=== PATIENT | male | born 1985 | race Caucasian/White ===

== ENCOUNTER 2020-01-08 22:00 | Emergency (ER) | payer SELFPAY ==
[2020-01-08] MEDS ORDERED: ALBUTEROL 2.5 MG/3 ML NEB SOL ONE (22:55)
[2020-01-08] MEDS ORDERED: IPRATROPIUM BROM 0.5MG/2.5ML ONE (22:55)
[2020-01-08] MEDS ORDERED: HYDROCODONE/CHLORPHEN 5 ML/OSYR ONE (23:14)
[2020-01-08] MEDS ORDERED: METHYLPREDNISOLONE 125 MG INJ ONE (23:14)
[2020-01-08 23:28] LABS: Absolute Lymphocytes (CBC) 2.2 K/uL (0.7-4.9); Basophils % 0.9 % (0-1.3); Hematocrit 45.2 % (39.6-49.0); Lymphocytes % 17.8 % (15.3-44.8); MPV 8.7 fL (7.6-11.3); RBC Red Blood Cell Count 5.08 M/uL (4.33-5.43)
[2020-01-08 23:30] LABS: Protime INR 1.04
[2020-01-08 23:40] LABS: ALT/SGPT 37 U/L (12-78); AST/SGOT 12 U/L (15-37); Albumin 3.2 g/dL (3.4-5.0); Alkaline Phosphatase 110 U/L (45-117); BUN Blood Urea Nitrogen 13 mg/dL (7-18); Bicarbonate 26 mmol/L (21-32); Bilirubin Direct < 0.1 mg/dL (0-0.2); Bilirubin Total 0.1 mg/dL (0.2-1.0); Glucose Level 106 mg/dL (74-106); Magnesium 2.2 mg/dL (1.8-2.4); NT PRO-BNP 15 pg/mL (<125); Potassium 3.7 mmol/L (3.5-5.1); Protein, Total 7.7 g/dL (6.4-8.2); Sodium Level 142 mmol/L (136-145); Troponin (Emerg Dept Use Only) < 0.02 ng/mL (0.0-0.045)
[2020-01-09] MEDS ORDERED: NA CHLORIDE 0.9% 1,000 ML ONE (00:24)
[2020-01-09] MEDS ORDERED: BENZONATATE 100 MG CAP PO ONE (02:51)
[2020-01-09] MEDS ORDERED: LEVALBUTEROL 1.25 MG/3 ML NEB ONE (02:59)
--- NOTE | 2020-01-09 03:00 | EDPHYS ---
Physician Documentation [facility] Name: Kendall Kapoor Age: 34 yrs Sex: Male : 1985 Arrival Date: 01/08/2020 Time: 22:03 Bed 7 Private MD: ED Physician Johan Hernandez HPI: 01/07 22:50 This 34 yrs old Male presents to ER via Ambulatory with complaints of cp Shortness Of Breath, Cough, Fever. 22:50 The patient has shortness of breath at rest. Onset: The symptoms/episode began/occurred cp 1.5 week(s) ago. 22:50 Duration: The symptoms are continuous, and are steadily getting worse. cp 22:50 The patient's shortness of breath is aggravated by light activity. Associated signs and cp symptoms: Pertinent positives: chest pain, productive cough, fever, Pertinent negatives: hemoptysis, vomiting. Severity of symptoms: in the emergency department the symptoms are unchanged despite home interventions. Patient reports he does travel for work throughout the country but has not traveled outside of the country. Recently saw a physician via telemedicine who prescribed Tamiflu but symptoms have continued. 22:53 The patient has been recently seen by a physician: in [place] ED, yesterday, with cp similar presenting complaints, left due to difficulty drawing blood. Historical: - Allergies: 22:24 Bees; bb - Home Meds: 22:24 Unable to obtain [Active]; bb - PMHx: 22:24 TIA; enlarged heart; CAD; bb - PSHx: 22:24 rotator cuff; Appendectomy; hemmorrhoidectomy; heart cath; Heart stents; bb - Immunization history:: Adult Immunizations up to date, Flu vaccine is not up to date. - Social history:: Smoking status: Patient reports the use of cigarette tobacco products, denies chronic smoking, but will smoke occasionally. ROS: 22:55 Constitutional: Positive for chills, Negative for fever, poor PO intake. cp 22:55 Eyes: Negative for injury, pain, redness, and discharge. cp 22:55 Neck: Negative for pain with movement, pain at rest, stiffness. cp 22:55 Cardiovascular: Positive for chest pain, with cough, Negative for edema, palpitations. 22:55 Respiratory: Positive for cough, "sounds productive", shortness of breath, Negative for hemoptysis. 22:55 Abdomen/GI: Negative for abdominal pain, nausea, vomiting, and diarrhea, constipation. 22:55 Skin: Negative for erythema, rash. Exam: 23:00 Constitutional: The patient appears in no acute distress, alert, awake, cp non-diaphoretic, non-toxic, well developed, well nourished, obese. 23:00 Head/Face: Normocephalic, atraumatic. Eyes: Pupils equal round and reactive to light, cp extra-ocular motions intact. Lids and lashes normal. Conjunctiva and sclera are non-icteric and not injected. Cornea within normal limits. Periorbital areas with no swelling, redness, or edema. ENT: Nares patent. No nasal discharge, no septal abnormalities noted. Tympanic membranes are normal and external auditory canals are clear. Oropharynx with no redness, swelling, or masses, exudates, or evidence of obstruction, uvula midline. Mucous membranes moist. Neck: Trachea midline, no thyromegaly or masses palpated, and no cervical lymphadenopathy. Supple, full range of motion without nuchal rigidity, or vertebral point tenderness. No Meningismus. Chest/axilla: Normal chest wall appearance and motion. Nontender with no deformity. No lesions are appreciated. 23:00 Cardiovascular: Rate: tachycardic, Rhythm: regular, Heart sounds: murmur, not appreciated, Edema: is not appreciated, JVD: is not appreciated. 23:00 Respiratory: the patient does not display signs of respiratory distress, Respirations: labored breathing, is not present, intercostal retractions, are absent, shallow respirations, are not present, Breath sounds: bronchial sounds, that are moderate, are heard diffusely, decreased breath sounds, are not appreciated, stridor, is not appreciated, + upper airway congestion. wheezing: is not appreciated. 23:00 Abdomen/GI: Inspection: abdomen appears normal, Palpation: abdomen is soft and non-tender, in all quadrants, voluntary guarding, is not appreciated, involuntary guarding, is not appreciated. 23:00 Back: pain, is absent, ROM is normal. 23:00 Skin: no rash present. 23:00 Neuro: Orientation: to person, place \\T\\ time. Mentation: is normal, Cerebellar function: is grossly normal, Motor: moves all fours, strength is normal, Sensation: is normal. 23:20 ECG was reviewed by the Attending Physician. Vital Signs: 22:15 BP 131 / 81; Pulse 112; Resp 20 S; Temp 98.7(O); Pulse Ox 95% on R/A; Weight 127.01 kg bb (R); Height 5 ft. 7 in. (170.18 cm) (R); Pain 4/10; 23:19 BP 130 / 75; Pulse 103; Resp 26; Pulse Ox 90% ; ah 01/08 00:15 BP 125 / 70; Pulse 102; Resp 22; Pulse Ox 92% ; ah 01/07 22:15 Body Mass Index 43.86 (127.01 kg, 170.18 cm) bb MDM: 01/07 22:24 Patient medically screened. [facility] 23:00 Differential diagnosis: asthma, Bronchitis CHF exacerbation, Chronic Obstructive cp Pulmonary Disease pneumonia, Pneumothorax pulmonary edema, Pulmonary Embolism reactive airway disease, Unstable Angina. 01/08 02:52 Data reviewed: vital signs, nurses notes, lab test result(s), EKG, radiologic studies, cp CT scan. Test interpretation: by ED physician or midlevel provider: ECG. 02:52 Antibiotic administration: The patient is discharged and will get outpatient antibiotics, Zithromax. 02:52 Counseling: I had a detailed discussion with the patient and/or guardian regarding: the cp historical points, exam findings, and any diagnostic results supporting the discharge/admit diagnosis, lab results, radiology results, the need for outpatient follow up, a pipe testing technician, to return to the emergency department if symptoms worsen or persist or if there are any questions or concerns that arise at home. Response to treatment: the patient's symptoms have mildly improved after treatment, and as a result, I will discharge patient. 01/07 22:41 Order name: Basic Metabolic Panel; Complete Time: 00:01 cp 01/07 22:41 Order name: CBC with Diff; Complete Time: 00:01 cp 01/07 22:41 Order name: LFT's; Complete Time: 00:01 cp 01/07 22:41 Order name: Magnesium; Complete Time: 00:01 cp 01/07 22:41 Order name: NT PRO-BNP; Complete Time: 00:01 cp 01/07 22:41 Order name: PT-INR; Complete Time: 00:01 cp 01/07 22:41 Order name: Troponin (emerg Dept Use Only); Complete Time: 00:01 cp 01/07 22:41 Order name: Influenza Screen (a \\T\\ B); Complete Time: 00:01 cp 01/07 22:41 Order name: Strep; Complete Time: 00:01 cp 01/07 22:41 Order name: D-Dimer; Complete Time: 00:01 cp 01/08 00:01 Order name: CT Chest For PE Angio cp 01/07 22:41 Order name: EKG; Complete Time: 22:43 cp 01/07 22:41 Order name: Cardiac monitoring; Complete Time: 23:26 cp 01/07 22:41 Order name: EKG - Nurse/Tech; Complete Time: 23:26 cp 01/07 22:41 Order name: IV Saline Lock; Complete Time: 23: cp 01/07 22:41 Order name: Labs collected and sent; Complete Time: 23: cp 01/07 22:41 Order name: O2 Per Protocol; Complete Time: 23: cp 01/07 22:41 Order name: O2 Sat Monitoring; Complete Time: 23:26 cp EC/11 23:20 Rate is 99 beats/min. Rhythm is regular. UT interval is normal. QRS interval is normal cp at 100 msec. QT interval is normal. Interpreted by me. Reviewed by me. Administered Medications: 23:03 Drug: Albuterol 2.5 mg Route: Inhalation; 01/08 01:03 Follow up: Response: No adverse reaction 01/07 23:03 Drug: AtroVENT Aerosol 0.5 mg Route: Inhalation; 01/08 01:03 Follow up: Response: No adverse reaction 01/07 23:13 Drug: Tussionex Pennkinetic ER 5 ml Route: PO; 01/08 01:03 Follow up: Response: No adverse reaction 01/07 23:20 Drug: SOLU-Medrol 125 mg Route: IVP; Site: left antecubital; 01/08 01:03 Follow up: Response: No adverse reaction 00:22 Drug: NS 0.9% 1000 ml Route: IV; Rate: 1000 ml/hr; Site: left antecubital; 01:30 Follow up: Response: No adverse reaction; IV Status: Completed infusion; IV Intake: ah 1000ml 02:49 Drug: Tessalon Perle 200 mg Route: PO; ah 03:37 Follow up: Response: No adverse reaction 02:59 Not Given (Patient Refused): Xopenex (3) 1.25 mg Inhalation once ah Disposition: 07:28 Co-signature as Attending Physician, Johan Hernandez MD I agree with the assessment and [facility] plan of care. Disposition: 01/09/20 02:59 Discharged to Home. Impression: Cough, Shortness of breath. - Condition is Stable. - Discharge Instructions: Shortness of Breath, Aspirin and Your Heart, Cough, Adult. - Prescriptions for Prednisone 20 mg Oral Tablet - take 3 tablet by ORAL route once daily for 5 days; 15 tablet. Albuterol Sulfate 2.5 mg /3 mL (0.083 %) Inhalation Solution for Nebulization - inhale 1 unit by NEBULIZATION route every 8 hours As needed; 1 box. Zithromax Z- Parth 250 mg Oral Tablet - take 1 tablet by ORAL route as directed for 5 days Day 1 - take two (2) tablets one time. Day 2, 3, 4 , 5 take one (1) tablet once daily.; 6 tablet. Albuterol Sulfate 90 mcg/actuation - inhale 1-2 puff by INHALATION route every 4-6 hours; 1 Inhaler. Guaifenesin AC 10- 100 mg/5 mL Oral Liquid - take 10 milliliters by ORAL route every 4 hours As needed no driving while taking medication; 200 milliliter. - Medication Reconciliation Form, Thank You Letter, Antibiotic Education, Prescription Opioid Use form. - Follow up: Jayro Cornelius MD; When: 2 - 3 days; Reason: Recheck today's complaints. - Problem is new. - Symptoms have improved. Signatures: Dispatcher [employer] [facility] Johan Hernandez MD MD cha Ballard, Brenda RN RN bb Tamara Rendon RN RN lp1 Johan Saravia PA PA cp Bryson, James, RN RN jb4 Francine Baird RN RN Corrections: (The following items were deleted from the chart) 03:46 02:59 01/09/2020 02:59 Discharged to Home. Impression: Cough; Shortness of breath. jb4 Condition is Stable. Forms are Medication Reconciliation Form, Thank You Letter, Antibiotic Education, Prescription Opioid Use. Follow up: Jayro Cornelius; When: 2 - 3 days; Reason: Recheck today's complaints. Problem is new. Symptoms have improved. cp
--- NOTE | 2020-01-09 03:00 | ER ---
Nurse's Notes [facility] Name: Kendall Kapoor Age: 34 yrs Sex: Male : 1985 Arrival Date: 01/08/2020 Time: 22:03 Bed 7 Private MD: Diagnosis: Cough;Shortness of breath Presentation: 01/07 22:15 Chief complaint: Patient states: he has been sick x 1 week with cough, fever, SOB saw bb PCP in [place] who told him he had the flu and put him on Tamiflu which didn't help he still has the same symptoms he was seen in [place] yesterday and told him he had "fluid overload" but he was also told he was dehydrated so he is not sure why he is still sick, ROMAN informed employees that people with flu-like symptoms or who had travelled needed physicians clearance to return to work. Coronavirus screen: The patient has NOT traveled to a country currently being monitored by the [facility] within the last 14 days. Ebola Screen: No symptoms or risks identified at this time. Initial Sepsis Screen: Does the patient meet any 2 criteria?. Initial Sepsis Screen: Does the patient meet any 2 criteria? No. Patient's initial sepsis screen is negative. Does the patient have a suspected source of infection? No. Patient's initial sepsis screen is negative. Risk Assessment: Do you want to hurt yourself or someone else? Patient reports no desire to harm self or others. Onset of symptoms was January 03, 2020. 22:15 Method Of Arrival: Ambulatory 22:15 Acuity: JELLY 3 bb Triage Assessment: 01/08 00:24 General: Appears uncomfortable. Respiratory: Reports cough that is productive, Onset: ah The symptoms/episode began/occurred one in a half weeks ago, the patient has moderate shortness of breath. Historical: - Allergies: 01/07 22:24 Bees; bb - Home Meds: 22:24 Unable to obtain [Active]; bb - PMHx: 22:24 TIA; enlarged heart; CAD; bb - PSHx: 22:24 rotator cuff; Appendectomy; hemmorrhoidectomy; heart cath; Heart stents; bb - Immunization history:: Adult Immunizations up to date, Flu vaccine is not up to date. - Social history:: Smoking status: Patient reports the use of cigarette tobacco products, denies chronic smoking, but will smoke occasionally. Screenin/12 00:24 Abuse screen: Denies threats or abuse. Nutritional screening: No deficits noted. Tuberculosis screening: No symptoms or risk factors identified. Fall Risk None identified. Assessment: 01/07 23:16 General: Appears uncomfortable, Behavior is calm, cooperative. Pain: Denies pain. Neuro: Level of Consciousness is awake, alert, obeys commands, Oriented to person, place, time, Segmental Paver Installer are equal bilaterally. Cardiovascular: Heart tones S1 S2 present Capillary refill < 3 seconds Pulses are palpable in right radial artery, right dorsalis pedis artery, left radial artery and left dorsalis pedis artery Rhythm is sinus tachycardia. Respiratory: Airway is patent Respiratory effort is even, unlabored, Respiratory pattern is regular, symmetrical. Respiratory: Breath sounds are coarse bilaterally. GI: Bowel sounds present X 4 quads. : No signs and/or symptoms were reported regarding the genitourinary system. EENT: No signs and/or symptoms were reported regarding the EENT system. Derm: Skin is intact, is healthy with good turgor, Skin is pink, warm \\T\\ dry. 23:32 Reassessment: Received critical lab value from lab, D-dimer 644. Reported to johan CARREON. 01/08 00:23 Reassessment: Patient appears in no apparent distress at this time. Patient and/or family updated on plan of care and expected duration. Pain level reassessed. Patient is alert, oriented x 3, equal unlabored respirations, skin warm/dry/pink. Fluids started at this time. Pt awaiting CT scan, No needs voiced at this time. Patient states symptoms have improved. 02:29 Reassessment: Patient states complaint of cough, verbal order from Provider for lp1 Tessalon Perles 200mg PO now. 02:50 Reassessment: Checked Pts O2 sat on room air, 93%. Instructed him to walk to the end of the [place] and back and O2 sat was 96%. 02:58 Reassessment: Pt refused xopenox nebulizer treatment at this time. FIELD HAULER notified. Vital Signs: 01/07 22:15 BP 131 / 81; Pulse 112; Resp 20 S; Temp 98.7(O); Pulse Ox 95% on R/A; Weight 127.01 kg bb (R); Height 5 ft. 7 in. (170.18 cm) (R); Pain 4/10; 23:19 BP 130 / 75; Pulse 103; Resp 26; Pulse Ox 90% ; 01/08 00:15 BP 125 / 70; Pulse 102; Resp 22; Pulse Ox 92% ; 01/07 22:15 Body Mass Index 43.86 (127.01 kg, 170.18 cm) ED Course: 01/07 22:03 Patient arrived in ED. [id number] 22:21 Triage completed. 22:24 Arm band placed on Patient placed in an exam room, on a stretcher, on pulse oximetry. bb 22:25 Johan Saravia PA is PHCP. cp 22:25 Johan Hernandez MD is Attending Physician. cp 22:37 Francine aBird, LIANE is Primary Nurse. 23:00 Initial lab(s) drawn, by nv, sent to lab. Inserted saline lock: 20 gauge in left bb antecubital area, using aseptic technique. Blood collected. 01/08 00:24 Patient has correct armband on for positive identification. Bed in low position. Call light in reach. 00:[address] via stretcher. 02:59 Jayro Cornelius MD is Referral Physician. cp 03:00 No provider procedures requiring assistance completed. IV discontinued, intact, bleeding controlled, No redness/swelling at site. Pressure dressing applied. 05:32 CT Chest For PE Angio In Process Unspecified. EDMS Administered Medications: 01/07 23:03 Drug: Albuterol 2.5 mg Route: Inhalation; 01/08 01:03 Follow up: Response: No adverse reaction 01/07 23:03 Drug: AtroVENT Aerosol 0.5 mg Route: Inhalation; 01/08 01:03 Follow up: Response: No adverse reaction 01/07 23:13 Drug: Tussionex Pennkinetic ER 5 ml Route: PO; 01/08 01:03 Follow up: Response: No adverse reaction 01/07 23:20 Drug: SOLU-Medrol 125 mg Route: IVP; Site: left antecubital; 01/08 01:03 Follow up: Response: No adverse reaction 00:22 Drug: NS 0.9% 1000 ml Route: IV; Rate: 1000 ml/hr; Site: left antecubital; 01:30 Follow up: Response: No adverse reaction; IV Status: Completed infusion; IV Intake: ah 1000ml 02:49 Drug: Tessalon Perle 200 mg Route: PO; 03:37 Follow up: Response: No adverse reaction ah 02:59 Not Given (Patient Refused): Xopenex (3) 1.25 mg Inhalation once ah Intake: 01:30 IV: 1000ml; Total: 1000ml. Outcome: 02:59 Discharge ordered by MD. cp 03:06 Discharged to home ambulatory. 03:06 Condition: stable 03:06 Discharge instructions given to patient, Instructed on discharge instructions, follow up and referral plans. medication usage, Demonstrated understanding of instructions, follow-up care, medications, Prescriptions given X 5 03:46 Patient left the ED. jb4 Signatures: Dispatcher [employer] EDMS Ashley Marie RN RN bb Tamara Rendon RN RN lp1 Johan Saravia PA PA cp Bryson, James RN RN jb4 Vesna [id number] Francine Baird RN RN Corrections: (The following items were deleted from the chart) 03:33 03:32 Discharged to home ambulatory, [facility] 03:33 03:32 Condition: stable [facility] 03:33 03:32 Discharge instructions given to patient, Instructed on discharge instructions, follow up and referral plans. medication usage, Demonstrated understanding of instructions, follow-up care, medications, Prescriptions given X 5 ah
[2020-01-09 03:54] VITALS: TEMP 98.7
[2020-01-09 03:57] VITALS: BP 125/70; O2SAT 92
--- NOTE | 2020-01-09 08:51 | EKG ---
Test Date: 2020-01-08 Test Time: 23:12:35 Blueprint Blocker: YAZAN MEASUREMENT RESULTS: Intervals: Rate: 99 DC: 112 QRSD: 100 QT: 338 QTc: 433 [place]: P: -5 DC: 112 QRS: 57 T: 47 INTERPRETIVE STATEMENTS: Normal sinus rhythm Normal ECG Compared to ECG 10/08/2013 02:37:14 Sinus tachycardia no longer present Electronically Signed On 01-09-20 08:50:20 CDT by Danis Uriarte
--- NOTE | 2020-01-09 10:49 | RAD REPORT ---
EXAM DESCRIPTION: CT - Chest For Pe Angio - 01/09/2020 6:30 am CLINICAL HISTORY: Cough;SOB;Chest pain COMPARISON: CT chest October 08, 2013 TECHNIQUE: Multiple helical axial tomographic images were obtained of the chest following administra tion of intravenous contrast per angiographic protocol. MIP reformatted images were obtained. This exam was performed according to our departmental dose-optimization program, which includes autom ated exposure control, adjustment of the mA and/or kV according to patient size and/or use of iterati ve reconstruction technique. FINDINGS: Thyroid gland: unremarkable. Axilla: unremarkable. Pulmonary arteries: Pulmonary arteries appear patent. No evidence of pulmonary embolism. Aorta: No evidence of aortic dissection or aneurysm. Mediastinum: Unremarkable. No adenopathy. Heart: Heart is normal in size. Lungs/airways: No consolidation. Airways are patent. Mild dependent atelectasis is present. Pleural spaces: No significant pleural effusion. No pneumothorax. Osseous: Unremarkable. Soft tissues: Unremarkable. Visualized abdomen: Low-attenuation in the liver is present which may be related to fatty changes. IMPRESSION: No acute intrathoracic abnormality. Electronically signed by: Tung Odonnell MD 01/09/2020 2:30 AM CDT Due to temporary technical issues with the PACS/Fluency reporting system, reports are being signed by the in house radiologist as a courtesy to ensure prompt reporting. The interpreting radiologist is f ully responsible for the content of the report.
== END 2020-01-09 03:46 | disposition home or self-care (01) ==
LOC: ER 22:00
DX: R05 Cough (principal); Z72.0 Tobacco use; Z95.818 Presence of other cardiac implants and grafts; Z91.030 Bee allergy status
CPT/HCPCS: 36415; 71275; 80048; 80076; 83735; 83880; 84484; 85025; 85379; 85610; 87070; 87081; 87804; 93005; 96361; 96374; 99285; J2930; J7030; Q9967

== ENCOUNTER 2020-01-17 23:01 | Emergency (ER) | payer SELFPAY ==
[2020-01-18 00:30] LABS: Absolute Lymphocytes (CBC) 2.7 K/uL (0.7-4.9); Hematocrit 43.9 % (39.6-49.0); Lymphocytes % 16.4 % (15.3-44.8); MPV 8.8 fL (7.6-11.3)
[2020-01-18 00:33] LABS: Protime INR 0.9
[2020-01-18 00:50] LABS: ALT/SGPT 27 U/L (12-78); AST/SGOT 12 U/L (15-37); Albumin 3.1 g/dL (3.4-5.0); Alkaline Phosphatase 102 U/L (45-117); BUN Blood Urea Nitrogen 17 mg/dL (7-18); Bicarbonate 25 mmol/L (21-32); Bilirubin Direct < 0.1 mg/dL (0-0.2); Glucose Level 107 mg/dL (74-106); Magnesium 2.3 mg/dL (1.8-2.4); NT PRO-BNP 35 pg/mL (<125); Potassium 3.6 mmol/L (3.5-5.1); Protein, Total 7.3 g/dL (6.4-8.2); Sodium Level 143 mmol/L (136-145); Troponin (Emerg Dept Use Only) < 0.02 ng/mL (0.0-0.045)
[2020-01-18 00:53] LABS: Bilirubin Total < 0.1 mg/dL (0.2-1.0)
[2020-01-18] MEDS ORDERED: NA CHLORIDE 0.9% 1,000 ML ONE (00:58)
[2020-01-18] MEDS ORDERED: NA CHLORIDE 0.9% 500 ML ONE (00:58)
--- NOTE | 2020-01-18 02:18 | ER ---
Nurse's Notes [facility] Name: Kendall Kapoor Age: 34 yrs Sex: Male : 1985 Arrival Date: 01/17/2020 Time: 23:05 Bed 16 Private MD: Diagnosis: Dyspnea;Elevated white blood cell count;Obesity, unspecified;Tobacco abuse counseling;Tobacco use;Chronic obstructive pulmonary disease with (acute) exacerbation;Pneumonia due to other specified bacteria Presentation: 01/16 23:22 Chief complaint: Patient states: Reports he has been having cough for the past three ea weeks, reports he was seen here a few weeks ago and was told he had fluid in his lungs, reports being seen at [place] on Monday and was told that he had pneumonia, reports he was prescribed antibiotics but has not had any relief. Coronavirus screen: The patient has NOT traveled to a country currently being monitored by the CDC within the last 14 days. Ebola Screen: No symptoms or risks identified at this time. Risk Assessment: Do you want to hurt yourself or someone else? Patient reports no desire to harm self or others. 23:22 Method Of Arrival: Ambulatory ea 23:22 Acuity: JELLY 3 ea 01/17 01:26 Initial Sepsis Screen: Does the patient meet any 2 criteria? No. Patient's initial ls4 sepsis screen is negative. Does the patient have a suspected source of infection? Yes: Productive cough/pneumonia. 02:20 Onset of symptoms was December 2019. rr5 Triage Assessment: 01/16 23:27 General: Appears uncomfortable, Behavior is appropriate for age. Neuro: Level of ea Consciousness is awake, alert, obeys commands, Oriented to person, place, time, situation. Respiratory: Parent/caregiver reports the patient having cough that is. Historical: - Allergies: 23:27 Bees; ea - PMHx: 23:27 TIA; Enlarged Heart; CAD; ea - PSHx: 23:27 Heart stents; hemmorrhoidectomy; heart cath; Appendectomy; rotator cuff; ea - Immunization history:: Adult Immunizations up to date. - Social history:: Smoking status: Patient reports the use of cigarette tobacco products, smokes one pack cigarettes per day. - Family history:: not pertinent. Screenin:23 Abuse screen: Denies threats or abuse. Denies injuries from another. Nutritional ls4 screening: No deficits noted. Tuberculosis screening: No symptoms or risk factors identified. Fall Risk None identified. Assessment: 23:15 General: Appears in no apparent distress. uncomfortable. ls4 23:15 Pain: Denies pain. Pain currently is 3 out of 10 on a pain scale. Neuro: No deficits ls4 noted. Cardiovascular: Denies chest pain, diaphoresis, fatigue, lightheadedness, nausea, palpitations, syncope, vomiting, Capillary refill < 3 seconds Clubbing of nail beds is absent JVD is absent Patient's skin is warm and dry. Respiratory: Reports cough that is non-productive, dry, since 3 weeks Airway is patent Respiratory effort is even, shallow, Respiratory pattern is regular, Breath sounds are diminished bilaterally. Breath sounds with rhonchi bilaterally. the patient has moderate shortness of breath. GI: No deficits noted. No signs and/or symptoms were reported involving the gastrointestinal system. : No deficits noted. No signs and/or symptoms were reported regarding the genitourinary system. Derm: Skin is pink, warm \T\ dry. Musculoskeletal: No deficits noted. No signs and/or symptoms reported regarding the musculoskeletal system. 01/17 01:27 Reassessment: Patient appears in no apparent distress at this time. Patient and/or ls4 family updated on plan of care and expected duration. Pain level reassessed. Patient is alert, oriented x 3, equal unlabored respirations, skin warm/dry/pink. 02:30 Reassessment: Patient appears in no apparent distress at this time. Patient is alert, rr5 oriented x 3, equal unlabored respirations, skin warm/dry/pink. hospitalist came and assess the patient. 02:55 Reassessment: Patient appears in no apparent distress at this time. Patient is alert, rr5 oriented x 3, equal unlabored respirations, skin warm/dry/pink. patient does not want to stay for admission, refused for CT scan and wants to removed his contraptions. ED provider informed. 03:15 Reassessment: Patient appears in no apparent distress at this time. Patient is alert, rr5 oriented x 3, equal unlabored respirations, skin warm/dry/pink. Patient denies pain at this time. ED provider spoke to patient and ordered for discharge.. 03:30 Reassessment: Patient appears in no apparent distress at this time. No changes from rr5 previously documented assessment. discharge instruction given and explained without complaints made. Vital Signs: 01/16 23:22 BP 145 / 77; Pulse 103; Resp 20; Temp 97.6; Pulse Ox 95% on R/A; Weight 122.47 kg; ea Height 5 ft. 7 in. (170.18 cm); 01/17 02:30 BP 131 / 80; Pulse 90; Resp 19; Pulse Ox 97% on R/A; rr5 03:10 BP 133 / 78; Pulse 99; Resp 21; Temp 97.9; Pulse Ox 99% on 15% Nebulizer Mask; rr5 01/16 23:22 Body Mass Index 42.29 (122.47 kg, 170.18 cm) ea ED Course: 01/16 23:05 Patient arrived in ED. es 23:15 Johan Hernandez MD is Attending Physician. ankit 23:22 Meghan Cao, LIANE is Primary Nurse. ls4 23:23 Patient has correct armband on for positive identification. Bed in low position. Call ls4 light in reach. Side rails up X 1. potline monitor on. Pulse ox on. NIBP on. 23:23 No provider procedures requiring assistance completed. ls4 23:26 Triage completed. ea 23:26 Arm band placed on right wrist. Patient placed in an exam room, on a stretcher, on ea pulse oximetry. 01/17 00:12 Initial lab(s) drawn, by me, sent to lab. First set of blood cultures drawn by me, EKG lt1 done, by ED staff, Flu and/or RSV swab sent to lab. 00:19 Inserted saline lock: 22 gauge in left forearm, using aseptic technique. lt1 00:20 Influenza Screen (a \T\ B) Sent. lt1 02:05 Chest Pa And Lat (2 Views) XRAY In Process Unspecified. EDMS 02:16 Amee Alonzo MD is Hospitalizing Provider. ankit 03:10 IV discontinued, intact, bleeding controlled, No redness/swelling at site. Pressure rr5 dressing applied, as per patient request. 03:14 Jayro Cornelius MD is Referral Physician. ankit Administered Medications: Discontinued: levofloxacin 750 mg 150 ml IVPB once over 90 mins 01:00 Drug: NS 0.9% 500 ml Route: IV; Rate: bolus; Site: left antecubital; ls4 01:00 Drug: NS 0.9% 1000 ml Route: IV; Rate: 125 ml/hr; Site: left antecubital; ls4 03:29 Follow up: Response: No adverse reaction; IV Status: Order to discontinue infusion; IV rr5 Intake: 125ml 02:00 Drug: levofloxacin 750 mg Volume: 150 ml; Route: IVPB; Infused Over: 90 mins; Site: rr5 left antecubital; 03:29 Follow up: Response: No adverse reaction; IV Status: Order to discontinue infusion; IV rr5 Intake: 100ml 02:45 Drug: SOLU-Medrol 125 mg Route: IVP; Site: left forearm; rr5 03:30 Follow up: Response: No adverse reaction rr5 02:48 Drug: Xopenex 1.25 mg Route: Inhalation; rr5 03:29 Follow up: Response: No adverse reaction rr5 02:48 Drug: AtroVENT Aerosol 0.5 mg Route: Inhalation; rr5 03:29 Follow up: Response: No adverse reaction rr5 Intake: 03:29 IV: 100ml; Total: 100ml. rr5 03:29 IV: 125ml; Total: 225ml. rr5 Outcome: 02:17 Decision to Hospitalize by Provider. ankit 03:16 Discharge ordered by . ankit 03:28 Discharged to home ambulatory. rr5 03:28 Condition: stable 03:28 Discharge instructions given to patient, Instructed on discharge instructions, follow up and referral plans. medication usage, Demonstrated understanding of instructions, follow-up care, medications, Prescriptions given X 3. 03:29 Patient left the ED. rr5 Signatures: Dispatcher [employer] Johan Becerra MD MD cha Salyer, Edna es Antunez, Elena RN Meghan Moralez ea, RN RN ls4 Stas Varner RN RN rr5 Tammy Martell 1
--- NOTE | 2020-01-18 02:18 | EDPHYS ---
Physician Documentation [facility] Name: Kendall Kapoor Age: 34 yrs Sex: Male : 1985 Arrival Date: 01/17/2020 Time: 23:05 Bed 16 Private MD: ARNOLDO Physician Johan Hernandez HPI: 01/16 23:46 This 34 yrs old Male presents to ER via Ambulatory with complaints of Cough, ankit fluid on lungs. 23:46 The patient or guardian reports cough, difficulty breathing, flu symptoms. Onset: The ankit symptoms/episode began/occurred 7 day(s) ago. Severity of symptoms: At their worst the symptoms were moderate. Modifying factors: The symptoms are alleviated by nothing. The patient has experienced similar episodes in the past, a few times. Historical: - Allergies: 23: Bees; ea - PMHx: : TIA; Enlarged Heart; CAD; ea - PSHx: 23:27 Heart stents; hemmorrhoidectomy; heart cath; Appendectomy; rotator cuff; ea - Immunization history:: Adult Immunizations up to date. - Social history:: Smoking status: Patient reports the use of cigarette tobacco products, smokes one pack cigarettes per day. - Family history:: not pertinent. ROS: 23:46 Constitutional: Negative for fever, chills, and weight loss, Eyes: Negative for injury, ankit pain, redness, and discharge, ENT: Negative for injury, pain, and discharge, Neck: Negative for injury, pain, and swelling, Cardiovascular: Negative for chest pain, palpitations, and edema, Abdomen/GI: Negative for abdominal pain, nausea, vomiting, diarrhea, and constipation, Back: Negative for injury and pain, : Negative for injury, bleeding, discharge, and swelling, MS/Extremity: Negative for injury and deformity, Skin: Negative for injury, rash, and discoloration, Neuro: Negative for headache, weakness, numbness, tingling, and seizure, Psych: Negative for depression, anxiety, suicide ideation, homicidal ideation, and hallucinations, Allergy/Immunology: Negative for hives, rash, and allergies, Endocrine: Negative for neck swelling, polydipsia, polyuria, polyphagia, and marked weight changes, Hematologic/Lymphatic: Negative for swollen nodes, abnormal bleeding, and unusual bruising. 23:46 Respiratory: Positive for cough, shortness of breath, on exertion. Exam: 23:46 Constitutional: This is a well developed, well nourished patient who is awake, alert, ankit and in no acute distress. Head/Face: Normocephalic, atraumatic. Eyes: Pupils equal round and reactive to light, extra-ocular motions intact. Lids and lashes normal. Conjunctiva and sclera are non-icteric and not injected. Cornea within normal limits. Periorbital areas with no swelling, redness, or edema. ENT: Nares patent. No nasal discharge, no septal abnormalities noted. Tympanic membranes are normal and external auditory canals are clear. Oropharynx with no redness, swelling, or masses, exudates, or evidence of obstruction, uvula midline. Mucous membranes moist. Neck: Trachea midline, no thyromegaly or masses palpated, and no cervical lymphadenopathy. Supple, full range of motion without nuchal rigidity, or vertebral point tenderness. No Meningismus. Chest/axilla: Normal chest wall appearance and motion. Nontender with no deformity. No lesions are appreciated. Cardiovascular: Regular rate and rhythm with a normal S1 and S2. No gallops, murmurs, or rubs. Normal PMI, no JVD. No pulse deficits. Abdomen/GI: Soft, non-tender, with normal bowel sounds. No distension or tympany. No guarding or rebound. No evidence of tenderness throughout. Back: No spinal tenderness. No costovertebral tenderness. Full range of motion. Male : Normal genitalia with no discharge or lesions. Skin: Warm, dry with normal turgor. Normal color with no rashes, no lesions, and no evidence of cellulitis. MS/ Extremity: Pulses equal, no cyanosis. Neurovascular intact. Full, normal range of motion. Neuro: Awake and alert, GCS 15, oriented to person, place, time, and situation. Cranial nerves II-XII grossly intact. Motor strength 5/5 in all extremities. Sensory grossly intact. Cerebellar exam normal. Normal gait. Psych: Awake, alert, with orientation to person, place and time. Behavior, mood, and affect are within normal limits. 23:46 Respiratory: the patient does not display signs of respiratory distress, Respirations: labored breathing, that is mild, Breath sounds: decreased breath sounds, rhonchi, that are mild. Vital Signs: 23:22 BP 145 / 77; Pulse 103; Resp 20; Temp 97.6; Pulse Ox 95% on R/A; Weight 122.47 kg; ea Height 5 ft. 7 in. (170.18 cm); 01/17 02:30 BP 131 / 80; Pulse 90; Resp 19; Pulse Ox 97% on R/A; rr5 03:10 BP 133 / 78; Pulse 99; Resp 21; Temp 97.9; Pulse Ox 99% on 15% Nebulizer Mask; rr5 01/16 23:22 Body Mass Index 42.29 (122.47 kg, 170.18 cm) ea MDM: 01/16 23:15 Patient medically screened. [facility] 23:50 Data reviewed: vital signs, nurses notes, lab test result(s), EKG, radiologic studies, [facility] CT scan, plain films. 01/16 23:45 Order name: Basic Metabolic Panel; Complete Time: 00:56 [facility] 01/16 23:45 Order name: CBC with Diff; Complete Time: 00:56 [facility] 01/16 23:45 Order name: LFT's; Complete Time: 00:56 [facility] 01/16 23:45 Order name: Magnesium; Complete Time: 00:56 [facility] 01/16 23:45 Order name: NT PRO-BNP; Complete Time: 00:56 [facility] 01/16 23:45 Order name: PT-INR; Complete Time: 00:56 [facility] 01/16 23:45 Order name: Troponin (emerg Dept Use Only); Complete Time: 00:56 [facility] 01/16 23:45 Order name: Blood Culture Adult (2) [facility] 01/16 23:45 Order name: Lactate; Complete Time: 00:56 [facility] 01/16 23:45 Order name: Procalcitonin; Complete Time: 02:22 [facility] 01/16 23:45 Order name: Influenza Screen (a \T\ B); Complete Time: 00:56 [facility] 01/17 00:56 Order name: Chest Pa And Lat (2 Views) XRAY 01/16 23:45 Order name: EKG; Complete Time: 23:46 [facility] 01/16 23:45 Order name: Cardiac monitoring; Complete Time: 02:49 [facility] 01/16 23:45 Order name: EKG - Nurse/Tech; Complete Time: 00:20 [facility] 01/16 23:45 Order name: IV Saline Lock; Complete Time: 00:20 [facility] 01/16 23:45 Order name: Labs collected and sent; Complete Time: 00:20 [facility] 01/16 23:45 Order name: O2 Per Protocol; Complete Time: 02:49 [facility] 01/16 23:45 Order name: O2 Sat Monitoring; Complete Time: 02:49 [facility] Administered Medications: Discontinued: levofloxacin 750 mg 150 ml IVPB once over 90 mins 01/17 01:00 Drug: NS 0.9% 500 ml Route: IV; Rate: bolus; Site: left antecubital; ls4 01:00 Drug: NS 0.9% 1000 ml Route: IV; Rate: 125 ml/hr; Site: left antecubital; ls4 03:29 Follow up: Response: No adverse reaction; IV Status: Order to discontinue infusion; IV rr5 Intake: 125ml 02:00 Drug: levofloxacin 750 mg Volume: 150 ml; Route: IVPB; Infused Over: 90 mins; Site: rr5 left antecubital; 03:29 Follow up: Response: No adverse reaction; IV Status: Order to discontinue infusion; IV rr5 Intake: 100ml 02:45 Drug: SOLU-Medrol 125 mg Route: IVP; Site: left forearm; rr5 03:30 Follow up: Response: No adverse reaction rr5 02:48 Drug: Xopenex 1.25 mg Route: Inhalation; rr5 03:29 Follow up: Response: No adverse reaction rr5 02:48 Drug: AtroVENT Aerosol 0.5 mg Route: Inhalation; rr5 03:29 Follow up: Response: No adverse reaction rr5 Disposition: 01/18/20 03:16 Discharged to Home. Impression: Dyspnea, Elevated white blood cell count, Obesity, unspecified, Tobacco abuse counseling, Tobacco use, Chronic obstructive pulmonary disease with (acute) exacerbation, Pneumonia due to other specified bacteria. - Condition is Stable. - Discharge Instructions: Chronic Bronchitis, Chronic Obstructive Pulmonary Disease, How to Use an Inhaler, Obesity, Adult, Community-Acquired Pneumonia, Adult, Shortness of Breath, Steps to Quit Smoking, Smoking Hazards, Shortness of Breath, [id number], Chronic Obstructive Pulmonary Disease, [id number], Aspirin and Your Heart. - Prescriptions for Levaquin 750 mg Oral Tablet - take 1 tablet by ORAL route once daily for 7 days; 7 tablet. Medrol (Parth) 4 mg Oral Tablets, Dose Pack - take 1 tablet by ORAL route as directed - follow package instructions; 1 packet. Albuterol Sulfate 90 mcg/actuation - inhale 1-2 puff by INHALATION route every 4-6 hours; 1 Inhaler. - Medication Reconciliation Form, Thank You Letter, Antibiotic Education, Prescription Opioid Use form. - Follow up: Private Physician; When: 2 - 3 days; Reason: Recheck today's complaints, Continuance of care, Re-evaluation by your physician. Follow up: Jayro Cornelius MD; When: 2 - 3 days; Reason: Recheck today's complaints, Continuance of care, Re-evaluation by your physician. - Problem is new. - Symptoms have improved. Signatures: Dispatcher [employer] [facility] Johan Hernandez MD MD cha Antunez, Elena, RN RN Meghan Angelo RN RN ls4 Stas Varner RN RN rr5 Corrections: (The following items were deleted from the chart) 00:11 01/16 23:47 Chest For PE Angio+CT.RAD.BRZ ordered. [facility] 01/17 03:14 02:17 Hospitalization Ordered by Amee Alonzo MD for Inpatient Admission. Preliminary [facility] diagnosis is Dyspnea; Pneumonia due to other specified bacteria; Obesity, unspecified; Elevated white blood cell count. Bed requested for Telemetry/MedSurg (Inpatient). Status is Inpatient Admission. Condition is Stable. Problem is new. Symptoms have improved. [facility] 03:29 03:16 01/18/2020 03:16 Discharged to Home. Impression: Dyspnea; Elevated white blood rr5 cell count; Obesity, unspecified; Tobacco abuse counseling; Tobacco use; Chronic obstructive pulmonary disease with (acute) exacerbation; Pneumonia due to other specified bacteria. Condition is Stable. Forms are Medication Reconciliation Form, Thank You Letter, Antibiotic Education, Prescription Opioid Use. Follow up: Private Physician; When: 2 - 3 days; Reason: Recheck today's complaints, Continuance of care, Re-evaluation by your physician. Follow up: Jayro Cornelius; When: 2 - 3 days; Reason: Recheck today's complaints, Continuance of care, Re-evaluation by your physician. Problem is new. Symptoms have improved. ankit
[2020-01-18] MEDS ORDERED: Levofloxacin 750mg IV 750 MG/150 ML BAG IV ONE (02:31)
[2020-01-18] MEDS ORDERED: METHYLPREDNISOLONE 125 MG INJ ONE (02:45)
[2020-01-18] MEDS ORDERED: IPRATROPIUM BROM 0.5MG/2.5ML ONE (02:45)
[2020-01-18] MEDS ORDERED: LEVALBUTEROL 1.25 MG/3 ML NEB ONE (02:46)
--- NOTE | 2020-01-18 03:09 | P.HP ---
Certification for Inpatient Patient admitted to: Observation With expected LOS: <2 Midnights Patient will require the following post-hospital care: None Practitioner: I am a practitioner with admitting privileges, knowledge of patient current condition, hospital course, and medical plan of care. Services: Services provided to patient in accordance with Admission requirements found in Title 42 Section 412.3 of the Code of Federal Regulations Patient History Date of Service: 01/18/20 Reason for admission: Cough and shortness of breath History of Present Illness: 34-year-old male with past medical history of obesity, hypertension, coronary artery disease presented because of persistent cough since the last 3 weeks. cough is typically non -productive . History of multiple emergency room visits including a CTA done 6 days ago with no evidence of pulmonary emboli seen. Patient states cough continued to persist associated with pleuritic chest pain. He denies any body swelling. He admits persistent worsening shortness of breath. He was evaluated [address] [facility]. He states he has always been told in the this previous ER visit that he has fluid in his lungs. He has received Tamiflu for 5 days from his primary care physician 2 weeks ago. He has also received steroids course 1 week ago for presumed COPD but no chnage in his symptoms . His BNP today is 35. Allergies No Known Allergies Allergy (Unverified 10/08/13 07:22) Home medications list reviewed: No Home Medications: Cyclobenzaprine HCl [Flexeril] 5 mg PO Q8H 10/08/13 Enalapril [Vasotec*] 10 mg PO DAILY 10/08/13 Cefdinir [Omnicef] 300 mg PO BID #14 capsule 10/09/13 Hydrocodone 10/APAP 325 [[place] 10/325*] 1 tab PO Q6H PRN #30 tab 10/09/13 - Past Medical/Surgical History Diabetic: No -: HTN -: Obesity -: CAD -: Appendectomy -: Hemorrhodectomy -: PCI - Family History Family History: Reviewed- Non-Contributory - Family History Father -: Cancer (Prostate cancer) - Social History Smoking Status: Current every day smoker Smoking therapy provided: No Alcohol use: No CD- Drugs: No Caffeine use: Yes Review of Systems 10-point ROS is otherwise unremarkable General: Weakness Respiratory: Cough, Shortness of Breath, SOB with Excertion, Pleuritic Pain Cardiovascular: Edema Gastrointestinal: Unremarkable Genitourinary: Unremarkable Musculoskeletal: Back Pain, Pedal edema, Unremarkable Integumentary: Unremarkable Physical Examination - Physical Exam General: Alert, Oriented x3, Cooperative HEENT: Atraumatic, Normocephalic, PERRLA Neck: Supple, 2+ carotid pulse no bruit, JVD not distended Respiratory: Crackles/rales, Expiratory wheezes Cardiovascular: Regular rate/rhythm, Normal S1 S2, Edema Capillary refill: <2 Seconds Gastrointestinal: Normal bowel sounds, Soft and benign, Non-distended, No tenderness Musculoskeletal: No clubbing, Swelling Integumentary: Tenderness/swelling (right LE) Neurological: Normal speech, Normal strength at 5/5 x4 extr - Studies Laboratory Data (last 24 hrs) 01/18/20 00:12: PT 10.6, INR 0.90 01/18/20 00:12: WBC 16.2 H D, Hgb 14.4, Hct 43.9, Plt Count 387 01/18/20 00:12: Sodium 143, Potassium 3.6, BUN 17, Creatinine 0.72, Glucose 107 H, Magnesium 2.3, Total Bilirubin < 0.1 L, AST 12 L, ALT 27, Alkaline Phosphatase 102 Microbiology Data (last 24 hrs): 01/18/20 00:12 Nasopharnyx Influenza Type A Antigen Screen - Final 01/18/20 00:12 Nasopharnyx Influenza Type B Antigen Screen - Final Assessment and Plan - Problems (Diagnosis) (1) Wheezing Current Visit: Yes Status: Acute (2) Obesity Current Visit: Yes Status: Acute (3) HTN (hypertension) Current Visit: Yes Status: Acute - Advance Directives Does patient have a Living Will: No Does patient have a Durable POA for Healthcare: No - Code Status/Comfort Care Code Status Assessed: Yes Physician Review: Patient Assessed, Agree with Above Assessment and Plan Physician Review Additional Text: # PERSISTENT COUGH-of clear etiology, may be due to CHF given chest x-ray findings as well as history of coronary artery disease -chest x-ray did not show any acute pneumonia but appears consistent with pulmonary edema -mild leukocytosis may be due to recent steroid use -normal procalcitonin also consistent with less likelihood of pneumonia -possibility of obesity related syndrome also considered -we do empirical trial of diuresis for now despite low pro BNP -for repeat CTA of the chest although previous CT PE protocol did not show any pulmonary emboli seen -may need Pulmonary input if no improvement in a.m. # Hypertension-obtain home medication list -will deal IV hydralazine p.r.n. -hold off SHELTON because/enalapril for now given possibility of SHELTON induced cough # chronic tobacco use-with the nicotine patch # DVT prophylaxis-subcutaneous Lovenox # Advanced directive-full code Critical Care: Yes Time Spent Managing Pts Care (In Minutes): 65
[2020-01-18] MEDS ORDERED: ONDANSETRON 4 MG/2 ML VIAL IV PRN (03:22)
[2020-01-18] MEDS ORDERED: MORPHINE 2 MG/ML SYR IV PRN (03:22)
[2020-01-18] MEDS ORDERED: POTASSIUM 25 MEQ EFFERV TAB PO ONE (03:25)
[2020-01-18] MEDS ORDERED: HYDRALAZINE HCL 20 MG/ML VIAL IV PRN (03:25)
[2020-01-18] MEDS ORDERED: FUROSEMIDE 40 MG/4 ML VIAL IV SCH (03:25)
[2020-01-18] MEDS ORDERED: GUAIFENESIN/DM 5 ML UCUP PO PRN (03:25)
[2020-01-18] MEDS ORDERED: ALBUTEROL 2.5 MG/3 ML NEB SOL NEB PRN (03:25)
[2020-01-18 03:46] VITALS: BP 145/77; TEMP 97.6; O2SAT 95
[2020-01-18] MEDS ORDERED: ALBUTEROL 2.5 MG/3 ML NEB SOL NEB SCH (04:00)
[2020-01-18] MEDS ORDERED: IPRATROPIUM BROM 0.5MG/2.5ML NEB SCH (04:00)
[2020-01-18] MEDS ORDERED: METHYLPREDNISOLONE 125 MG INJ IV SCH (06:00)
[2020-01-18] MEDS ORDERED: GUAIFENESIN 600 MG SA TAB PO SCH (09:00)
[2020-01-18] MEDS ORDERED: ENOXAPARIN 40 MG/0.4 ML SQ SCH (09:00)
[2020-01-18] MEDS ORDERED: NICOTINE 21 MG/PAT TD SCH (09:00)
[2020-01-18] MEDS ORDERED: CEFTRIAXONE 1 GM/NS 50 ML 1 GM/50 ML BAG IV SCH (09:00)
--- NOTE | 2020-01-18 10:17 | RAD REPORT ---
EXAM DESCRIPTION: Garrison Payne And Chaitanya (2 Views)01/18/2020 2:03 am CLINICAL HISTORY: Cough COMPARISON: 2012 FINDINGS: The upper lobe vessels are prominent indicative of pulmonary venous hypertension The lungs appear clear of acute infiltrate. The heart is mildly enlarged
--- NOTE | 2020-01-19 09:00 | EKG ---
Test Date: 2020-01-18 Test Time: 00:16:33 Back End Developer: KEYLA MEASUREMENT RESULTS: Intervals: Rate: 100 UT: 110 QRSD: 100 QT: 340 QTc: 438 [place]: P: -2 UT: 110 QRS: 57 T: 34 INTERPRETIVE STATEMENTS: Sinus rhythm with short UT Otherwise normal ECG Compared to ECG 01/08/2020 23:12:35 Short UT interval now present Electronically Signed On 01-19-20 08:58:01 CDT by Danis Uriarte
== END 2020-01-18 03:29 | disposition home or self-care (01) ==
LOC: ER 23:01
DX: J44.1 Chronic obstructive pulmonary disease with (acute) exacerbation (principal); J18.9 Pneumonia, unspecified organism; D72.829 Elevated white blood cell count, unspecified; Z72.0 Tobacco use; Z71.6 Tobacco abuse counseling; Z91.030 Bee allergy status; Z95.5 Presence of coronary angioplasty implant and graft; F17.210 Nicotine dependence, cigarettes, uncomplicated
CPT/HCPCS: 36415; 71046; 80048; 80076; 83605; 83735; 83880; 84145; 84484; 85025; 85610; 87040; 87804; 93005; 96361; 96365; 96375; 99285; J2930; J7030; J7040

== ENCOUNTER 2020-05-25 13:06 | Observation (INO) | payer BC, SELFPAY ==
[2020-05-25] MEDS ORDERED: MORPHINE 4 MG/ML SYR ONE ×2 (13:45→16:20)
[2020-05-25] MEDS ORDERED: ONDANSETRON 4 MG/2 ML VIAL ONE (13:45)
[2020-05-25 14:35] LABS: Absolute Lymphocytes (CBC) 2.2 K/uL (0.7-4.9); Basophils % 0.9 % (0-1.3); Hematocrit 45.2 % (39.6-49.0); Lymphocytes % 18.6 % (15.3-44.8); MPV 9.4 fL (7.6-11.3); RBC Red Blood Cell Count 5.08 M/uL (4.33-5.43)
[2020-05-25 14:49] LABS: BUN Blood Urea Nitrogen 12 mg/dL (7-18); Bicarbonate 29 mmol/L (21-32); Glucose Level 102 mg/dL (74-106); Sodium Level 144 mmol/L (136-145)
[2020-05-25 18:08] VITALS: TEMP 98.1
[2020-05-25 18:11] VITALS: BP 126/92; O2SAT 92
--- NOTE | 2020-05-25 21:35 | ER ---
Nurse's Notes [facility] Name: Kendall Kapoor Age: 34 yrs Sex: Male : 1985 Arrival Date: 05/25/2020 Time: 13:07 Bed 25 Private MD: Diagnosis: Bilateral inguinal hernia, without obstruction or gangrene Presentation: 05/25 13:24 Chief complaint: Patient states: States the hernia in his left groin has been giving ll1 him severe pain since last night. Sent by PCP for eval. Coronavirus screen: Patient reports a cough. Patient denies shortness of breath or difficulty breathing. Patient denies measured and/or subjective temperature greater than 100.4F prior to today's visit. Patient denies travel on a cruise ship or to a country the [facility] currently lists as an affected area. Patient denies contact with known and/or suspected case of COVID-19. Patient instructed to continue to wear a mask when interacting with others. Patient moved to private room, placed in contact and droplet isolation with eye protection until further assessment. "Smokers cough". Ebola Screen: Patient denies travel to an Ebola-affected area in the 21 days before illness onset. Initial Sepsis Screen: Does the patient meet any 2 criteria? HR > 90 bpm. Risk Assessment: Do you want to hurt yourself or someone else? Patient reports no desire to harm self or others. Onset of symptoms was May 24, 2020. 13:24 Method Of Arrival: Ambulatory ll1 13:24 Acuity: JELLY 3 ll1 14:00 Initial Sepsis Screen: Does the patient have a suspected source of infection? No. vc Patient's initial sepsis screen is negative. Triage Assessment: 14:20 General: Appears in no apparent distress. Behavior is calm, cooperative, appropriate vc for age. Historical: - Allergies: 13:26 No Known Allergies; ll1 - PMHx: 13:26 CAD; Enlarged Heart; TIA; ll1 - PSHx: 13:26 Heart stents; heart cath; Appendectomy; rotator cuff; hemmorrhoidectomy; ll1 - Immunization history:: Flu vaccine is not up to date. - Social history:: Smoking status: Patient reports the use of cigarette tobacco products, smokes one pack cigarettes per day. Patient/guardian denies using alcohol, street drugs. - Family history:: not pertinent. - Hospitalizations: : No recent hospitalization is reported. Screenin:00 Abuse screen: Denies threats or abuse. Nutritional screening: No deficits noted. vc Tuberculosis screening: No symptoms or risk factors identified. Fall Risk None identified. Assessment: 14:26 General: Appears in no apparent distress. Behavior is calm, cooperative, appropriate ah for age. Pain: Complains of pain in groin and left femoral area Pain currently is 10 out of 10 on a pain scale. Quality of pain is described as piercing, stinging, Pain began 1 day ago. Neuro: Level of Consciousness is awake, alert, obeys commands, Oriented to person, place, time, situation. Cardiovascular: Capillary refill < 3 seconds Patient's skin is warm and dry. Respiratory: Airway is patent Respiratory effort is even, unlabored, Respiratory pattern is regular, symmetrical. Derm: Skin is intact, is healthy with good turgor, Skin is dry. 14:31 Reassessment: Pt to CT scan via . 14:56 Reassessment: Patient and/or family updated on plan of care and expected duration. Pain ah level reassessed. Patient is alert, oriented x 3, equal unlabored respirations, skin warm/dry/pink. awaiting on CT and lab results. 15:46 Reassessment: Patient and/or family updated on plan of care and expected duration. Pain ah level reassessed. Patient is alert, oriented x 3, equal unlabored respirations, skin warm/dry/pink. Awaiting results. Pt slightly restless. Denies any needs at this time. 16:34 Reassessment: Pt awaiting to see the surgeon. 17:27 Reassessment: Surgeon in to see MD at this time. 17:57 Reassessment: Pt given discharge instructions and told to follow up with surgeon on Monday. Pt voiced understanding. Vital Signs: 13:24 BP 138 / 92; Pulse 105; Resp 20; Temp 98.1; Pulse Ox 92% on R/A; Pain 8/10; ll1 14:00 BP 120 / 87; Pulse 92; Resp 20; Pulse Ox 97% on R/A; vc 15:00 BP 124 / 72; Pulse 82; Resp 17; Pulse Ox 95% ; ah 17:00 BP 126 / 92; Pulse 85; Resp 17; Pulse Ox 92% ; ED Course: 13:07 Patient arrived in ED. fj1 13:23 Jason Canseco MD is Attending Physician. rn 13:25 Triage completed. ll1 13:26 Arm band placed on Patient placed in an exam room, on a stretcher. ll1 13:34 Francine Baird, RN is Primary Nurse. 13:50 Inserted saline lock: 22 gauge in right antecubital area, using aseptic technique. vc Blood collected. 14:00 Patient has correct armband on for positive identification. Pulse ox on. NIBP on. vc 14:43 CT Abd/Pelvis - IV Contrast Only In Process Unspecified. EDWA 16:51 Yogi Hughes MD is Hospitalizing Provider. rn 17:38 Yogi Hughes MD is Referral Physician. rn 17:58 No provider procedures requiring assistance completed. IV discontinued, intact, bleeding controlled, No redness/swelling at site. Pressure dressing applied. Administered Medications: 13:55 Drug: morphine 4 mg Route: IVP; Site: right antecubital; 15:50 Follow up: Response: No adverse reaction 13:55 Drug: Zofran (Ondansetron) 4 mg Route: IVP; Site: right antecubital; 15:50 Follow up: Response: No adverse reaction Outcome: 16:51 Decision to Hospitalize by Provider. rn 17:38 Discharge ordered by . rn 17:58 Discharged to home ambulatory. 17:58 Condition: good 17:58 Discharge instructions given to patient, Instructed on discharge instructions, follow up and referral plans. medication usage, Demonstrated understanding of Prescriptions given X 1. 18:00 Patient left the ED. Signatures: Dispatcher [employer] EDWA Jason Canseco MD MD rn Calcote, Vanessa, RN RN vc James, Frank [facility] Francine Baird RN RN ah Lewis, Lynsay, RN RN 1
--- NOTE | 2020-05-25 21:35 | EDPHYS ---
Physician Documentation [facility] Name: Kendall Kapoor Age: 34 yrs Sex: Male : 1985 Arrival Date: 05/25/2020 Time: 13:07 Bed 25 Private MD: ED Physician Jason Canseco HPI: 05/25 15:11 This 34 yrs old Male presents to ER via Ambulatory with complaints of rn POSSIBLE HERNIA. 15:11 The patient presents with abdominal pain left groin. Onset: The symptoms/episode rn began/occurred last night. The symptoms do not radiate. Associated signs and symptoms: Pertinent positives: constipation, nausea, Pertinent negatives: blood in stools, fever. Modifying factors: The symptoms are alleviated by nothing, the symptoms are aggravated by touching the area. Severity of pain: At its worst the pain was moderate in the emergency department the pain is unchanged. The patient has not experienced similar symptoms in the past. Reports has had a left groin hernia since 17 years old, last night, left groin pain, worse than before, not letting up, contacted his doctor who told him sounds like hernia is stuck and to go to ER immediately. No vomiting, + nausea, + constipation. Reports "lightning pain to area". . Historical: - Allergies: 13:26 No Known Allergies; ll1 - PMHx: 13:26 CAD; Enlarged Heart; TIA; ll1 - PSHx: 13:26 Heart stents; heart cath; Appendectomy; rotator cuff; hemmorrhoidectomy; ll1 - Immunization history:: Flu vaccine is not up to date. - Social history:: Smoking status: Patient reports the use of cigarette tobacco products, smokes one pack cigarettes per day. Patient/guardian denies using alcohol, street drugs. - Family history:: not pertinent. - Hospitalizations: : No recent hospitalization is reported. ROS: 15:11 Constitutional: Negative for fever, chills, and weight loss, Eyes: Negative for injury, rn pain, redness, and discharge, Cardiovascular: Negative for chest pain, palpitations, and edema, Respiratory: Negative for shortness of breath, cough, wheezing, and pleuritic chest pain, Abdomen/GI: Negative for vomiting, diarrhea, and constipation, MS/Extremity: Negative for injury and deformity, Skin: Negative for injury, rash, and discoloration, Neuro: Negative for headache, weakness, numbness, tingling, and seizure. Exam: 15:11 Constitutional: This is a well developed, well nourished patient who is awake, alert, rn and in no acute distress. Ambulatory to room without difficulty or assistance. Head/Face: Normocephalic, atraumatic. Cardiovascular: Regular rate and rhythm. No pulse deficits. Respiratory: No increased work of breathing, no retractions or nasal flaring. Abdomen/GI: soft, + mild tenderness left inguinal region without palpable mass Male : Normal genitalia with no discharge or lesions. No scrotal tenderness or swelling. MS/ Extremity: Pulses equal, no cyanosis. Neurovascular intact. Full, normal range of motion. Equal circumference. Neuro: Awake and alert, GCS 15 Vital Signs: 13:24 BP 138 / 92; Pulse 105; Resp 20; Temp 98.1; Pulse Ox 92% on R/A; Pain 8/10; ll1 14:00 BP 120 / 87; Pulse 92; Resp 20; Pulse Ox 97% on R/A; vc 15:00 BP 124 / 72; Pulse 82; Resp 17; Pulse Ox 95% ; ah 17:00 BP 126 / 92; Pulse 85; Resp 17; Pulse Ox 92% ; ah MDM: 13:23 Patient medically screened. rn 16:11 Differential diagnosis: incarcerated inguinal hernia. rn 16:23 Data reviewed: vital signs, nurses notes, lab test result(s), radiologic studies, CT rn scan. Counseling: I had a detailed discussion with the patient and/or guardian regarding: the historical points, exam findings, and any diagnostic results supporting the discharge/admit diagnosis, lab results, radiology results. Response to treatment: There is no appreciated change of the patient's symptoms at this time. 16:25 Admission orders: after a detailed discussion of the patient's condition and case, the lucerne farmer orders are written by me. 17:39 ED course: Pt evaluated by Dr. Hughes, does not think patient needs to be admitted, he rn also cannot feel inguinal hernias, thinks more of groin strain, told him to f/u as outpt and given return precautions. . 05/25 13:31 Order name: Basic Metabolic Panel; Complete Time: 14:54 rn 05/25 13:31 Order name: CBC with Diff; Complete Time: 14:54 rn 05/25 13:31 Order name: CT Abd/Pelvis - IV Contrast Only rn 05/25 14:50 Order name: CREATININE WHOLE BLOOD; Complete Time: 14:54 EDMS 05/25 13:31 Order name: IV Saline Lock; Complete Time: 14:02 rn 05/25 13:31 Order name: Labs collected and sent; Complete Time: 14:02 rn Administered Medications: 13:55 Drug: morphine 4 mg Route: IVP; Site: right antecubital; 15:50 Follow up: Response: No adverse reaction 13:55 Drug: Zofran (Ondansetron) 4 mg Route: IVP; Site: right antecubital; 15:50 Follow up: Response: No adverse reaction Disposition: 05/25/20 17:38 Discharged to Home. Impression: Bilateral inguinal hernia, without obstruction or gangrene. - Condition is Stable. - Discharge Instructions: Hernia, Adult, Inguinal Hernia, Adult. - Prescriptions for Ultram 50 mg Oral Tablet - take 1 tablet by ORAL route every 6 hours As needed; 15 tablet. - Medication Reconciliation Form, Thank You Letter, Antibiotic Education, Prescription Opioid Use form. - Follow up: Yogi Hughes MD; When: As needed; Reason: Recheck today's complaints, Re-evaluation by your physician. - Problem is new. - Symptoms have improved. Signatures: Dispatcher [employer] EDMS Jason Canseco MD MD rn Harris, Amy RN Jarvis Hamlin RN RN ll1 Corrections: (The following items were deleted from the chart) 17:38 16:51 Hospitalization Ordered by Yogi Hughes MD for Observation. Preliminary rn diagnosis is Bilateral inguinal hernia, without obstruction or gangrene - Incarcerated. Bed requested for Telemetry/MedSurg (observation). Status is Observation. Condition is Stable. Problem is new. Symptoms are unchanged. rn 17:40 16:23 ED course: Consulted Dr Hughes for bilateral inguinal hernias, only containing rn fat, but pain not controlled, given morphine, still pacing and uncomfortable, likely incarcerated. No evidence of strangulation per Dr. Newton, Dr. Hughes coming to eval patient. Pt NPO since last night. . rn 18:00 17:38 05/25/2020 17:38 Discharged to Home. Impression: Bilateral inguinal hernia, ah without obstruction or gangrene. Condition is Stable. Forms are Medication Reconciliation Form, Thank You Letter, Antibiotic Education, Prescription Opioid Use. Follow up: Yogi Hughes; When: As needed; Reason: Recheck today's complaints, Re-evaluation by your physician. Problem is new. Symptoms have improved. rn
== END 2020-05-25 18:00 | disposition home or self-care (01) ==
LOC: ER 13:06 → ERHOLD 17:05
PROVIDERS: ADMIT Surgery; ATTEND Surgery
DX: K40.20 Bilateral inguinal hernia, without obstruction or gangrene, not specified as recurrent (principal); I25.10 Atherosclerotic heart disease of native coronary artery without angina pectoris; F17.210 Nicotine dependence, cigarettes, uncomplicated; Z95.5 Presence of coronary angioplasty implant and graft; Z86.73 Personal history of transient ischemic attack (TIA), and cerebral infarction without residual deficits
CPT/HCPCS: 85025; 80048; 36415; 82565; 74177; 96375; 96374; 99284; Q9967; J2405; G0378

== ENCOUNTER 2020-06-02 06:02 | Observation (INO) | payer BC ==
--- NOTE | 2020-06-02 07:47 | ER ---
Nurse's Notes [facility] Name: Kendall Kapoor Age: 34 yrs Sex: Male : 1985 Arrival Date: 06/02/2020 Time: 06:05 Bed 19 Private MD: Diagnosis: Inguinal hernia-large left indirect, moderate right hernia, left clinically incarcerated;Abdominal tenderness;Obesity, unspecified Presentation: 06/02 06:30 Chief complaint: Patient states: Groin pain that began yesterday, worsening today, sg denies urinary symptoms at this time. Coronavirus screen: Client denies travel out of the [place] in the last 14 days. At this time, the client does not indicate any symptoms associated with coronavirus-19. Ebola Screen: Patient negative for fever greater than or equal to 101.5 degrees Fahrenheit, and additional compatible Ebola Virus Disease symptoms Patient denies exposure to infectious person. Patient denies travel to an Ebola-affected area in the 21 days before illness onset. No symptoms or risks identified at this time. Initial Sepsis Screen: Does the patient meet any 2 criteria? No. Patient's initial sepsis screen is negative. Does the patient have a suspected source of infection? No. Patient's initial sepsis screen is negative. Onset of symptoms was June 02, 2020. 06:30 Method Of Arrival: Ambulatory 06:30 Acuity: JELLY 3 sg 08:00 Risk Assessment: Do you want to hurt yourself or someone else? Patient reports no tw2 desire to harm self or others. Triage Assessment: 09:03 General: Appears in no apparent distress. Behavior is calm, cooperative. iw 09:20 Pain: Complains of pain in left femoral area and left lower quadrant. iw Historical: - Allergies: 06:31 No Known Allergies; sg - PMHx: 06:31 CAD; Enlarged Heart; TIA; sg - PSHx: 06:31 Heart stents; heart cath; Appendectomy; rotator cuff; hemmorrhoidectomy; sg - Immunization history:: Adult Immunizations up to date. - Social history:: Smoking status: Patient denies any tobacco usage or history of. - Family history:: not pertinent. Screenin:00 Abuse screen: Denies threats or abuse. Nutritional screening: No deficits noted. tw2 Tuberculosis screening: No symptoms or risk factors identified. Fall Risk None identified. Assessment: 07:23 Reassessment: pt states "im supposed to have surgery Monday but Dr. Hughes said if I tw2 started hurting to come in and see if he is bone char puller to get me sooner", provider notified.. 08:00 Reassessment: No changes from previously documented assessment. Patient and/or family tw2 updated on plan of care and expected duration. Pain level reassessed. Patient is alert, oriented x 3, equal unlabored respirations, skin warm/dry/pink. 08:49 Reassessment: No changes from previously documented assessment. Patient and/or family tw2 updated on plan of care and expected duration. Pain level reassessed. Patient is alert, oriented x 3, equal unlabored respirations, skin warm/dry/pink. Vital Signs: 06:57 BP 127 / 81; Pulse 109; Resp 18; Temp 98.7; Pulse Ox 97% on R/A; Weight 131.54 kg; ar5 Height 5 ft. 8 in. (172.72 cm); Pain 8/10; 07:59 BP 126 / 94; Pulse 105; Resp 18; Pulse Ox 96% on R/A; tw2 08:49 BP 112 / 82; Pulse 89; Resp 20; Pulse Ox 95% on R/A; tw2 06:57 Body Mass Index 44.09 (131.54 kg, 172.72 cm) ar5 ED Course: 06:05 Patient arrived in ED. ag3 06:30 Arm band placed on. sg 06:43 Triage completed. sg 07:00 Bed in low position. Call light in reach. Pulse ox on. NIBP on. tw2 07:01 Jamila Georges, LIANE is Primary Nurse. tw2 07:08 Johan Hernandez MD is Attending Physician. ankit 07:45 Yogi Hughes MD is Hospitalizing Provider. ankit 08:20 Inserted saline lock: 22 gauge in right antecubital area, using aseptic technique. tw2 ,using aseptic technique. per [employer] Blood collected. 09:05 No provider procedures requiring assistance completed. Patient admitted, IV remains in iw place. Administered Medications: 08:22 Drug: Zofran (Ondansetron) 4 mg Route: IVP; Site: right antecubital; tw2 09:20 Follow up: Response: No adverse reaction iw 08:22 Drug: NS 0.9% 1000 ml Route: IV; Rate: 1 bolus; Site: right antecubital; tw2 09:06 Follow up: IV Status: Completed infusion iw 08:22 Drug: NS 0.9% 1000 ml Route: IV; Rate: 125 ml/hr; Site: right antecubital; tw2 09:06 Follow up: IV Status: Infusion continued; Infusion continued upon admission iw 08:24 Drug: morphine 4 mg Route: IVP; Site: right antecubital; tw2 09:20 Follow up: Response: No adverse reaction; Pain is decreased iw 08:25 Drug: Flagyl 500 mg Volume: 100 ml; Route: IVPB; Rate: 200 ml/hr; Infused Over: 30 tw2 mins; Site: right femoral; 08:55 Follow up: Response: No adverse reaction; IV Status: Completed infusion tw2 08:55 Drug: Cipro 400 mg Volume: 200 ml; Route: IVPB; Infused Over: 60 mins; Site: right tw2 antecubital; 09:06 Follow up: IV Status: Infusion continued upon admission Outcome: 07:46 Decision to Hospitalize by Provider. ankit 09:05 Admitted to Med/surg accompanied by tech, via wheelchair, room 229, Report called to morales Barrett RN 09:05 Condition: good 09:05 Discharge instructions given to patient, Instructed on the need for admit, Demonstrated understanding of instructions. 09:21 Patient left the ED. Signatures: Jarad Ventura RN RN sg Anderson, Corey, MD MD cha Williams, Irene, RN RN iw Wise, Tara, RN RN [facility] Carolin Rosas 3 Mariya Carlos pa5
--- NOTE | 2020-06-02 07:48 | EDPHYS ---
Physician Documentation [facility] Name: Kendall Kapoor Age: 34 yrs Sex: Male : 1985 Arrival Date: 06/02/2020 Time: 06:05 Bed 19 Private MD: ARNOLDO Physician Johan Hernandez HPI: 06/02 07:39 This 34 yrs old Male presents to ER via Ambulatory with complaints of Groin ankit Pain. 07:39 The patient presents with abdominal pain in the lower abdomen, in the left lower ankit quadrant, abdominal distention in the upper abdomen, in the lower abdomen. Onset: The symptoms/episode began/occurred 5 day(s) ago. The symptoms do not radiate. Associated signs and symptoms: none. The symptoms are described as sharp, steady. Modifying factors: The symptoms are alleviated by remaining still, the symptoms are aggravated by movement, pressure. Severity of pain: At its worst the pain was moderate in the emergency department the pain is actually worse. The patient has experienced similar episodes in the past, several times. Historical: - Allergies: 06:31 No Known Allergies; sg - PMHx: 06:31 CAD; Enlarged Heart; TIA; sg - PSHx: 06:31 Heart stents; heart cath; Appendectomy; rotator cuff; hemmorrhoidectomy; sg - Immunization history:: Adult Immunizations up to date. - Social history:: Smoking status: Patient denies any tobacco usage or history of. - Family history:: not pertinent. ROS: 07:39 Constitutional: Negative for fever, chills, and weight loss, Eyes: Negative for injury, ankit pain, redness, and discharge, ENT: Negative for injury, pain, and discharge, Neck: Negative for injury, pain, and swelling, Cardiovascular: Negative for chest pain, palpitations, and edema, Respiratory: Negative for shortness of breath, cough, wheezing, and pleuritic chest pain, Back: Negative for injury and pain, : Negative for injury, bleeding, discharge, and swelling, MS/Extremity: Negative for injury and deformity, Skin: Negative for injury, rash, and discoloration, Neuro: Negative for headache, weakness, numbness, tingling, and seizure, Psych: Negative for depression, anxiety, suicide ideation, homicidal ideation, and hallucinations, Allergy/Immunology: Negative for hives, rash, and allergies, Endocrine: Negative for neck swelling, polydipsia, polyuria, polyphagia, and marked weight changes, Hematologic/Lymphatic: Negative for swollen nodes, abnormal bleeding, and unusual bruising. 07:39 Abdomen/GI: Positive for abdominal pain, of the left lower quadrant. Exam: 07:39 Constitutional: This is a well developed, well nourished patient who is awake, alert, ankit and in no acute distress. Head/Face: Normocephalic, atraumatic. Eyes: Pupils equal round and reactive to light, extra-ocular motions intact. Lids and lashes normal. Conjunctiva and sclera are non-icteric and not injected. Cornea within normal limits. Periorbital areas with no swelling, redness, or edema. ENT: Nares patent. No nasal discharge, no septal abnormalities noted. Tympanic membranes are normal and external auditory canals are clear. Oropharynx with no redness, swelling, or masses, exudates, or evidence of obstruction, uvula midline. Mucous membranes moist. Neck: Trachea midline, no thyromegaly or masses palpated, and no cervical lymphadenopathy. Supple, full range of motion without nuchal rigidity, or vertebral point tenderness. No Meningismus. Chest/axilla: Normal chest wall appearance and motion. Nontender with no deformity. No lesions are appreciated. Cardiovascular: Regular rate and rhythm with a normal S1 and S2. No gallops, murmurs, or rubs. Normal PMI, no JVD. No pulse deficits. Respiratory: Lungs have equal breath sounds bilaterally, clear to auscultation and percussion. No rales, rhonchi or wheezes noted. No increased work of breathing, no retractions or nasal flaring. Back: No spinal tenderness. No costovertebral tenderness. Full range of motion. Male : Normal genitalia with no discharge or lesions. Skin: Warm, dry with normal turgor. Normal color with no rashes, no lesions, and no evidence of cellulitis. MS/ Extremity: Pulses equal, no cyanosis. Neurovascular intact. Full, normal range of motion. Neuro: Awake and alert, GCS 15, oriented to person, place, time, and situation. Cranial nerves II-XII grossly intact. Motor strength 5/5 in all extremities. Sensory grossly intact. Cerebellar exam normal. Normal gait. Psych: Awake, alert, with orientation to person, place and time. Behavior, mood, and affect are within normal limits. 07:39 Abdomen/GI: Inspection: distension, Bowel sounds: normal, Palpation: mild abdominal tenderness, moderate abdominal tenderness, in the left lower quadrant, Liver: no appreciated palpable abnormalities, Hernia: noted in the right femoral area and left femoral area. 08:23 ECG was reviewed by the Attending Physician. ankit Vital Signs: 06:57 BP 127 / 81; Pulse 109; Resp 18; Temp 98.7; Pulse Ox 97% on R/A; Weight 131.54 kg; ar5 Height 5 ft. 8 in. (172.72 cm); Pain 8/10; 07:59 BP 126 / 94; Pulse 105; Resp 18; Pulse Ox 96% on R/A; tw2 08:49 BP 112 / 82; Pulse 89; Resp 20; Pulse Ox 95% on R/A; tw2 06:57 Body Mass Index 44.09 (131.54 kg, 172.72 cm) ar5 MDM: 07:08 Patient medically screened. ankit 07:43 Differential diagnosis: diverticulitis, Irritable bowel syndrome, Mesenteric ischemia ankit or infarction, non-specific abd pain, pancreatitis, Pyelonephritis, Testicular Torsion. Data reviewed: vital signs, nurses notes, lab test result(s), EKG, radiologic studies, CT scan, plain films. Data interpreted: data deliverables manager: rate is 109 beats/min, rhythm is regular, Pulse oximetry: on room air is 97 %. Test interpretation: by ED physician or midlevel provider: ECG, plain radiologic studies. Counseling: I had a detailed discussion with the patient and/or guardian regarding: the historical points, exam findings, and any diagnostic results supporting the discharge/admit diagnosis, lab results, radiology results, the need for further work-up and treatment in the hospital. 07:47 Physician consultation: Yogi Santana MD wants patiet admitted to him self for ankit abdominal pain, familiar with the patient, wants admitted to hospital for left indirect hernia, incarcerated. ED course: plan explained to the patient, dr santana agrees. 06/02 07:37 Order name: Basic Metabolic Panel; Complete Time: 09:45 ankit 06/02 07:37 Order name: CBC with Diff; Complete Time: 09:45 ankit 06/02 07:37 Order name: LFT's; Complete Time: 09:45 ankit 06/02 07:37 Order name: Magnesium; Complete Time: 09:45 ankit 06/02 07:37 Order name: NT PRO-BNP; Complete Time: 09:45 ankit 06/02 07:37 Order name: Troponin (emerg Dept Use Only); Complete Time: 09:45 ankit 06/02 07:37 Order name: XRAY Chest (1 view) ankit 06/02 07:45 Order name: Lipase; Complete Time: 09:45 ankit 06/02 08:36 Order name: RAD; Complete Time: 09:45 EDMS 06/02 07:37 Order name: EKG; Complete Time: 07:38 ankit 06/02 07:37 Order name: Cardiac monitoring; Complete Time: 08:26 ankit 06/02 07:37 Order name: EKG - Nurse/Tech; Complete Time: 08:26 ankit 06/02 07:37 Order name: IV Saline Lock; Complete Time: 08:26 ankit 06/02 07:37 Order name: Labs collected and sent; Complete Time: 08:26 ankit 06/02 07:37 Order name: O2 Per Protocol; Complete Time: 07:54 ankit 06/02 07:37 Order name: O2 Sat Monitoring; Complete Time: 07:54 ankit 06/02 07:37 Order name: NPO; Complete Time: 08:48 ankit EC:23 Rate is 94 beats/min. Rhythm is regular. QRS [place] is Normal. IN interval is shortened ankit at 108 msec. QRS interval is normal. QT interval is normal. No Q waves. T waves are Normal. No ST changes noted. Clinical impression: NSR w/ Non-specific ST/T Changes and No evidence of ischemia. Interpreted by me. Reviewed by me. Administered Medications: 08:22 Drug: Zofran (Ondansetron) 4 mg Route: IVP; Site: right antecubital; tw2 09:20 Follow up: Response: No adverse reaction iw 08:22 Drug: NS 0.9% 1000 ml Route: IV; Rate: 1 bolus; Site: right antecubital; tw2 09:06 Follow up: IV Status: Completed infusion iw 08:22 Drug: NS 0.9% 1000 ml Route: IV; Rate: 125 ml/hr; Site: right antecubital; tw2 09:06 Follow up: IV Status: Infusion continued; Infusion continued upon admission iw 08:24 Drug: morphine 4 mg Route: IVP; Site: right antecubital; tw2 09:20 Follow up: Response: No adverse reaction; Pain is decreased iw 08:25 Drug: Flagyl 500 mg Volume: 100 ml; Route: IVPB; Rate: 200 ml/hr; Infused Over: 30 tw2 mins; Site: right femoral; 08:55 Follow up: Response: No adverse reaction; IV Status: Completed infusion tw2 08:55 Drug: Cipro 400 mg Volume: 200 ml; Route: IVPB; Infused Over: 60 mins; Site: right tw2 antecubital; 09:06 Follow up: IV Status: Infusion continued upon admission iw Disposition: 06/02/20 07:46 Hospitalization ordered by Yogi Santana for Inpatient Admission. Preliminary diagnosis are Inguinal hernia - large left indirect, moderate right hernia, left clinically incarcerated, Abdominal tenderness, Obesity, unspecified. - Bed requested for Telemetry/MedSurg (Inpatient). - Status is Inpatient Admission. iw - Condition is Fair. - Problem is new. - Symptoms have improved. Signatures: Dispatcher [employer] EDLauren Carney RN RN Jarad Ventura RN RN oJhan Hernandez MD MD cha Williams, Irene, RN RN Jamila Georges RN RN tw2 Corrections: (The following items were deleted from the chart) 07:47 07:46 Hospitalization Ordered by Yogi Santana MD for Inpatient Admission. Preliminary [facility] diagnosis is Inguinal hernia - large left indirect, moderate right hernia, left clinically incarcerated. Bed requested for Telemetry/MedSurg (Inpatient). Status is Inpatient Admission. Condition is Fair. Problem is new. Symptoms have improved. [facility] 08:44 07:47 06/02/2020 07:46 Hospitalization Ordered by Yogi Santana MD for Inpatient dw Admission. Preliminary diagnosis is Inguinal hernia - large left indirect, moderate right hernia, left clinically incarcerated; Abdominal tenderness; Obesity, unspecified. Bed requested for Telemetry/MedSurg (Inpatient). Status is Inpatient Admission. Condition is Fair. Problem is new. Symptoms have improved. ankit 09:21 08:44 06/02/2020 07:46 Hospitalization Ordered by Yogi Santana MD for Inpatient iw Admission. Preliminary diagnosis is Inguinal hernia - large left indirect, moderate right hernia, left clinically incarcerated; Abdominal tenderness; Obesity, unspecified. Bed requested for Telemetry/MedSurg (Inpatient). Status is Inpatient Admission. Condition is Fair. Problem is new. Symptoms have improved. dw
[2020-06-02] MEDS ORDERED: MORPHINE 4 MG/ML SYR ONE (08:22)
[2020-06-02] MEDS ORDERED: ONDANSETRON 4 MG/2 ML VIAL ONE (08:23)
[2020-06-02] MEDS ORDERED: CIPROFLOXACIN 400mg IV 400 MG/200 ML BAG IV ONE (08:23)
[2020-06-02] MEDS ORDERED: METRONIDAZOLE 500mg IVPB 500 MG/100 ML BAG IV ONE (08:23)
[2020-06-02] MEDS ORDERED: NA CHLORIDE 0.9% 2,000 ML ONE (08:23)
[2020-06-02 08:33] LABS: Absolute Lymphocytes (CBC) 2.2 K/uL (0.7-4.9); Basophils % 0.9 % (0-1.3); Hematocrit 46.4 % (39.6-49.0); Lymphocytes % 16.4 % (15.3-44.8); MPV 8.6 fL (7.6-11.3)
--- NOTE | 2020-06-02 08:35 | RAD REPORT ---
EXAM DESCRIPTION: RAD - Chest Single View - 06/02/2020 8:10 am CLINICAL HISTORY: ABDOMINAL DISTENTION Chest pain. COMPARISON: Chest Pa And Lat (2 Views) dated 01/18/2020; CHEST SINGLE VIEW dated 10/08/2013 FINDINGS: Portable technique limits examination quality. The lungs are grossly clear. The heart is normal in size. No displaced fractures. IMPRESSION: No acute intrathoracic process suspected.
[2020-06-02 08:53] LABS: ALT/SGPT 36 U/L (12-78); AST/SGOT 23 U/L (15-37); Albumin 3.4 g/dL (3.4-5.0); Alkaline Phosphatase 108 U/L (45-117); BUN Blood Urea Nitrogen 15 mg/dL (7-18); Bicarbonate 27 mmol/L (21-32); Bilirubin Direct < 0.1 mg/dL (0-0.2); Bilirubin Total 0.1 mg/dL (0.2-1.0); Glucose Level 111 mg/dL (74-106); Magnesium 2.5 mg/dL (1.8-2.4); Potassium 4.4 mmol/L (3.5-5.1); Protein, Total 7.7 g/dL (6.4-8.2); Sodium Level 143 mmol/L (136-145); Troponin (Emerg Dept Use Only) < 0.02 ng/mL (0.0-0.045)
[2020-06-02 09:39] LABS: NT PRO-BNP < 5 pg/mL (<125)
[2020-06-02] MEDS ORDERED: ACETAMINOPHEN 325 MG TABLET PO PRN (09:48)
[2020-06-02] MEDS: NA CHLORIDE 0.9% 1,000 ML IV SCH ×2 (09:48→17:48)
[2020-06-02] MEDS ORDERED: MORPHINE 4 MG/ML SYR IV PRN (09:48)
[2020-06-02] MEDS ORDERED: ONDANSETRON 4 MG/2 ML VIAL IV PRN (09:48)
[2020-06-02] MEDS: FAMOTIDINE 20 MG/2 ML VIAL IV SCH ×2 (10:07→20:58)
[2020-06-02 11:30] VITALS: BMI 44.1
[2020-06-02] MEDS ORDERED: Ringers Lactate 1,000 ML IV ONE ×2 (12:58→14:46)
[2020-06-02] MEDS ORDERED: METRONIDAZOLE 500mg IVPB 500 MG/100 ML BAG IV SCH (13:00)
--- NOTE | 2020-06-02 13:21 | P.HP ---
Date of Service: 06/02/20 PC: This 34-year-old male presented to the emergency room with severe left lower quadrant abdominal pain for evaluation treatment. HPC: This patient was seen here recently with a similar complaint. CT scan in showed bilateral inguinal hernias. He had seen me in my office and we were trying to schedule him to have the surgery done in the upcoming weeks. The pain however last night intensified and he could no longer [place]. Has instructed the came back to the emergency room for re-evaluation. We will take him to the operating room as the patient is NPO and do bilateral inguinal hernias repairs. PMH: Sleep apnea, asthma, COPD PSHx: Negative SOC: No known allergies SYS REVIEW: No cough, wheeze, shortness of breath at the current time. He does have sleep apnea, and is scheduled for a sleep study. No GI complaints. States his is pain hurt some especially when he tries to walk, cough, or sneeze. Unable to perform his job at work. O/E awake alert vital signs are stable HEENT: Within normal limits Chest: Chest movement equal bilaterally ABD: Soft, does have some left groin tenderness, but no guarding or rebound no peritoneal signs LOCO: Intact DATA: CT scan shows bilateral inguinal hernias, left being larger than the right IMPRESSION: Bilateral inguinal hernias PLAN: I will take him to the operating room for a laparoscopic possible open inguinal hernia repair with mesh. The risks of this procedure have been discussed. The possibility of bleeding, infection, injury to bowel and blood vessels has been described. The possibility of nerve injury, chronic pain and numbness were outlined. Mesh infection and the need to remove it were explained. An open incentive a laparoscopic were procedure was also described. He understands and wants us to proceed.
[2020-06-02] MEDS ORDERED: MIDAZOLAM HCL 2 MG/2 ML INJ ONE (13:27)
[2020-06-02] MEDS ORDERED: propofoL 200 MG/20 ML VIAL IV ONE (13:27)
[2020-06-02] MEDS ORDERED: FENTANYL CITR 100 MCG/2 ML ONE ×2 (13:27→15:04)
[2020-06-02] MEDS ORDERED: dexAMETHasone 10 MG/ML VIAL ONE (13:27)
[2020-06-02] MEDS ORDERED: ROCURONIUM 50 MG/5 ML VIAL IV ONE ×2 (13:28→14:51)
[2020-06-02] MEDS ORDERED: LIDOCAINE 1% MPF 5 ML VIAL ONE (13:30)
[2020-06-02] MEDS ORDERED: SUCCINYLCHOLINE 20 MG/ML (10 ML) IV ONE (14:02)
[2020-06-02] MEDS ORDERED: EPHEDRINE SULF 50 MG/ML VIAL ONE (14:42)
[2020-06-02] MEDS ORDERED: NS 0.9% VIAL 10 ML ONE (14:43)
[2020-06-02] MEDS ORDERED: NEOSTIGMINE 1 MG/ML -5 ML ONE ×2 (15:48→16:20)
[2020-06-02] MEDS ORDERED: GLYCOPYRROLATE 0.2 MG/ML SYR ONE (15:48)
--- NOTE | 2020-06-02 16:16 | P.OP ---
Preoperative diagnosis: Bilateral inguinal hernias Postoperative diagnosis: Large left indirect inguinal hernia, small right indirect inguinal hernia Primary procedure: Laparoscopic assisted repair of left indirect inguinal hernia with mesh Secondary procedure: Laparoscopy Anesthesia: Genera Estimated blood loss: Less than 20 cc Specimen: None site Operative Technique: The patient brought the operating room and placed supine on the table. After the induction of adequate general endotracheal anesthesia, that required the use of a glide scope because of his difficult airway, the area of the abdomen was prepped with a Betadine solution, he was draped in usual aseptic manner. A Cornelius catheter had been inserted. A subumbilical incision was made. This was brought down through the skin and subcutaneous tissue. The Visiport was now used to enter the peritoneal cavity and created pneumoperitoneum to approximately 12 mm of mercury. We really fixed inspect the anterior abdominal wall in both the groin areas. We could see on the right there was a small communicating defect from the peritoneal cavity consistent with the indirect hernia seen on CT. There was however no evidence of any bowel in the area or any issues with chronic pain on that side. On the left inguinal area we could see that there were adhesions from the sigmoid up to the reflected as were the peritoneal cavity was. In the area of the inguinal ligament there was a large defect without marked laxity of the abdominal wall in that area. There was redness and erythema of surrounding preperitoneal fat that we could see through the peritoneum. After the insertion of a 5 mm trocar, we were able to easily take down these adhesions from the sigmoid to mobilize it in that area. The spermatic cord was grasped we are able in dissected from the surrounding area. There was minimal true hernia sac seen. Because of the size of the defect, I decided to tried to be repaired from the outside. At this point the scope was turned off, and the pneumoperitoneum collapse. A left inguinal skin incision was made. This brought down through the skin and subcutaneous tissue. The external oblique was opened in direction of its fibers. We were able identify the spermatic cord. It was mobilized up placing a finger and a dissecting up towards the pubic tubercle. A Griffin drain was now passed around through this. The spermatic cord had a lot of pseudo lipoma so the cord around it. There is also marked amount of fat in this patient's suprapubic area. The spermatic cord was dissected back up to the ring. There was a marked amount of laxity with tissue in this area. A large piece of plug and patch material was placed through this defect. It was then sutured in place. The mesh was now fixed the pubic tubercle and anchored coronary inferiorly using the Pro Tacker. The tails were split so we could around the spermatic cord. These were ventilated out and the mesh was anchored in place using the Pro Tacker. The external leaf facile defect was now closed using a running suture of Prolene. The subcutaneous tissue was approximated with chromic. Attention was then turned back towards the peritoneal cavity. Once again we really recreated our pneumoperitoneum. On looking in the left lower quadrant we could see the area that had the hernial defect. I still not content with the repair. We could see that there was some laxity to the muscles in that area. Hence a piece of Ventralex mesh was cut. The in semi [place] was now placed down into the peritoneal cavity. Retracting the colon wall away from this area. We were able to lay this piece of mesh up as an onlay repair in this area. It was fixed in place using the Pro Tacker. The bowel was now released in the patient taken down out of Trendelenburg. We could see the fat on the anterior mesenteric border returning back down over the mesh. There was no contacted the true bowel with the repair site. At this point the pneumoperitoneum was collapsed, the trocars removed, and jorje applied to the skin. At the end of procedure he was in a stable condition when sent to the recovery room. Needle sponge and count were correct. No drains were placed. Complications: None Transferred to: Recovery Room Condition: Good
[2020-06-02] MEDS ORDERED: NALOXONE 0.4 MG/ML VIAL ONE (16:31)
[2020-06-02] MEDS ORDERED: KETOROLAC 30 MG/ML INJ ONE (16:42)
[2020-06-02] MEDS ORDERED: ALBUTEROL 2.5 MG/3 ML NEB SOL ONE (16:43)
[2020-06-02 18:16] VITALS: O2SAT 92
[2020-06-02] MEDS: MORPHINE 4 MG/ML SYR IV PRN (20:57)
[2020-06-02] MEDS ORDERED: CIPROFLOXACIN 400mg IV 400 MG/200 ML BAG IV SCH (21:00)
[2020-06-02] MEDS: HYDROCODONE/APAP 7.5/325 MG TAB PO PRN (22:10)
[2020-06-03] MEDS: NA CHLORIDE 0.9% 1,000 ML IV SCH ×2 (00:47→09:48)
[2020-06-03] MEDS: MORPHINE 4 MG/ML SYR IV PRN ×2 (00:48→08:44)
[2020-06-03] MEDS: HYDROCODONE/APAP 7.5/325 MG TAB PO PRN ×2 (04:03→11:59)
--- NOTE | 2020-06-03 07:17 | EKG ---
Test Date: 2020-06-02 Test Time: 08:14:35 Location Man: RAMIREZ MEASUREMENT RESULTS: Intervals: Rate: 94 GA: 108 QRSD: 100 QT: 340 QTc: 425 [place]: P: -2 GA: 108 QRS: 58 T: 20 INTERPRETIVE STATEMENTS: Sinus rhythm with short GA Otherwise normal ECG Compared to ECG 01/18/2020 00:16:33 No significant changes Electronically Signed On 06-03-20 07:15:57 CDT by Danis Uriarte
[2020-06-03] MEDS: FAMOTIDINE 20 MG/2 ML VIAL IV SCH (08:44)
--- NOTE | 2020-06-03 14:46 | P.DS ---
Admission Date: 06/02/20 Discharge Date: 06/03/20 Disposition: ROUTINE DISCHARGE Discharge Condition: GOOD Reason for Admission: Acute postoperative abdominal pain Procedures: Laparoscopy, laparoscopic/open repair of left inguinal hernia Brief History of Present Illness: This patient, who was had a chronic left lower quadrant abdominal pain, tenderness in the left groin, and possible bilateral inguinal hernias presented to the hospital with severe abdominal pain and for diagnosis and treatment. Hospital Course: The patient evaluated emergency room. He was brought to the operating room for a laparoscopy to visualize is left lower quadrant abdominal pain. It was noted he had a left inguinal hernia. There was a large defect of the muscles of the abdominal wall in addition to the left inguinal hernia. In addition the omentum was adherent and mildly inflamed to the peritoneum in this area. It should be noted that the patient is morbidly obese. The adhesions were taken down, the hernia was repaired by doing an open repair, ran the muscle were reinforced internally with a onlay repair as well. He tolerated the procedure well. He was not admitted postoperatively for pain control. This morning he is up ambulating, tolerating a diet, voiding on his own. He is deemed fit for discharge. Vital Signs/Physical Exam: Temp Pulse Resp BP Pulse Ox 97.7 F 99 H 20 116/58 L 94 06/03/20 12:00 06/03/20 12:00 06/03/20 12:00 06/03/20 12:00 06/03/20 12:00 Laboratory Data at Discharge: WBC 13.5 K/uL (4.3-10.9) H 06/02/20 08:20 Hgb 15.5 g/dL (13.6-17.9) 06/02/20 08:20 Hct 46.4 % (39.6-49.0) 06/02/20 08:20 Plt Count 349 K/uL (152-406) 06/02/20 08:20 Sodium 143 mmol/L (136-145) 06/02/20 08:20 Potassium 4.4 mmol/L (3.5-5.1) 06/02/20 08:20 BUN 15 mg/dL (7-18) 06/02/20 08:20 Creatinine 0.85 mg/dL (0.55-1.3) 06/02/20 08:20 Glucose 111 mg/dL (74-106) H 06/02/20 08:20 Magnesium 2.5 mg/dL (1.8-2.4) H 06/02/20 08:20 Total Bilirubin 0.1 mg/dL (0.2-1.0) L 06/02/20 08:20 AST 23 U/L (15-37) 06/02/20 08:20 ALT 36 U/L (12-78) 06/02/20 08:20 Alkaline Phosphatase 108 U/L (45-117) 06/02/20 08:20 Lipase 113 U/L (73-393) 06/02/20 08:20 Home Medications: NK [No Home Meds] 06/02/20 Patient Discharge Instructions: Ambulated home, continue incentive spirometry. You may shower on . Change dressing as needed. Diet as tolerated, pain medicine as required, milk of magnesium p.r.n.. Any questions or problems, go to the emergency room or contact me. Diet: Regular Activity: Ad jeanette
[2020-06-03] MEDS ORDERED: HYDROCODONE/APAP 7.5/325 MG TAB PO PRN (14:56)
[2020-06-03 17:44] VITALS: BP 107/63; TEMP 97.6
== END 2020-06-03 17:35 | disposition home or self-care (01) ==
LOC: ER 06:02 → INTOOBSV 07:51 → ERHOLD 07:51 → 2ND 09:06
PROVIDERS: ADMIT Surgery; ATTEND Surgery
PROC: 0WQF4ZZ Repair Abdominal Wall, Percutaneous Endoscopic Approach (ICD-10-PCS; 2020-06-02)
PROC: 0YU60JZ Supplement Left Inguinal Region with Synthetic Substitute, Open Approach (ICD-10-PCS; principal; 2020-06-02 13:30)
DX: K40.20 Bilateral inguinal hernia, without obstruction or gangrene, not specified as recurrent (principal); K66.0 Peritoneal adhesions (postprocedural) (postinfection); D17.6 Benign lipomatous neoplasm of spermatic cord; M62.89 Other specified disorders of muscle; G47.30 Sleep apnea, unspecified; J44.9 Chronic obstructive pulmonary disease, unspecified; I25.10 Atherosclerotic heart disease of native coronary artery without angina pectoris; I51.7 Cardiomegaly; E66.01 Morbid (severe) obesity due to excess calories; Z68.41 Body mass index [BMI] 40.0-44.9, adult; Z86.73 Personal history of transient ischemic attack (TIA), and cerebral infarction without residual deficits; Z95.5 Presence of coronary angioplasty implant and graft
CPT/HCPCS: 96365; 93005; 85025; 80048; 36415; 83735; 80076; 84484; 83690; 83880; 71045; 96375; 99285; 49505; 22999; J2704; J2310; J0330; J2250; J3010 ×2; J1100; J2710 ×2; J7120 ×2; J7030 ×3; J2405; J0744; G0378

== ENCOUNTER 2020-07-20 20:53 | Inpatient (IN) | payer BC ==
[2020-07-20] MEDS ORDERED: NA CHLORIDE 0.9% 3,000 ML ONE (22:31)
[2020-07-20 22:32] LABS: Basophils % 0.3 % (0-1.3); Hematocrit 37.5 % (39.6-49.0); Lymphocytes % 7.9 % (15.3-44.8); MPV 7.8 fL (7.6-11.3); RBC Red Blood Cell Count 4.32 M/uL (4.33-5.43)
[2020-07-20 22:43] LABS: ALT/SGPT 43 U/L (12-78); AST/SGOT 21 U/L (15-37); Albumin 2.3 g/dL (3.4-5.0); Alkaline Phosphatase 97 U/L (45-117); BUN Blood Urea Nitrogen 9 mg/dL (7-18); Bicarbonate 31 mmol/L (21-32); Bilirubin Direct < 0.1 mg/dL (0-0.2); Bilirubin Total 0.2 mg/dL (0.2-1.0); Glucose Level 146 mg/dL (74-106); Lipase 40 U/L (73-393); Potassium 3.4 mmol/L (3.5-5.1); Protein, Total 8.1 g/dL (6.4-8.2); Sodium Level 138 mmol/L (136-145)
[2020-07-20] MEDS ORDERED: MORPHINE 4 MG/ML SYR ONE (22:48)
[2020-07-20] MEDS ORDERED: ONDANSETRON 4 MG/2 ML VIAL ONE (22:48)
[2020-07-20] MEDS ORDERED: PIPER/TAZO/NS 3.375gm 3.375 GM/100 ML BAG ONE (22:48)
[2020-07-20 23:11] LABS: Blood Morphology Comment NOT SEEN (NOT SEEN); Platelet Estimate INCR
[2020-07-20] MEDS ORDERED: NA CHLORIDE 0.9% 250 ML ONE (23:42)
[2020-07-20] MEDS ORDERED: VANCOMYCIN 1 GM/VIAL ONE (23:42)
--- NOTE | 2020-07-21 00:10 | EDPHYS ---
Physician Documentation [facility] Name: Kendall Kapoor Age: 34 yrs Sex: Male : 1985 Arrival Date: 07/20/2020 Time: 20:55 Bed 5 Private MD: ED Physician Mono Ness HPI: 07/21 05:41 This 34 yrs old Male presents to ER via Ambulatory with complaints of Post tw4 Surgical Pain. 05:41 The patient presents with abdominal pain. The patient presents with abdominal pain in tw4 the left lower quadrant, inguinal area. Onset: The symptoms/episode began/occurred 4 week(s) ago, and became persistent 2 days ago. The symptoms do not radiate. Associated signs and symptoms: none. The symptoms are described as dull. Modifying factors: The symptoms are alleviated by nothing, the symptoms are aggravated by nothing. The patient has not experienced similar symptoms in the past. Historical: - Allergies: 07/20 21:16 No Known Allergies; ll1 - PMHx: 21:16 CAD; Enlarged Heart; TIA; ll1 - PSHx: 21:16 Heart stents; heart cath; Appendectomy; rotator cuff; hemmorrhoidectomy; Hernia repair; ll1 - Immunization history:: Flu vaccine is not up to date. - Social history:: Smoking status: Patient reports the use of cigarette tobacco products, smokes one-half pack cigarettes per day. ROS: 07/21 05:41 Constitutional: Negative for fever, chills, and weight loss, Eyes: Negative for injury, tw4 pain, redness, and discharge, Cardiovascular: Negative for chest pain, palpitations, and edema, Respiratory: Negative for shortness of breath, cough, wheezing, and pleuritic chest pain, Back: Negative for injury and pain, MS/Extremity: Negative for injury and deformity, Skin: Negative for injury, rash, and discoloration, Neuro: Negative for headache, weakness, numbness, tingling, and seizure. Abdomen/GI: Positive for abdominal pain, Negative for nausea and vomiting, nausea, vomiting, and diarrhea, vomiting, constipation. Exam: 05:41 Constitutional: This is a well developed, well nourished patient who is awake, alert, tw4 and in no acute distress. Head/Face: Normocephalic, atraumatic. Chest/axilla: Normal chest wall appearance and motion. Nontender with no deformity. No lesions are appreciated. Cardiovascular: Regular rate and rhythm with a normal S1 and S2. No gallops, murmurs, or rubs. Normal PMI, no JVD. No pulse deficits. Respiratory: Lungs have equal breath sounds bilaterally, clear to auscultation and percussion. No rales, rhonchi or wheezes noted. No increased work of breathing, no retractions or nasal flaring. Back: No spinal tenderness. No costovertebral tenderness. Full range of motion. MS/ Extremity: Pulses equal, no cyanosis. Neurovascular intact. Full, normal range of motion. Neuro: Awake and alert, GCS 15, oriented to person, place, time, and situation. Cranial nerves II-XII grossly intact. Motor strength 5/5 in all extremities. Sensory grossly intact. Cerebellar exam normal. Normal gait. 05:41 Abdomen/GI: Inspection: distension, that is mild, Bowel sounds: diminished, Palpation: severe abdominal tenderness, in the left lower quadrant, involuntary guarding, is elicited in the left lower quadrant. Vital Signs: 07/20 21:16 BP 122 / 88; Pulse 122; Resp 19; Temp 99.3; Pulse Ox 95% ; Pain 8/10; ll1 22:22 Weight 136.08 kg; rv 23:30 BP 97 / 67; Pulse 96; Resp 19; Pulse Ox 94% on R/A; rv 07/21 00:00 BP 105 / 54; Pulse 94; Resp 18; Pulse Ox 94% on R/A; rv 00:36 BP 106 / 47; Pulse 95; Resp 18; Pulse Ox 90% on R/A; mg2 00:49 Pulse Ox 97% on R/A; rv 01:30 BP 112 / 71; Pulse 98; Resp 17; Pulse Ox 99% on 2 lpm NC; rv 02:28 BP 109 / 71; Pulse 91; Resp 18; Temp 98.7; Pulse Ox 96% on 2 lpm NC; rv MDM: 07/20 22:01 Patient medically screened. tw4 07/21 05:44 Differential diagnosis: diverticulitis, gastritis, pancreatitis, Peptic Ulcer Disease, tw4 Perf. Duodenal Ulcer, Perf. Gastric Ulcer. Data reviewed: vital signs, nurses notes. Data reviewed: lab test result(s), CBC, electrolytes, hepatic panel, radiologic studies, CT scan. Data interpreted: Pulse oximetry: Interpretation: normal. Counseling: I had a detailed discussion with the patient and/or guardian regarding: the historical points, exam findings, and any diagnostic results supporting the discharge/admit diagnosis, lab results, radiology results. Medication response: fentanyl. Response to treatment: the patient's symptoms have markedly improved after treatment, and as a result, I will admit patient. Physician consultation: Yogi Hughes MD regarding admission, to the medical/surgical unit. patient's condition, need to evaluate the patient as soon as possible, and will see patient in inpatient room. Admission orders: after a detailed discussion of the patient's condition and case, the admit orders are written by me. 07/20 22:03 Order name: Basic Metabolic Panel; Complete Time: 23:34 [facility] 07/20 23:34 Interpretation: Normal except: K 3.4; GLUC 146. 07/20 22:03 Order name: CBC with Diff; Complete Time: 23:34 [facility] 07/20 23:34 Interpretation: Normal except: WBC 25.5; RBC 4.32; HGB 12.5; HCT 37.5. 07/20 22:03 Order name: Hepatic Function; Complete Time: 23:34 [facility] 07/20 23:36 Interpretation: Normal except: ALB 2.3; GLOB 5.8; A/G 0.4. tw07/20 22:03 Order name: Lipase; Complete Time: 23:34 [facility] 07/20 23:37 Interpretation: Normal except: LIP 40. 07/20 22:20 Order name: Lactate; Complete Time: 23:34 07/20 23:37 Interpretation: Within normal limits: LAC 1.4. 07/20 22:24 Order name: Blood Culture Adult (2) 07/20 22:03 Order name: CT Abd/Pelvis - IV Contrast Only 07/20 22:24 Order name: Ptt, Activated; Complete Time: 23:34 07/20 22:24 Order name: Procalcitonin; Complete Time: 23:34 07/20 22:35 Order name: Manual Differential; Complete Time: 23:34 EDMS 07/20 23:37 Interpretation: Normal except: SEGS 82; BANDS [F] 5; LYM 4. tw07/20 22:03 Order name: IV Saline Lock; Complete Time: : tw4 07/20 22:03 Order name: Labs collected and sent; Complete Time: : tw4 07/21 01:39 Order name: CONS Pharmacy Consult EDWI 07/21 01:39 Order name: NPO EDMS Administered Medications: 07/20 22:23 CANCELLED (Duplicate Order): NS 0.9% 1000 ml IV at 1 bolus Per protocol; 1000 mL bolus rv :23 Drug: NS 0.9% (30 ml/kg) 30 ml/kg Route: IV; Rate: bolus; Site: right antecubital; rv 07/21 02:30 Follow up: IV Status: Completed infusion; IV Intake: 3000ml rv 07/20 22:45 Drug: morphine 4 mg Route: IVP; Site: right antecubital; rv 07/21 00:33 Follow up: Response: No adverse reaction; RASS: Alert and Calm (0) mg2 07/20 22:45 Drug: Zofran (Ondansetron) 4 mg Route: IVP; Site: right antecubital; rv 07/21 00:33 Follow up: Response: No adverse reaction mg2 07/20 22:45 Drug: Zosyn 3.375 grams Route: IVPB; Infused Over: 60 mins; Site: right antecubital; rv 23:54 Follow up: IV Status: Completed infusion; IV Intake: 100ml rv 23:54 Drug: vancoMYCIN 1 grams Route: IVPB; Infused Over: 2 hrs; Site: right antecubital; rv 07/21 02:29 Follow up: IV Status: Completed infusion; IV Intake: 250ml rv 00:18 Drug: fentaNYL (PF) 50 mcg Route: IVP; Site: right antecubital; mg2 02:29 Follow up: Response: No adverse reaction; Marked relief of symptoms; RASS: Light rv sedation (-2) Disposition: 07/21/20 00:09 Hospitalization ordered by Yogi Hughes for Inpatient Admission. Preliminary diagnosis are Intra-abdominal and pelvic swelling, mass and lump, Peritoneal abscess. - Bed requested for Telemetry/MedSurg (Inpatient). - Status is Inpatient Admission. rv - Condition is Stable. - Problem is new. - Symptoms are unchanged. Signatures: Dispatcher [employer] EDWI Melba Griffin, RN RN cg Mono Ness MD MD tw4 Franky Estrada, RN RN [facility] [place] Lloyd Gottlieb, LIANE RN Jarvis Gee RN RN ll1 Corrections: (The following items were deleted from the chart) 07/20 22:23 22:03 NS 0.9% 1000 ml IV at 1 bolus Per protocol; 1000 mL bolus ordered. [facility] 07/21 02:10 00:09 Hospitalization Ordered by Yogi Hughes MD for Inpatient Admission. Preliminary cg diagnosis is Intra-abdominal and pelvic swelling, mass and lump; Peritoneal abscess. Bed requested for Telemetry/MedSurg (Inpatient). Status is Inpatient Admission. Condition is Stable. Problem is new. Symptoms are unchanged. tw 02:30 02:10 07/21/2020 00:09 Hospitalization Ordered by Yogi Hughes MD for Inpatient rv Admission. Preliminary diagnosis is Intra-abdominal and pelvic swelling, mass and lump; Peritoneal abscess. Bed requested for Telemetry/MedSurg (Inpatient). Status is Inpatient Admission. Condition is Stable. Problem is new. Symptoms are unchanged. cg
--- NOTE | 2020-07-21 00:10 | ER ---
Nurse's Notes [facility] Name: Kendall Kapoor Age: 34 yrs Sex: Male : 1985 Arrival Date: 07/20/2020 Time: 20:55 Bed 5 Private MD: Diagnosis: Intra-abdominal and pelvic swelling, mass and lump;Peritoneal abscess Presentation: 07/20 21:16 Chief complaint: Patient states: Had hernia repair here. States he has been dealing ll1 with severe pain and fever for past 10 days. [facility] wanted to admit him last week, but he declined. No N/V/D. + fever 104 at home, + dizziness. Coronavirus screen: Client denies travel out of the [place] in the last 14 days. At this time, the client does not indicate any symptoms associated with coronavirus-19. Ebola Screen: Patient denies travel to an Ebola-affected area in the 21 days before illness onset. Initial Sepsis Screen: Does the patient meet any 2 criteria? HR > 90 bpm. Risk Assessment: Do you want to hurt yourself or someone else? Patient reports no desire to harm self or others. Onset of symptoms was July 10, 2020. 21:16 Method Of Arrival: Ambulatory ll1 21:16 Acuity: JELLY 2 bb 22:33 Initial Sepsis Screen: Does the patient have a suspected source of infection? Yes: Skin rv breakdown/wound. Historical: - Allergies: 21:16 No Known Allergies; ll1 - PMHx: 21:16 CAD; Enlarged Heart; TIA; ll1 - PSHx: 21:16 Heart stents; heart cath; Appendectomy; rotator cuff; hemmorrhoidectomy; Hernia repair; ll1 - Immunization history:: Flu vaccine is not up to date. - Social history:: Smoking status: Patient reports the use of cigarette tobacco products, smokes one-half pack cigarettes per day. Screenin:33 Abuse screen: Denies threats or abuse. Denies injuries from another. Nutritional rv screening: No deficits noted. Tuberculosis screening: No symptoms or risk factors identified. Fall Risk None identified. Assessment: 22:32 General: Appears uncomfortable, Behavior is calm, cooperative. Pain: Complains of pain rv in pelvis. Neuro: Level of Consciousness is awake, alert, obeys commands, Oriented to person, place, time, situation. Cardiovascular: Patient's skin is warm and dry. Rhythm is sinus tachycardia. Respiratory: Airway is patent. GI: No signs and/or symptoms were reported involving the gastrointestinal system. : No signs and/or symptoms were reported regarding the genitourinary system. Derm: Skin is intact. 07/21 00:48 Reassessment: patient is updated on the test results and plan of care. patient rv verbalized understanding. awaiting admission orders. Neuro: Level of Consciousness is awake, alert, obeys commands, Oriented to person, place, time, situation. 01:09 Reassessment: patient refused covid test. mg2 Vital Signs: 07/20 21:16 BP 122 / 88; Pulse 122; Resp 19; Temp 99.3; Pulse Ox 95% ; Pain 8/10; ll1 22:22 Weight 136.08 kg; rv 23:30 BP 97 / 67; Pulse 96; Resp 19; Pulse Ox 94% on R/A; rv 07/21 00:00 BP 105 / 54; Pulse 94; Resp 18; Pulse Ox 94% on R/A; rv 00:36 BP 106 / 47; Pulse 95; Resp 18; Pulse Ox 90% on R/A; mg2 00:49 Pulse Ox 97% on R/A; rv 01:30 BP 112 / 71; Pulse 98; Resp 17; Pulse Ox 99% on 2 lpm NC; rv 02:28 BP 109 / 71; Pulse 91; Resp 18; Temp 98.7; Pulse Ox 96% on 2 lpm NC; rv ED Course: 07/20 20:55 Patient arrived in ED. cl3 21:18 Triage completed. ll1 21:18 Arm band placed on. ll1 21:44 Lloyd Gottlieb, LIANE is Primary Nurse. rv 22:01 Mono Ness MD is Attending Physician. tw4 22:15 Inserted saline lock: 20 gauge in right antecubital area, using aseptic technique. rv Blood collected. 22:15 Initial lab(s) drawn, by wi, sent to lab. First set of blood cultures drawn by wi. rv 22:30 Second set of blood cultures drawn by me. rv 22:33 Patient has correct armband on for positive identification. kitchen designer on. Pulse rv ox on. NIBP on. 23:39 CT Abd/Pelvis - IV Contrast Only In Process Unspecified. EDMS 07/21 00:08 Yogi Hughes MD is Hospitalizing Provider. tw4 02:26 No provider procedures requiring assistance completed. IV is patent, with fluids rv infusing freely, Patient admitted, IV remains in place. Administered Medications: 07/20 22:23 CANCELLED (Duplicate Order): NS 0.9% 1000 ml IV at 1 bolus Per protocol; 1000 mL bolus rv :23 Drug: NS 0.9% (30 ml/kg) 30 ml/kg Route: IV; Rate: bolus; Site: right antecubital; rv 07/21 02:30 Follow up: IV Status: Completed infusion; IV Intake: 3000ml rv 07/20 22:45 Drug: morphine 4 mg Route: IVP; Site: right antecubital; rv 07/21 00:33 Follow up: Response: No adverse reaction; RASS: Alert and Calm (0) mg2 07/20 22:45 Drug: Zofran (Ondansetron) 4 mg Route: IVP; Site: right antecubital; rv 07/21 00:33 Follow up: Response: No adverse reaction mg2 07/20 22:45 Drug: Zosyn 3.375 grams Route: IVPB; Infused Over: 60 mins; Site: right antecubital; rv 23:54 Follow up: IV Status: Completed infusion; IV Intake: 100ml rv 23:54 Drug: vancoMYCIN 1 grams Route: IVPB; Infused Over: 2 hrs; Site: right antecubital; rv 07/21 02:29 Follow up: IV Status: Completed infusion; IV Intake: 250ml rv 00:18 Drug: fentaNYL (PF) 50 mcg Route: IVP; Site: right antecubital; mg2 02:29 Follow up: Response: No adverse reaction; Marked relief of symptoms; RASS: Light rv sedation (-2) Intake: 07/20 23:54 IV: 100ml; Total: 100ml. rv 07/21 02:29 IV: 250ml; Total: 350ml. rv 02:30 IV: 3000ml; Total: 3350ml. rv Outcome: 00:09 Decision to Hospitalize by Provider. tw4 02:27 Admitted to Med/surg accompanied by tech, via wheelchair, room 222, Report called to OPAL ROB 02:27 Condition: good 02:27 Instructed on the need for admit. 02:30 Patient left the ED. rv Signatures: Dispatcher [employer] Ashley Grier RN RN bb Mono Ness MD MD tw4 Franky Estrada RN RN mg2 Lloyd Gottlieb RN RN rv Martine Gee cl3 aJrvis Gee RN RN ll1 Corrections: (The following items were deleted from the chart) 07/20 21:30 21:16 Acuity: JELLY 3 ll1 22:33 22:32 Derm: Wound noted pelvis Wound is post surgical rv rv
[2020-07-21] MEDS ORDERED: FENTANYL CITR 100 MCG/2 ML ONE ×2 (00:31→13:47)
[2020-07-21] MEDS ORDERED: ONDANSETRON 4 MG/2 ML VIAL IV PRN (01:37)
[2020-07-21] MEDS: NA CHLORIDE 0.9% 1,000 ML IV SCH ×2 (02:58→13:06)
[2020-07-21] MEDS: MORPHINE 4 MG/ML SYR IV PRN ×3 (02:59→11:15)
[2020-07-21 03:21] VITALS: BMI 47.0
[2020-07-21] MEDS ORDERED: PIPER/TAZO/NS 3.375gm 3.375 GM/100 ML BAG ONE (06:10)
[2020-07-21] MEDS: PIPER/TAZO/NS 3.375gm 3.375 GM/100 ML BAG IVPB SCH ×2 (06:19→13:00)
--- NOTE | 2020-07-21 11:16 | RAD REPORT ---
EXAM DESCRIPTION: CT - Abdomen Pelvis W Contrast - 07/21/2020 5:51 am CLINICAL HISTORY: 34-year-old male with abdominal pain. COMPARISON: No prior imaging is available for comparison. TECHNIQUE: CT of the abdomen and pelvis was performed following intravenous administration of contra st. Oral contrast was not administered. Multiplanar reformatted images were provided. This exam was p erformed according to our departmental dose optimization program which includes use of automated expo sure control, adjustment of the mA and/or kV according to patient size and/or use of iterative recons truction technique. FINDINGS: Chest: Evaluation through the lung bases reveals no focal opacity, pleural effusion or pne umothorax. Heart size is within normal limits. No pericardial effusion. Abdomen and pelvis: The liver, gallbladder, pancreas, spleen, bilateral kidneys and bilateral adrenal glands are within normal limits. The vessels are patent and normal in caliber. No abdominopelvic lymph nodes are noted to be pathologically enlarged by CT measurement criteria. The bowel is within normal limits without abnormal bowel wall thickness or bowel dilation. No free air. The appendix is not identified. The osseous structures are within normal limits. Small fat-containing umbilical hernia. Bilateral hydrocele. Postoperative changes are identified at the level of the LEFT lower quadrant. A complex fluid collection is identified within the ventral pelvis resulting in mass effect on the LEFT side bladder. The fluid collection reveals areas of diffuse stranding, fluid and areas of more conta ined appearing fluid, for which the possibility of organizing fluid collection hematoma/seroma or inf ectious process including abscess is considered in the differential. Overall fluid collection within the LEFT hemipelvis measures 8.4 x 10.7 cm. The more contained appearing of fluid collection surrounds multiple surgical clips and extends into t he subcutaneous tissues medially and anteriorly to the inguinal canal. In craniocaudal dimension the fluid collection extending from the ventral pelvis suspected through the inguinal canal measures appr oximately 6.4 cm, (series 703, image 94). The largest fluid collection within the subcutaneous tissues measures approximately 7.9 x 5.8, and ap pears to be distributed medially to the inguinal canal. IMPRESSION: 1. Appearance of postoperative repair of the LEFT side ventral pelvic wall or LEFT side inguinal canal with multiple surgical clips and multifocal, transspatial fluid collection extending f rom the ventral anterior pelvis with mass effect on the LEFT side bladder extending suspected through the medial aspect of the LEFT inguinal canal into the subcutaneous tissues. The fluid collection treva ears to be diffuse with a more focal contained component which appears to course medially to the ingu inal canal. Differential considerations may include postoperative hematoma/trauma versus phlegmon and developing abscess. 2. Bilateral hydrocele. Electronically signed by: Caitlyn Crow MD 07/20/2020 11:56 PM CDT Due to temporary technical issues with the PACS/Fluency reporting system, reports are being signed by the in house radiologist without review as a courtesy to ensure prompt reporting. The interpreting r adiologist is fully responsible for the content of the report.
--- NOTE | 2020-07-21 13:41 | P.HP ---
Date of Service: 07/21/20 PC: This patient, presents emergency room with severe left groin pain for diagnosis and treatment. HPC: This patient is well-known to me. He had a laparoscopic and open left inguinal hernia repair done a few weeks ago. Postoperatively he did well. However about 2-3 weeks coming in experienced some left-sided abdominal pain He is morbidly obese. He had a lot of fat in that area, but now appears to have a hematoma. He had been seen previously in and it does show some postoperative changes. No discrete abscess was noted, and is felt this may be a hematoma. 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 Shortly thereafter he began to complain of left groin pain. In the interim time. He has been working, running an excavator, but states that over the last few days he has been at home but resting. He had been prescribed antibiotics, which she says he has been taking. He was scheduled to see me last in my office, but on unfortunately missed the appointment. PMH: Morbid obesity PSHx: Hernia surgery as described SOC: No known allergy SYS REVIEW: No cough, wheeze, shortness of breath. She states he is in relatively good shape apart from his left inguinal hernia pain O/E awake alert comfortable HEENT: Within normal limits Chest: Chest movement equal bilaterally ABD: Soft nontender LOCO: In the left groin has a area of tenderness DATA: Elevated white cell count, CT scan shows possible fluid collection IMPRESSION: Fluid collection in left groin PLAN: I will take him the operating room for exploration of this wound. The risks of this procedure have been discussed. The possibility of bleeding, infection, need for further surgeries and procedures was outlined. Affection of the mesh necessitating its removal was explained. He understands and wants us to proceed. Once again I emphasized postoperative compliance with orders. He assures me that he will.
[2020-07-21] MEDS ORDERED: dexAMETHasone 10 MG/ML VIAL ONE (13:47)
[2020-07-21] MEDS ORDERED: MIDAZOLAM HCL 2 MG/2 ML INJ ONE (13:47)
[2020-07-21] MEDS ORDERED: KETOROLAC 30 MG/ML INJ ONE (13:47)
[2020-07-21] MEDS ORDERED: LIDOCAINE 2% MPF 5 ML VIAL ONE (13:47)
[2020-07-21] MEDS ORDERED: propofoL 200 MG/20 ML VIAL IV ONE (13:47)
[2020-07-21] MEDS ORDERED: ONDANSETRON 4 MG/2 ML VIAL ONE (13:48)
--- NOTE | 2020-07-21 14:42 | P.OP ---
Preoperative diagnosis: Painful fluid collection left groin Postoperative diagnosis: The same Primary procedure: Exploration of left groin Anesthesia: General Estimated blood loss: Less than 10 cc Specimen: Cultures aerobic and anaerobic sent Operative Technique: The patient brought the operating room placed supine on the table. After the induction of adequate general anesthesia, the area of the left groin was prepped with a DuraPrep solution, he was draped in usual aseptic manner. After palpating the left groin. Will we could feel a large mass in the subcutaneous tissues area. A skin incision was made through his old incision. He tells was used to spread this area. We were able to enter into this space a contained some old blood and some whitish fluid consistent with almost a 5 fat. This was aspirated from the wound. The mass appeared to have resolved in that area. A Poncho-Gross drain was now placed into the base and brought up to the its this skin incision. A stitch was used anchored in place. Cultures both a aerobic and anaerobic were taken from the incision. At this point, a sterile dressing was applied. He was stable when sent to the recovery room. Complications: None Drain(s): SEAN drain Transferred to: Recovery Room Condition: Good
[2020-07-21] MEDS ORDERED: MORPHINE 4 MG/ML SYR IV PRN (14:52)
[2020-07-21] MEDS ORDERED: HYDROCODONE/APAP 7.5/325 MG TAB PO PRN (14:52)
[2020-07-21 15:10] VITALS: O2SAT 93
[2020-07-21 16:39] VITALS: BP 124/65; TEMP 97.9
== END 2020-07-21 19:15 | disposition left against medical advice (07) | DRG 988 ==
LOC: ER 20:53 → ERHOLD 07-21 01:39 → 2ND 07-21 02:28
PROVIDERS: ADMIT Surgery; ATTEND Surgery
PROC: 0J9C0ZZ Drainage of Pelvic Region Subcutaneous Tissue and Fascia, Open Approach (ICD-10-PCS; principal; 2020-07-21 14:00)
DX: N50.1 Vascular disorders of male genital organs (principal); Z68.42 Body mass index [BMI] 45.0-49.9, adult; E66.01 Morbid (severe) obesity due to excess calories; I25.10 Atherosclerotic heart disease of native coronary artery without angina pectoris; Z86.73 Personal history of transient ischemic attack (TIA), and cerebral infarction without residual deficits; Z95.5 Presence of coronary angioplasty implant and graft; Z90.49 Acquired absence of other specified parts of digestive tract
CPT/HCPCS: 36415; 74177; 80048; 80076; 83605; 83690; 84145; 85025; 85730; 87040; 87070; 87075; 87205; 94010; 96365; 96366; 96367; 96375; 99285; J1100; J2250; J2405; J2543; J2704; J3010; J3370; J7030; J7050; Q9967

== ENCOUNTER 2021-01-22 22:58 | Emergency (ER) | payer BC ==
--- OUTSIDE RECORDS SUMMARY | 2021-01-22 23:01 | XMS REPORT | Continuity of Care Document ---
:1985 Author Organization [facility] t Address [address] [place] [address] Care Team Providers Name Role Phone Doctor Unassigned, Name Attending Clinician Unavailable Jacques SIGALA Attending Clinician Problems This patient has no known problems. Allergies, Adverse Reactions, Alerts This patient has no known allergies or adverse reactions. Medications This patient has no known medications. Procedures This patient has no known procedures. Encounters Start End Encounter Admission Attending Care Care Encounter Source Date/Time Date/Time Type Type Clinicians Facility Department ID 2020-10-08 2020-10-08 Orders Doctor CARL [id number] 00:00:00 00:00:00 Only Unassigned, LACIE [id number] [facility] [id number] 2020-09-17 2020-09-17 Office CASI Hanna [id number] 15:20:49 16:01:46 Visit Osiris Lopez [id number] [place] [id number] [id number] [address] Results This patient has no known results.
--- NOTE | 2021-01-23 00:20 | EDPHYS ---
Physician Documentation [facility] Name: Kendall Kapoor Age: 35 yrs Sex: Male : 1985 Arrival Date: 01/22/2021 Time: 23:03 Bed 20 Private MD: ED Physician Annie Grady HPI: 01/23 00:12 This 35 yrs old Male presents to ER via Ambulatory with complaints of Abscess.ma2 00:12 The patient presents with an abscess of the abdomen. Onset: The symptoms/episode ma2 began/occurred gradually, 1 year(s) ago. Associated signs and symptoms: Pertinent negatives: erythema, fever, headache, nausea. Severity of symptoms: At their worst the symptoms were very mild, in the emergency department the symptoms are unchanged. The patient has experienced similar episodes in the past. 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 this started after he had intrapelvic abscess s/p multiple surgeries. he has no acute symptoms such as fever or abd pain. there is no change in the pus draining amount. he is here because he has no pcp and got tired of this problem.. Historical: - Allergies: 01/22 23:13 No Known Allergies; sg - PMHx: 23:13 CAD; Enlarged Heart; TIA; sg - PSHx: 23:13 Heart stents; heart cath; Appendectomy; hemmorrhoidectomy; rotator cuff; Hernia repair; sg - Immunization history:: Adult Immunizations up to date. - Social history:: Smoking status: Patient denies any tobacco usage or history of. Patient/guardian denies using alcohol, street drugs, The patient lives with family. - Family history:: not pertinent. ROS: 01/23 00:12 Constitutional: Negative for fever, chills, and weight loss. ma2 All other systems are negative. Exam: 00:12 Constitutional: This is a well developed, well nourished patient who is awake, alert, ma2 and in no acute distress. Head/Face: Normocephalic, atraumatic. Eyes: Pupils equal round and reactive to light, extra-ocular motions intact. Lids and lashes normal. Conjunctiva and sclera are non-icteric and not injected. Cornea within normal limits. Periorbital areas with no swelling, redness, or edema. ENT: Nares patent. No nasal discharge, no septal abnormalities noted. Tympanic membranes are normal and external auditory canals are clear. Oropharynx with no redness, swelling, or masses, exudates, or evidence of obstruction, uvula midline. Mucous membranes moist. Neck: Trachea midline, no thyromegaly or masses palpated, and no cervical lymphadenopathy. Supple, full range of motion without nuchal rigidity, or vertebral point tenderness. No Meningismus. Chest/axilla: Normal chest wall appearance and motion. Nontender with no deformity. No lesions are appreciated. Cardiovascular: Regular rate and rhythm with a normal S1 and S2. No gallops, murmurs, or rubs. Normal PMI, no JVD. No pulse deficits. Respiratory: Lungs have equal breath sounds bilaterally, clear to auscultation and percussion. No rales, rhonchi or wheezes noted. No increased work of breathing, no retractions or nasal flaring. Abdomen/GI: multiple ac fistula. no cellulitis or any abscess on exam. Soft, non-tender, with normal bowel sounds. No distension or tympany. No guarding or rebound. No evidence of tenderness throughout. Back: No spinal tenderness. No costovertebral tenderness. Full range of motion. Skin: Warm, dry with normal turgor. Normal color with no rashes, no lesions, and no evidence of cellulitis. MS/ Extremity: Pulses equal, no cyanosis. Neurovascular intact. Full, normal range of motion. Neuro: Awake and alert, GCS 15, oriented to person, place, time, and situation. Cranial nerves II-XII grossly intact. Motor strength 5/5 in all extremities. Sensory grossly intact. Cerebellar exam normal. Normal gait. Vital Signs: 01/22 23:28 BP 132 / 80; Pulse 90 MON; Resp 20; Pulse Ox 94% on R/A; Weight 136.08 kg (R); Height 5 sg ft. 9 in. (175.26 cm) (R); Pain 6/10; 01/23 00:00 BP 128 / 86; Pulse 86; Resp 16; Pulse Ox 95% ; sf 01/22 23:28 Body Mass Index 44.30 (136.08 kg, 175.26 cm) sg MDM: 01/22 23:37 Patient medically screened. ma2 01/23 00:12 Differential diagnosis: likely enterocutaneous fistula no abscess or cellulitis or skin ma2 rash no emergency condition exist . Data reviewed: vital signs, nurses notes. Counseling: I had a detailed discussion with the patient and/or guardian regarding: the historical points, exam findings, and any diagnostic results supporting the discharge/admit diagnosis, the presence of at least one elevated blood pressure reading (>120/80) during this emergency department visit, the need for outpatient follow up. Response to treatment: There is no appreciated change of the patient's symptoms at this time. Administered Medications: No medications were administered Disposition: 01/23/21 00:19 Discharged to Home. Impression: Fistula, other specified site - enterocutaneous . - Condition is Stable. - Discharge Instructions: Fistulogram. - Medication Reconciliation Form, Thank You Letter, Antibiotic Education, Prescription Opioid Use form. - Follow up: Private Physician; When: Tomorrow; Reason: Continuance of care. Follow up: Gene Tilley MD; When: Tomorrow; Reason: Continuance of care. Signatures: Jarad Ventura RN RN Annie Grady MD MD co2 Jarad Horvath RN RN sf Corrections: (The following items were deleted from the chart) 00:20 00:19 01/23/2021 00:19 Discharged to Home. Impression: Fistula, other specified site - ma2 enterocutaneous . Condition is Stable. Forms are Medication Reconciliation Form, Thank You Letter, Antibiotic Education, Prescription Opioid Use. Follow up: Private Physician; When: Tomorrow; Reason: Continuance of care. ma2 00:30 00:20 01/23/2021 00:19 Discharged to Home. Impression: Fistula, other specified site - sf enterocutaneous . Condition is Stable. Discharge Instructions: Fistulogram. Forms are Medication Reconciliation Form, Thank You Letter, Antibiotic Education, Prescription Opioid Use. Follow up: Private Physician; When: Tomorrow; Reason: Continuance of care. Follow up: Dr. Gene Tilley; When: Tomorrow; Reason: Continuance of care. ma2
--- NOTE | 2021-01-23 00:20 | ER ---
Nurse's Notes [facility] Name: Kendall [facility]oor Age: 35 yrs Sex: Male : 1985 Arrival Date: 01/22/2021 Time: 23:03 Bed 20 Private MD: Diagnosis: Fistula, other specified site-enterocutaneous Presentation: 01/22 23:12 Care prior to arrival: None. sg 23:12 Acuity: JELLY 3 sg 23:12 Chief complaint: Patient states: Since my original sx with Dr.Maguire fischer in 06/2020, I sg have had these abscesses that pop up along my pelvis that will drain. It is painful and I just havent been feeling right for several days as well. Coronavirus screen: Client denies travel out of the [place] in the last 14 days. At this time, the client does not indicate any symptoms associated with coronavirus-19. Ebola Screen: Patient negative for fever greater than or equal to 101.5 degrees Fahrenheit, and additional compatible Ebola Virus Disease symptoms Patient denies exposure to infectious person. Patient denies travel to an Ebola-affected area in the 21 days before illness onset. No symptoms or risks identified at this time. Initial Sepsis Screen: Does the patient meet any 2 criteria? No. Patient's initial sepsis screen is negative. Does the patient have a suspected source of infection? Yes: Skin breakdown/wound. Risk Assessment: Do you want to hurt yourself or someone else? Patient reports no desire to harm self or others. Onset of symptoms was January 22, 2021. Transition of care: patient was not received from another setting of care. 23:12 Method Of Arrival: Ambulatory sg Historical: - Allergies: 23:13 No Known Allergies; sg - PMHx: 23:13 CAD; Enlarged Heart; TIA; sg - PSHx: 23:13 Heart stents; heart cath; Appendectomy; hemmorrhoidectomy; rotator cuff; Hernia repair; sg - Immunization history:: Adult Immunizations up to date. - Social history:: Smoking status: Patient denies any tobacco usage or history of. Patient/guardian denies using alcohol, street drugs, The patient lives with family. - Family history:: not pertinent. Screenin/27 00:29 Abuse screen: Denies threats or abuse. Denies injuries from another. Nutritional sf screening: No deficits noted. Tuberculosis screening: No symptoms or risk factors identified. Never had TB. Possible symptoms: None Risk factors: None. Fall Risk None identified. No fall in past 12 months (0 pts). No secondary diagnosis (0 pts). No IV (0 pts). Ambulatory Aid- None/Bed Rest/Nurse Assist (0 pts). Gait- Normal/Bed Rest/Wheelchair (0 pts) Mental Status- Oriented to own ability (0 pts). Total Muir Fall Scale indicates No Risk (0-24 pts). Assessment: 00:28 General: Appears in no apparent distress. Behavior is calm, cooperative. Pain: Denies sf pain. Neuro: No deficits noted. Cardiovascular: No deficits noted. Respiratory: No deficits noted. GI: No deficits noted. : No deficits noted. Vital Signs: 01/22 23:28 BP 132 / 80; Pulse 90 MON; Resp 20; Pulse Ox 94% on R/A; Weight 136.08 kg (R); Height 5 sg ft. 9 in. (175.26 cm) (R); Pain 6/10; 01/23 00:00 BP 128 / 86; Pulse 86; Resp 16; Pulse Ox 95% ; sf 01/22 23:28 Body Mass Index 44.30 (136.08 kg, 175.26 cm) sg ED Course: 01/22 23:03 Patient arrived in ED. cf2 23:12 Triage completed. sg 23:13 Arm band placed on. sg 23:30 Jarad Horvath RN is Primary Nurse. sf 23:37 Annie Grady MD is Attending Physician. il2 01/23 00:20 Gene Tilley MD is Referral Physician. ma2 00:29 Patient has correct armband on for positive identification. Bed in low position. Call sf light in reach. 00:29 No provider procedures requiring assistance completed. Patient did not have IV access sf during this emergency room visit. Administered Medications: No medications were administered Outcome: 00:19 Discharge ordered by . ma2 00:29 Discharged to home ambulatory. sf 00:29 Condition: stable 00:29 Discharge instructions given to patient, Instructed on discharge instructions, follow up and referral plans. Demonstrated understanding of instructions, follow-up care. 00:30 Patient left the ED. sf Signatures: Jarad Ventura RN RN Annie Grady MD MD ma2 Carlene Bañuelos 2 Jarad Horvath RN RN sf Corrections: (The following items were deleted from the chart) 01/22 23:29 23:28 Pulse 90bpm; MonitorResp 20bpm; Pulse Ox 94% RA; 136.08 kg Reported; Height 5 ft. sg 9 in. Reported; BMI: 44.3; Pain 6/10; sg 01/23 00:26 01/22 23:12 Chief complaint: Patient states: Since my original sx with back in 07/19, I have had these abscesses that pop up along my pelvis that will drain. It is painful and I just havent been feeling right for several days as well 01/23 00: 00:29 Patient has correct armband on for positive identification. sf sf
[2021-01-23 16:56] VITALS: BP 128/86; O2SAT 95
== END 2021-01-23 00:30 | disposition home or self-care (01) ==
LOC: ER 22:58
DX: K63.2 Fistula of intestine (principal); I25.10 Atherosclerotic heart disease of native coronary artery without angina pectoris; Z86.73 Personal history of transient ischemic attack (TIA), and cerebral infarction without residual deficits; Z95.818 Presence of other cardiac implants and grafts
CPT/HCPCS: 99281

== ENCOUNTER 2021-05-04 03:41 | Emergency (ER) | payer BC ==
--- OUTSIDE RECORDS SUMMARY | 2021-05-04 03:48 | XMS REPORT | Continuity of Care Document ---
:1985 Author Organization [facility] t Address [address] [place] [address] Care Team Providers Name Role Phone Asked, Pcp Primary Care Physician Unavailable Ej Peterson MD Attending Clinician Mariana SIGALA Attending Clinician Joy SIGALA Attending Clinician Joana SIGALA, R. Attending Clinician Doctor Unassigned, Name Attending Clinician Unavailable Jacques SIGALA Attending Clinician MARIANA Admitting Clinician Unavailable Payers Payer Name Policy Type Policy Effective Date Expiration Date [facility] Number [id number] [facility] [id number] 2021 [place] PPO/FEDERAL 00:00:00 [employer] EMPL [id number] 2021-Presen tPPO Problems Condition Condition Condition Status Onset Resolution Last Treating Co mments Source Name Details Category Date Date Treatment Clinician Date Acute Acute Disease Active [facility] respirator respirator 6-15 Me thodi y distress y distress 00:00: st 00 COPD COPD Disease Active [facility] (chronic (chronic 5-18 Method i obstructiv obstructiv 00:00: st e e 00 pulmonary pulmonary disease) disease) Shortness Shortness Disease Active Ammon ston of breath of breath 5-17 Meth vangie 00:00: st 00 Allergies, Adverse Reactions, Alerts This patient has no known allergies or adverse reactions. Social History Social Habit Start Date Stop Date Quantity Comments Source Exposure to Not sure [facility] Metho dist SARS-CoV-2 (event) Tobacco use and 2021-03-16 2021-03-16 Never used Jevon Schumacher ethodist exposure 00:00:00 00:00:00 Alcohol intake 2021-03-16 2021-03-16 Ex-drinker Jevon Wy thodist 00:00:00 00:00:00 (finding) Sex [birth year] Jevon Schumacher ethodist 00:00:00 00:00:00 Smoking Status Start Date Stop Date Source Current every day smoker 2021-03-16 00:00:00 Ammon Urban Medications This patient has no known medications. Vital Signs Vital Name Observation Time Observation Value Comments Source Systolic blood 2021-04-13 04:03:00 143 mm[Hg] Alexto n [facility] pressure Diastolic blood 2021-04-13 04:03:00 89 mm[Hg] Saritha on [employer] pressure Heart rate 2021-04-13 04:03:00 89 /min Jevon Urban Body temperature 2021-04-13 04:03:00 36.61 Brittanie Alex Urban Respiratory rate 2021-04-13 04:03:00 16 /min Alex Urban Oxygen saturation in 2021-04-13 04:03:00 96 /min Jevon Urban Arterial blood by Pulse oximetry Body height 2021-04-13 00:34:00 175.3 cm Jevon Urban Body weight 2021-03-15 19:49:00 136.079 kg Jevon Urban BMI 2021-03-15 19:49:00 44.30 kg/m2 Jevon Urban Procedures Procedure Date / Time Performing Clinician Source Performed ECG 12-LEAD 2021-04-13 10:05:12 Cody Rojas Met jasmin RESPIRATORY PATHOGEN PANEL 2021-04-13 01:58:00 Jonathan Peterson WITH COVID-19 RT-PCR HC COMPLETE BLD COUNT 2021-04-13 01:58:00 Jonathan Peterson W/AUTO DIFF COMPREHENSIVE METABOLIC 2021-04-13 01:58:00 Jonathan Peterson [place] [facility] PANEL TROPONIN 2021-04-13 01:58:00 Jean Carlossung Jonathan Escoto Me thodist B NATRIURETIC PEPTIDE 2021-04-13 01:58:00 Omidixiesung Jonathan adair [facility] ESTIMATED GFR 2021-04-13 01:58:00 Kristen Jonathan Escoto Me thodist XR CHEST 1 VW PORTABLE 2021-04-13 01:41:00 Kristen Idrisarmando Ej Urban ECG ED PRELIMINARY 2021-04-13 01:09:31 Jean Carlossung Jonathan Urban INTERPRETATION ECG 12-LEAD 2021-04-13 00:44:50 Kristen Jonathan Escoto Me thodist BLOOD CULTURE, AEROBIC & 2021-03-15 23:52:00 Tung Altamirano ANAEROBIC Omead LACTIC ACID LEVEL, SEPSIS 2021-03-15 23:52:00 Tung Altamirano - NOW AND REPEAT 2X EVERY Omead 3 HOURS TROPONIN 2021-03-15 23:52:00 Tung Altamirano Me thodist [place] PROCALCITONIN 2021-03-15 23:52:00 Jevon Bernard Meth odist Bruno Mahajan CT ANGIOGRAM PE CHEST 2021-03-15 23:17:43 Tung Altamirano Omead XR CHEST 1 VW PORTABLE 2021-03-15 21:29:00 Tung Altamirano Ome[place] TROPONIN 2021-03-15 21:07:00 Tung Altamirano Me thodist Omead B NATRIURETIC PEPTIDE 2021-03-15 21:07:00 Tung Altamirano Omead ECG ED PRELIMINARY 2021-03-15 20:57:30 Jevon Bernard ethodist INTERPRETATION Bruno Mahajan RESPIRATORY PATHOGEN PANEL 2021-03-15 20:23:00 Tung Altamirano WITH COVID-19 RT-PCR O[place] HC COMPLETE BLD COUNT 2021-03-15 20:22:00 Tung Altamirano W/AUTO DIFF O[place] COMPREHENSIVE METABOLIC 2021-03-15 20:22:00 Adarsh Tung Urban PANEL Omead LACTIC ACID LEVEL, SEPSIS 2021-03-15 20:22:00 Tung Altamirano - NOW AND REPEAT 2X EVERY Omead 3 HOURS D-DIMER 2021-03-15 20:22:00 AdarshnAivalfaustino Escoto Me thodist Omead ESTIMATED GFR 2021-03-15 20:22:00 Jevon Bernard Meth odist Bruno R. ECG 12-LEAD 2021-03-15 19:47:41 Tung Altamirano Me thodist Omead Plan of Care Planned Activity Planned Date Details Comments Source Future Scheduled 2021-05-30 INFLUENZA VACCINE Alexto n [facility] Test 00:00:00 [code = INFLUENZA VACCINE] Future Scheduled 2002 Hepatitis C [facility] Met hodist Test 00:00:00 screening (procedure) [code = 567432361] Future Scheduled 1996 COVID-19 VACCINE (1) Ammon michaelmatthew [facility] Test 00:00:00 [code = COVID-19 VACCINE (1)] Encounters Start End Encounter Admission Attending Care Care Encounter Source Date/Time Date/Time Type Type Clinicians Facility Department ID 2021-04-13 2021-04-13 Outpatient [facility] [address] 896 [id number] [place] 00:00:00 00:00:00 YAHYA [address] 2021-03-15 2021-03-16 Inpatient [facility] [address] 064 [id number] [place] 00:00:00 00:00:00 YAHYA [address] 2020-10-08 2020-10-08 Orders Doctor CARL [id number] 00:00:00 00:00:00 Only Unassigned, LACIE [id number] [place] [facility] [id number] 2020-09-17 2020-09-17 Office CASI Hanna [id number] 15:20:49 16:01:46 Visit Osiris Lopez [id number] Nathanael [id number] Winifred [id number] [place] [address] Building Results Test Description Test Time Test Comments Results Result Comments Source ECG 12 lead 2021-04-14 06:42:56 Test Item Value Reference Range Interpretation Comme nts Ventricular rate (test code = 253) 90 Atrial rate (test code = 255) 90 NH interval (test code = 266) 128 QRSD interval (test code = 260) 106 QT interval (test code = 264) 362 QTC interval (test code = 265) 442 P axis 1 (test code = 267) 16 QRS axis 1 (test code = 268) 53 T wave axis (test code = 270) 36 EKG impression (test code = 273) Normal sinus rhythm- [facility] Chest 1 Vw [id number] 02:34:22Hm Interface, Radiology Results Incoming - 04/13/2021 2:37 AM CDT EXAMINATION: XR CHEST 1 VW PORTABLECLINICAL HISTORY: sobCOMPARISON: 03/15/2021.IMPRESSION:Low lung volumes with vascular crowding and/or congestion.No pleural effusion or pneumothorax. Cardiac silhouette appears prominent due in part to technique.No acute osseous abnormalities.[facility]-[id number] [facility] Preliminary Interpretation - Not an [id number] 01:09:31 Test Item Value Reference Range Interpretation Comments CHAI (test code = CHAI) Jonathan Peterson MD 04/14/2021 4:33 PME ED Preliminary Interpretation - Not an OrderPerformed by: Jonathan Peterson [facility]PITALuthorized by: Jonathan Peterson MD ECG reviewed by ED Physician in the absence of a funeral arranger: yes Interpretation: Interpretation: abnormal Rate: ECG rate: 102 ECG rate assessment: tachycardic Rhythm: Rhythm: sinus tachycardia Ectopy: Ectopy: none QRS: QRS axis: NormalConduction: Conduction: normal ST segments: ST segments: NormalComments: rSr' Lab Interpretation Abnormal (test code = 39992-0) Jevon FernandezistCT Angiogram Pe [id number] 23:21:46Hm Interface, Radiology Results Incoming - 03/15/2021 11:24 PM CDTFormatting of this note might be di fferent from the original.CT ANGIOGRAM PE CHESTINDICATION: PE suspected low intermediate prob positive D-dimerTECHNIQUE: Multidetector CT of the chest with attention to the pulmonary arteries was performed following the intravenous administration of iodinated contrast with automated exposure control and/or iterative reconstruction techniques to radiation dose. Post-processed 3D MIP imageswere also performed for CT angiography. COMPARISON: NoneFINDINGS:PULMONARY ARTERIES: The pulmonary arteries are diagnostically opacified without findings for acute pulmonary embolus. Pulmonary arteries are normal in caliber.HEART AND GREAT ARTERIES: The heart is normal in size without pericardial effusion. The aorta and arch vessels are normal in caliber and enhancement for phase.MEDIASTINUM AND ARNALDO: No mass or infiltration is identified. No enlarged lymph nodes are present. Trachea and central airways are patent.LUNGS: Clear.PLEURA: No pneumothorax or effusion.CHEST WALL: Unremarkable.VISUALIZED ABDOMEN: No acute findings. IMPRESSION:1.Negative CT for PE*RONNI-[id number] [facility]ism
[2021-05-04] MEDS ORDERED: KETOROLAC 30 MG/ML INJ ONE (05:21)
[2021-05-04] MEDS ORDERED: FUROSEMIDE 40 MG/4 ML VIAL ONE (05:21)
[2021-05-04 05:36] LABS: Protime INR 0.97
[2021-05-04 05:38] LABS: Basophils % 0.7 % (0-1.3); Hematocrit 44.3 % (39.6-49.0); Lymphocytes % 16.9 % (15.3-44.8); MPV 8.8 fL (7.6-11.3); RBC Red Blood Cell Count 5.03 M/uL (4.33-5.43)
[2021-05-04 05:49] LABS: ALT/SGPT 31 U/L (12-78); AST/SGOT 15 U/L (15-37); Albumin 3.2 g/dL (3.4-5.0); Alkaline Phosphatase 112 U/L (45-117); BUN Blood Urea Nitrogen 10 mg/dL (7-18); Bicarbonate 27 mmol/L (21-32); Bilirubin Direct < 0.1 mg/dL (0-0.2); Bilirubin Total 0.1 mg/dL (0.2-1.0); Glucose Level 106 mg/dL (74-106); Magnesium 2.5 mg/dL (1.8-2.4); NT PRO-BNP 22 pg/mL (<125); Potassium 3.7 mmol/L (3.5-5.1); Protein, Total 7.7 g/dL (6.4-8.2); Sodium Level 142 mmol/L (136-145); Troponin (Emerg Dept Use Only) < 0.02 ng/mL (0.0-0.045)
--- NOTE | 2021-05-04 06:00 | EDPHYS ---
Physician Documentation [facility] Name: Kendall Kapoor Age: 35 yrs Sex: Male : 1985 Arrival Date: 05/04/2021 Time: 03:44 Bed 8 Private MD: ED Physician Annie Grady HPI: 05/04 04:52 This 35 yrs old Male presents to ER via Ambulatory with complaints of Leg ma2 Swelling. 04:52 Onset: The symptoms/episode began/occurred gradually, 3 month(s) ago. Associated signs ma2 and symptoms: Pertinent negatives nausea, swelling, tingling, vomiting. Severity of symptoms: At their worst the symptoms were moderate, in the emergency department the symptoms are unchanged. The patient has experienced similar episodes in the past. stopped taking his lasix because he does not hae pcp . Historical: - Allergies: 04:29 No Known Allergies; ea - PMHx: 04:29 TIA; Enlarged Heart; CAD; ea - Immunization history:: Adult Immunizations up to date. - Social history:: Smoking status: Patient reports the use of cigarette tobacco products, denies chronic smoking, but will smoke occasionally, Smoking status: unknown. - Family history:: not pertinent. ROS: 04:52 Constitutional: Negative for fever, chills, and weight loss. ma2 04:52 All other systems are negative. Exam: 04:52 Constitutional: This is a well developed, well nourished patient who is awake, alert, ma2 and in no acute distress. Chest/axilla: Normal chest wall appearance and motion. Nontender with no deformity. No lesions are appreciated. Cardiovascular: Regular rate and rhythm with a normal S1 and S2. No gallops, murmurs, or rubs. Normal PMI, no JVD. No pulse deficits. Respiratory: Lungs have equal breath sounds bilaterally, clear to auscultation and percussion. No rales, rhonchi or wheezes noted. No increased work of breathing, no retractions or nasal flaring. Abdomen/GI: Soft, non-tender, with normal bowel sounds. No distension or tympany. No guarding or rebound. No evidence of tenderness throughout. Skin: Warm, dry with normal turgor. Normal color with no rashes, no lesions, and no evidence of cellulitis. MS/ Extremity: LE pitting 2+ equal bilat up to the knee, otherwise Pulses equal, no cyanosis. Neurovascular intact. Full, normal range of motion. Neuro: Awake and alert, GCS 15, oriented to person, place, time, and situation. Cranial nerves II-XII grossly intact. Motor strength 5/5 in all extremities. Sensory grossly intact. Cerebellar exam normal. Normal gait. Vital Signs: 04:29 BP 134 / 73; Pulse 95; Resp 18; Pulse Ox 99% ; ea 06:08 BP 120 / 64; Pulse 81; Resp 17; Pulse Ox 99% ; ea MDM: 04:12 Patient medically screened. id2 04:52 Differential diagnosis: contusion, abrasion, tendonitis, LE edema, peripheral edema. id2 05:59 Data reviewed: vital signs, nurses notes. Counseling: I had a detailed discussion with ma2 the patient and/or guardian regarding: the historical points, exam findings, and any diagnostic results supporting the discharge/admit diagnosis, the presence of at least one elevated blood pressure reading (>120/80) during this emergency department visit, the need for outpatient follow up. Response to treatment: the patient's symptoms have markedly improved after treatment. 05/04 04:50 Order name: Basic Metabolic Panel [facility] 05/04 04:50 Order name: CBC with Diff; Complete Time: 05:47 id05/04 04:50 Order name: LFT's; Complete Time: 05:59 id05/04 04:50 Order name: Magnesium; Complete Time: 05:59 id05/04 04:50 Order name: NT PRO-BNP; Complete Time: 05:59 id05/04 04:50 Order name: PT-INR; Complete Time: 05:47 05/04 04:50 Order name: Troponin (emerg Dept Use Only); Complete Time: 05:59 id05/04 04:50 Order name: EKG; Complete Time: 04:51 id05/04 04:50 Order name: Cardiac monitoring; Complete Time: 05:18 id05/04 04:50 Order name: EKG - Nurse/Tech; Complete Time: 05:18 id05/04 04:50 Order name: IV Saline Lock; Complete Time: 05:18 id05/04 04:51 Order name: Basic Metabolic Panel; Complete Time: 05:59 EDMS 05/04 04:50 Order name: Labs collected and sent; Complete Time: 05:18 ma2 05/04 04:50 Order name: O2 Per Protocol; Complete Time: 05:18 ma2 05/04 04:50 Order name: O2 Sat Monitoring; Complete Time: 05:18 ma2 Administered Medications: 05:18 Drug: Lasix (furosemide) 40 mg Route: IVP; Site: left antecubital; ea 06:09 Follow up: Response: No adverse reaction ea 05:18 Drug: Ketorolac 30 mg Route: IVP; Site: left antecubital; ea 06:09 Follow up: Response: No adverse reaction ea Disposition Summary: 05/04/21 06:00 Discharge Ordered Location: Home ma2 Condition: Stable ma2 Diagnosis - Edema, unspecified ma2 Followup: ma2 - With: Private Physician - When: Tomorrow - Reason: If symptoms return Discharge Instructions: - Discharge Summary Sheet ma2 - Edema, [id number] ma2 Forms: - Medication Reconciliation Form ma2 - Thank You Letter ma2 - Antibiotic Education ma2 - Prescription Opioid Use ma2 Prescriptions: - Lasix 20 mg Oral Tablet - take 1 tablet by ORAL route once daily; 20 tablet; Refills: 0, Product ma2 Selection Permitted - Diclofenac Sodium 75 mg Oral Tablet Sustained Release - take 1 tablet by ORAL route 2 times per day; 30 tablet; Refills: 0, Product ma2 Selection Permitted Signatures: Dispatcher [employer] Mami Brewer RN RN ea Alzahri, Mohammad, MD MD ma2 Elvia Alamo 2
--- NOTE | 2021-05-04 06:00 | ER ---
Nurse's Notes [facility] Name: Kendall Kapoor Age: 35 yrs Sex: Male : 1985 Arrival Date: 05/04/2021 Time: 03:44 Bed 8 Private MD: Diagnosis: Edema, unspecified Presentation: 05/04 04:26 Ebola Screen: No symptoms or risks identified at this time. ea 04:26 Risk Assessment: Do you want to hurt yourself or someone else? Patient reports no ea desire to harm self or others. 04:30 Coronavirus screen: At this time, the client does not indicate any symptoms associated ea with coronavirus-19. Initial Sepsis Screen: Does the patient meet any 2 criteria? No. Patient's initial sepsis screen is negative. Does the patient have a suspected source of infection? No. Patient's initial sepsis screen is negative. 04:30 Method Of Arrival: Ambulatory ea 04:32 Chief complaint: Patient states: bi-lateral leg swelling, for last few weeks, seen bs2 cosmetic consultant 2 weeks ago ruled out CHF. Onset of symptoms is unknown. 04:32 Acuity: JELLY 3 bs2 Triage Assessment: 04:32 General: Appears in no apparent distress. uncomfortable, obese, well groomed, well bs2 developed, well nourished, Behavior is calm, cooperative, appropriate for age. Pain: Complains of pain in right leg and left leg Pain currently is 9 out of 10 on a pain scale. EENT: No deficits noted. No signs and/or symptoms were reported regarding the EENT system. Neuro: No deficits noted. Cardiovascular: No deficits noted. Respiratory: No deficits noted. GI: No deficits noted. No signs and/or symptoms were reported involving the gastrointestinal system. : No deficits noted. No signs and/or symptoms were reported regarding the genitourinary system. Derm: pt has small pustular sores on bi-lateral lower legs, Reports increased pain tingling. Historical: - Allergies: 04:29 No Known Allergies; ea - PMHx: 04:29 TIA; Enlarged Heart; CAD; ea - Immunization history:: Adult Immunizations up to date. - Social history:: Smoking status: Patient reports the use of cigarette tobacco products, denies chronic smoking, but will smoke occasionally, Smoking status: unknown. - Family history:: not pertinent. Screenin:25 Abuse screen: Denies threats or abuse. Nutritional screening: No deficits noted. ea Tuberculosis screening: No symptoms or risk factors identified. Fall Risk None identified. Assessment: 04:35 General: Appears in no apparent distress. uncomfortable, obese, well groomed, well bs2 developed, well nourished, Behavior is calm, cooperative, appropriate for age. Pain: Complains of pain in right leg and left leg Pain currently is 9 out of 10 on a pain scale. Also complains of b-lateral leg swelling. Neuro: No deficits noted. Cardiovascular: No deficits noted. Respiratory: No deficits noted. GI: No deficits noted. No signs and/or symptoms were reported involving the gastrointestinal system. : No deficits noted. No signs and/or symptoms were reported regarding the genitourinary system. EENT: No deficits noted. No signs and/or symptoms were reported regarding the EENT system. Derm:. 04:37 General: pt states bi-lateral leg swelling for last few weeks, states he was seen in ER bs2 and refereed to cosmetic consultant who he seen 2 weeks ago, cosmetic consultant told pt he does not have CHF, pt also complains of pain and tingling in both lower legs and feet, and has small pustular sores all around both lower legs, . Vital Signs: 04:29 BP 134 / 73; Pulse 95; Resp 18; Pulse Ox 99% ; ea 06:08 BP 120 / 64; Pulse 81; Resp 17; Pulse Ox 99% ; ea ED Course: 03:44 Patient arrived in ED. bp1 04:12 Annie Grady MD is Attending Physician. ma2 04:25 Patient has correct armband on for positive identification. Bed in low position. Call ea light in reach. Side rails up X2. 04:26 Arm band placed on right wrist. Patient placed in an exam room, on a stretcher, on ea pulse oximetry. 04:33 Triage completed. bs2 04:35 Pulse ox on. NIBP on. Door closed. Lights dimmed. Warm blanket given. bs2 06:08 No provider procedures requiring assistance completed. IV discontinued, intact, ea bleeding controlled, No redness/swelling at site. Pressure dressing applied. Administered Medications: 05:18 Drug: Lasix (furosemide) 40 mg Route: IVP; Site: left antecubital; ea 06: Follow up: Response: No adverse reaction ea 05:18 Drug: Ketorolac 30 mg Route: IVP; Site: left antecubital; ea 06: Follow up: Response: No adverse reaction ea Outcome: 06:00 Discharge ordered by . tavon 06:08 Discharged to home ambulatory, with family. ea 06:08 Condition: stable 06:08 Discharge instructions given to patient, Instructed on discharge instructions, follow up and referral plans. medication usage, Demonstrated understanding of instructions, follow-up care, medications, Prescriptions given X 2. 06:09 Patient left the ED. ea Signatures: Mami Goff RN RN Annie Mishra MD MD ma2 Meghann Patterson Bridget bs2
[2021-05-04 06:17] VITALS: O2SAT 99
[2021-05-04 06:18] VITALS: BP 120/64
--- NOTE | 2021-05-04 16:09 | EKG ---
Test Date: 2021-05-04 Test Time: 05:27:16 Bicycle Repair Technician: KEYLA MEASUREMENT RESULTS: Intervals: Rate: 83 MS: 128 QRSD: 110 QT: 364 QTc: 427 [place]: P: 20 MS: 128 QRS: 61 T: 34 INTERPRETIVE STATEMENTS: Normal sinus rhythm Normal ECG Compared to ECG 06/02/2020 08:14:35 Short MS interval no longer present Electronically Signed On 05-04-21 16:08:21 CDT by Danis Uriarte
== END 2021-05-04 06:09 | disposition home or self-care (01) ==
LOC: ER 03:41
DX: R60.9 Edema, unspecified (principal); F17.210 Nicotine dependence, cigarettes, uncomplicated
CPT/HCPCS: 93005; 85025; 80048; 36415; 83735; 85610; 80076; 84484; 83880; 96375; 96374; 99283; J1940

== ENCOUNTER 2021-05-27 05:18 | Emergency (ER) | payer BC ==
--- OUTSIDE RECORDS SUMMARY | 2021-05-27 05:21 | XMS REPORT | Continuity of Care Document ---
:1985 Author Organization [facility] t Address [address] [place] [address] Care Team Providers Name Role Phone Asked, Pcp Primary Care Physician Unavailable Ej Peterson MD Attending Clinician Mariana SIGALA Attending Clinician Joy SIGALA Attending Clinician Joana SIGALA, R. Attending Clinician Doctor Unassigned, Name Attending Clinician Unavailable Jacques SIGALA Attending Clinician MARIANA Admitting Clinician Unavailable Payers Payer Name Policy Type Policy Effective Date Expiration Date [facility] Number [id number] CHOICE [id number] 2021 [place] PPO/FEDERAL 00:00:00 [employer] EMPL [id number] 2021-Presen tPPO Problems Condition Condition Condition Status Onset Resolution Last Treating Co mments Source Name Details Category Date Date Treatment Clinician Date Acute Acute Disease Active [place] respirator respirator 6-15 Me thodi y distress y distress 00:00: st 00 COPD COPD Disease Active [place] (chronic (chronic 5-18 Method i obstructiv obstructiv 00:00: st e e 00 pulmonary pulmonary disease) disease) Shortness Shortness Disease Active Ammon ston of breath of breath 5-17 Meth vangie 00:00: st 00 Allergies, Adverse Reactions, Alerts This patient has no known allergies or adverse reactions. Social History Social Habit Start Date Stop Date Quantity Comments Source Tobacco use and 2021-03-16 2021-03-16 Never used Jevon Schumacher ethodist exposure 00:00:00 00:00:00 Alcohol intake 2021-03-16 2021-03-16 Ex-drinker Jevon Ortez thodist 00:00:00 00:00:00 (finding) Sex [birth year] Jevon hadleyodist 00:00:00 00:00:00 Smoking Status Start Date Stop Date Source Current every day smoker 2021-03-16 00:00:00 Ammon Urban Medications This patient has no known medications. Vital Signs Vital Name Observation Time Observation Value Comments Source Systolic blood 2021-04-13 04:03:00 143 mm[Hg] [place] [facility] pressure Diastolic blood 2021-04-13 04:03:00 89 mm[Hg] Alext on [facility] pressure Heart rate 2021-04-13 04:03:00 89 /min Jevon Urban Body temperature 2021-04-13 04:03:00 36.61 Brittanie Alex ton [facility] Respiratory rate 2021-04-13 04:03:00 16 /min Alex Urban Oxygen saturation in 2021-04-13 04:03:00 96 /min Jevon Urban Arterial blood by Pulse oximetry Body height 2021-04-13 00:34:00 175.3 cm Jevon Urban Body weight 2021-03-15 19:49:00 136.079 kg Jevon Urban BMI 2021-03-15 19:49:00 44.30 kg/m2 Jevon Urban Procedures Procedure Date / Time Performing Clinician Source Performed ECG 12-LEAD 2021-04-13 10:05:12 Cody Rojas RESPIRATORY PATHOGEN PANEL 2021-04-13 01:58:00 Jonathan Peterson WITH COVID-19 RT-PCR HC COMPLETE BLD COUNT 2021-04-13 01:58:00 Jonathan Peterson W/AUTO DIFF COMPREHENSIVE METABOLIC 2021-04-13 01:58:00 [facility] PAN[facility] TROPONIN 2021-04-13 01:58:00 Jonathan Peterson Me thodist B NATRIURETIC PEPTIDE 2021-04-13 01:58:00 Jonathan Peterson Ej Fernandezist ESTIMATED GFR 2021-04-13 01:58:00 Jonathan Peterson Me thodist XR CHEST 1 VW PORTABLE 2021-04-13 01:41:00 Jonathan Peterson Ammon Urban ECG ED PRELIMINARY 2021-04-13 01:09:31 OmidixieJonathan almaraz Ej Urban INTERPRETATION ECG 12-LEAD 2021-04-13 00:44:50 Jonathan Peterson Jevon Me thodist BLOOD CULTURE, AEROBIC & 2021-03-15 [...] ECG ED PRELIMINARY 2021-03-15 20:57:30 Jevon Bernard M ethodist INTERPRETATION Bruno RSharita RESPIRATORY PATHOGEN PANEL 2021-03-15 20:23:00 Tung Altamirano WITH COVID-19 RT-PCR Omead HC COMPLETE BLD COUNT 2021-03-15 20:22:00 Tung Altamirano W/AUTO DIFF [place] COMPREHENSIVE METABOLIC 2021-03-15 20:22:00 Aflatooni, Tung Ho uston [facility] PANEL [place] LACTIC ACID LEVEL, SEPSIS 2021-03-15 20:22:00 FeTung lin Jevon Urban - NOW AND REPEAT 2X EVERY Omead 3 HOURS D-DIMER 2021-03-15 20:22:00 Tung Altamirano Me thodist O[place] ESTIMATED GFR 2021-03-15 20:22:00 Jevon Bernard Meth belen DeviSharita ECG 12-LEAD 2021-03-15 19:47:41 Tung Altamirano Me thodist Omead Plan of Care Planned Activity Planned Date Details Comments Source Future Scheduled 2021-06-30 INFLUENZA VACCINE Zora n [facility] Test 00:00:00 [code = INFLUENZA VACCINE] Future Scheduled 2002 Hepatitis C [place] Met hodist Test 00:00:00 screening (procedure) [code = 794097699] Future Scheduled 1996 COVID-19 VACCINE (1) Ammon mann [facility] Test 00:00:00 [code = COVID-19 VACCINE (1)] Encounters Start End Encounter Admission Attending Care Care Encounter Source Date/Time Date/Time Type Type Clinicians Facility Department ID 2021-04-13 2021-04-13 Outpatient [facility] [id number] [place] 00:00:00 00:00:00 YAHYA [address] 2021-03-15 2021-03-16 Inpatient [facility] [id number] [place] 00:00:00 00:00:00 YAHYA [address] 2020-10-08 2020-10-08 Orders Doctor CARL [id number] 00:00:00 00:00:00 Only Unassigned, LACIE [id number] Breese [facility] [id number] 2020-09-17 2020-09-17 Office CASI Hanna [id number] 15:20:49 16:01:46 Visit Osiris Lopez [id number] Nathanael [id number] Proftyler [id number] [facility] [address] Results Test Description Test Time Test Comments Results Result Comments Source ECG 12 lead 2021-04-14 06:42:56 Test Item Value Reference Range Interpretation Comme nts Ventricular rate (test code = 253) 90 Atrial rate (test code = 255) 90 MA interval (test code = 266) 128 QRSD [...] sinus rhythm- Esc[facility]XR Chest 1 Vw [id number] 02:34:22Hm Interface, Radiology Results Incoming - 04/13/2021 2:37 AM CDT EXAMINATION: XR CHEST 1 VW PORTABLECLINICAL HISTORY: sobCOMPARISON: 03/15/2021.IMPRESSION:Low lung volumes with vascular crowding and/or congestion.No pleural effusion or pneumothorax. Cardiac silhouette appears prominent due in part to technique.No acute osseous abnormalities.[id number] [facility] [place] Preliminary Interpretation - Not an [id number] 01:09:31 Test Item Value Reference Range Interpretation Comments CHAI (test code = CHAI) Jonathan Peterson MD 04/14/2021 4:33 [facility] ED Preliminary Interpretation - Not an OrderPerformed by: Jonathan Peterson [facility] MEDICAL CENTERuthorized by: Jonathan Peterson MD ECG reviewed by ED Physician in the absence of a parking meter servicer: yes Interpretation: Interpretation: abnormal Rate: ECG rate: 102 ECG rate assessment: tachycardic Rhythm: Rhythm: sinus tachycardia Ectopy: Ectopy: none QRS: QRS axis: NormalConduction: Conduction: normal ST segments: ST segments: NormalComments: rSr' Lab Interpretation Abnormal (test code = 56763-2) Jevon MethodistCT Angiogram Pe [id number] 23:21:46Hm Interface, Radiology Results Incoming - 03/15/2021 [...] No acute findings. IMPRESSION:1.Negative CT for PE*[id number] Congregational
--- NOTE | 2021-05-27 08:01 | RAD REPORT ---
EXAM DESCRIPTION: USExtrem Venous W Compress Bil05/27/2021 7:52 am CLINICAL HISTORY: Leg swelling COMPARISON: none FINDINGS: The common femoral, superficial femoral, popliteal and posterior tibial veins bilaterally are compressible and demonstrate augmentation. Doppler demonstrates good flow. IMPRESSION: No evidence of deep venous thrombosis involving either lower extremity.
--- NOTE | 2021-05-27 08:16 | RAD REPORT ---
EXAM DESCRIPTION: [place]05/27/2021 8:06 am CLINICAL HISTORY: Shortness of breath COMPARISON: 2019 FINDINGS: The lungs appear clear of acute infiltrate. The heart is normal size IMPRESSION: No acute abnormalities displayed
[2021-05-27 08:51] LABS: Absolute Lymphocytes (CBC) 1.8 K/uL (0.7-4.9); Basophils % 0.5 % (0-1.3); Hematocrit 44.5 % (39.6-49.0); Lymphocytes % 15.8 % (15.3-44.8); MPV 7.9 fL (7.6-11.3); RBC Red Blood Cell Count 5.06 M/uL (4.33-5.43)
[2021-05-27] MEDS ORDERED: SMZ./TMP. 800/160 MG TABLET ONE (08:52)
[2021-05-27] MEDS ORDERED: DOXYCYCLINE 100 MG CAP PO ONE (08:52)
[2021-05-27] MEDS ORDERED: MORPHINE 4 MG/ML SYR ONE (08:52)
[2021-05-27] MEDS ORDERED: MUPIROCIN 2% OINT 22GM TUBE TOP ONE (08:52)
[2021-05-27 08:56] LABS: Protime INR 1.02
[2021-05-27 09:10] LABS: ALT/SGPT 28 U/L (12-78); AST/SGOT 10 U/L (15-37); Albumin 3.4 g/dL (3.4-5.0); Alkaline Phosphatase 110 U/L (45-117); BUN Blood Urea Nitrogen 10 mg/dL (7-18); Bicarbonate 29 mmol/L (21-32); Bilirubin Direct < 0.1 mg/dL (0-0.2); Bilirubin Total 0.2 mg/dL (0.2-1.0); Glucose Level 92 mg/dL (74-106); Magnesium 2.4 mg/dL (1.8-2.4); NT PRO-BNP 6 pg/mL (<125); Potassium 3.9 mmol/L (3.5-5.1); Protein, Total 7.9 g/dL (6.4-8.2); Sodium Level 142 mmol/L (136-145); Troponin (Emerg Dept Use Only) < 0.02 ng/mL (0.0-0.045)
--- NOTE | 2021-05-27 09:56 | EDPHYS ---
Physician Documentation [facility] Name: Kendall Kapoor Age: 35 yrs Sex: Male : 1985 Arrival Date: 05/27/2021 Time: 05:26 Bed 23 Private MD: Tello Morris B ED Physician Johan Hernandez HPI: 05/27 07:30 This 35 yrs old Male presents to ER via Ambulatory with complaints of Legs cp numb leaking fluid. Historical: - Allergies: 05:39 No Known Allergies; em - Home Meds: 05:39 Lasix Oral [Active]; Adderall XR Oral [Active]; Albuterol Inhl [Active]; em - PMHx: 05:39 CAD; Enlarged Heart; TIA; Asthma; em - Immunization history:: Adult Immunizations up to date. - Social history:: Smoking status: Patient reports the use of cigarette tobacco products, smokes one pack cigarettes per day. Patient/guardian denies using alcohol, street drugs. ROS: 08:13 Constitutional: Negative for fever, chills, and weight loss, Eyes: Negative for injury, ankit pain, redness, and discharge, ENT: Negative for injury, pain, and discharge, Neck: Negative for injury, pain, and swelling, Cardiovascular: Negative for chest pain, palpitations, and edema, Abdomen/GI: Negative for abdominal pain, nausea, vomiting, diarrhea, and constipation, Back: Negative for injury and pain, : Negative for injury, bleeding, discharge, and swelling, Skin: Negative for injury, rash, and discoloration, Neuro: Negative for headache, weakness, numbness, tingling, and seizure, Psych: Negative for depression, anxiety, suicide ideation, homicidal ideation, and hallucinations, Allergy/Immunology: Negative for hives, rash, and allergies, Endocrine: Negative for neck swelling, polydipsia, polyuria, polyphagia, and marked weight changes, Hematologic/Lymphatic: Negative for swollen nodes, abnormal bleeding, and unusual bruising. 08:13 Respiratory: Positive for cough, with no reported sputum. 08:13 MS/extremity: Positive for decreased range of motion, pain, swelling, tenderness, of the right leg and left leg. Exam: 08:13 Constitutional: This is a well developed, well nourished patient who is awake, alert, ankit and in no acute distress. Head/Face: Normocephalic, atraumatic. Eyes: Pupils equal round and reactive to light, extra-ocular motions intact. Lids and lashes normal. Conjunctiva and sclera are non-icteric and not injected. Cornea within normal limits. Periorbital areas with no swelling, redness, or edema. ENT: Nares patent. No nasal discharge, no septal abnormalities noted. Tympanic membranes are normal and external auditory canals are clear. Oropharynx with no redness, swelling, or masses, exudates, or evidence of obstruction, uvula midline. Mucous membranes moist. Neck: Trachea midline, no thyromegaly or masses palpated, and no cervical lymphadenopathy. Supple, full range of motion without nuchal rigidity, or vertebral point tenderness. No Meningismus. Chest/axilla: Normal chest wall appearance and motion. Nontender with no deformity. No lesions are appreciated. Cardiovascular: Regular rate and rhythm with a normal S1 and S2. No gallops, murmurs, or rubs. Normal PMI, no JVD. No pulse deficits. Abdomen/GI: Soft, non-tender, with normal bowel sounds. No distension or tympany. No guarding or rebound. No evidence of tenderness throughout. Back: No spinal tenderness. No costovertebral tenderness. Full range of motion. Male : Normal genitalia with no discharge or lesions. Neuro: Awake and alert, GCS 15, oriented to person, place, time, and situation. Cranial nerves II-XII grossly intact. Motor strength 5/5 in all extremities. Sensory grossly intact. Cerebellar exam normal. Normal gait. Psych: Awake, alert, with orientation to person, place and time. Behavior, mood, and affect are within normal limits. 08:13 Respiratory: the patient does not display signs of respiratory distress, Respirations: normal, Breath sounds: rhonchi, that are mild, Respiratory rate: 20 09:59 ECG was reviewed by the Attending Physician. [facility] Vital Signs: 05:36 BP 131 / 81; Pulse 94; Resp 20; Temp 97.6; Pulse Ox 95% ; Weight 122.47 kg; Height 5 em ft. 8 in. (172.72 cm); Pain 9/10; 05:36 Body Mass Index 41.05 (122.47 kg, 172.72 cm) em MDM: 07:42 Patient medically screened. cp 07:52 Patient medically screened. ankit 07:52 Patient medically screened. ankit 08:16 Differential diagnosis: contusion. Differential Diagnosis sepsis. Data reviewed: vital ankit signs, nurses notes, lab test result(s), EKG, radiologic studies, plain films. Data interpreted: ekg monitor tech: rate is 94 beats/min, rhythm is regular, Pulse oximetry: on room air is 95 %. Test interpretation: by ED physician or midlevel provider: ECG, plain radiologic studies. Counseling: I had a detailed discussion with the patient and/or guardian regarding: the historical points, exam findings, and any diagnostic results supporting the discharge/admit diagnosis, lab results, radiology results, the need for outpatient follow up, for definitive care, a food safety auditor, a family practitioner, a general surgeon. 05/27 07:34 Order name: Basic Metabolic Panel cp 05/27 07:34 Order name: CBC with Diff cp 05/27 07:34 Order name: LFT's; Complete Time: 09:55 cp 05/27 07:34 Order name: Magnesium; Complete Time: 09:55 cp 05/27 07:34 Order name: NT PRO-BNP; Complete Time: 09:55 cp 05/27 07:34 Order name: PT-INR; Complete Time: 09:55 cp 05/27 07:32 Order name: US Extremity Venous W Compression Mitchell; Complete Time: 09:55 cp 05/27 07:34 Order name: Troponin (emerg Dept Use Only); Complete Time: 09:55 cp 05/27 07:34 Order name: XRAY Chest (1 view); Complete Time: 09:55 cp 05/27 07:34 Order name: Blood Culture Adult (2) cp 05/27 07:34 Order name: Procalcitonin; Complete Time: 09:55 cp 05/27 07:34 Order name: Basic Metabolic Panel; Complete Time: 09:55 EDMS 05/27 07:34 Order name: CBC with Automated Diff; Complete Time: 09:55 EDMS 05/27 07:34 Order name: EKG; Complete Time: 07:34 cp 05/27 07:34 Order name: Cardiac monitoring; Complete Time: 08:48 cp 05/27 07:34 Order name: EKG - Nurse/Tech; Complete Time: 08:48 cp 05/27 07:34 Order name: Labs collected and sent; Complete Time: 08:33 cp 05/27 07:34 Order name: O2 Per Protocol; Complete Time: 08:33 cp 05/27 07:34 Order name: O2 Sat Monitoring; Complete Time: 08:33 cp EC:59 Rate is 82 beats/min. Rhythm is regular. QRS [place] is Normal. [place] interval is normal. QRS ankit interval is normal. QT interval is normal. No Q waves. T waves are Normal. No ST changes noted. Clinical impression: Normal ECG and No evidence of ischemia. Interpreted by me. Reviewed by me. Administered Medications: 08:47 Drug: Bactroban (mupirocin) Ointment 2 % 1 application Route: Topical; Site: affected tr6 area; 08:47 Drug: morphine 4 mg {Note: given IM in right deltoid.} Route: IVP; Site: Other; tr6 08:48 Drug: Bactrim (trimethoprim-sulfamethoxazole) (160 mg-800 mg (DS) 1 tablet Route: PO; tr6 08:48 Drug: Doxycycline 200 mg Route: PO; tr6 08:49 Not Given (Other Intervention Used): Zofran (Ondansetron) 4 mg IVP once; over 2 minutes tr6 Disposition Summary: 05/27/21 09:55 Discharge Ordered Location: Home ankit Problem: new ankit Symptoms: have improved ankit Condition: Stable ankit Diagnosis - Cellulitis and acute lymphangitis of other parts of limb ankit - Generalized edema ankit - Methicillin resistant Staphylococcus aureus infection as the cause of diseases ankit classified elsewhere Followup: ankit - With: - When: 2 - 3 days - Reason: Recheck today's complaints, Continuance of care, Re-evaluation by your physician Followup: ankit - With: - When: 2 - 3 days - Reason: Recheck today's complaints, Re-evaluation by your physician Followup: ankit - With: - When: 2 - 3 days - Reason: Recheck today's complaints, Re-evaluation by your physician Discharge Instructions: - Discharge Summary Sheet ankit - Edema ankit - MRSA Infection, Diagnosis, Adult ankit - MRSA Infection, Self-Care, Adult ankit - Edema, [id number] ankit - Peripheral Edema ankit Forms: - Medication Reconciliation Form ankit - Thank You Letter ankit - Antibiotic Education ankit - Prescription Opioid Use ankit Prescriptions: - mupirocin 2 % Topical ointment - apply 1 application by TOPICAL route 3 times per day for 10 days to each ankit nostril bid x 10 days; 22 gram; Refills: 0, Product Selection Permitted - Doxycycline Hyclate 100 mg Oral Tablet - take 1 tablet by ORAL route every 12 hours; 20 tablet; Refills: 0, Product ankit Selection Permitted - Bactrim DS 800-160 mg Oral Tablet - take 1 tablet by ORAL route every 12 hours for 10 days; 20 tablet; Refills: 0, [facility] Product Selection Permitted - albuterol sulfate 90 mcg/actuation Inhalation HFA aerosol inhaler - inhale 2 puff by INHALATION route every 6 hours; 1 puff; Refills: 0, Product ankit Selection Permitted Signatures: Dispatcher [employer] Johan Becerra MD MD cha Munoz, Edgar RN RN Johan Kern PA PA cp Ramnanan, Tiffany, RN RN tr6 Corrections: (The following items were deleted from the chart) 08:33 07:34 IV Saline Lock ordered. suleman tr6
--- NOTE | 2021-05-27 09:56 | ER ---
Nurse's Notes [facility] Name: Kendall Kapoor Age: 35 yrs Sex: Male : 1985 Arrival Date: 05/27/2021 Time: 05:26 Bed 23 Private MD: Tello Morris B Diagnosis: Cellulitis and acute lymphangitis of other parts of limb;Generalized edema;Methicillin resistant Staphylococcus aureus infection as the cause of diseases classified elsewhere Presentation: 05/27 05:36 Chief complaint: Patient states: I have sores on my legs since December and have been em taking antibiotics and nothing is clearing them up. Coronavirus screen: Client denies travel out of the [place] in the last 14 days. Ebola Screen: Patient negative for fever greater than or equal to 101.5 degrees Fahrenheit, and additional compatible Ebola Virus Disease symptoms Patient denies exposure to infectious person. Patient denies travel to an Ebola-affected area in the 21 days before illness onset. Initial Sepsis Screen: Does the patient meet any 2 criteria? No. Patient's initial sepsis screen is negative. Does the patient have a suspected source of infection? Yes: Skin breakdown/wound. Risk Assessment: Do you want to hurt yourself or someone else? Patient reports no desire to harm self or others. Onset of symptoms is unknown. 05:36 Acuity: JELLY 3 em 05:36 Method Of Arrival: Ambulatory em Historical: - Allergies: 05:39 No Known Allergies; em - Home Meds: 05:39 Lasix Oral [Active]; Adderall XR Oral [Active]; Albuterol Inhl [Active]; em - PMHx: 05:39 CAD; Enlarged Heart; TIA; Asthma; em - Immunization history:: Adult Immunizations up to date. - Social history:: Smoking status: Patient reports the use of cigarette tobacco products, smokes one pack cigarettes per day. Patient/guardian denies using alcohol, street drugs. Screenin:02 Abuse screen: Denies threats or abuse. Denies injuries from another. Nutritional tr6 screening: No deficits noted. Tuberculosis screening: No symptoms or risk factors identified. Fall Risk None identified. Assessment: 10:00 General: Appears in no apparent distress. Behavior is calm, cooperative, appropriate tr6 for age. Pain: Complains of pain in left leg and right leg. Neuro: No deficits noted. Cardiovascular: No deficits noted. Respiratory: No deficits noted. Respiratory: Airway is patent. GI: Abdomen is round obese. : No deficits noted. EENT: No deficits noted. Derm: b/l leg swelling and redness. Musculoskeletal: No deficits noted. Vital Signs: 05:36 BP 131 / 81; Pulse 94; Resp 20; Temp 97.6; Pulse Ox 95% ; Weight 122.47 kg; Height 5 em ft. 8 in. (172.72 cm); Pain 9/10; 05:36 Body Mass Index 41.05 (122.47 kg, 172.72 cm) em ED Course: 05:26 Patient arrived in ED. es 05:27 Tello Morris MD is Private Physician. es 05:39 Triage completed. em 05:40 Arm band placed on right wrist. em 07:38 Johan Saravia PA is PHCP. cp 07:41 Zahra Murray RN is Primary Nurse. tr6 07:41 Johan Hernandez MD is Attending Physician. cp 07:48 US Extremity Venous W Compression Mitchell In Process Unspecified. EDMS 08:06 XRAY Chest (1 view) In Process Unspecified. EDMS 09:55 Tello Morris MD is Referral Physician. ankit 09:55 Danis Uriarte MD is Referral Physician. ankit 09:55 Gene Tilley MD is Referral Physician. ankit 10:02 Patient has correct armband on for positive identification. tr6 10:19 No provider procedures requiring assistance completed. Patient did not have IV access tr6 during this emergency room visit. Administered Medications: 08:47 Drug: Bactroban (mupirocin) Ointment 2 % 1 application Route: Topical; Site: affected tr6 area; 08:47 Drug: morphine 4 mg {Note: given IM in right deltoid.} Route: IVP; Site: Other; tr6 08:48 Drug: Bactrim (trimethoprim-sulfamethoxazole) (160 mg-800 mg (DS) 1 tablet Route: PO; tr6 08:48 Drug: Doxycycline 200 mg Route: PO; tr6 08:49 Not Given (Other Intervention Used): Zofran (Ondansetron) 4 mg IVP once; over 2 minutes tr6 Outcome: 09:55 Discharge ordered by . ankit 10:19 Discharged to home ambulatory. tr6 10:19 Condition: good 10:19 Discharge instructions given to patient, Instructed on discharge instructions, follow up and referral plans. medication usage, Demonstrated understanding of instructions, follow-up care, medications, Prescriptions given X 4. 10:19 Patient left the ED. tr6 Signatures: Dispatcher [employer] Johan Becerra MD MD cha Salyer, Edna es Munoz, Edgar, RN RN Johan Kern PA PA cp Ramnanan, Tiffany, LIANE RN tr6
[2021-05-27 20:54] VITALS: BP 131/81; TEMP 97.6; O2SAT 95
== END 2021-05-27 10:19 | disposition home or self-care (01) ==
LOC: ER 05:18
DX: L03.116 Cellulitis of left lower limb (principal); L03.115 Cellulitis of right lower limb; L03.126 Acute lymphangitis of left lower limb; L03.125 Acute lymphangitis of right lower limb; B95.62 Methicillin resistant Staphylococcus aureus infection as the cause of diseases classified elsewhere; I25.10 Atherosclerotic heart disease of native coronary artery without angina pectoris; F17.210 Nicotine dependence, cigarettes, uncomplicated
CPT/HCPCS: 36415; 71045; 80048; 80076; 83735; 83880; 84145; 84484; 85025; 85610; 87040; 93005; 93970; 96374; 99283

== ENCOUNTER 2022-03-30 16:02 | Inpatient (IN) | payer OTHER ==
--- OUTSIDE RECORDS SUMMARY | 2022-03-30 16:05 | XMS REPORT | Continuity of Care Document ---
:1985 Author Organization [facility] t Address [address] [place] [address] Care Team Providers Name Role Phone Kajal Morris Primary Care Physician CANDELARIO Attending Clinician Unavailable Candelario SIGALA Attending Clinician GY Attending Clinician Unavailable Yg SIGALA Attending Clinician TARYN DHALIWAL Attending Clinician Unavailable Taryn Cuello Attending Clinician AAYUSH SOTO Attending Clinician Unavailable Aayush Soto MD Attending Clinician LEIGHA POSEY Attending Clinician Unavailable SHAYLEE Attending Clinician Unavailable KENYATTA Attending Clinician Unavailable Doctor Unassigned, Name Attending Clinician Unavailable Jacques SIGALA Attending Clinician YG Admitting Clinician Unavailable TARYN DHALIWAL Admitting Clinician Unavailable AAYUSH SOTO Admitting Clinician Unavailable LEIGHA POSEY Admitting Clinician Unavailable SHAYLEE Admitting Clinician Unavailable MARIANA Admitting Clinician Unavailable Payers Payer Name Policy Type Policy Number Effective Date Expiration Date S bjorn [facility] [id number] 2020 00:00:00 Problems Condition Condition Condition Status Onset Resolution Last Treating Co mments Source Name Details Category Date Date Treatment Clinician Date Inguinal Inguinal Disease Active 2020-10 Unive rs hernia of hernia of 1-22 [place] of [place] Medical obstructio obstructio Br anch n or n or gangrene gangrene 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 U nivers is is 1-08 [place]y of suppurativ [place] Postoperat Postoperat Disease Active 2020-10 U nivers sherrie sherrie 1-02 [place] of infection[place] un[place] unspecifie 00 Me dical d type, d type, Branch sequela sequela Postoperat Postoperat Disease Active 2019-10 U nivers sherrie wound sherrie wound 0-07 [place] infection [place] Post-opera Post-opera Disease Active 2019-10 U nivers tive wound tive wound 0-04 it y of abscess abscess 00:00: [place] [address] Medical Branch Allergies, Adverse Reactions, Alerts Allergy Allergy Status Severity Reaction(s) Onset Inactive Treating Comm ents Source Name Type Date Date Clinician Venom-Ho Propensi Active Anaphylaxis 2017-10 U nivers estela Bee ty to 2-29 ity of adverse 00:00: [place] reaction 00 Medical s Branch VENOM-HO DRUG Active High Anaphylaxis 2017-10 Uni vers ESTELA BEE INGREDI 2-29 ity of 00:00: [place] [address] Medical Branch Social History Social Habit Start Date Stop Date Quantity Comments Source History of tobacco Cigarette Smoker [facility] History [facility] o f Alcohol Std Drinks [place] [facility] History [facility] o f Alcohol Binge [place] [facility] History [facility] University o f Alcohol Comment [place] [facility] ical [facility] Exposure to Not sure University of SARS-CoV-2 (event) [facility] Alcohol intake 2021-09-29 2021-09-29 Ex-drinker [facility] 00:00:00 00:00:00 (finding) [facility] Education 2021-08-31 2021-08-31 15 [place] of 00:00:00 00:00:00 [place] [facility] [place] History SDOH 2020-08-03 2020-08-03 1 University o f Alcohol Frequency 00:00:00 00:00:00 [facility] [place] [facility] edical Branch Cigarettes smoked 2020-08-02 2020-08-02 Univers ity of current ([facility] Cigarette 2020-08-02 2020-08-02 University of pack-years 00:00:00 00:00:00 [facility] Tobacco use and 2020-08-02 2020-08-02 Never used Universit y of exposure 00:00:00 00:00:00 [facility] Tobacco Comment 2020-08-02 2020-08-02 Down from 2 [facility] Univ ersity of 00:00:00 00:00:00 [facility] Sex Ass[birth year] At [birth year] Universit y of 00:00:00 00:00:00 [facility] Smoking Status Start Date Stop Date Source Current every day smoker 2020-08-02 00:00:00 Uni versity of [facility] Medications Ordered Filled Start Stop Current Ordering Indication Dosage Frequency Signature Comments Components Source Medication Medication Date Date Medication? Clinician (SIG) Name Name ketorolac 30mg 30 mg, Unive rs (TORADOL) 02-08 04-12 Slow IV ity of injection 10:15: 09:06 Push, [place] 30 mg 00 :00 ONCE, 1 Medical dose, On Branch Mon02/08/22 at 0515, MICHELLE
Fa culty member approving Restricted medication : JENIFFER HOLT albuterol Yes ALBUTEROL Uni vers 2.5 mg /3 4-12 SULFATE ity of mL (0.083 02:30: (2.5 [place] %) 15 MG/3ML) Medical nebulizer 0.083% Branch solution NEBU albuterol Yes PROAIR HFA Un briana (PROAIR 4-12 108 (90 ity of HFA) 90 02:30: Base) [place] mcg/actuati 15 MCG/ACT Medic al on inhaler AERS Branch albuterol Yes ALBUTEROL Uni vers 2.5 mg /3 4-12 SULFATE ity of mL (0.083 02:30: (2.5 [place] %) 15 MG/3ML) Medical nebulizer 0.083% Branch solution NEBU albuterol Yes PROAIR HFA Un briana (PROAIR 4-12 108 (90 ity of HFA) 90 02:30: Base) [place] mcg/actuati 15 MCG/ACT Medic al on inhaler AERS Branch ibuprofen Yes [id number] 600mg Take 1 U nivers 600 mg 4-12 tablet by ity of tablet 00:00: mouth [place] 00 every 6 Medical (six) Branch hours as needed for Pain (scale 4-6). traMADoL 50 Yes [id number] 50mg Take 1 Univ ers mg tablet 4-12 tablet by ity o f 00:00: mouth [place] 00 every 6 Medical (six) Branch hours as needed for Pain (scale 4-6). Indication s: acute pain ibuprofen Yes [id number] 600mg Take 1 U nivers 600 mg 4-12 tablet by ity of tablet 00:00: mouth [place] 00 every 6 Medical (six) Branch hours as needed for Pain (scale 4-6). traMADoL 50 Yes [id number] 50mg Take 1 Univ ers mg tablet 4-12 tablet by ity o f 00:00: mouth [place] 00 every 6 Medical (six) Branch hours as needed for Pain (scale 4-6). Indication s: acute pain cefTRIAXone 2021- No 1000mg 1,000 mg, Univers (ROCEPHIN) 11-28 IV ity of 1,000 mg in 07:00: 06:36 Piggyback, [place] NaCl 0.9% 00 :00 ONCE, 1 Medical (NS) 50 mL dose, On [facility] h MINI-BAG 11/28/21 at 0100, Administer over 30 Minutes, 50 mL
Reas on for Anti-Infec tive: Documented Infection< br>Documen rosalia Infection Site: Skin / Soft Tissue
Duration of Therapy: Other (see Comments) iohexol 2021- No [id number] 120mL 120 mL, U nivers (OMNIPAQUE 11-2830 Intravenou it y of 350 05:15: 05:04 s, ONCE, 1 [place] BULK-100 00 :00 dose, On Medical mL) Sat Branch injection 11/27/21 at 120 mL 2315, Routine cephALEXin 2021- No [id number] 500mg Take 1 Univers (KEFLEX) 11-28 02-10 capsule by ity of 500 mg 00:00: 05:59 mouth 3 [place] capsule 00 :00 (three) Medical times Branch daily for 10 days. acetaminoph 2020-10 No [id number] 1{tbl} Take 1 U nivers en-codeine 11-3009 tablet by ity of 300-30 mg 00:00: 05:59 mouth [place] tablet 00 :00 every 4 Medical (four) Branch hours as needed for Pain (scale 4-6) for up to 7 days. Indication s: acute pain albuterol 2020-10 Yes ALBUTEROL Uni vers 2.5 mg /3 1-23 SULFATE ity of mL (0.083 12:37: (2.5 [place] %) 25 MG/3ML) Medical nebulizer 0.083% Branch solution NEBU albuterol 2020-10 Yes PROAIR HFA Un briana (PROAIR 11-21 108 (90 ity of HFA) 90 12:37: Base) [place] mcg/actuati 25 MCG/ACT Medic al on inhaler AERS Branch albuterol 2020-10 Yes ALBUTEROL Uni vers 2.5 mg /3 -23 SULFATE ity of mL (0.083 12:37: (2.5 [place] %) 25 MG/3ML) Medical nebulizer 0.083% Branch solution NEBU albuterol 2020-10 Yes PROAIR HFA Un briana (PROAIR 11-21 108 (90 ity of HFA) 90 12:37: Base) [place] mcg/actuati 25 MCG/ACT Medic al on inhaler AERS [place] alum-mag 2020-10 Yes [id number] 30mL Take 30 mL Univers hydroxide-s 1-23 by mouth 3 it y of imeth 00:00: (three) [place] times Medical mg/5 mL daily. Branch suspension alum-mag 2020-10 Yes [id number] 30mL Take 30 mL Univers hydroxide-s 1-23 by mouth 3 it y of imeth 00:00: (three) [place] times Medical mg/5 mL daily. Branch suspension alum-mag 2020-10 Yes [id number] 30mL Take 30 mL Univers hydroxide-s 1-23 by mouth 3 it y of imeth 00:00: (three) [place] times Medical mg/5 mL daily. Branch suspension alum-mag 2020-10 Yes [id number] 30mL Take 30 mL Univers hydroxide-s 23 by mouth 3 it y of imeth 00:00: (three) [place] times Medical mg/5 mL daily. Branch suspension acetaminoph 2020-10- No [id number] 650mg Take 2 Univers en 325 mg 11-21 11-24 tablets by ity of tablet 00:00: 05:59 mouth [place] 00 :00 every 6 Medical (six) Branch hours. acetaminoph 2020-10- No [id number] 650mg Take 2 Univers en 325 mg 11-21 11-24 tablets by ity of tablet 00:00: 05:59 mouth [place] 00 :00 every 6 Medical (six) Branch hours. acetaminoph 2020-10- No [id number] 650mg Take 2 Univers en 325 mg -21 09-24 tablets by ity of tablet 00:00: 05:59 mouth [place] 00 :00 every 6 Medical (six) Branch hours. acetaminoph 2020-10- No [id number] 650mg Take 2 Univers en 325 mg 11-21-24 tablets by ity of tablet 00:00: 05:59 mouth [place] 00 :00 every 6 Medical (six) Branch hours. ciprofloxac 2020-10- No [id number] 500mg Take 1 Univers in HCl 500 11-2104 tablet by ity of mg tablet 00:00: 05:59 mouth [place] 00 :00 every 12 Medical (twelve) Branch hours for 10 days. amphetamine 2020-10 Yes Univer s -dextroamph 0-21 ity of etamine 20 00:00: [place] mg 24 hr 00 Medical capsule Branch dextroamphe 2020-10 Yes Univer s tamine-amph 0-21 ity of etamine 10 00:00: [place] mg tablet 00 Medical Branch amphetamine 2020-10 Yes Univer s -dextroamph 0-21 ity of etamine 20 00:00: [place] mg 24 hr 00 Medical capsule Branch dextroamphe 2020-10 Yes Univer s tamine-amph 0-21 ity of etamine 10 00:00: [place] mg tablet 00 Medical Branch amphetamine 2020-10 Yes Univer s -dextroamph 0-21 ity of etamine 20 00:00: [place] mg 24 hr 00 Medical capsule Branch dextroamphe 2020-10 Yes Univer s tamine-amph 0-21 ity of etamine 10 00:00: [place] mg tablet 00 Medical [place] amphetamine 2020-10 Yes Univer s -dextroamph 0-21 ity of etamine 20 00:00: [place] mg 24 hr 00 Medical capsule Branch dextroamphe 2020-10 Yes Univer s tamine-amph 0-21 ity of etamine 10 00:00: [place] mg tablet 00 Medical Branch furosemide Yes as needed. U nivers 40 mg 9-15 ity of tablet 00:00: [facility] furosemide Yes as needed. U nivers 40 mg 9-15 ity of tablet 00:00: [facility] furosemide Yes as needed. U nivers 40 mg 9-15 ity of tablet 00:00: 00 [facility] furosemide Yes as needed. U nivers 40 mg 9-15 ity of tablet 00:00: [place] 00 [facility] Immunizations Ordered Filled Immunization Date Status Comments [facility] Immunization Name Name Influenza Virus 2014-07-09 Completed Universit y of Vaccine Quad IM 3+ 00:00:00 [facility] Influenza Virus 2014-07-09 Completed Universit y of Vaccine Quad IM 3+ 00:00:00 [facility] Influenza Virus 2014-07-09 Completed Universit y of Vaccine Quad IM 3+ 00:00:00 [facility] Influenza Virus 2014-07-09 Completed Universit y of Vaccine Quad IM 3+ 00:00:00 [facility] Influenza Virus 2014-01-06 Completed Universit y of Vaccine (3+ yrs) 00:00:00 [facility] Influenza Virus 2014-01-06 Completed Universit y of Vaccine (3+ yrs) 00:00:00 [facility] Influenza Virus 2014-01-06 Completed Universit y of Vaccine (3+ yrs) 00:00:00 [facility] Influenza Virus 2014-01-06 Completed Universit y of Vaccine (3+ yrs) 00:00:00 [facility] TDAP 2009-03-10 Completed University of 00:00:00 [facility] TDAP 2009-03-10 Completed University of 00:00:00 [facility] TDAP 2009-03-10 Completed University of 00:00:00 [facility] TDAP 2009-03-10 Completed University of 00:00:00 [facility] Vital Signs Vital Name Observation Time Observation Value Comments Source Systolic blood 2022-02-08 09:42:00 170 mm[Hg] Univer sity of pressure [place] [facility] Diastolic blood 2022-02-08 09:42:00 54 mm[Hg] Unive rsity of pressure [place] [facility] Heart rate 2022-02-08 09:42:00 90 /min Universi ty of [place] [facility] Respiratory rate 2022-02-08 09:42:00 23 /min Univ ersity of [place] [facility] Oxygen saturation in 2022-02-08 09:42:00 96 /min University of Arterial blood by [employer] Pulse oximetry Branch Body temperature 2022-02-08 07:18:00 37 Brittanie Univ ersity of [place] [facility] Body height 2022-02-08 07:18:00 172.7 cm Universi ty of [place] [facility] Body weight 2022-02-08 07:18:00 140.615 kg Universi ty of [place] [facility] BMI 2022-02-08 07:18:00 47.14 kg/m2 Universi ty of [place] [facility] Systolic blood 2021-11-28 06:30:00 114 mm[Hg] Univer sity of pressure [place] [facility] Diastolic blood 2021-11-28 06:30:00 60 mm[Hg] Unive rsity of pressure [place] [facility] Heart rate 2021-11-28 06:30:00 101 /min Universi ty of [place] [facility] Oxygen saturation in 2021-11-28 06:30:00 95 /min University of Arterial blood by [employer] Pulse oximetry Branch Respiratory rate 2021-11-28 04:20:00 20 /min Univ ersity of [place] [facility] Body temperature 2021-11-28 04:12:00 37.11 Brittanie Univ ersity of [place] [facility] Body height 2021-11-28 04:12:00 172.7 cm Universi ty [facility] [place] [facility] Body weight 2021-11-28 04:12:00 148.8 kg Universi ty [facility] [place] [facility] BMI 2021-11-28 04:12:00 49.88 kg/m2 [facility]i ty [facility] [place] [facility] Systolic blood 2021-09-29 20:18:00 145 mm[Hg] Univer [facility] Diastolic blood 2021-09-29 20:18:00 84 mm[Hg] [facility] Heart rate 2021-09-29 20:18:00 117 /min [facility] Body temperature 2021-09-29 20:18:00 36.5 Brittanie [facility] Respiratory rate 2021-09-29 20:18:00 18 /min [facility] Body height 2021-09-29 20:18:00 170.2 cm [facility] Body weight 2021-09-29 20:18:00 145.287 kg [facility] BMI 2021-09-29 20:18:00 50.17 kg/m2 [facility] Procedures Procedure Date / Time Performing Clinician Source Performed URINALYSIS 2022-02-08 08:48:00 Jeniffer Holt [facility] US SCROTUM AND CONTENTS 2022-02-08 08:16:13 Jeniffer Holt [facility] COMP. METABOLIC PANEL 2022-02-08 07:46:00 Jeniffer Holt [facility] ([id number]) [facility] CBC WITH DIFF 2022-02-08 07:46:00 Yg [facility] PROTHROMBIN TIME / INR 2022-02-08 07:46:00 Jeniffer Holt [facility] ACTIVATED PARTIAL 2022-02-08 07:46:00 Yg [facility] THRMPLAS [facility] CONSENT/REFUSAL FOR 2022-02-08 07:04:00 Doctor Unassigned, No Un [facility] DIAGNOSIS AND TREATMENT Name Medical Branch URINALYSIS 2021-11-28 06:09:00 Annette Dhaliwal [facility] CT ABDOMEN PELVIS W 2021-11-28 05:10:12 Annette Dhaliwal [facility] COMP. METABOLIC PANEL 2021-11-28 04:52:00 Annette Dhaliwal [facility] ([id number]) [facility] CBC WITH DIFF 2021-11-28 04:52:00 Annette Dhaliwal [facility] Encounters Start End Encounter Admission Attending Care Care Encounter Source Date/Time Date/Time Type Type Clinicians Facility Department ID 2022-06-09 2022-06-09 Outpatient R CANDELARIO [facility] [id number] Univers 14:30:00 14:30:00 MICHAEL [id number] [facility] 2022-04-04 2022-04-04 Outpatient R COURTTIA [facility] [id number] Univers 14:30:00 14:30:00 MICHAEL [id number] [facility] 2022-03-24 2022-03-24 Outpatient R COURTTIA [facility] [id number] Univers 09:00:00 09:00:00 MICHAEL [id number] [facility] 2022-03-24 2022-03-24 [facility] [id number] Univers 09:00:00 09:00:00 [facility]24 [facility]22[facility]03-[facility] [id number] Univers 00:00:00 00:00:00 Michael LOPEZ [id number] i ty of [place] 4.2.7.2.686 [facility] [id number] Nv dical [facility] 204 [employer] 2022-02-08 2022-02-08 Emergency [facility] [id number] Univers 02:16:00 04:47:00 [facility] 2022-02-08 2022-02-08 [facility] [id number] Univers 02:16:00 04:47:00 Jeniffer LOPEZ [id number] i ty of [place] 4.2.7.2.686 [facility] [id number] [facility] 084 [place] 2021-11-27 2021-11-28 Emergency X Annette DHALIWAL [facility] ERT [id number] Univers 22:17:00 00:52:00 ity [facility] 2021-11-27 2021-11-28 Emergency Annette Dhaliwal [facility] [id number] Univers 22:17:00 00:52:00 Taryn LOPEZ [id number] i ty of [place] 4.2.7.2.686 [facility] [id number] [facility] 084 [place] 2021-10-08 2021-10-08 Outpatient [facility] [id number] Univers 10:45:00 10:45:00 CARL estee [facility] 2021-09-29 2021-09-29 Office STEPHANIE Soto [id number] [facility] 14:12:15 14:37:52 Visit [facility] [id number] i ty of [facility] 4.2.7.2.686 [facility] [id number] [facility] 188 [place] 2021-09-20 2021-09-21 Outpatient [facility] [id number] Univers 06:38:00 12:20:00 CARL [facility] 2021-09-06 2021-09-08 Inpatient [facility] JAKE [id number] Univers 16:50:00 15:15:00 JAYV [facility] 2021-08-31 2021-09-01 Outpatient [facility] JAKE [id number] Univers 08:47:00 16:33:00 PAU [facility] 2021-04-13 2021-04-13 [facility] [id number] [place] 00:00:00 00:00:00 YAHYA 607 Method i 2021-03-15 2021-03-16 Inpatient [facility] [id number] 87 [place] 00:00:00 00:00:00 YAHYA 997 Method i 2020-10-08 2020-10-08 Orders Doctor CARL [id number] 00:00:00 00:00:00 Only Unassigned, LACIE [id number] [place] [facility] 4.2.7.2.686 [id number] 2020-09-17 2020-09-17 Office [facility] [id number] 15:20:49 16:01:46 Visit Osiris Lopez [id number] [place] 4.2.7.2.686 [facility] [id number] [facility] 188 Building Results Test Description Test Time Test Comments Results Result Comments Source COMP. METABOLIC PANEL (11586) 2022-02-08 08:21:42 Test Item Value Reference Range Interpretation Comme nts NA (test code = 4232777992) 141 mmol/L 135-145 K (test code = 3245950548) 4.6 mmol/L 3.5-5.0 CL (test code = 7486222577) 105 mmol/L 98-108 CO2 TOTAL (test code = 1462126574) 26 mmol/L 23-31 AGAP (test code = 7311780103) 2-16 BUN (test code = 9957396475) 20 mg/dL 7-23 GLUCOSE (test code = 8359623459) 152 mg/dL 70-110 H CREATININE (test code = 0.97 mg/dL 0.60-1.25 3723499945) TOTAL BILI (test code = 0.3 mg/dL 0.1-1.6 5592349520) CALCIUM (test code = 4431638321) 9.4 mg/dL 8.6-10.6 T PROTEIN (test code = 0118075965) 7.3 g/dL 6.3-8.2 ALBUMIN (test code = 7889489601) 4.3 g/dL 3.5-5.0 ALK PHOS (test code = 9161319257) 107 U/L 34-122 ALTv (test code = 1742-6) 24 U/L 5-50 AST(SGOT) (test code = 6117870313) 22 U/L 13-40 eGFR (test code = 6152140503) mL/min/1.73m2 CHAI (test code = CHAI) Association of Glomerular Filtration Rate (GFR) and Staging of Kidney Disease* + +-------- + ------+| GFR (mL/min/1.73 m2) ?| With Kidney Damage ?| ?Without Kidney Damage+ +-- + +| ?>90 ?| ?Stage one ?| ? Normal ?+ +------- + -------+| ?60-89 ?| ?Stage two ?| ? Decreased GFR ? + +-------- + ------+| ?30-59 ?| ?Stage three ?| ? Stage three ? + +-------- + ------+| ?15-29 ?| ?Stage four ? | ? Stage four ?+ +------- + -------+| ?<15 (or dialysis) ? ?| ?Stage five ? | ? Stage five ?+ +------- + -------+ *Each stage assumes the associated GFR level has been in effect for at least three months. ?Stages 1 to 5, with or without kidney disease, indicate chronic kidney disease. Notes: Determination of stages one and two (with eGFR >59mL/min/1.73 m2) requires estimation of kidney damage for at least three months as defined by structural or functional abnormalities of the kidney, manifested by either:Pathological abnormalities or Markers of kidney damage (including abnormalities in the composition of the blood or urine or abnormalities in imaging tests). Lab Interpretation (test code = Abnormal 31854-0) [facility] THRM[facility] [id number] 08:10:38 Test Item Value Reference Range Interpretation Comments APTT Patient (test See_Comment [Automat ed code = 3173-2) message] The system which generated this result transmitted reference range : 23 - 38 Seconds . The reference range was not used to interpr et this result as normal/abnormal . CHAI (test code = CHAI) The [facility] patient population mean normal value for aPTT is 30 seconds. Lab Interpretation Normal (test code = 94769-9) [facility] / [id number] 08:08:22 Test Item Value Reference Range Interpretation Comments PROTIME PATIENT (test See_Comment [Auto mated message] code = 5964-2) The system wh ich generated this result transmitted ref erence range: 12.0 - 1 4.7 Seconds. The re ference range was not u sed to interpret this result as normal/abnor mal. INR (test code = 6301-6) Nor mal INR <1.1; Warfarin Therap eutic range 2.0 to 3. 0 or 2.5 to 3.5, dep ending upon the indica tions. Lab Interpretation (test Normal code = 15814-3) [facility] WITH [id number] 08:00:41 Test Item Value Reference Range Interpretation Comments WBC (test code = See_Comment H [Automated 6690-2) message] The sy stem which generated this result transmitted reference range : 4.20 - 10.70 10*3/?L. The reference range was not used to interpret this result as normal/abnormal . RBC (test code = See_Comment H [Automated 789-8) message] The sy stem which generated this result transmitted reference range : 4.26 - 5.52 10*6/?L. The reference range was not used to interpret this result as normal/abnormal . HGB (test code = 16.1 g/dL 12.2-16.4 718-7) HCT (test code = 48.4 % 38.4-49.3 4544-3) MCV (test code = 87.5 fL 81.7-95.6 787-2) MCH (test code = 29.1 pg 26.1-32.7 785-6) MCHC (test code = 33.3 g/dL 31.2-35.0 786-4) RDW-SD (test code = 49.0 fL 38.5-51.6 76691-0) RDW-CV (test code = 15.3 % 12.1-15.4 788-0) PLT (test code = See_Comment H [Automated 777-3) message] The sy stem which generated this result transmitted reference range : 150 - 328 10*3/ ?L. The reference r khris was not used to interpret this result as normal/abnormal . MPV (test code = 9.8 fL 9.8-13.0 43835-1) NRBC/100 WBC (test See_Comment [Automat ed code = 5421042716) message] The system which generated this result transmitted reference range : 0.0 - 10.0 /100 WBCs. The refer ence range was not u sed to interpret th is result as normal/abnormal . NRBC x10^3 (test code <0.01 See_Comment [Auto mated = 4875419023) message] The s ystem which generated this result transmitted reference range : 10*3/?L. The reference range was not used to interpret this result as normal/abnormal . GRAN MAT (NEUT) % 69.6 % (test code = 770-8) IMM GRAN % (test code 0.70 % = 7972460617) LYMPH % (test code = 20.1 % 736-9) MONO % (test code = 7.3 % 5905-5) EOS % (test code = 1.9 % 713-8) BASO % (test code = 0.4 % 706-2) GRAN MAT x10^3(ANC) 9.81 10*3/uL 1.99-6.95 H (test code = 4278467576) IMM GRAN x10^3 (test 0.10 10*3/uL 0.00-0.06 H code = [id number]) LYMPH x10^3 (test code 2.84 10*3/uL 1.09-3.23 = 731-0) MONO x10^3 (test code 1.03 10*3/uL 0.36-1.02 H = 742-7) EOS x10^3 (test code = 0.27 10*3/uL 0.06-0.53 711-2) BASO x10^3 (test code 0.06 10*3/uL 0.01-0.09 = 704-7) Lab Interpretation Abnormal (test code = 91017-4) [facility] ([id number])2021-11-28 05:15:02 Test Item Value Reference Range Interpretation Comments NA (test code = 135 mmol/L 135-145 9746975187) K (test code = 4.2 mmol/L 3.5-5.0 7234445913) CL (test code = 103 mmol/L 98-108 0310077789) CO2 TOTAL (test code = 25 mmol/L 23-31 4345619263) AGAP (test code = 2-16 4820508417) BUN (test code = 17 mg/dL 7-23 4897523862) GLUCOSE (test code = 139 mg/dL 70-110 H 1043920372) CREATININE (test code = 0.82 mg/dL 0.60-1.25 8063222190) TOTAL BILI (test code = 0.4 mg/dL 0.1-1.4 3372469263) CALCIUM (test code = 9.1 mg/dL 8.6-10.6 2700408276) T PROTEIN (test code = 7.2 g/dL 6.3-8.2 6517734869) ALBUMIN (test code = 4.1 g/dL 3.5-5.0 5674806903) ALK PHOS (test code = 105 U/L 34-122 5077428950) ALTv (test code = 28 U/L 5-50 1742-6) AST(SGOT) (test code = 28 U/L 13-40 7701887790) eGFR (test code = mL/min/1.73m2 1586846203) CHAI (test code = CHAI) Association of Glomerular Filtration Rate (GFR) and Staging of Kidney Disease* + --+ --+ ------+| GFR (mL/min/1.73 m2) ?| With Kidney Damage ?| ?Without Kidney Damage+ --------+ --------+ +| ?>90 ?| ?Stage one ?| ? Normal ?+ ---+ ---+ -------+| ?60-89 ?| ?Stage two ?| ? Decreased GFR ? + --+ --+ ------+| ?30-59 ?| ?Stage three ?| ? Stage three ? + --+ --+ ------+| ?15-29 ?| ?Stage four ? | ? Stage four ?+ ---+ ---+ -------+| ?<15 (or dialysis) ? ?| ?Stage five ? | ? Stage five ?+ ---+ ---+ -------+ *Each stage assumes the associated GFR level has been in effect for at least three months. ?Stages 1 to 5, with or without kidney disease, indicate chronic kidney disease. Notes: Determination of stages one and two (with eGFR >59mL/min/1.73 m2) requires estimation of kidney damage for at least three months as defined by structural or functional abnormalities of the kidney, manifested by either:Pathological abnormalities or Markers of kidney damage (including abnormalities in the composition of the blood or urine or abnormalities in imaging tests). Lab Interpretation Abnormal (test code = 45990-9) [facility] WITH [id number] 05:06:19 Test Item Value Reference Range Interpretation Comments WBC (test code = See_Comment H [Automated 6690-2) message] The system which generated this result transmit rosalia reference range : 4.20 - 10.70 10*3/?L. The reference range was not used to interpret this result as normal/abnormal . RBC (test code = See_Comment [Automated 789-8) message] The system which generated this result transmit rosalia reference range : 4.26 - 5.52 10*6/?L. The reference range was not used to interpret this result as normal/abnormal . HGB (test code = 15.4 g/dL 12.2-16.4 718-7) HCT (test code = 47.1 % 38.4-49.3 4544-3) MCV (test code = 88.2 fL 81.7-95.6 787-2) MCH (test code = 28.8 pg 26.1-32.7 785-6) MCHC (test code = 32.7 g/dL 31.2-35.0 786-4) RDW-SD (test code = 46.7 fL 38.5-51.6 18946-6) RDW-CV (test code = 14.6 % 12.1-15.4 788-0) PLT (test code = See_Comment H [Automated 777-3) message] The system which generated this result transmit rosalia reference range : 150 - 328 10*3/ ?L. The reference range was not u sed to interpret th is result as normal/abnormal . MPV (test code = 10.0 fL 9.8-13.0 87266-0) NRBC/100 WBC (test See_Comment [Automat ed code = 1653196296) message] The system which generated this result transmit rosalia reference range : 0.0 - 10.0 /100 WBCs. The reference range was not used to interpret this result as normal/abnormal . NRBC x10^3 (test code <0.01 See_Comment [Auto mated = 1535745378) message] The system which generated this result transmit rosalia reference range : 10*3/?L. The reference range was not used to interpret this result as normal/abnormal . GRAN MAT (NEUT) % 73.8 % (test code = 770-8) IMM GRAN % (test code 0.50 % = 6100254187) LYMPH % (test code = 17.2 % 736-9) MONO % (test code = 6.2 % 5905-5) EOS % (test code = 1.8 % 713-8) BASO % (test code = 0.5 % 706-2) GRAN MAT x10^3(ANC) 11.39 10*3/uL 1.99-6.95 H (test code = 0971449339) IMM GRAN x10^3 (test 0.08 10*3/uL 0.00-0.06 H code = 0254987837) LYMPH x10^3 (test code 2.66 10*3/uL 1.09-3.23 = 731-0) MONO x10^3 (test code 0.95 10*3/uL 0.36-1.02 = 742-7) EOS x10^3 (test code = 0.28 10*3/uL 0.06-0.53 711-2) BASO x10^3 (test code 0.08 10*3/uL 0.01-0.09 = 704-7) Lab Interpretation Abnormal (test code = 56966-4) [facility]"
[2022-03-30] MEDS ORDERED: NA CHLORIDE 0.9% 1,000 ML ONE ×2 (18:44→21:23)
[2022-03-30] MEDS ORDERED: VANCOMYCIN 1.5 GM in NA CHLORIDE 0.9% 500 ML IVPB SCH (19:00)
[2022-03-30 20:23] LABS: Absolute Lymphocytes (CBC) 2.6 K/uL (0.7-4.9); Hematocrit 48.3 % (39.6-49.0); Lymphocytes % 17.1 % (15.3-44.8); MPV 8.5 fL (7.6-11.3); RBC Red Blood Cell Count 5.43 M/uL (4.33-5.43)
--- NOTE | 2022-03-30 20:30 | EDPHYS ---
Physician Documentation [facility] Name: Kendall Kapoor Age: 36 yrs Sex: Male : 1985 Arrival Date: 03/30/2022 Time: 16:05 Bed 7 Private MD: ED Physician Kendall Oswald HPI: 03/30 18:05 This 36 yrs old Male presents to ER via Ambulatory with complaints of infection sent by suleman Anne. 18:05 Associated signs and symptoms: Pertinent positives: pain to left arm axilla and right cp arm axilla and left groin and pannis, Pertinent negatives: chest pain, fever, vomiting. 18:05 Patient referred to ED for admission to services of hospitalist for surgical cp consultation with DR Anne for hydronatis. Historical: - Allergies: 16:23 No Known Allergies; ld1 - PMHx: 16:23 Asthma; CAD; Enlarged Heart; TIA; ld1 - PSHx: 16:23 Appendectomy; Hernia repair; ld1 - Immunization history:: Adult Immunizations up to date, Client reports having NOT received the Covid vaccine. - Social history:: Smoking status: Patient reports the use of cigarette tobacco products, smokes one-half pack cigarettes per day, Patient/guardian denies using alcohol. ROS: 18:10 Constitutional: Negative for fever, poor PO intake. cp 18:10 Cardiovascular: Negative for chest pain, palpitations. cp 18:10 Respiratory: Negative for cough, shortness of breath, wheezing. cp 18:10 Eyes: Negative for injury, pain, redness, and discharge. cp 18:10 ENT: Negative for drainage from ear(s), ear pain, sore throat, difficulty swallowing, difficulty handling secretions. 18:10 Abdomen/GI: Negative for vomiting, diarrhea, constipation. 18:10 Skin: Positive for cellulitis, of the left arm axilla and right arm axilla and pannis. 18:10 Neuro: Negative for altered mental status, headache, weakness. 18:10 All other systems are negative. Exam: 18:15 Constitutional: The patient appears in no acute distress, alert, awake, cp non-diaphoretic, non-toxic, well developed, well nourished, obese. 18:15 Head/Face: Normocephalic, atraumatic. cp 18:15 Eyes: Periorbital structures: appear normal, Conjunctiva: normal, no exudate, no injection, Sclera: no appreciated abnormality, Lids and lashes: appear normal, bilaterally. 18:15 ENT: External ear(s): are unremarkable, Nose: is normal, Mouth: Lips: moist, Oral mucosa: moist, Posterior pharynx: Airway: no evidence of obstruction, patent. 18:15 Chest/axilla: Inspection: normal, Palpation: is normal, no crepitus, no tenderness. 18:15 Cardiovascular: Rate: tachycardic, Rhythm: regular. 18:15 Respiratory: the patient does not display signs of respiratory distress, Respirations: normal, no use of accessory muscles, no retractions, labored breathing, is not present, Breath sounds: are clear throughout, no decreased breath sounds, no stridor, no wheezing. 18:15 Abdomen/GI: Inspection: obese 18:15 Skin: multiple open wounds noted to left arm axilla and right arm axilla and pannis and left groin. 18:15 Neuro: Orientation: to person, place \\T\\ time. Mentation: is normal. 18:40 ECG was reviewed by the Attending Physician. Vital Signs: 16:23 BP 147 / 104; Pulse 101; Resp 20; Temp 98.9(O); Pulse Ox 95% on R/A; Weight 145.15 kg; ld1 Height 5 ft. 9 in. (175.26 cm); Pain 7/10; 22:51 BP 127 / 83; Pulse 98; Resp 18; Pulse Ox 99% on R/A; kd3 16:23 Body Mass Index 47.26 (145.15 kg, 175.26 cm) ld1 MDM: 17:48 Patient medically screened. 20:30 Data reviewed: vital signs, nurses notes, EKG. 20:30 Test interpretation: by ED physician or midlevel provider: ECG. Physician consultation: suleman CARREON was contacted at 19:00, regarding admission, to the medical/surgical unit. patient's condition. 03/30 18:05 Order name: Blood Culture Adult (2) cp 03/30 18:05 Order name: CBC with Diff; Complete Time: 20:29 cp 03/30 18:05 Order name: CMP; Complete Time: 20:54 cp 03/30 18:05 Order name: Lactate; Complete Time: 20:54 cp 03/30 18:05 Order name: Protime (+inr); Complete Time: 20:54 cp 03/30 18:05 Order name: Ptt, Activated; Complete Time: 20:54 cp 03/30 18:05 Order name: Procalcitonin; Complete Time: 20:54 cp 03/30 18:06 Order name: COVID-19 SARS RT PCR (Document "Date of Onset" if Symptomatic) cp 03/30 20:16 Order name: Glucose, Ancillary Testing; Complete Time: 20:29 EDMS 03/30 18:05 Order name: Accucheck; Complete Time: 20:32 cp 03/30 18:05 Order name: Cardiac monitoring; Complete Time: 18:42 cp 03/30 18:05 Order name: EKG - Nurse/Tech; Complete Time: 18:42 cp 03/30 18:05 Order name: IV Saline Lock - Large Bore; Complete Time: 20:32 cp 03/30 18:05 Order name: Labs collected and sent; Complete Time: 20:32 cp 03/30 18:05 Order name: O2 Per Protocol; Complete Time: 18:42 cp 03/30 18:05 Order name: O2 Sat Monitoring; Complete Time: 18:42 cp EC:40 Rate is 92 beats/min. Rhythm is regular. MI interval is normal. QRS interval is normal. cp QT interval is normal. T waves are Inverted in lead aVR. Interpreted by me. Reviewed by me. Administered Medications: 21:28 Drug: morphine 4 mg Route: IVP; Infused Over: 4 mins; Site: right forearm; kd3 22:52 Follow up: Response: No adverse reaction; Pain is decreased kd3 21:28 Drug: Zofran (Ondansetron) 4 mg Route: IVP; Site: right forearm; kd3 22:52 Follow up: Response: No adverse reaction kd3 21:29 Drug: Cefepime 2 grams Route: IVPB; Rate: 200 ml/hr; Infused Over: 30 mins; Site: right kd3 forearm; 22:52 Follow up: Response: No adverse reaction; IV Status: Completed infusion kd3 21:30 Drug: NS 0.9% 1000 ml Route: IV; Rate: 1 bolus; Site: left antecubital; as6 22:52 Follow up: Response: No adverse reaction; IV Status: Completed infusion kd3 22:00 Drug: vancoMYCIN 1.5 grams Route: IVPB; Rate: calculated rate; Site: left antecubital; as6 22:52 Follow up: IV Status: Infusion continued kd3 Disposition Summary: 03/30/22 20:29 Hospitalization Ordered Hospitalization Status: Inpatient Admission cp Provider: Annie Pruitt cp Location: Telemetry/MedSurg (Inpatient) cp Condition: Stable cp Problem: an ongoing problem cp Symptoms: have improved cp Bed/Room Type: Standard cp Room Assignment: 201(03/30/22 22:33) cg Diagnosis - Hydronatis Suppurativa cp Forms: - Medication Reconciliation Form cp - SBAR form cp Signatures: Dispatcher [employer] EDMS Johan Saravia PA PA cp Melba Griffin RN RN cg Sonam Martin RN RN ld1 Jerome Hendrix RN RN as6 Taylor Mcclendon RN RN kd3 Naomie Figueroa PA PA sb3 Corrections: (The following items were deleted from the chart) 22:33 20:29 cp cg 03/31 17:08 06 18:05 Patient referred to ED for admission to services of hospitalist for cp surgical consultation with DR Anne for hydranatis . cp
--- NOTE | 2022-03-30 20:30 | ER ---
Nurse's Notes [facility] Name: Kendall Kapoor Age: 36 yrs Sex: Male : 1985 Arrival Date: 03/30/2022 Time: 16:05 Bed 7 Private MD: Diagnosis: Hydronatis Suppurativa Presentation: 03/30 16:23 Chief complaint: Patient states: [facility] Anne [facility] ld1 Coronavirus screen: At this time, the client does not indicate any symptoms associated with coronavirus-19. Ebola Screen: No symptoms or risks identified at this time. Initial Sepsis Screen: Does the patient meet any 2 criteria? No. Patient's initial sepsis screen is negative. Does the patient have a suspected source of infection? No. Patient's initial sepsis screen is negative. Risk Assessment: Do you want to hurt yourself or someone else? Patient reports no desire to harm self or others. Onset of symptoms was March 30, 2022. 16:23 Method Of Arrival: Ambulatory ld1 16:23 Acuity: JELLY 3 ld1 Triage Assessment: 16:25 General: Appears in no apparent distress. comfortable, Behavior is calm, cooperative, ld1 appropriate for age. Pain: Complains of pain in pelvis Pain does not radiate. Pain currently is 7 out of 10 on a pain scale. EENT: No signs and/or symptoms were reported regarding the EENT system. Neuro: Level of Consciousness is awake, alert, obeys commands, Oriented to person, place, time, situation. Cardiovascular: Capillary refill < 3 seconds Patient's skin is warm and dry. Respiratory: Airway is patent Respiratory effort is even, unlabored. GI: Abdomen is round non-distended. Historical: - Allergies: 16:23 No Known Allergies; ld1 - PMHx: 16:23 Asthma; CAD; Enlarged Heart; TIA; ld1 - PSHx: 16:23 Appendectomy; Hernia repair; ld1 - Immunization history:: Adult Immunizations up to date, Client reports having NOT received the Covid vaccine. - Social history:: Smoking status: Patient reports the use of cigarette tobacco products, smokes one-half pack cigarettes per day, Patient/guardian denies using alcohol. Screenin:39 Abuse screen: Denies threats or abuse. Denies injuries from another. Nutritional kd3 screening: No deficits noted. Tuberculosis screening: No symptoms or risk factors identified. Fall Risk IV access (20 points). Assessment: 18:20 General: Appears comfortable, Behavior is pt semi-cooperative with assessment, pt aa5 refusing to be placed in gown. Pt appears upset, pt states "I was told I was admitted and I am not putting a gown on until I go upstairs", explained to patient the process of being evaluated in the ER prior to admission even though his doctor already called the ER and spoke to the ER doctor, pt's surgeon, Dr. Anne did not send direct admission orders and wanted pt to be evaluated in ER, pt verbalizes understanding but continues to be upset. . Pain: Complains of pain in groin. Neuro: Level of Consciousness is awake, alert, obeys commands, Oriented to person, place, time, situation. Cardiovascular: Patient's skin is warm and dry. Respiratory: Airway is patent Respiratory effort is even, unlabored, Respiratory pattern is regular, symmetrical. GI: Abdomen is obese. : No signs and/or symptoms were reported regarding the genitourinary system. EENT: No signs and/or symptoms were reported regarding the EENT system. Derm: Skin is pink, warm \\T\\ dry. Unable to assess groin at this time. Musculoskeletal: Range of motion: intact in all extremities. 18:40 Reassessment: Unable to obtain IV access at this time, pt states "they always have to aa5 use the ultrasound machine". Pt is a hard stick. Charge Nurse Marie Veliz RN notified. . Vital Signs: 16:23 BP 147 / 104; Pulse 101; Resp 20; Temp 98.9(O); Pulse Ox 95% on R/A; Weight 145.15 kg; ld1 Height 5 ft. 9 in. (175.26 cm); Pain 7/10; 22:51 BP 127 / 83; Pulse 98; Resp 18; Pulse Ox 99% on R/A; kd3 16:23 Body Mass Index 47.26 (145.15 kg, 175.26 cm) ld1 ED Course: 16:05 Patient arrived in ED. as 16:19 Johan Saravia PA is PHCP. cp 16:19 Kendall Oswald MD is Attending Physician. cp 16:25 Triage completed. ld1 16:25 Arm band placed on left wrist. ld1 17:59 Jennie Gonzalez, LIANE is Primary Nurse. aa5 18:42 Bed in low position. Call light in reach. Side rails up X 1. Door closed. Noise mb7 minimized. Warm blanket given. 18:42 EKG done, by ED staff, reviewed by Johan CARREON. mb7 19:00 Report given to LIANE Cano and LIANE Vazquez. aa5 19:45 Inserted saline lock: 22 gauge in right forearm, using aseptic technique. Blood vc1 collected. 20:27 Annie Pruitt MD is Hospitalizing Provider. cp 20:41 Jerome Hendrix, LIANE is Primary Nurse. as6 22:40 No provider procedures requiring assistance completed. Patient admitted, IV remains in kd3 place. Administered Medications: 21:28 Drug: morphine 4 mg Route: IVP; Infused Over: 4 mins; Site: right forearm; kd3 22:52 Follow up: Response: No adverse reaction; Pain is decreased kd3 21:28 Drug: Zofran (Ondansetron) 4 mg Route: IVP; Site: right forearm; kd3 22:52 Follow up: Response: No adverse reaction kd3 21:29 Drug: Cefepime 2 grams Route: IVPB; Rate: 200 ml/hr; Infused Over: 30 mins; Site: right kd3 forearm; 22:52 Follow up: Response: No adverse reaction; IV Status: Completed infusion kd3 21:30 Drug: NS 0.9% 1000 ml Route: IV; Rate: 1 bolus; Site: left antecubital; as6 22:52 Follow up: Response: No adverse reaction; IV Status: Completed infusion kd3 22:00 Drug: vancoMYCIN 1.5 grams Route: IVPB; Rate: calculated rate; Site: left antecubital; as6 22:52 Follow up: IV Status: Infusion continued kd3 Medication: 22:40 VIS not applicable for this client. kd3 Outcome: 20:29 Decision to Hospitalize by Provider. cp 22:40 Condition: stable kd3 22:59 Admitted to Med/surg accompanied by tech, room 201, Report called to ivodette kd3 22:59 Discharge instructions given to patient, Instructed on the need for admit. 23:02 Patient left the ED. kd3 Signatures: Sierra Dawkins Audri, RN RN aa5 Johan Saravia PA PA cp Dibbern, Lauren, RN RN ld1 Jerome Hendrix, RN RN as6 Taylor Mcclendon, RN RN kd3 AlexTish 7 Brenda Kumar, RN RN vc1
[2022-03-30 20:38] LABS: Protime INR 1.01
[2022-03-30 20:48] LABS: Albumin 3.4 g/dL (3.4-5.0); Bilirubin Total 0.2 mg/dL (0.2-1.0); Potassium 3.8 mmol/L (3.5-5.1); Protein, Total 7.7 g/dL (6.4-8.2)
--- NOTE | 2022-03-30 21:05 | P.HP ---
Certification for Inpatient Patient admitted to: Inpatient With expected LOS: <2 Midnights Patient will require the following post-hospital care: None Practitioner: I am a practitioner with admitting privileges, knowledge of patient current condition, hospital course, and medical plan of care. Services: Services provided to patient in accordance with Admission requirements found in Title 42 Section 412.3 of the Code of Federal Regulations Patient History Date of Service: 03/30/22 Reason for admission: Hidrandenitis Supprativa History of Present Illness: Patient is a 36-year-old male with past medical history of CAD, TIA, COPD, and HS who presented to the ED after being sent over from Dr. Anne's office with infection in L groin. Patient was not being very cooperative with the ER staff as he thought he was going to be admitted directly. He barely responded to questions and would not show the site of infection. Work-up revealed WBC 15 and Pro-Axel 22. Patient has been tachycardic and hypertensive. He was started on Vanco and cefepime. Dr. Anne wishes for him to be admitted to hospitalist and he will operate tomorrow. Allergies No Known Allergies Allergy (Unverified 10/08/13 07:22) Home medications list reviewed: Yes Home Medications: NK [No Home Meds] 06/02/20 - Past Medical/Surgical History Diabetic: No -: HTN -: Obesity -: CAD -: Appendectomy -: Hemorrhoidectomy -: PCI -: Hernia Repair Psychosocial/ Personal History: Patient lives at home. - Family History Father -: Cancer - Social History Smoking Status: Current every day smoker Alcohol use: No CD- Drugs: No Caffeine use: No Place of Residence: Home Review of Systems Integumentary: Other (cellulitus L and R axilla, L groin ) Physical Examination - Physical Exam General: Alert, In no apparent distress, Obese HEENT: Atraumatic, PERRLA, EOMI, Sclerae nonicteric Neck: Supple, 2+ carotid pulse no bruit, No LAD, Without JVD or thyroid abnormality Respiratory: Clear to auscultation bilaterally, Normal air movement Cardiovascular: Regular rate/rhythm, Normal S1 S2 Gastrointestinal: Normal bowel sounds, No tenderness Musculoskeletal: No tenderness Integumentary: Skin breakdown, Skin lesion, Erythema, Other (cellulitus L and R axilla, L groin ) Neurological: Normal speech, Normal strength at 5/5 x4 extr, Normal affect - Studies Laboratory Data (last 24 hrs) 03/30/22 19:45: PT 11.1, INR 1.01, APTT 38.7 H 03/30/22 19:45: Sodium 141, Potassium 3.8, BUN 10, Creatinine 0.82, Glucose 87, Total Bilirubin 0.2, AST 15, ALT 38, Alkaline Phosphatase 106 03/30/22 19:45: WBC 15.2 H, Hgb 15.8, Hct 48.3, Plt Count 376 Assessment and Plan - Problems (Diagnosis) (1) Sepsis Current Visit: Yes Status: Acute Qualifiers: Sepsis type: sepsis due to unspecified organism Sepsis acute organ dysfunction status: without acute organ dysfunction Qualified Code(s): A41.9 - Sepsis, unspecified organism (2) Abscess or cellulitis of groin Current Visit: Yes Status: Acute (3) Hidradenitis suppurativa Current Visit: Yes Status: Acute (4) HTN (hypertension) Current Visit: Yes Status: Chronic Qualifiers: Hypertension type: primary hypertension Qualified Code(s): I10 - Essential (primary) hypertension (5) Obesity Current Visit: Yes Status: Chronic Qualifiers: Obesity type: due to excess calories Obesity classification: adult class 3 (BMI >= 40) Serious obesity comorbidity presence: without serious comorbidity Body mass index: BMI 45.0-49.9 Qualified Code(s): E66.01 - Morbid (severe) obesity due to excess calories; Z68.42 - Body mass index [BMI] 45.0-49.9, adult (6) CAD (coronary artery disease) Current Visit: No Status: Chronic Qualifiers: Coronary Disease-Associated Artery/Lesion type: unspecified vessel or lesion type [place] vs. transplanted heart: [place] heart Associated angina: without angina Qualified Code(s): I25.10 - Atherosclerotic heart disease of [place] coronary artery without angina pectoris (7) COPD (chronic obstructive pulmonary disease) Current Visit: Yes Status: Chronic Qualifiers: COPD type: unspecified COPD Qualified Code(s): J44.9 - Chronic obstructive pulmonary disease, unspecified - Plan -Cont Vanc and Cefepime for cellulitus/abscess -Septic with elevated procal, leukocytosis, and tachycardia. Blood cultures sent. Antibiotics and IVF. -NPO at midnight. Omid operating tomorrow -Patient states he is supposed to wear oxygen or CPAP at night. Ordered -Reconcile and cont home medications -Lovenox for VTE ppx -Full code Discharge Plan: Home Plan to discharge in: 48 Hours - Advance Directives Does patient have a Living Will: No Does patient have a Durable POA for Healthcare: No - Code Status/Comfort Care Code Status Assessed: Yes (Full) Critical Care: No Time Spent Managing Pts Care (In Minutes): 50
[2022-03-30] MEDS ORDERED: CEFEPIME 2 GM VIAL ONE (21:22)
[2022-03-30] MEDS ORDERED: NA CHLORIDE 0.9% 100 ML ONE (21:23)
[2022-03-30] MEDS ORDERED: ONDANSETRON 4 MG/2 ML VIAL ONE (21:23)
[2022-03-30] MEDS ORDERED: MORPHINE 4 MG/ML SYR ONE (21:23)
[2022-03-30] MEDS ORDERED: ONDANSETRON 4 MG/2 ML VIAL IV PRN (22:56)
[2022-03-30] MEDS ORDERED: VANCOMYCIN 1 GM in NA CHLORIDE 0.9% 250 ML IVPB SCH (22:56)
[2022-03-30] MEDS ORDERED: ACETAMINOPHEN 500 MG TAB PO PRN (22:56)
[2022-03-30] MEDS ORDERED: VANCOMYCIN 500 MG in NA CHLORIDE 0.9% 100 ML IVPB ONE (23:30)
[2022-03-30] MEDS: NA CHLORIDE 0.9% 1,000 ML IV SCH (23:37)
[2022-03-31] MEDS: MORPHINE 4 MG/ML SYR IV PRN ×2 (03:42→23:59)
[2022-03-31 06:50] LABS: Urine Appearance Clear (Clear); Urine Bilirubin Negative (Negative); Urine Blood Trace-intact (Negative); Urine Color Yellow (Yellow); Urine Glucose Negative (Negative); Urine Protein Negative (Negative); Urine Specific Gravity >=1.030 (1.005-1.030); Urine Urobilinogen 0.2 mg/dL (0.2-1.0); Urine pH 5.5 (5.0-7.0)
[2022-03-31 07:04] LABS: Urine Bacteria <20 /HPF (NONE SEEN); Urine Microscopic Reflex ORDER UMIC; Urine RBC <5 /HPF (NONE SEEN)
[2022-03-31 07:05] LABS: Urine Mucus 1+ /HPF (NONE SEEN)
[2022-03-31] MEDS: CEFEPIME 2 GM in NA CHLORIDE 0.9% 100 ML IV SCH (08:38)
[2022-03-31] MEDS: NA CHLORIDE 0.9% 1,000 ML IV SCH ×2 (08:39→18:56)
[2022-03-31] MEDS: ENOXAPARIN 40 MG/0.4 ML SQ SCH (08:39)
[2022-03-31] MEDS: VANCOMYCIN 2 GM in NA CHLORIDE 0.9% 500 ML IVPB SCH (09:00)
[2022-03-31] MEDS ORDERED: BUPIVACAINE 0.25% PF 10 ML VIAL ONE (10:56)
[2022-03-31] MEDS ORDERED: SODIUM HYPOCHLORITE 0.25% 473 ML ONE (10:57)
[2022-03-31] MEDS: BUPIVACA 0.5%/EPI 0.0005%/PF 30 ML VIAL ONE ×2 (11:01→11:45)
[2022-03-31] MEDS ORDERED: MIDAZOLAM HCL 2 MG/2 ML INJ ONE (11:19)
[2022-03-31] MEDS ORDERED: propofoL 200 MG/20 ML VIAL IV ONE (11:28)
[2022-03-31] MEDS ORDERED: LIDOCAINE 1% MPF 2 ML AMPULE ONE (11:34)
[2022-03-31] MEDS ORDERED: FENTANYL CITR 100 MCG/2 ML ONE (11:36)
[2022-03-31] MEDS ORDERED: VANCOMYCIN 2 GM in NA CHLORIDE 0.9% 500 ML IVPB SCH (12:00)
--- NOTE | 2022-03-31 12:15 | P.OP ---
Preoperative diagnosis: Hidradenitis suppuritiva of LEFT axilla, LEFT Groin, Suprapubic wound Postoperative diagnosis: Hidradenitis suppuritiva of LEFT axilla, LEFT Groin, Suprapubic wound Primary procedure: Excisional Debridement of Hidradenitis suppuritiva of LEFT axilla, Secondary procedure: Excisional Debridement of LEFT Groin, Suprapubic wound Anesthesia: GETA + Local Estimated blood loss: <5cc Specimen: debridement tissue x 3 Findings: hidradenitis of LEFT axilla & groin, Suprapubic cyst / wound Complications: None Transferred to: Recovery Room Condition: Good
[2022-03-31] MEDS ORDERED: HYDROCODONE/APAP 5/325 MG TAB PO PRN (12:19)
--- NOTE | 2022-03-31 13:46 | EKG ---
Test Date: 2022-03-30 Test Time: 18:34:35 Fruit Culler: MB MEASUREMENT RESULTS: Intervals: Rate: 92 PA: 128 QRSD: 98 QT: 352 QTc: 435 [place]: P: 28 PA: 128 QRS: 70 T: 57 INTERPRETIVE STATEMENTS: Normal sinus rhythm Normal ECG Compared to ECG 05/27/2021 08:39:53 No significant changes Electronically Signed On 03-31-22 13:45:06 CDT by Efe Hall
[2022-03-31] MEDS: HYDROCODONE/APAP 10/325 TAB PO PRN (21:02)
[2022-03-31] MEDS ORDERED: HYDROCODONE/APAP 10/325 TAB ONE (21:07)
--- NOTE | 2022-03-31 23:00 | OP ---
Date of Procedure: 03/31/2022 Surgeon: Mario Anne MD, Preoperative Diagnoses: 1.Hidradenitis suppurativa of the left axilla and left groin. 2.Suprapubic wound. Postoperative Diagnoses: 1.Hidradenitis suppurativa of the left axilla and left groin. 2.Suprapubic wound. Procedure Performed: 1.Excisional debridement of hidradenitis suppurativa of left axilla. 2.Excisional debridement of hidradenitis suppurativa of left groin/inguinal region. 3.Excisional debridement of suprapubic cystic chronic wound. Anesthesia: General endotracheal plus local with 0.5% Marcaine with epinephrine. Estimated Blood Loss: 5 mL. Specimen: Debridement tissue x3. Findings: Hidradenitis of the left axilla and groin, suprapubic chronic wound with cyst consistent w ith epidermal inclusion cyst deep. Complications: None. Disposition: The patient was transferred to recovery room in good condition. Procedure In Detail: After informed consent was obtained, the patient was brought to the operating r oom, prepped and draped in the usual sterile fashion. After adequate anesthesia, an elliptical incis ion was made in the left axillary region around the area of hidradenitis with obvious infection down to subcutaneous tissues. A 15 blade electrocautery was used to dissect down to subcutaneous fat ulti mately into the fat plane and removing this ellipse of skin, which was approximately 6.5 cm x 3.5 cm down to subcutaneous fat. This was sent off for pathologic examination. Hemostasis achieved with el ectrocautery. The wound was then copiously irrigated with sterile saline and closed with interrupted 2-0 nylon suture and a sterile dressing was placed over top. Attention was then turned to the left groin area. There was a chronic draining wound at this area where previous surgery had been evident from an inguinal hernia repair and infected mesh with removal by report. Made elliptical incision ar ound a chronic draining wound at this area, approximately 4 cm x 2 cm down to the subcutaneous fat in a similar fashion. This was circumferentially taken down using a 15 blade down to subcutaneous tiss ues. Electrocautery was used to make the remainder of the dissection down to the subcutaneous fat. All tissue was then removed including all necrotic and/or affected and infected tissue sent off for p athologic examination. The area was copiously irrigated. Hemostasis was once again achieved with el ectrocautery. The wound was then closed with interrupted 2-0 nylon suture and sterile dressing place d over the top. I then turned my attention to the suprapubic wound. This looked to have a possible abscess/draining wound from this suprapubic mons pubis area. An elliptical incision was made for treva roximately 2 cm x 1 cm down to the subcutaneous fat. This was circumferentially removed. There was evidence of a sebaceous type material deep in the cavity. This was removed and sent off for patholog ic examination as well. The area was copiously irrigated and left open and packed with Dakin-soaked Kerlix and sterile dressing placed over top. The patient tolerated the procedure without any evidenc e of complication and transferred to PACU in good condition. All counts were correct at the end of t he case. MYRNA/KRISTI Voice ID: [id number] Report ID: [id number]
[2022-03-31] MEDS ORDERED: NA CHLORIDE 0.9% 500 ML ONE (23:59)
[2022-03-31] MEDS ORDERED: VANCOMYCIN 1 GM/VIAL ONE (23:59)
[2022-04-01] MEDS: VANCOMYCIN 2 GM in NA CHLORIDE 0.9% 500 ML IVPB SCH ×2
[2022-04-01 00:17] LABS: Absolute Lymphocytes (CBC) 2.1 K/uL (0.7-4.9); Hematocrit 41.6 % (39.6-49.0); Lymphocytes % 14.6 % (15.3-44.8); MPV 8.6 fL (7.6-11.3); RBC Red Blood Cell Count 4.66 M/uL (4.33-5.43)
[2022-04-01] MEDS: NA CHLORIDE 0.9% 1,000 ML IV SCH (05:21)
[2022-04-01] MEDS: MORPHINE 4 MG/ML SYR IV PRN ×2 (05:22→11:24)
[2022-04-01 05:57] LABS: Absolute Lymphocytes (CBC) 2.3 K/uL (0.7-4.9); Hematocrit 39.5 % (39.6-49.0); Lymphocytes % 17.3 % (15.3-44.8); MPV 8.4 fL (7.6-11.3); RBC Red Blood Cell Count 4.46 M/uL (4.33-5.43)
[2022-04-01 06:20] LABS: Albumin 2.6 g/dL (3.4-5.0); Bilirubin Total 0.3 mg/dL (0.2-1.0); Phosphorus 3.7 mg/dL (2.5-4.9); Protein, Total 6.2 g/dL (6.4-8.2); Thyroid Stimulating Hormone 1.08 uIU/mL (0.360-3.740)
[2022-04-01 06:22] LABS: Magnesium 2.1 mg/dL (1.8-2.4); Potassium 4.3 mmol/L (3.5-5.1)
[2022-04-01 06:35] VITALS: BMI 52.4
[2022-04-01] MEDS: HYDROCODONE/APAP 10/325 TAB PO PRN ×2 (08:48→15:46)
[2022-04-01] MEDS: CEFEPIME 2 GM in NA CHLORIDE 0.9% 100 ML IV SCH ×3 (08:49)
[2022-04-01] MEDS: ENOXAPARIN 40 MG/0.4 ML SQ SCH (08:49)
[2022-04-01 09:53] VITALS: O2SAT 88
--- NOTE | 2022-04-01 10:47 | P.CNS ---
Chief Complaint: Hidrandenitis Supprativa History of Present Illness: The patient is a 36-year-old male with past medical history of morbid obesity, CAD, TIA, COPD, and hydro noticed a Prevea who presented to the emergency department after being sent over from Dr. Meier's office due to infection of the left groin, left axilla, and suprapubic wound. In ED labs are significant of leukocytosis with a WBC of 15.27, Pro-Axel 22.76. Patient was also tachycardic and heart hypertensive. He was empirically started on vancomycin and cefepime. He underwent surgical debridement of all wounds on 03/31. Blood culture showed no growth. He currently denies nausea/vomiting/shortness of breath/chest pain. Allergies No Known Allergies Allergy (Unverified 10/08/13 07:22) Home Medications: NK [No Home Meds] 06/02/20 - Past Medical/Surgical History Diabetic: No -: HTN -: Obesity -: CAD -: DM -: Appendectomy -: Hemorrhoidectomy -: PCI -: Hernia Repair Psychosocial/ Personal History: Patient lives at home. - Family History Father Medical History: Cancer - Social History Smoking Status: Current every day smoker Alcohol use: No CD- Drugs: No Caffeine use: No Place of Residence: Home Review of Systems 10-point ROS is otherwise unremarkable Physical Examination Temp Pulse Resp BP Pulse Ox 97.1 F 86 20 108/64 90 L 04/01/22 08:00 04/01/22 08:00 04/01/22 08:00 04/01/22 08:00 04/01/22 08:00 General: Obese HEENT: Atraumatic Neck: Supple Respiratory: Clear to auscultation bilaterally Cardiovascular: Regular rate/rhythm Gastrointestinal: Normal bowel sounds Musculoskeletal: No clubbing Integumentary: Other (Wounds to left axilla, left groin, and suprapubic area all with surgical dressing in place.) Conclusions/Impression: Antibiotics: Vancomycin: urrent Cefepime: 1current Assessment/plan Hidradenitis suppurativa wounds to left axilla, left groin, and suprapubic area -Patient underwent surgical debridement on 03/31. Surgical dressing in place. Continue wound care per surgical team Recommend sending patient home on oral augmentin for 14 to 21 days. Patient is active smoker, states he has been smoking since age of 14 and smokes 1 pack a day. Patient would greatly benefit from smoking cessation counseling -While wounds heal recommend loosefitting clothing Leukocytosis Downtrending, continue to monitor CAD, TIA, COPD, morbid obesity Medical management per primary team Plan of care discussed Dr. Ball Thank you for consultation
[2022-04-01] MEDS ORDERED: VANCOMYCIN 2 GM in NA CHLORIDE 0.9% 500 ML IVPB SCH (15:00)
[2022-04-01 16:35] VITALS: BP 117/93; TEMP 97.1
[2022-04-01] MEDS ORDERED: CEFEPIME 2 GM in NA CHLORIDE 0.9% 100 ML IV SCH (22:00)
== END 2022-04-01 18:10 | disposition home or self-care (01) | DRG 854 ==
LOC: ER 16:02 → ERHOLD 21:11 → 2ND 22:45
PROVIDERS: ADMIT Hospitalist; ATTEND Hospitalist
PROC: 0JBC0ZZ Excision of Pelvic Region Subcutaneous Tissue and Fascia, Open Approach (ICD-10-PCS; 2022-03-31)
PROC: 0JBC0ZZ Excision of Pelvic Region Subcutaneous Tissue and Fascia, Open Approach (ICD-10-PCS; 2022-03-31)
PROC: 0JBF0ZZ Excision of Left Upper Arm Subcutaneous Tissue and Fascia, Open Approach (ICD-10-PCS; principal; 2022-03-31 11:00)
DX: A41.9 Sepsis, unspecified organism (principal); Z68.43 Body mass index [BMI] 50.0-59.9, adult; L03.314 Cellulitis of groin; L03.112 Cellulitis of left axilla; L73.2 Hidradenitis suppurativa; L72.0 Epidermal cyst; I25.10 Atherosclerotic heart disease of native coronary artery without angina pectoris; J44.9 Chronic obstructive pulmonary disease, unspecified; I10 Essential (primary) hypertension; F17.210 Nicotine dependence, cigarettes, uncomplicated; E66.01 Morbid (severe) obesity due to excess calories; E11.9 Type 2 diabetes mellitus without complications; Z86.73 Personal history of transient ischemic attack (TIA), and cerebral infarction without residual deficits; Z20.822 Contact with and (suspected) exposure to COVID-19
CPT/HCPCS: 36415; 80053; 80061; 80202; 81003; 81015; 82947; 83605; 83735; 84100; 84145; 84443; 85025; 85610; 85730; 87040; 88304; 93005; 94660; 99285; J0692; J1650; J2250; J2405; J2704; J3010; J3370; J7030; J7040; U0003

== ENCOUNTER 2022-04-23 23:04 | Emergency (ER) | payer OTHER ==
--- OUTSIDE RECORDS SUMMARY | 2022-04-23 23:08 | XMS REPORT | Continuity of Care Document ---
:1985 Author Organization [facility] t Address [address] [place] [address] Care Team Providers Name Role Phone Kajal REYNOLDS Primary Care Physician Unavailable CANDELARIO Attending Clinician Unavailable Candelario SIGALA Attending Clinician YG Attending Clinician Unavailable Yg SIGALA Attending Clinician TARYN DHALIWAL Attending Clinician Unavailable Taryn Cuello Attending Clinician AAYUSH SOTO Attending Clinician Unavailable Aayush Soto MD Attending Clinician LEIGHA POSEY Attending Clinician Unavailable SHAYLEE Attending Clinician Unavailable CARLITAMED Attending Clinician Unavailable Doctor Unassigned, Name Attending Clinician Unavailable Jacques SIGALA Attending Clinician YG Admitting Clinician Unavailable TARYN DHALIWAL Admitting Clinician Unavailable AAYUSH SOTO Admitting Clinician Unavailable LEIGHA POSEY Admitting Clinician Unavailable SHAYLEE Admitting Clinician Unavailable MARIANA Admitting Clinician Unavailable Payers Payer Name Policy Type Policy Number Effective Date Expiration Date S bjorn [facility] [id number] 2020 00:00:00 Problems Condition Condition Condition Status [...] 0-04 it y of abscess abscess 00:00: [place] 00 Medical Branch Allergies, Adverse Reactions, Alerts Allergy Allergy Status Severity Reaction(s) Onset Inactive Treating Comm ents Source Name Type Date Date Clinician [place]-Ho Propensi Active Anaphylaxis 2017-10 U nivers estela Bee ty to 2-29 ity of adverse 00:00: [place] reaction 00 Medical s Branch VENOM-HO DRUG Active High Anaphylaxis 2017-10 Uni vers ESTELA BEE INGREDI 2-29 ity of 00:00: [place] 00 Medical Branch Social History Social Habit Start Date Stop Date Quantity Comments Source History of tobacco Cigarette Smoker University of use [facility] History [facility] o f Alcohol Std Drinks [place] [facility] History [facility] o f Alcohol Binge [place] [facility] History [facility] o f Alcohol Comment [place] Med ical Branch Exposure to Not sure [place] of SARS-CoV-2 (event) [facility] Alcohol intake 2021-09-29 2021-09-29 Ex-drinker [place] of 00:00:00 00:00:00 (finding) [facility] Education 2021-08-31 2021-08-31 15 [place] of 00:00:00 00:00:00 [facility] History SDOH 2020-08-03 2020-08-03 1 University o f Alcohol Frequency 00:00:00 00:00:00 [facility] Branch Cigarettes smoked 2020-08-02 2020-08-02 Univers ity of current (pack per 00:00:00 00:00:00 [facility] - Reported Branch Cigarette 2020-08-02 2020-08-02 University of pack-years 00:00:00 00:00:00 [facility] Tobacco use and 2020-08-02 2020-08-02 Never used Universit y of exposure 00:00:00 00:00:00 [facility] Tobacco Comment 2020-08-02 2020-08-02 Down from 2 [facility] Univ ersity of 00:00:00 00:00:00 [facility] Sex [birth year] Universit y of 00:00:00 00:00:00 [facility] Smoking Status Start Date Stop Date Source Current every day smoker 2020-08-02 00:00:00 Uni versity of [facility] Medications Ordered Filled Start Stop Current Ordering Indication Dosage Frequency Signature Comments Components Source Medication Medication Date Date Medication? Clinician (SIG) Name Name ketorolac 30mg 30 mg, Unive rs (TORADOL) 02-08 0412 Slow IV ity of injection 10:15: 09:06 [...] al on inhaler [facility] Branch ibuprofen Yes [id number] 600mg Take 1 U nivers 600 mg 4-12 tablet by ity of tablet 00:00: mouth [place] 00 every 6 Medical (six) Branch hours as needed for Pain (scale 4-6). traMADoL 50 0 Yes [id number] 50mg Take 1 Univ ers mg tablet 4-12 tablet by ity o f 00:00: mouth [place] 00 every 6 Medical (six) Branch hours as needed for Pain (scale 4-6). Indication s: acute pain ibuprofen Yes [id number] 600mg Take 1 U nivers 600 mg [...] of 1,000 mg in 07:00: 06:36 [place]gy[place], [place] NaCl 0.9% 00 :00 ONCE, 1 Medical (NS) 50 mL dose, On [facility] h MINI-BAG 11/28/21 at 0100, Administer over 30 Minutes, 50 mL
Reas on for Anti-Infec tive: Documented Infection< br>Documen rosalia Infection Site: Skin / Soft Tissue
Duration of Therapy: Other (see Comments) iohexol 2021- No [id number] 120mL 120 mL, U nivers (OMNIPAQUE 11-28 Intravenou it y of 350 05:15: 05:04 s, ONCE, 1 [place] BULK-100 00 :00 dose, On Medical mL) Sat Branch injection 11/27/21 at 120 mL 2315, Routine cephALEXin 2021- No [id number] 500mg Take 1 Univers (KEFLEX) 11-28 02-10 capsule by ity of 500 mg 00:00: 05:59 mouth 3 [place] capsule 00 :00 (three) Medical times Branch daily for 10 days. acetaminoph 2020-10- No [id number] 1{tbl} Take 1 U nivers en-codeine 11-30 tablet by ity of 300-30 mg 00:00: [...] MCG/ACT Medic al on inhaler [facility] Branch alum-mag 2020-10 Yes [id number] 30mL Take 30 mL Univers hydroxide-s 1-23 by mouth 3 it y of imeth 00:00: (three) [place] times Medical mg/5 mL daily. Branch suspension alum-mag 2020-10 Yes [id number] 30mL Take 30 mL Univers hydroxide-s 1-23 by mouth 3 it y of imeth 00:00: (three) [place] times Medical mg/5 mL daily. Branch suspension alum-mag 2020-10 Yes [id number] 30mL Take 30 mL Univers hydroxide-s 1-23 by mouth 3 it y of imeth 00:00: (three) [place] times Medical mg/5 mL daily. Branch suspension alum-mag 2020-10 Yes [id number] 30mL Take 30 mL Univers hydroxide-s 1-23 by mouth 3 it y of imeth 00:00: (three) [place] times Medical mg/5 mL daily. Branch suspension acetaminoph 2020-10- No [id number] 650mg Take 2 Univers en 325 mg 1-23 11-24 tablets by ity of tablet 00:00: 05:59 mouth [place] 00 :00 every 6 Medical (six) Branch hours. acetaminoph 2020-10- No [id number] 650mg Take 2 Univers en 325 mg 1-23 11-24 tablets by ity of tablet 00:00: 05:59 mouth [place] 00 :00 every 6 Medical (six) Branch hours. acetaminoph 2020-10- No [id number] 650mg Take 2 Univers en 325 mg 1-23 11-24 tablets by ity of tablet 00:00: 05:59 mouth [place] 00 :00 every 6 Medical (six) Branch hours. acetaminoph 2020-10- No [id number] 650mg Take 2 Univers en 325 mg 11-21 11-24 tablets by ity of tablet 00:00: 05:59 mouth [place] 00 :00 every 6 Medical (six) Branch hours. ciprofloxac 2020-10- No [id number] 500mg Take 1 Univers in HCl 500 11-21 12-04 tablet by ity of mg tablet 00:00: [...] 10 00:00: [place] mg tablet 00 Medical [place] amphetamine 2020-10 Yes Univ s -dextroamph 0-21 ity of etamine 20 00:00: [place] mg 24 hr 00 Medical [facility] Branch dextroamphe 2020-10 Yes Univer s tamine-amph 0-21 ity of etamine 10 00:00: [place] mg tablet 00 Medical [place] furosemide Yes as needed. U nivers 40 mg 9-15 ity of tablet 00:00: [place] [facility] furosemide Yes as needed. U nivers 40 mg 9-15 ity of tablet 00:00: Medical [place] furosemide Yes as needed. U nivers 40 mg 9-15 ity of tablet 00:00: [facility] furosemide Yes as needed. U nivers 40 mg 9-15 ity of tablet 00:00: [place] 00 [facility] Immunizations Ordered Filled Immunization Date Status Comments [facility] e Immunization Name Name Influenza Virus 2014-07-09 Completed Universit y of Vaccine Quad IM 3+ 00:00:00 [facility] Influenza Virus 2014-07-09 Completed Universit y of Vaccine Quad IM 3+ 00:00:00 [facility] Influenza Virus 2014-07-09 Completed Universit y of Vaccine Quad IM 3+ 00:00:00 [facility] Influenza Virus 2014-07-09 Completed Universit y of Vaccine Quad IM 3+ 00:00:00 [facility] Influenza Virus 2014-01-06 Completed Universit y of Vaccine (3+ yrs) 00:00:00 [facility] Influenza Virus 2014-01-06 Completed Universit y of Vaccine (3+ yrs) 00:00:00 [facility] Influenza Virus 2014-01-06 Completed Universit y of Vaccine (3+ yrs) 00:00:00 [facility] Influenza Virus 2014-01-06 Completed Universit y of Vaccine (3+ yrs) 00:00:00 [facility] TDAP 2009-03-10 Completed University 00:00:00 [facility] TDAP 2009-03-10 Completed [facility] 00:00:00 [facility] TDAP 2009-03-10 Completed [facility] 00:00:00 [facility] TDAP 2009-03-10 Completed University 00:00:00 [facility] Vital Signs Vital Name Observation Time Observation Value Comments Source Systolic blood 2022-02-08 09:42:00 170 mm[Hg] Univer sity of pressure [place] [facility] Diastolic blood 2022-02-08 09:42:00 54 mm[Hg] Unive rsity of pressure [place] [facility] Heart rate 2022-02-08 09:42:00 90 /min Universi ty of [place] [facility] Respiratory rate 2022-02-08 09:42:00 23 /min Univ ersity of [place] [facility] Oxygen saturation in 2022-02-08 09:42:00 96 /min University of Arterial blood by [place] YuanV Pulse oximetry Branch Body temperature 2022-02-08 07:18:00 37 Brittanie Univ ersity of [place] [facility] Body height 2022-02-08 07:18:00 172.7 cm Universi ty of [place] [facility] Body weight 2022-02-08 07:18:00 140.615 kg Universi ty of [place] [facility] BMI 2022-02-08 07:18:00 47.14 kg/m2 Universi ty of [place] [facility] Systolic blood 2021-11-28 06:30:00 114 mm[Hg] Univer sity of pressure [place] [facility] Diastolic blood 2021-11-28 06:30:00 60 mm[Hg] Unive rsity of pressure [place] [facility] Heart rate 2021-11-28 06:30:00 101 /min Universi ty of [place] [facility] Oxygen saturation in 2021-11-28 06:30:00 95 /min University of Arterial blood by [place] YuanV Pulse oximetry Branch Respiratory rate 2021-11-28 04:20:00 20 /min Univ ersity of [place] [facility] Body temperature 2021-11-28 04:12:00 37.11 Brittanie Univ ersity of [place] [facility] Body height 2021-11-28 04:12:00 172.7 cm Universi ty of [place] [facility] Body weight 2021-11-28 04:12:00 148.8 kg Universi ty of [place] [facility] BMI 2021-11-28 04:12:00 49.88 kg/m2 Universi ty of [place] [facility] Systolic blood 2021-09-29 20:18:00 145 mm[Hg] Univer sity of pressure [place] [facility] Diastolic blood 2021-09-29 20:18:00 84 mm[Hg] [facility] Heart rate 2021-09-29 20:18:00 117 /min [facility] Body temperature 2021-09-29 20:18:00 36.5 Brittanie [facility] Respiratory rate 2021-09-29 20:18:00 18 /min [facility] Body height 2021-09-29 20:18:[address] [facility] Body weight 2021-09-29 20:18:[address] [facility] BMI 2021-09-29 20:18:00 50.17 kg/m2 [facility] Procedures Procedure Date / Time Performing Clinician Source Performed URINALYSIS 2022-02-08 08:48:00 Jeniffer Holt [facility] US SCROTUM AND CONTENTS 2022-02-08 08:16:13 Jeniffer Holt [facility] COMP. METABOLIC PANEL 2022-02-08 07:46:00 Jeniffer Holt [facility] ([id number]) [facility] CBC WITH DIFF 2022-02-08 07:46:00 Yg Jeniffer [facility] PROTHROMBIN TIME / INR 2022-02-08 07:46:00 Jeniffer Holt [facility] ACTIVATED PARTIAL 2022-02-08 07:46:00 [facility] CONSENT/REFUSAL FOR 2022-02-08 07:04:00 Doctor Unassigned, No Un [facility] DIAGNOSIS AND TREATMENT Name Medical Branch URINALYSIS 2021-11-28 06:09:00 Annette Dhaliwal [facility] CT ABDOMEN PELVIS W 2021-11-28 05:10:12 Annette Dhaliwal [facility] COMP. METABOLIC PANEL 2021-11-28 04:52:00 Annette Dhaliwal [facility] ([id number]) [facility] CBC WITH DIFF 2021-11-28 04:52:00 Annette Dhaliwal [facility] Encounters Start End Encounter Admission Attending Care Care Encounter Source Date/Time Date/Time Type Type Clinicians Facility Department ID 2022-06-09 2022-06-09 Outpatient R CANDELARIO [facility] [id number] Univers 14:30:00 14:30:00 MICAHEL [id number] [facility] 2022-04-18 2022-04-18 Outpatient R CANDELARIO [facility] [id number] Univers 13:30:00 13:30:00 MICHAEL [id number] [facility] 2022-04-18 2022-04-18 [facility] [id number] Univers 13:30:00 13:30:00 MICHAEL [facility] 2022-04-04 2022-04-04 [facility] [id number] Univers 14:30:00 14:30:00 MICHAEL [id number] [facility] 2022-03-24 2022-03-24 [facility] [id number] Univers 09:00:00 09:00:00 MICHAEL [id number] [facility] 2022-03-24 2022-03-24 [facility] [id number] Univers 09:00:00 09:00:00 MICHAEL [facility] 2022-03-24 2022-03-24 Telephone [facility] [id number] Univers 00:00:00 00:00:00 Michael LOPEZ 350.1.13.10 i ty [place] [id number] Sc dical [address] 2022-02-08 2022-02-08 Emergency [facility] [id number] Univers 02:16:00 04:47:00 JENIFFER [facility] 2022-02-08 2022-02-08 [facility] [id number] Univers 02:16:00 04:47:00 Jeniffer LOPEZ 350.1.13.10 i ty of [place] 4.2.7.2.686 [facility] [id number] [facility] 084 Branch 2021-11-27 2021-11-28 Emergency X Annette DHALIWAL [facility] ERT [id number] Univers 22:17:00 [facility] 2021-11-27 2021-11-28 Emergency Annette Dhaliwal [facility] [id number] Univers 22:17:00 00:52:00 Taryn [place] 350.1.13.10 i ty of [place] 4.2.7.2.686 [facility] [id number] [facility] [address] [place] 2021-10-08 2021-10-08 Outpatient Shandra SOTO [facility] [id number] Univers 10:45:00 10:45:00 CARL [facility] 2021-09-29 2021-09-29 Office STEPHANIE Soto [id number] Univers 14:12:15 14:37:52 Visit [facility] 350.1.13.10 i ty of [facility] 4.2.7.2.686 [facility] [id number] [facility] [address] [place] 2021-09-20 2021-09-21 Outpatient Shandra SOTO [facility] PAVEL [id number] Univers 06:38:00 12:20:00 CARL [facility] 2021-09-06 2021-09-08 [facility] [id number] Univers 16:50:00 15:15:00 JAVY [facility] 2021-08-31 2021-09-01 Outpatient X SHAYLEE [facility] JAKE [id number] Univers 08:47:00 16:33:00 PAU [facility] 2021-04-13 2021-04-13 Outpatient KENYATTA [facility] [id number] [place] 00:00:00 00:00:00 YAHYA 607 Method i 2021-03-15 2021-03-16 [id number] [place] 00:00:00 00:00:00 YAHYA [address] 2020-10-08 2020-10-08 Orders Doctor CARL [id number] 00:00:00 00:00:00 Only Unassigned, LACIE 350.1.13.10 [facility] 4.2.7.2.686 [id number] 2020-09-17 2020-09-17 Office Jacques [facility] [id number] 15:20:49 16:01:46 Visit Osiris Lopez 350.1.13.10 [place] 4.2.7.2.686 [facility] [id number] [facility] 188 Building Results Test Description Test Time Test Comments Results Result Comments Source COMP. METABOLIC PANEL (00606) 2022-02-08 08:21:42 Test Item Value Reference Range Interpretation Comme nts NA (test code = 9078493053) 141 mmol/L 135-145 K (test code = 1759473448) 4.6 mmol/L 3.5-5.0 CL (test code = 5176993768) 105 mmol/L 98-108 CO2 TOTAL (test code = 2236950762) 26 mmol/L 23-31 AGAP (test code = 9295896404) 2-16 BUN (test code = 4844873009) 20 mg/dL 7-23 GLUCOSE (test code = 2481002423) 152 mg/dL 70-110 H CREATININE (test code = 0.97 mg/dL 0.60-1.25 8816449254) TOTAL BILI (test code = 0.3 mg/dL 0.1-1.1 7090143383) CALCIUM (test code = 2908288567) 9.4 mg/dL 8.6-10.6 T PROTEIN (test code = 5903763862) 7.3 g/dL 6.3-8.2 ALBUMIN (test code = 0061479221) 4.3 g/dL 3.5-5.0 ALK PHOS (test code = 8050985961) 107 U/L 34-122 ALTv (test code = 1742-6) 24 U/L 5-50 AST(SGOT) (test code = 7155123761) 22 U/L 13-40 eGFR (test code = 9101509669) mL/min/1.73m2 CHAI (test code = CHAI) Association [...] tests). Lab Interpretation (test code = Abnormal 23128-7) [facility] [id number] 08:10:38 Test Item Value Reference Range Interpretation Comments APTT Patient (test See_Comment [Automat ed code = 3173-2) message] The system which generated this result transmitted reference range : 23 - 38 Seconds . The reference range was not used to interpr et this result as normal/abnormal . CHAI (test code = CHAI) The [facility] patient population mean normal value for aPTT is 30 seconds. Lab Interpretation Normal (test code = 62968-8) [facility] / [id number] 08:08:22 Test Item Value Reference Range Interpretation [...] tions. Lab Interpretation (test Normal code = 53021-9) [facility] WITH [id number] 08:00:41 Test Item Value Reference Range Interpretation Comments WBC (test code = See_Comment H [Automated 9690-2) message] The sy stem which generated this [...] RDW-SD (test code = 49.0 fL 38.5-51.6 93966-5) RDW-CV (test code = 15.3 % 12.1-15.4 788-0) PLT (test code = See_Comment H [Automated 777-3) message] The sy stem which generated this result transmitted reference range : 150 - 328 10*3/ ?L. The reference r khris was not used to interpret this result as normal/abnormal . MPV (test code = 9.8 fL 9.8-13.0 58567-9) NRBC/100 WBC (test See_Comment [Automat ed code = 5458680039) message] The system which generated this result transmitted reference range : 0.0 - 10.0 /100 WBCs. The refer ence range was not u sed to interpret th is result as normal/abnormal . NRBC x10^3 (test code <0.01 See_Comment [Auto mated = 9430716680) message] The s ystem which generated this result transmitted reference range : 10*3/?L. The reference range was not used to interpret this result as normal/abnormal . GRAN MAT (NEUT) % 69.6 % (test code = 770-8) IMM GRAN % (test code 0.70 % = 4912643767) LYMPH % (test code = 20.1 % 736-9) MONO % (test code = 7.3 % 5905-5) EOS % (test code = 1.9 % 713-8) BASO % (test code = 0.4 % 706-2) GRAN MAT x10^3(ANC) 9.81 10*3/uL 1.99-6.95 H (test code = 9876560626) IMM GRAN x10^3 (test 0.10 10*3/uL 0.00-0.06 H code = 9521230702) LYMPH x10^3 (test code 2.84 10*3/uL 1.09-3.23 = 731-0) MONO x10^3 (test code 1.03 10*3/uL 0.36-1.02 H = 742-7) EOS x10^3 (test code = 0.27 10*3/uL 0.06-0.53 711-2) BASO x10^3 (test code 0.06 10*3/uL 0.01-0.09 = 704-7) Lab Interpretation Abnormal (test code = 34856-9) [facility] (63641)2021-11-28 05:15:02 Test Item Value Reference Range Interpretation Comments NA (test code = 135 mmol/L 135-145 5540354500) K (test code = 4.2 mmol/L 3.5-5.0 4581970761) CL (test code = 103 mmol/L 98-108 2588136114) CO2 TOTAL (test code = 25 mmol/L 23-31 7750125299) AGAP (test code = 2-16 3702743940) BUN (test code = 17 mg/dL 7-23 5826482753) GLUCOSE (test code = 139 mg/dL 70-110 H 0827703773) CREATININE (test code = 0.82 mg/dL 0.60-1.25 7477551359) TOTAL BILI (test code = 0.4 mg/dL 0.1-1.8 2053250018) CALCIUM (test code = 9.1 mg/dL 8.6-10.6 5247876862) T PROTEIN (test code = 7.2 g/dL 6.3-8.2 8980460338) ALBUMIN (test code = 4.1 g/dL 3.5-5.0 3849242898) ALK PHOS (test code = 105 U/L 34-122 8729091989) ALTv (test code = 28 U/L 5-50 2-6) AST(SGOT) (test code = 28 U/L 13-40 9260101912) eGFR (test code = mL/min/1.73m2 4531543906) CHAI (test code = CHAI) Association of [...] tests). Lab Interpretation Abnormal (test code = 93301-7) [facility] WITH [id number] 05:06:19 Test Item Value Reference Range Interpretation [...] RDW-SD (test code = 46.7 fL 38.5-51.6 79503-2) RDW-CV (test code = 14.6 % 12.1-15.4 788-0) PLT (test code = See_Comment H [Automated 777-3) message] The system which generated this result transmit rosalia reference range : 150 - 328 10*3/ ?L. The reference range was not u sed to interpret th is result as normal/abnormal . MPV (test code = 10.0 fL 9.8-13.0 20871-6) NRBC/100 WBC (test See_Comment [Automat ed code = 1511856028) message] The system which generated this result transmit rosalia reference range : 0.0 - 10.0 /100 WBCs. The reference range was not used to interpret this result as normal/abnormal . NRBC x10^3 (test code <0.01 See_Comment [Auto mated = 3386304737) message] The system which generated this result transmit rosalia reference range : 10*3/?L. The reference range was not used to interpret this result as normal/abnormal . GRAN MAT (NEUT) % 73.8 % (test code = 770-8) IMM GRAN % (test code 0.50 % = 4550232512) LYMPH % (test code = 17.2 % 736-9) MONO % (test code = 6.2 % 5905-5) EOS % (test code = 1.8 % 713-8) BASO % (test code = 0.5 % 706-2) GRAN MAT x10^3(ANC) 11.39 10*3/uL 1.99-6.95 H (test code = 4526340365) IMM GRAN x10^3 (test 0.08 10*3/uL 0.00-0.06 H code = 9189681474) LYMPH x10^3 (test code 2.66 10*3/uL 1.09-3.23 = 731-0) MONO x10^3 (test code 0.95 10*3/uL 0.36-1.02 = 742-7) EOS x10^3 (test code = 0.28 10*3/uL 0.06-0.53 711-2) BASO x10^3 (test code 0.08 10*3/uL 0.01-0.09 = 704-7) Lab Interpretation Abnormal (test code = 62568-5) [facility]"
[2022-04-23] MEDS ORDERED: NA CHLORIDE 0.9% 1,000 ML ONE (23:58)
[2022-04-23] MEDS ORDERED: MORPHINE 4 MG/ML SYR ONE (23:58)
[2022-04-23] MEDS ORDERED: ONDANSETRON 4 MG/2 ML VIAL ONE (23:58)
[2022-04-24 00:21] LABS: Absolute Lymphocytes (CBC) 2.2 K/uL (0.7-4.9); Hematocrit 44.2 % (39.6-49.0); Lymphocytes % 16.8 % (15.3-44.8); MPV 8.5 fL (7.6-11.3); RBC Red Blood Cell Count 4.98 M/uL (4.33-5.43)
[2022-04-24 00:34] LABS: Protime INR 1.03
[2022-04-24 00:38] LABS: ALT/SGPT 40 U/L (12-78); AST/SGOT 15 U/L (15-37); Albumin 3.3 g/dL (3.4-5.0); Alkaline Phosphatase 114 U/L (45-117); BUN Blood Urea Nitrogen 15 mg/dL (7-18); Bicarbonate 28 mmol/L (21-32); Bilirubin Total 0.2 mg/dL (0.2-1.0); Glomerular Filtration Rate 97 ml/min (=/>90); Glucose Level 132 mg/dL (74-106); Potassium 3.5 mmol/L (3.5-5.1); Protein, Total 7.4 g/dL (6.4-8.2); Sodium Level 141 mmol/L (136-145)
[2022-04-24 00:48] LABS: Bilirubin Direct < 0.1 mg/dL (0-0.2)
[2022-04-24] MEDS ORDERED: KETOROLAC 30 MG/ML INJ ONE (02:56)
--- NOTE | 2022-04-24 03:09 | ER ---
Nurse's Notes [facility] Name: Kendall Kapoor Age: 36 yrs Sex: Male : 1985 Arrival Date: 04/23/2022 Time: 23:08 Bed 20 Private MD: Diagnosis: Post Surgical Pain, Left Groin Presentation: 04/23 23:12 Chief complaint: Patient states: "I had groin surgery about 3 weeks ago and now I think as6 its infected, it's painful and the left side is numb". Coronavirus screen: At this time, the client does not indicate any symptoms associated with coronavirus-19. Ebola Screen: No symptoms or risks identified at this time. Initial Sepsis Screen: Does the patient meet any 2 criteria? HR > 90 bpm. Does the patient have a suspected source of infection? No. Patient's initial sepsis screen is negative. Risk Assessment: Do you want to hurt yourself or someone else? Patient reports no desire to harm self or others. Onset of symptoms is unknown. 23:12 Method Of Arrival: Ambulatory as6 23:12 Acuity: JELLY 3 as6 Historical: - Allergies: 23:14 No Known Allergies; as6 - Home Meds: 23:14 None [Active]; as6 - PMHx: 23:14 Asthma; CAD; Enlarged Heart; TIA; as6 - PSHx: 23:14 Appendectomy; hernia repair; as6 - Immunization history:: Client reports having NOT received the Covid vaccine. - Social history:: Smoking status: Patient reports the use of cigarette tobacco products, smokes one-half pack cigarettes per day. Screenin/26 00:26 Abuse screen: Denies threats or abuse. Nutritional screening: No deficits noted. ll3 Tuberculosis screening: No symptoms or risk factors identified. Fall Risk No fall in past 12 months (0 pts). No secondary diagnosis (0 pts). IV access (20 points). Ambulatory Aid- None/Bed Rest/Nurse Assist (0 pts). Gait- Normal/Bed Rest/Wheelchair (0 pts) Mental Status- Oriented to own ability (0 pts). Total Muir Fall Scale indicates No Risk (0-24 pts). Assessment: 04/23 23:20 General: Appears uncomfortable, Behavior is calm, cooperative. General: Smells of. ll3 Pain: Complains of pain in groin Pain currently is 10 out of 10 on a pain scale. Pain began 1 week ago Is continuous. Neuro: Level of Consciousness is awake, alert, obeys commands, Oriented to person, place, time, situation. Respiratory: Respiratory effort is even, unlabored, Respiratory pattern is regular, symmetrical. Derm: Reports Post-op wound, c/o pain 10/10 to groin area. Musculoskeletal: Circulation, motion, and sensation intact. 04/24 00:26 Reassessment: No changes from previously documented assessment. Patient and/or family ll3 updated on plan of care and expected duration. Pain level reassessed. Patient is alert, oriented x 3, equal unlabored respirations, skin warm/dry/pink. 01:40 Reassessment: No changes from previously documented assessment. Patient and/or family ll3 updated on plan of care and expected duration. Pain level reassessed. Patient is alert, oriented x 3, equal unlabored respirations, skin warm/dry/pink. 02:36 Reassessment: No changes from previously documented assessment. Patient and/or family ll3 updated on plan of care and expected duration. Pain level reassessed. Patient is alert, oriented x 3, equal unlabored respirations, skin warm/dry/pink. 03:56 Reassessment: No changes from previously documented assessment. Patient and/or family ll3 updated on plan of care and expected duration. Pain level reassessed. Patient is alert, oriented x 3, equal unlabored respirations, skin warm/dry/pink. Vital Signs: 04/23 23:12 BP 134 / 81; Pulse 116; Resp 20 S; Temp 98.8(O); Pulse Ox 94% on R/A; Weight 145.15 kg as6 (R); Height 5 ft. 8 in. (172.72 cm) (R); Pain 8/10; 04/24 00:26 BP 112 / 63; Pulse 92; Resp 18; Pulse Ox 94% on R/A; ll3 02:35 BP 105 / 71; Pulse 81; Resp 17; Pulse Ox 96% on R/A; ll3 03:56 BP 107 / 72; Pulse 85; Resp 18; Pulse Ox 97% on R/A; ll3 04/23 23:12 Body Mass Index 48.66 (145.15 kg, 172.72 cm) as6 ED Course: 04/23 23:08 Patient arrived in ED. bp1 23:14 Triage completed. as6 23:15 Arm band placed on. as6 23:18 Fabian Samaniego MD is Attending Physician. [facility] 04/24 00:00 Inserted saline lock: 22 gauge in right antecubital area, using aseptic technique. vc1 Blood collected. 00:22 Hellen Reyes, LIANE is Primary Nurse. ll3 00:22 Patient has correct armband on for positive identification. Bed in low position. Call 5 light in reach. Side rails up X 1. Pulse ox on. NIBP on. 01:16 US Extremity Venous Unilateral Ltd In Process Unspecified. EDMS 01:37 CT Abd/Pelvis - IV Contrast Only In Process Unspecified. EDMS 03:57 No provider procedures requiring assistance completed. IV discontinued, intact, ll3 bleeding controlled, No redness/swelling at site. Pressure dressing applied. Administered Medications: 00:10 Drug: NS 0.9% 1000 ml Route: IV; Rate: 1000 ml; Site: right antecubital; ll3 01:40 Follow up: Response: No adverse reaction; IV Status: Completed infusion; IV Intake: ll3 1000ml 00:10 Drug: Zofran (Ondansetron) 4 mg Route: IVP; Site: right antecubital; ll3 02:54 Follow up: Response: No adverse reaction ll3 00:13 Drug: morphine 4 mg Route: IVP; Infused Over: 4 mins; Site: right antecubital; ll3 02:53 Follow up: Response: No adverse reaction; No change in condition ll3 02:53 Drug: Ketorolac 30 mg Route: IVP; Site: right wrist; ll3 03:57 Follow up: Response: No adverse reaction ll3 Medication: 03:57 VIS not applicable for this client. ll3 Intake: 01:40 IV: 1000ml; Total: 1000ml. ll3 Outcome: 03:09 Discharge ordered by . [facility] 03:57 Discharged to home ambulatory. ll3 03:57 Condition: stable 03:57 Discharge instructions given to patient, Instructed on discharge instructions, follow up and referral plans. Demonstrated understanding of instructions, follow-up care. 03:58 Patient left the ED. ll3 Signatures: Dispatcher [employer] Adriane Yu 5 Meghann Patterson Maurice, MD MD mh7 Jerome Hendrix RN RN as6 Hellen Reyes RN RN ll3 Brenda Kumar RN RN vc1
--- NOTE | 2022-04-24 03:10 | EDPHYS ---
Physician Documentation [facility] Name: Kendall Kapoor Age: 36 yrs Sex: Male : 1985 Arrival Date: 04/23/2022 Time: 23:08 Bed 20 Private MD: ED Physician Fabian Samaniego HPI: 04/23 23:42 This 36 yrs old Male presents to ER via Ambulatory with complaints of Post Surgical mh7 Pain. 23:42 The patient presents to the emergency department with nausea, that is moderate, mh7 vomiting, that is intermittent, described as clear fluid, post surgical pain. 23:42 Onset: The symptoms/episode began/occurred 2 day(s) ago. Possible causes: unknown. The mh7 symptoms are aggravated by nothing. The symptoms are alleviated by nothing. Associated signs and symptoms: Pertinent positives: nausea, vomiting, left groin pain, intermittent numbness/tingling left leg, Pertinent negatives: anorexia, constipation, diarrhea, dysuria, fever, flatulence, GI bleeding. Severity of symptoms: At their worst the symptoms were moderate 2 day(s) ago, in the emergency department the symptoms are unchanged. Had groin surgery 3 weeks ago. Historical: - Allergies: 23:14 No Known Allergies; as6 - Home Meds: 23:14 None [Active]; as6 - PMHx: 23:14 Asthma; CAD; Enlarged Heart; TIA; as6 - PSHx: 23:14 Appendectomy; hernia repair; as6 - Immunization history:: Client reports having NOT received the Covid vaccine. - Social history:: Smoking status: Patient reports the use of cigarette tobacco products, smokes one-half pack cigarettes per day. ROS: 23:42 Constitutional: Negative for fever, chills, and weight loss, Eyes: Negative for injury, mh7 pain, redness, and discharge, ENT: Negative for injury, pain, and discharge, Neck: Negative for injury, pain, and swelling, Cardiovascular: Negative for chest pain, palpitations, and edema, Respiratory: Negative for shortness of breath, cough, wheezing, and pleuritic chest pain, Back: Negative for injury and pain, : Negative for injury, bleeding, discharge, and swelling, Psych: Negative for depression, anxiety, suicide ideation, homicidal ideation, and hallucinations. 23:42 Allergy/Immunology: Negative for hives, rash, and allergies, Endocrine: Negative for neck swelling, polydipsia, polyuria, polyphagia, and marked weight changes, Hematologic/Lymphatic: Negative for swollen nodes, abnormal bleeding, and unusual bruising. 23:42 Neuro: Negative for altered mental status, dizziness, gait disturbance, headache, seizure activity, speech changes, syncope, near syncope, weakness. Exam: 23:42 Head/Face: Normocephalic, atraumatic. Eyes: Pupils equal round and reactive to light, mh7 extra-ocular motions intact. Lids and lashes normal. Conjunctiva and sclera are non-icteric and not injected. Cornea within normal limits. Periorbital areas with no swelling, redness, or edema. Neck: Trachea midline, no thyromegaly or masses palpated, and no cervical lymphadenopathy. Supple, full range of motion without nuchal rigidity, or vertebral point tenderness. No Meningismus. Chest/axilla: Normal chest wall appearance and motion. Nontender with no deformity. No lesions are appreciated. 23:42 Respiratory: Lungs have equal breath sounds bilaterally, clear to auscultation and percussion. No rales, rhonchi or wheezes noted. No increased work of breathing, no retractions or nasal flaring. Back: No spinal tenderness. No costovertebral tenderness. Full range of motion. Neuro: Awake and alert, GCS 15, oriented to person, place, time, and situation. Cranial nerves II-XII grossly intact. Motor strength 5/5 in all extremities. Sensory grossly intact. Cerebellar exam normal. Normal gait. Psych: Awake, alert, with orientation to person, place and time. Behavior, mood, and affect are within normal limits. 23:42 Constitutional: The patient appears in no acute distress, alert, awake, uncomfortable. 23:42 Cardiovascular: Rate: tachycardic, Rhythm: regular, Pulses: no pulse deficits are appreciated, Heart sounds: normal, normal S1and S2, Edema: is not appreciated, JVD: is not appreciated. Vital Signs: 23:12 BP 134 / 81; Pulse 116; Resp 20 S; Temp 98.8(O); Pulse Ox 94% on R/A; Weight 145.15 kg as6 (R); Height 5 ft. 8 in. (172.72 cm) (R); Pain 8/10; 04/24 00:26 BP 112 / 63; Pulse 92; Resp 18; Pulse Ox 94% on R/A; ll3 02:35 BP 105 / 71; Pulse 81; Resp 17; Pulse Ox 96% on R/A; ll3 03:56 BP 107 / 72; Pulse 85; Resp 18; Pulse Ox 97% on R/A; ll3 04/23 23:12 Body Mass Index 48.66 (145.15 kg, 172.72 cm) as6 MDM: 03:06 Differential diagnosis: Nonspecific abd pain, viral gastroenteritis, gastroenteritis, mh7 Wound infection. Data reviewed: vital signs, nurses notes, old medical records, lab test result(s), CBC, electrolytes, radiologic studies, CT scan. Data interpreted: Pulse oximetry: on room air is 97 %. Interpretation: normal. Counseling: I had a detailed discussion with the patient and/or guardian regarding: the historical points, exam findings, and any diagnostic results supporting the discharge/admit diagnosis, lab results, radiology results, the need for outpatient follow up, to return to the emergency department if symptoms worsen or persist or if there are any questions or concerns that arise at home. Response to treatment: the patient's symptoms have resolved after treatment, the patient's blood pressure is in an acceptable range, mental status has returned to baseline, the patient no longer shows bradycardia, the patient is not short of breath, the patient is not tachycardic, the patient's pain is gone, the patient's temperature has normalized. 03:09 Patient medically screened. [facility] 04/23 23:35 Order name: CBC with Diff; Complete Time: 00:46 [facility] 04/23 23:35 Order name: Basic Metabolic Panel; Complete Time: 01: [facility] 04/23 23:35 Order name: LFT's; Complete Time: 01: [facility] 04/23 23:35 Order name: Lactate; Complete Time: 01: [facility] 04/23 23:35 Order name: Blood Culture Adult (2) [facility] 04/23 23:35 Order name: Protime (+inr); Complete Time: 00:46 [facility] 04/23 23:35 Order name: Ptt, Activated; Complete Time: 00:46 [facility] 04/23 23:40 Order name: Procalcitonin; Complete Time: 01: [facility] 04/23 23:48 Order name: US Extremity Venous Unilateral Ltd [facility] 04/24 00:46 Order name: CT Abd/Pelvis - IV Contrast Only [facility] 04/23 23:35 Order name: EKG; Complete Time: 23:36 [facility] 04/23 23:35 Order name: EKG - Nurse/Tech; Complete Time: 00:07 [facility] 04/23 23:35 Order name: Saline Lock; Complete Time: 00:15 [facility] Administered Medications: 00:10 Drug: NS 0.9% 1000 ml Route: IV; Rate: 1000 ml; Site: right antecubital; ll3 01:40 Follow up: Response: No adverse reaction; IV Status: Completed infusion; IV Intake: ll3 1000ml 00:10 Drug: Zofran (Ondansetron) 4 mg Route: IVP; Site: right antecubital; ll3 02:54 Follow up: Response: No adverse reaction ll3 00:13 Drug: morphine 4 mg Route: IVP; Infused Over: 4 mins; Site: right antecubital; ll3 02:53 Follow up: Response: No adverse reaction; No change in condition ll3 02:53 Drug: Ketorolac 30 mg Route: IVP; Site: right wrist; ll3 03:57 Follow up: Response: No adverse reaction ll3 Disposition Summary: 04/24/22 03:09 Discharge Ordered Location: Home [facility] Problem: an ongoing problem [facility] Symptoms: have improved [facility] Condition: Stable [facility] Diagnosis - Post Surgical Pain, Left Groin [facility] Followup: [facility] - With: Private Physician - When: 1 - 2 days - Reason: Worsening of condition, Recheck today's complaints, Continuance of care, Re-evaluation by your physician Discharge Instructions: - Discharge Summary Sheet [facility] - Abdominal Pain, Adult, [id number] [facility] Forms: - Medication Reconciliation Form [facility] - Thank You Letter [facility] - Antibiotic Education [facility] - Prescription Opioid Use [facility] Signatures: Dispatcher [employer] Fabian Clay MD MD 7 Jerome Hendrix RN RN as6 Hellen Reyes RN RN ll3
[2022-04-24 04:06] VITALS: TEMP 98.8
[2022-04-24 04:13] VITALS: BP 107/72; O2SAT 97
--- NOTE | 2022-04-24 19:16 | EKG ---
Test Date: 2022-04-24 Test Time: 00:04:37 Patient Service Specialist: JORGE MEASUREMENT RESULTS: Intervals: Rate: 96 FL: 124 QRSD: 100 QT: 348 QTc: 439 Kirby: P: 27 FL: 124 QRS: 69 T: 60 INTERPRETIVE STATEMENTS: Normal sinus rhythm Normal ECG Compared to ECG 03/30/2022 18:34:35 No significant changes Electronically Signed On 04-24-22 19:15:14 CDT by Efe Hall
--- NOTE | 2022-04-25 11:37 | RAD REPORT ---
EXAM DESCRIPTION: US - Extremity Venous Uni Ltd - 04/24/2022 1:14 am CLINICAL HISTORY: 36 years, Male, Numbness/tingling COMPARISON: None FINDINGS: Multiple grayscale images as well as duplex Doppler ultrasound (color and spectral analysi s) of the left lower deformity were performed. Left common femoral vein, left superficial femoral vein, popliteal vein, left posterior tibial and pe roneal veins at the level of the calf were imaged. Spectral waveform demonstrate normal compressibi lity, phasicity and augmentation. No intraluminal defects were seen. IMPRESSION: No sonographic evidence of left lower extremity DVT. Electronically signed by: Checo Paniagua MD 04/24/2022 1:58 AM CDT Due to temporary technical issues with the PACS/Fluency reporting system, reports are being signed by the in house radiologist without review as a courtesy to ensure prompt reporting. The interpreting r adiologist is fully responsible for the content of the report.
--- NOTE | 2022-04-25 11:38 | RAD REPORT ---
EXAM DESCRIPTION: CT - Abdomen Pelvis W Contrast - 04/24/2022 6:57 am CLINICAL HISTORY: 36 years, Male, LLQ abdominal pain COMPARISON: 07/20/2020 TECHNIQUE: Contrast-enhanced images of the abdomen and pelvis were performed utilizing 5 mm slice th ickness at 5 mm interval reconstruction from the lung bases to the ischial tuberosities after the adm inistration of IV contrast. In addition multiplanar reformats in the coronal and sagittal plane were obtained and reviewed. This exam was performed according to our departmental dose-optimization protocol, which includes auto mated exposure control, adjustment of the mA and/or kV according to patient size and/or use of iterat sherrie reconstruction technique. FINDINGS: The lung bases demonstrate to be clear. The liver demonstrate decreased attenuation corresponding to fatty infiltration. Otherwise the liver, gallbladder, pancreas, spleen and adrenal glands demonstrate to be unremarkable, no focal lesions ar e noted. The kidneys demonstrate normal uptake of contrast media. No evidence for nephrolithiasis and/or hydro nephrosis. Grossly the unopacified stomach, small bowel and large bowel demonstrate to be within normal limits. There is no evidence for bowel dilatation or free air. The appendix surgical suture within the [facility] lower quadrant/cecum area could correspond to most likely previous appendectomy. The urinary bladder demonstrates to be unremarkable. The prostate gland is normal. The aorta demo nstrate to be normal. There is no retroperitoneal lymphadenopathy. There is no ascites. The rest of the soft tissue and bony structures are within normal limits. Again there is noted the presence of t he status post left inguinal hernia repair. IMPRESSION: No acute intra-abdominal process. Fatty infiltration of the liver. Status post left inguinal hernia repair. Electronically signed by: Checo Paniagua MD 04/24/2022 2:20 AM CDT Due to temporary technical issues with the PACS/Fluency reporting system, reports are being signed by the in house radiologist without review as a courtesy to ensure prompt reporting. The interpreting r adiologist is fully responsible for the content of the report.
== END 2022-04-24 03:58 | disposition home or self-care (01) ==
LOC: ER 23:04
DX: G89.18 Other acute postprocedural pain (principal); R10.32 Left lower quadrant pain; Z72.0 Tobacco use
CPT/HCPCS: 93005; 87040 ×2; 85025; 80048; 36415; 85610; 80076; 83605; 85730; 84145; 74177; 93971; 99284; Q9967; J7030; J2405

== ENCOUNTER 2022-09-29 22:19 | Emergency (ER) | payer BC, SELFPAY ==
--- OUTSIDE RECORDS SUMMARY | 2022-09-29 22:24 | XMS REPORT | Continuity of Care Document ---
:1985 Author Organization [facility] t Address [facility] [place] [address] Care Team Providers Name Role Phone Asked, No Pcp Primary Care Physician Unavailable CARL COTTRELL Attending Clinician Unavailable Froilan SIGALA, Kami Davies Attending Clinician BEATRIZ RIVERO Attending Clinician Unavailable LAI VILLEDA Attending Clinician Unavailable Peter Duffy MD Attending Clinician Lai Villeda DO Attending Clinician CHEKO PALOMINO Attending Clinician Unavailable Cheko Palomino MD Attending Clinician JENIFFER RONQUILLO Attending Clinician Unavailable Jeniffer Ronquillo MD Attending Clinician Annette DHALIWAL Attending Clinician Unavailable Annette Cuello Attending Clinician Carl Cottrell MD Attending Clinician Franco Blancas MD Attending Clinician Idalia Andino MD Attending Clinician Doctor Unassigned, [place] Attending Clinician Unavailable Only, Adc Test Attending Clinician Unavailable Chandan SIGALA, Robert Attending Clinician Mary Singletary RN Attending Clinician Javy Posey MD Attending Clinician JAVY POSEY Attending Clinician Unavailable Blayne Dong MD Attending Clinician Maximo Rodas MD Attending Clinician MAXIMO RODAS Attending Clinician Unavailable PAU JUNE Attending Clinician Unavailable Pau June MD Attending Clinician Osiris Hanna MD Attending Clinician OSIRIS HANNA Attending Clinician Unavailable ERMA YOU Attending Clinician Unavailable Franky Gomes RN Attending Clinician Unavailable CARL COTTRELL Admitting Clinician Unavailable JENIFFER RONQUILLO Admitting Clinician Unavailable Annette DHALIWAL Admitting Clinician Unavailable Carl Cottrell MD Admitting Clinician Javy Posey MD Admitting Clinician JAVY POSEY Admitting Clinician Unavailable PAU JUNE Admitting Clinician Unavailable Pau June MD Admitting Clinician JAVY PEÑA Admitting Clinician Unavailable Payers Payer Name Policy Type Policy Number Effective Date Expiration Date S [facility] BCBS [place] [facility] [id number] 2020 00:00:00 PPO/EPO - BCBS [id number] Problems Condition Condition Condition Status Onset Resolution Last Treating Co mments Source Name Details Category Date Date Treatment Clinician Date Bilateral Bilateral Disease Active 2021-10 Met hodi groin pain groin pain 11-30 st 00:00: Hospita 00 l Inguinal Inguinal Disease Active 2020-10 Unive rs [...] d type, d type, Branch sequela sequela Acute Acute Disease Active Methodi respirator respirator 6-15 st y distress y distress 00:00: Ho spita 00 l COPD COPD Disease Active Methodi (chronic (chronic 5-18 st obstructiv obstructiv 00:00: Ho spita e e 00 l pulmonary pulmonary disease) disease) Shortness Shortness Disease Active Met hodi of breath of breath 5-17 st 00:00: Hospita 00 l Postoperat Postoperat Disease Active 2019-10 U nivers sherrie wound sherrie wound 0-07 [place] Post-opera Post-opera Disease Active 2019-10 U nivers tive wound tive wound 0-04 it y of abscess abscess 00:00: [place] [address] Medical Branch Allergies, Adverse Reactions, Alerts Allergy Allergy Status Severity Reaction(s) Onset Inactive Treating Comm ents Source Name Type Date Date Clinician Venom-Ho Propensi Active Anaphylaxis 2017- U nivers estela Bee ty to 2-29 ity of adverse 00:00: [place] reaction Medical s Branch VENOM-HO DRUG Active High Anaphylaxis 2017-10 Uni vers ESTELA BEE INGREDI 2-29 ity of 00:00: [place] [address] Medical Branch Social History Social Habit Start Date Stop Date Quantity Comments Source History [facility] University o f Alcohol Std Drinks [place] [facility] [place] History SDOH University o f Alcohol Binge [place] [facility] al Branch History [facility] University o f Alcohol Comment [place] Med ical Branch History of tobacco Smokes tobacco [facility] use daily Hospital Tobacco use and 2022-09-21 2022-09-21 Smokeless [facility] exposure 00:00:00 00:00:00 tobacco non-user Hospital Alcohol intake 2022-09-21 2022-09-21 Ex-drinker [facility] 00:00:00 00:00:00 (finding) Hospital Cigarettes smoked 2022-08-23 2022-08-23 [facility] (pack per 00:00:00 00:00:00 Medicin e ) - Reported Cigarette 2022-08-23 2022-08-23 [facility] College of pack-years 00:00:00 00:00:00 Medicine Exposure to 2022-08-12 2022-08-22 Not sure [facility] Myrna almaraz of SARS-CoV-2 (event) 00:00:00 10:35:00 Medici ne Education 2021-08-31 2021-08-31 15 [facility] 00:00:00 00:00:00 [facility] History SDOH 2020-08-03 2020-08-03 1 [place] o f Alcohol Frequency 00:00:00 00:00:00 [facility] Tobacco Comment 2020-08-02 2020-08-02 Down from 2 ppd [facility] ersity of 00:00:00 00:00:00 [facility] Sex Ass[birth year] At [birth year] [facility] 00:00:00 00:00:00 Hospital Smoking Status Start Date Stop Date Source Smokes tobacco daily 2022-09-21 00:00:00 [facility] Medications Ordered Filled Start Stop Current Ordering Indication Dosage Frequency Signature Comments Components Source Medication Medication Date Date Medication? Clinician (SIG) Name Name No known 2021-10 No No known Metho di medications 1-[address] 11:32: s Hospita 35 l No known 2021-10 No No known [facility] medications 0-25 medication Co llege 08:09: s of 26 Medicin e ketorolac 30mg 30 mg, Unive rs (TORADOL) 4-12 04-12 Slow IV ity of injection 10:15: 09:06 Push, [place] 30 mg 00 :00 ONCE, 1 Medical dose, On Branch Mon02/08/22 at 0515, MICHELLE
Fa culty member approving Restricted medication : JENIFFER RONQUILLO albuterol Yes ALBUTEROL Uni vers 2.5 mg [...] al on inhaler AERS Branch ibuprofen Yes [id number] 600mg Take 1 U nivers 600 mg [...] (scale 4-6). Indication s: acute pain ibuprofen 0 Yes [id number] 600mg Take 1 U nivers 600 mg 4-12 tablet by ity of tablet 00:00: mouth [place] 00 every 6 Medical (six) Branch hours as needed for Pain (scale 4-6). traMADoL 50 2021-0 Yes [id number] 50mg Take 1 Univ ers mg tablet 4-12 tablet by ity o f 00:00: mouth [place] 00 every 6 Medical (six) Branch hours as needed for Pain (scale 4-6). Indication s: acute pain ibuprofen 0 Yes [id number] 600mg Take 1 U nivers 600 mg [...] 1 Medical (NS) 50 mL dose, On Branc h MINI-BAG 11/28/21 at 0100, Administer over 30 Minutes, 50 mL
Reas on for Anti-Infec tive: Documented Infection< br>Documen rosalia Infection Site: Skin / Soft Tissue
Duration of Therapy: Other (see Comments) iohexol 2021- No [id number] 120mL 120 mL, U nivers (OMNIPAQUE 11-28 Intravenou it y of 350 05:15: 05:04 s, ONCE, 1 [place] BULK-100 00 :00 dose, On Medical mL) Sat Branch injection 11/27/21 at 120 mL 2315, Routine cephALEXin 2021- No [id number] 500mg Take 1 Univers (KEFLEX) 11-28 02-10 [...] Yes ALBUTEROL Uni vers 2.5 mg /3 - SULFATE ity of mL (0.083 12:37: (2.5 [...] on inhaler AERS Branch alum-mag 2020-10 Yes [id number] 30mL Take 30 mL Univers hydroxide-s 1-23 by mouth 3 it y of imeth 00:00: (three) [place] times Medical mg/5 mL daily. Branch suspension alum-mag 2020-10 Yes [id number] 30mL Take 30 mL Univers hydroxide-s 1-23 by mouth 3 it y of imeth 00:00: (three) [place] times Medical mg/5 mL daily. Branch suspension alum-mag 2020-10 Yes [id number] 30mL Take 30 mL Univers hydroxide-s 1-23 by mouth 3 it y of imeth 00:00: (three) [place] times Medical mg/5 mL daily. Branch suspension alum-mag 2020-10 Yes [id number] 30mL Take 30 mL Univers hydroxide-s 1-23 by mouth 3 it y of imeth 00:00: (three) [place] times Medical mg/5 mL daily. Branch suspension alum-mag 2020-10 Yes [id number] 30mL Take 30 mL Univers hydroxide-s 1-23 by mouth 3 it y of imeth 00:00: (three) [place] times Medical mg/5 mL daily. Branch suspension acetaminoph 2020-10- No [id number] 650mg Take 2 Univers en 325 mg 1-23 11-24 tablets by ity of tablet 00:00: 05:59 mouth [place] 00 :00 every 6 Medical (six) Branch hours. acetaminoph 2020-10- No [id number] 650mg Take 2 Univers en 325 mg -23 11-24 tablets by ity of tablet 00:00: 05:59 mouth [place] 00 :00 every 6 Medical (six) Branch hours. acetaminoph 2020-10- No [id number] 650mg Take 2 Univers en 325 mg 23 11-24 tablets by ity of tablet 00:00: 05:59 mouth [place] 00 :00 every 6 Medical (six) Branch hours. acetaminoph 2020-10- No [id number] 650mg Take 2 Univers en 325 mg -23 11-24 tablets by ity of tablet 00:00: 05:59 mouth [place] 00 :00 every 6 Medical (six) Branch hours. acetaminoph 2020-10- No [id number] 650mg Take 2 Univers en 325 mg - 11-24 tablets by ity of tablet 00:00: 05:59 mouth [place] 00 :00 every 6 Medical (six) Branch hours. ciprofloxac 2020-10- No [id number] 500mg Take 1 Univers in HCl 500 [...] 10 00:00: [place] mg tablet 00 Medical [place] amphetamine 2020-10 Yes Univer s -dextroamph 0-21 ity of etamine 20 00:00: [place] mg 24 hr 00 Medical capsule Branch dextroamphe 2020-10 Yes Univer s tamine-amph 0-21 ity of etamine 10 00:00: [place] mg tablet 00 Medical [place] furosemide 2020-0 Yes as needed. U nivers 40 mg 9-15 ity of tablet 00:00: [place] 00 [facility] furosemide 2020-0 Yes as needed. U nivers 40 mg 9-15 ity of tablet 00:00: 00 [facility] furosemide 2020-0 Yes as needed. U nivers 40 mg 9-15 ity of tablet 00:00: [place] 00 [facility] furosemide 2020-0 Yes as needed. U nivers 40 mg 9-15 ity of tablet 00:00: [facility] furosemide 2020-0 Yes as needed. U nivers 40 mg 9-15 ity of tablet 00:00: [place] 00 [facility] Branch No known No No known Metho di medications 5-[address] 10:50: s Hospita 35 l Immunizations Ordered Filled Immunization Date Status Comments [facility] e Immunization Name Name Influenza Virus 2014-07-09 Completed Universit y of Vaccine Quad IM 3+ 00:00:00 [facility] Influenza Virus 2014-07-09 Completed Universit y of Vaccine Quad IM 3+ 00:00:00 [facility] Influenza Virus 2014-07-09 Completed Universit y of Vaccine Quad IM 3+ 00:00:00 [facility] Influenza Virus 2014-07-09 Completed Universit y of Vaccine Quad IM 3+ 00:00:00 [facility] Influenza Virus 2014-07-09 Completed Universit y of Vaccine Quad IM 3+ 00:00:00 [facility] Influenza Virus 2014-01-06 Completed Universit y of Vaccine (3+ yrs) 00:00:00 [facility] [place] Influenza Virus 2014-01-06 Completed Universit y of Vaccine (3+ yrs) 00:00:00 [facility] [place] Influenza Virus 2014-01-06 Completed Universit y of Vaccine (3+ yrs) 00:00:00 [facility] [place] Influenza Virus 2014-01-06 Completed Universit y of Vaccine (3+ yrs) 00:00:00 [facility] [place] Influenza Virus 2014-01-06 Completed Universit y of Vaccine (3+ yrs) 00:00:00 [facility] [place] TDAP 2009-03-10 Completed University of 00:00:00 [facility] TDAP 2009-03-10 Completed University of 00:00:00 [facility] TDAP 2009-03-10 Completed University of 00:00:00 [facility] TDAP 2009-03-10 Completed University of 00:00:00 [facility] TDAP 2009-03-10 Completed University of 00:00:00 [facility] Vital Signs Vital Name Observation Time Observation Value Comments Source Systolic blood 2022-08-23 13:08:00 124 mm[Hg] [facility] Medicine Diastolic blood 2022-08-23 13:08:00 80 mm[Hg] [facility] Medicine Heart rate 2022-08-23 13:08:00 105 /min [facility] Body temperature 2022-08-23 13:08:00 36.33 [facility] Body height 2022-08-23 13:08:00 172.7 cm [facility] Body weight 2022-08-23 13:08:00 154.223 kg [facility] BMI 2022-08-23 13:08:00 51.70 kg/m2 [facility] Systolic blood 2022-08-09 18:32:00 143 mm[Hg] Univer sity of [facility] Diastolic blood 2022-08-09 18:32:00 101 mm[Hg] Unive rsity of [facility] Heart rate 2022-08-09 18:32:00 100 /min Universi ty of [facility] Body temperature 2022-08-09 18:32:00 36.56 Brittanie Univ ersity of [facility] Respiratory rate 2022-08-09 18:32:00 20 /min Univ ersity of [facility] Body height 2022-08-09 18:32:00 172.7 cm Universi ty of [facility] Body weight 2022-08-09 18:32:00 158.759 kg Universi ty of [place] [facility] BMI 2022-08-09 18:32:00 53.22 kg/m2 Universi ty of [place] [facility] Oxygen saturation in 2022-08-09 18:32:00 95 /min University of Arterial blood by [facility] Pulse oximetry Branch Systolic blood 2022-02-08 09:42:00 170 mm[Hg] Univer [...] 96 /min University of Arterial blood by [facility] Pulse oximetry Branch Body temperature 2022-02-08 07:18:00 37 Brittanie Univ ersity of [place] [facility] Body height 2022-02-08 07:18:00 172.7 cm Universi ty of [place] [facility] Body weight 2022-02-08 07:18:00 140.615 [...] 2021-11-28 06:30:00 101 /min Universi ty of [place] [facility] Oxygen saturation in 2021-11-28 06:30:00 95 /min University of Arterial blood by [facility] Pulse oximetry Branch Respiratory rate 2021-11-28 04:20:00 20 /min Univ ersity of [place] [facility] Body temperature 2021-11-28 04:12:00 37.11 Brittanie Univ ersity of [place] [facility] Body height 2021-11-28 04:12:00 172.7 cm Universi ty of [place] [facility] Body weight 2021-11-28 04:12:00 148.8 kg Universi ty of [place] [facility] BMI 2021-11-28 04:12:00 49.88 kg/m2 [facility] Systolic blood 2021-09-29 20:18:00 145 mm[Hg] Univer sity of pressure [facility] Diastolic blood 2021-09-29 20:18:00 84 mm[Hg] Unive rsity of [facility] Heart rate 2021-09-29 20:18:00 117 /min [facility] Body temperature 2021-09-29 20:18:00 36.5 Brittanie [facility] rate 2021-09-29 20:18:00 18 /min [facility] Body height 2021-09-29 20:18:00 170.2 cm [facility] Body weight 2021-09-29 20:18:00 145.287 kg [facility] BMI 2021-09-29 20:18:00 50.17 kg/m2 [facility] Systolic blood 2022-09-21 17:28:00 106 mm[Hg] Method ist [facility] pressure Diastolic blood 2022-09-21 17:28:00 69 mm[Hg] [facility] pressure Heart rate 2022-09-21 17:28:00 102 /min [facility] Body temperature 2022-09-21 17:28:00 36.56 Brittanie [facility] Body height 2022-09-21 17:28:00 175.3 cm [facility] Body weight 2022-09-21 17:28:00 160.029 kg [facility] BMI 2022-09-21 17:28:00 52.10 kg/m2 [facility] Oxygen saturation in 2022-09-21 17:28:00 98 /min [facility] Arterial blood by Pulse oximetry Procedures Procedure Date / Time Performing Clinician Source Performed AMB REF TO UROLOGY 2022-08-23 08:32:58 [facility] Asmita bush of [facility] Medicine URINE CULTURE 2022-08-23 08:32:[address] [facility] Medicine NEMO,POST-VOID 2022-08-23 08:32:01 [facility] Medicine CONSENT/REFUSAL FOR 2022-08-09 18:10:44 Doctor Unassigned, No Un iversity of [place] DIAGNOSIS AND TREATMENT Name [facility] Branch URINALYSIS 2022-02-08 08:48:00 Jeniffer Ronquillo [facility] US SCROTUM AND CONTENTS 2022-02-08 08:16:13 Jeniffer Ronquillo [facility] COMP. METABOLIC PANEL 2022-02-08 07:46:00 Jeniffer Ronquillo [facility] ([id number]) [facility] CBC WITH DIFF 2022-02-08 07:46:00 Yg [facility] PROTHROMBIN TIME / INR 2022-02-08 07:46:00 Jeniffer Ronquillo [facility] ACTIVATED PARTIAL 2022-02-08 07:46:00 Yg [facility] THRMPLAS [facility] CONSENT/REFUSAL FOR 2022-02-08 07:04:00 Doctor Unassigned, No [facility] Name [facility] URINALYSIS 2021-11-28 06:09:00 Annette Dhaliwal [facility] CT ABDOMEN PELVIS W 2021-11-28 05:10:12 Annette Dhaliwal [facility] COMP. METABOLIC PANEL 2021-11-28 04:52:00 Annette Dhaliwal [facility] ([id number]) [facility] CBC WITH DIFF 2021-11-28 04:52:00 Veronica [facility] Plan of Care Planned Activity Planned Date Details Comments Source Future Scheduled 2022-09-29 HEPATITIS B VACCINES (1 [facility] Test 12:10:19 of 3 - 3-dose series) Hospit al [code = HEPATITIS B VACCINES (1 of 3 - 3-dose series)] Future Scheduled 2022-09-29 COVID-19 VACCINE (#1) [facility] Test 12:10:19 [code = COVID-19 VACCINE Hos pital (#1)] Future Scheduled 2022-09-29 Pneumococcal Vaccine: [facility] Test 12:10:19 Pediatrics (0 to 5 Years) Ho spital and At-Risk Patients (6 to 64 Years) (1 - PCV) [code = Pneumococcal Vaccine: Pediatrics (0 to 5 Years) and At-Risk Patients (6 to 64 Years) (1 - PCV)] Future Scheduled 2022-09-29 Hepatitis C screening [facility] Test 12:10:19 (procedure) [code = Hospital [id number]] Future Scheduled 2022-09-29 INFLUENZA VACCINE [code = [facility] Test 12:10:19 INFLUENZA VACCINE] Hospital Future Scheduled 2022-09-01 COVID-19 VACCINE (#1) [facility] Test 11:48:27 [code = COVID-19 VACCINE Hos pital (#1)] Future Scheduled 2022-09-01 Pneumococcal Vaccine: Me [facility]odist Test 11:48:27 Pediatrics (0 to 5 Years) Ho spital and At-Risk Patients (6 to 64 Years) (1 - PCV) [code = Pneumococcal Vaccine: Pediatrics (0 to 5 Years) and At-Risk Patients (6 to 64 Years) (1 - PCV)] Future Scheduled 2022-09-01 Hepatitis C screening [facility]ist Test 11:48:27 (procedure) [code = Hospital [id number]] Future Scheduled 2022-09-01 INFLUENZA VACCINE [code = [facility] Test 11:48:27 INFLUENZA VACCINE] Hospital Future Scheduled 2022-09-01 HEPATITIS B VACCINES (1 [facility] Test 11:48:27 of 3 - 3-dose series) Hospit al [code = HEPATITIS B VACCINES (1 of 3 - 3-dose series)] Future Scheduled 2022-08-23 COVID-19 Vaccine (#1) [facility] of Test 08:07:44 [code = COVID-19 Vaccine Med icine (#1)] Future Scheduled 2022-08-23 Hepatitis C screening [facility] of Test 08:07:44 (procedure) [code = Medicine [id number]] Future Scheduled 2022-08-23 Human immunodeficiency B [facility] of Test 08:07:44 virus screening Medicine (procedure) [code = [id number]] Future Scheduled 2022-08-23 TETANUS SHOT (ADULT) [facility] of Test 08:07:44 [code = TETANUS SHOT Medicin e (ADULT)] Future Scheduled 2022-08-23 FLU VACCINE > 6 MONTHS B [facility] of Test 08:07:44 [code = FLU VACCINE > 6 Medi cine MONTHS] Encounters Start End Encounter Admission Attending Care Care Encounter Source Date/Time Date/Time Type Type Clinicians Facility Department ID 2021-09-09 Inpatient R CASI COTTRELL PAVEL [id number] Univers 07:16:17 CARL [place] [facility] 2022-09-21 2022-09-21 Office Froil[place] [id number] Methodi 11:30:00 14:27:54 Visit Kami 12520.1.[address] [place] 3.430.2.7 Hospit a .[id number] l .8 2022-09-21 2022-09-21 Outpatient FROILAN [facility] [id number] [place] 00:00:00 00:00:[address] 2022-09-05 2022-09-05 Telephone [place] 1.2.840.1 [id number] Methodi 00:00:00 00:00:[address] [place] 3.430.2.7 Hospit a .[id number] l .8 2022-08-23 2022-08-23 Office ZENIA RIVERO [id number] [facility] 07:58:56 11:32:33 Visit BEATRIZ AMBULATOR 350.1.13.21 College Y 0.2.7.2.686 [id number] [facility] 300 e 2022-08-09 2022-08-09 Emergency X SINGER [facility] ERT [id number] Univers 13:35:00 15:14:00 LAI [facility] 2022-08-09 2022-08-09 Emergency Peter Duffy E [facility] [id number] [id number] Univers 13:35:00 15:14:00 Lai Villeda 350.1.13.10 [facility] 4.2.7.2.686 [facility] [id number] [place] [id number] Branch 2022-04-18 2022-04-18 Outpatient Shandra PALOMINO [facility] [id number] Univers 13:30:00 13:30:00 CHEKO [facility] 2022-03-24 2022-03-24 Outpatient Shandra PALOMINO [facility] [id number] Univers 09:00:00 09:00:00 CHEKO [facility] [facility] 2022-03-24 2022-03-24 [facility] [id number] Univers 00:00:00 00:00:00 Cheko LEIVA [id number] i ty of [facility] 4.2.7.2.686 [place] [id number] Ut dical [address] 2022-02-08 2022-02-08 Emergency X YG [facility] ERT [id number] Univers 02:16:00 04:47:00 JENIFFER [facility] [facility] 2022-02-08 2022-02-08 Emergency [facility] [id number] Univers 02:16:00 04:47:00 Jeniffer LEIVA [id number] i ty of [place] 4[place]2.7.2.686 [place] LAV[place] [id number] [facility] [address] [place] 2021-11-27 2021-11-28 Emergency X Annette DHALIWAL [facility] ERT [id number] Univers 22:17:00 00:52:00 ity [facility] 2021-11-27 2021-11-28 Emergency Annette Dhaliwal [facility] [id number] Univers 22:17:00 00:52:00 Solsulma LEIVA [id number] i ty of [place] 4[place]2.7.2.686 [place] [id number] [facility] [address] [place] 2021-10-08 2021-10-08 Outpatient Shandra COTTRELL [facility] [id number] Univers 10:45:00 10:45:00 CARL [place] [facility] 2021-09-29 2021-09-29 Office STEPHANIE Cottrell [id number] Univers 14:12:15 14:37:52 Visit [facility] 350.1.13.10 i ty of [facility] 4.2.7.2.686 [place] [id number] [facility] [address] [place] 2021-09-29 2021-09-29 Outpatient Shandra COTTRELL [facility] [id number] Univers 13:30:00 14:37:52 CARL [place] [facility] 2021-09-29 2021-09-29 Outpatient Shandra COTTRELL [facility] [id number] Univers 13:30:00 13:30:00 CARL [place] 2021-09-27 2021-09-27 Telephone Charles [facility] [id number] Univers 00:00:00 00:00:00 Carl LEIVA 350.1.13.10 i ty [facility] 4.2.7.2.686 [place] PROF[place] [id number] Ut dical [address] 2021-09-20 2021-09-21 Outpatient [facility] P[facility]EL [id number] Univers 06:38:00 12:20:00 CARL [place] 2021-09-20 2021-09-21 Hospital LOUIS Cottrell [id number] Univers 06:38:00 12:20:00 Encounter Carl MEDELLIN 350.1.13.10 ity [facility] 4.2.7.2.686 Johnny as [id number] [facility] [address] [place] 2021-09-20 2021-09-21 Outpatient [facility] PAVEL [id number] Univers 06:38:00 12:20:00 CARL [place] [facility] 2021-09-20 2021-09-20 Anesthesia Franco Blancas [id number] Univers 09:00:00 12:32:00 Event Idalia Andino 350.1.13.10 ity of [facility] 4.2.7.2.686 Johnny as [id number] [facility] [address] [place] 2021-09-20 2021-09-20 Surgery LOUIS Cottrell [id number] Univers 08:53:00 10:48:00 Carl MEDELLIN 350.1.13.10 it y of [facility] 4.2.7.2.686 Johnny as [id number] [facility] [address] [place] 2021-09-20 2021-09-20 Orders Doctor CARL 1.2.840.114 [id number] Univers 00:00:00 00:00:00 Only Unassigned, LACIE 350.1.13.10 ity of [place] [facility] 4.2.7.2.686 Johnny as [phone] [facility] [address] 2021-09-17 2021-09-17 Laboratory Only, Adc Test [facility] 1.2.840. 114 [id number] Univers 15:00:54 15:15:54 Only Carl Cottrell 350.1.13 .10 ity of [facility] 4.2.7.2.686 [facility] [phone] [facility] [address] 2021-09-17 2021-09-17 Outpatient Shandra COTTRELL [facility] [id number] Univers 15:15:00 15:15:00 CARL [facility] 2021-09-10 2021-09-10 Hospital Carl Cottrell [facility] 1.2. 840.114 [id number] Univers 14:00:00 23:59:00 Encounter Robert Hawley 350.1.13.10 ity of [place] 4.2.7.2.686 [facility] [phone] [facility] [address] 2021-09-10 2021-09-10 Office Charles [facility] 1.2.840.114 [id number] Univers 10:04:20 11:03:01 Visit Carl LEIVA 350.1.13.10 i ty of Aayush [place] 4.2.7.2.686 [facility] PROFESSIO [phone] Ut dical [facility] 188 [facility] 2021-09-10 2021-09-10 Outpatient Shandra COTTRELL [facility] [id number] Univers 10:00:00 11:03:01 CARL [facility] 2021-09-10 2021-09-10 Outpatient Shandra COTTRELL [facility] [id number] Univers 10:00:00 10:00:00 CARL mansfield [facility] 2021-09-09 2021-09-09 Transition YUNI Singletary 1.2.840.114 [id number] Univers 00:00:00 00:00:00 of Care Mary TOUSSAINT 350.1.13.10 i ty of [place] [phone] [facility] [address] 2021-09-06 2021-09-08 Hospital LOUIS Posey 1.2.840.114 [id number] Univers 16:50:00 15:15:00 Encounter Javy MEDELLIN 350.1.13.10 ity [facility] 4.2.7.2.686 Johnny as [phone] [facility] [address] 2021-09-06 2021-09-08 Inpatient U TATY [facility] JAKE [id number] Univers 16:50:00 15:15:00 [facility] 2021-09-06 2021-09-06 Office Ab Ikerhimanyu UNIVERS[facility] 1.2.840 .114 [id number] Univers 14:25:21 15:25:21 Visit Jamia [facility] 350.1.13. 10 ity of [place] [phone] [facility] [address] 2021-09-06 2021-09-06 Office Iker Blayne UNIVERSIT 1.2.840 .114 [id number] Univers 14:25:21 15:25:21 Visit Jamia, Trellformerly [facility] 350.1.13. 10 it[place] [phone] [facility] [address] 2021-09-06 2021-09-06 Outpatient R JAMIA [facility] [id number] Univers 14:30:00 14:30:00 MAXIMO [facility] 2021-09-06 2021-09-06 Outpatient R JAMIA [facility] JAKE [id number] Univers 14:30:00 14:30:00 MAXIMO [facility] 2021-08-31 2021-09-01 Outpatient X SHAYLEE [facility] JAKE [id number] Univers 08:47:00 16:33:00 PAU [facility] 2021-08-31 2021-09-01 Emergency Jeniffer Ronquillo [facility] 1.2.840. 114 [id number] Univers 08:47:00 16:33:00 AbdPau hollandSTEFAN 350.1.13.10 ity [facility] 4.2.7.2.[place] [id number] [facility] [address] 2021-08-31 2021-09-01 [facility] JAKE [id number] Univers 08:47:00 16:33:00 PAU estee [facility] 2021-08-31 2021-09-01 [facility] [id number] Univers 08:47:00 16:33:00 PAU [facility] 2021-08-31 2021-08-31 Emergency X RONQUILLO, [facility] ERT [id number] Univers 08:47:00 08:47:00 JENIFFER [facility] 2021-08-26 2021-08-26 Office [facility] 1.2.304.010 [id number] Univers 16:03:54 17:10:27 Visit Osiris LEIVA 350.1.13.10 i ty [facility] 4.2.7.2.[place] [facility] [phone] Ut dical [address] 2021-08-26 2021-08-26 Outpatient R JACQUES [facility] [id number] Univers 16:00:00 17:10:27 OSIRIS [facility] 2021-08-26 2021-08-26 Outpatient R JACQUES [facility] [id number] Univers 11:15:00 11:15:00 OSIRIS [facility] 2021-08-26 2021-08-26 Orders Doctor CARL 1.2.840.114 [id number] Univers 00:00:00 00:00:00 Only Unassigned, LACIE 350.1.13.10 ity of [place] [facility] 4.2.7.2.686 Johnny as [phone] [facility] [address] 2021-07-30 2021-07-30 Outpatient Shandra COTTRELL [facility] [id number] Univers 10:00:00 10:00:00 CARL mansfield [facility] 2021-07-30 2021-07-30 Outpatient Shandra COTTRELL [facility] [id number] Univers 10:00:00 10:00:00 CARL mansfield [facility] 2021-07-09 2021-07-09 Office Charles [facility] 1.2.840.114 [id number] Univers 08:54:13 10:52:29 Visit Carl Jessica 350.1.13.10 i ty of [place]2.[place] Profess[place] [phone] Ut dical [address] 2021-07-09 2021-07-09 Outpatient R CHARLES [facility] [id number] [facility] 08:45:00 08:45:00 CARL mansfield [facility] 2021-07-09 2021-07-09 Orders Doctor CARL 1.2.840.114 [id number] [facility] 00:00:00 00:00:00 Only Unassigned, LACIE 350.1.13.10 ity of [place] [facility] 4.2.7.2.686 Johnny as [phone] [address] 2021-04-13 2021-04-13 Outpatient [facility] 300 [id number] [address] [place] 00:00:00 00:00:00 YAHYA [address] 2021-03-15 2021-03-16 Inpatient [facility] 06 [id number] [address] [place] 00:00:00 00:00:[address] Y[address] 2020-10-08 2020-10-08 Orders Doctor HENRY 1.2.840.114 [id number] 00:00:00 00:00:00 Only UnassignedLACIE 350.1.13.10 [place] [facility] 4.2.7.2.686 [id number] 009 2020-10-08 2020-10-08 Orders Doctor HENRY 1.2.840.114 [id number] [facility] 00:00:00 00:00:00 Only UnassignedLACIE 350.1.13.10 ity of [place] [facility] 4.2.7.2.686 Johnny as [id number] [address] 2020-09-21 2020-09-21 Outpatient R JACQUES [facility] [id number] [facility] 00:00:00 00:00:00 OSIRIS [facility] 2020-09-17 2020-09-17 Outpatient R JACQUES [facility] [id number] Univers 16:15:00 16:15:00 OSIRIS [facility]field [facility] 2020-09-17 2020-09-17 Office [facility] 1.2.103.526 [id number] 15:20:49 16:01:46 Visit Osiris Leiva 350.1.13.10 [place] 4.2.7.2.686 Professio [id number] [address] 2020-09-17 2020-09-17 Office [facility] 1.2.524.752 [id number] Univers 15:20:49 16:01:46 Visit Osiris Leiva 350.1.13.10 i ty [place] [phone] [address] 2020-08-20 2020-08-20 [facility] [id number] Univers 13:15:00 13:15:00 OSIRIS [facility] 2020-08-20 2020-08-20 Telephone [facility] 1.2.840.114 [id number] Univers 00:00:00 00:00:00 Osiris Leiva 350.1.13.10 i ty [place] [phone] [address] 2020-08-14 2020-08-14 [facility] [id number] Univers 10:00:00 10:00:00 CARL mansfield [facility] 2020-08-14 2020-08-14 Telephone [facility] 1.2.840.114 [id number] Univers 00:00:00 00:00:00 Osiris Leiav 350.1.13.10 i ty [place]2.[place] [phone] [address] 2020-08-13 2020-08-13 Office [facility] 1.2.437.981 [id number] Univers 13:56:54 14:38:07 Visit Osiris Leiva 350.1.13.10 i ty of [place]2.[place] [phone] Ut dical nal 188 [facility] 2020-08-13 2020-08-13 [facility] [id number] Univers 13:45:00 13:45:00 OSIRIS itestee of [facility] 2020-08-13 2020-08-13 Telephone [facility] 1.2.840.114 [id number] Univers 00:00:00 00:00:00 Osiris Leiva 350.1.13.10 i ty of [place] [phone] Ut dical nal 188 [facility] 2020-08-13 2020-08-13 Orders Doctor CARL 1.2.840.114 [id number] Univers 00:00:00 00:00:00 Only Unassigned, LACIE 350.1.13.10 ity of [place] [facility] 4.2.7.2.686 Johnny as [phone] [facility] [address] 2020-08-10 2020-08-10 Transition Yuni Gomes 1.2.840.114 [id number] Univers 00:00:00 00:00:00 of Care Franky Gracie Toussaint 350.1.13.10 ity of [place].2.[place] [phone] [facility] [address] 2020-08-02 2020-08-07 Hospital Jeniffer Ronquillo 1.2.840.1 14 [id number] Univers 14:33:00 21:40:00 Encounter Pau June 350.1.13.10 ity of [place] 4.2.7.2.68 6 [place] [id number] [facility] [address] 2020-08-02 2020-08-02 Emergency X YG [facility] ERT [id number] Univers 14:33:00 14:33:00 JENIFFER [facility] Results Test Description Test Time Test Comments Results Result Comments Source COMP. METABOLIC PANEL (24403) 2022-02-08 08:21:42 Test Item Value Reference Range Interpretation Comme nts NA (test code = 1272431027) 141 mmol/L 135-145 K (test code = 4105490425) 4.6 mmol/L 3.5-5.0 CL (test code = 6625923521) 105 mmol/L 98-108 CO2 TOTAL (test code = 4674002074) 26 mmol/L 23-31 AGAP (test code = 7722661615) 2-16 BUN (test code = 5713055490) 20 mg/dL 7-23 GLUCOSE (test code = 0968920545) 152 mg/dL 70-110 H CREATININE (test code = 0.97 mg/dL 0.60-1.25 5276099411) TOTAL BILI (test code = 0.3 mg/dL 0.1-1.1 6789636828) CALCIUM (test code = 3270926376) 9.4 mg/dL 8.6-10.6 T PROTEIN (test code = 5154610974) 7.3 g/dL 6.3-8.2 ALBUMIN (test code = 2505003134) 4.3 g/dL 3.5-5.0 ALK PHOS (test code = 0309983901) 107 U/L 34-122 ALTv (test code = 1742-6) 24 U/L 5-50 AST(SGOT) (test code = 3901260069) 22 U/L 13-40 eGFR (test code = 9131829839) mL/min/1.73m2 CHAI (test code = CHAI) Association [...] tests). Lab Interpretation (test code = Abnormal 62191-9) [facility] [id number] 08:10:38 Test Item Value Reference Range Interpretation Comments APTT Patient (test See_Comment [Automat ed code = 3173-2) message] The system which generated this result transmitted reference range : 23 - 38 Seconds . The reference range was not used to interpr et this result as normal/abnormal . CHAI (test code = CHAI) The [facility] patient population mean normal value for aPTT is 30 seconds. Lab Interpretation Normal (test code = 79407-8) [facility] / [id number] 08:08:22 Test Item Value Reference Range Interpretation [...] tions. Lab Interpretation (test Normal code = 24896-4) [facility] WITH [id number] 08:00:41 Test Item Value Reference Range Interpretation Comments WBC (test code = See_Comment H [Automated 2190-2) message] The sy stem which generated this [...] RDW-SD (test code = 49.0 fL 38.5-51.6 27892-7) RDW-CV (test code = 15.3 % 12.1-15.4 788-0) PLT (test code = See_Comment H [Automated 777-3) message] The sy stem which generated this result transmitted reference range : 150 - 328 10*3/ ?L. The reference r khris was not used to interpret this result as normal/abnormal . MPV (test code = 9.8 fL 9.8-13.0 43864-3) NRBC/100 WBC (test See_Comment [Automat ed code = 5647765307) message] The system which generated this result transmitted reference range : 0.0 - 10.0 /100 WBCs. The refer ence range was not u sed to interpret th is result as normal/abnormal . NRBC x10^3 (test code <0.01 See_Comment [Auto mated = 4640943621) message] The s ystem which generated this result transmitted reference range : 10*3/?L. The reference range was not used to interpret this result as normal/abnormal . GRAN MAT (NEUT) % 69.6 % (test code = 770-8) IMM GRAN % (test code 0.70 % = 5501903918) LYMPH % (test code = 20.1 % 736-9) MONO % (test code = 7.3 % 5905-5) EOS % (test code = 1.9 % 713-8) BASO % (test code = 0.4 % 706-2) GRAN MAT x10^3(ANC) 9.81 10*3/uL 1.99-6.95 H (test code = 5555534387) IMM GRAN x10^3 (test 0.10 10*3/uL 0.00-0.06 H code = 8074100298) LYMPH x10^3 (test code 2.84 10*3/uL 1.09-3.23 = 731-0) MONO x10^3 (test code 1.03 10*3/uL 0.36-1.02 H = 742-7) EOS x10^3 (test code = 0.27 10*3/uL 0.06-0.53 711-2) BASO x10^3 (test code 0.06 10*3/uL 0.01-0.09 = 704-7) Lab Interpretation Abnormal (test code = 18861-1) [facility]. METABOLIC PANEL (43387)2021-11-28 05:15:02 Test Item Value Reference Range Interpretation Comments NA (test code = 135 mmol/L 135-145 1831157319) K (test code = 4.2 mmol/L 3.5-5.0 8045481866) CL (test code = 103 mmol/L 98-108 2531337536) CO2 TOTAL (test code = 25 mmol/L 23-31 9145247884) AGAP (test code = 2-16 7026247549) BUN (test code = 17 mg/dL 7-23 1721435931) GLUCOSE (test code = 139 mg/dL 70-110 H 2481199253) CREATININE (test code = 0.82 mg/dL 0.60-1.25 4547499485) TOTAL BILI (test code = 0.4 mg/dL 0.1-1.0 6127722021) CALCIUM (test code = 9.1 mg/dL 8.6-10.6 1915794798) T PROTEIN (test code = 7.2 g/dL 6.3-8.2 9190391311) ALBUMIN (test code = 4.1 g/dL 3.5-5.0 9049158139) ALK PHOS (test code = 105 U/L 34-122 0923652301) ALTv (test code = 28 U/L 5-50 1742-6) AST(SGOT) (test code = 28 U/L 13-40 8696620838) eGFR (test code = mL/min/1.73m2 6735029234) CHAI (test code = CHAI) Association of [...] tests). Lab Interpretation Abnormal (test code = 59404-4) [facility] WITH [id number] 05:06:19 Test Item Value Reference Range Interpretation Comments WBC (test code = See_Comment H [Automated 6934-2) message] The system which generated this result transmit rosalia reference range : 4.20 - 10.70 10*3/?L. The reference range was not used to interpret this result as normal/abnormal . RBC (test code = See_Comment [Automated 009-8) message] The system which generated this result [...] RDW-SD (test code = 46.7 fL 38.5-51.6 30358-4) RDW-CV (test code = 14.6 % 12.1-15.4 788-0) PLT (test code = See_Comment H [Automated 777-3) message] The system which generated this result transmit rosalia reference range : 150 - 328 10*3/ ?L. The reference range was not u sed to interpret th is result as normal/abnormal . MPV (test code = 10.0 fL 9.8-13.0 32173-2) NRBC/100 WBC (test See_Comment [Automat ed code = 7772629880) message] The system which generated this result transmit rosalia reference range : 0.0 - 10.0 /100 WBCs. The reference range was not used to interpret this result as normal/abnormal . NRBC x10^3 (test code <0.01 See_Comment [Auto mated = 6179575441) message] The system which generated this result transmit rosalia reference range : 10*3/?L. The reference range was not used to interpret this result as normal/abnormal . GRAN MAT (NEUT) % 73.8 % (test code = 770-8) IMM GRAN % (test code 0.50 % = 0157650324) LYMPH % (test code = 17.2 % 736-9) MONO % (test code = 6.2 % 5905-5) EOS % (test code = 1.8 % 713-8) BASO % (test code = 0.5 % 706-2) GRAN MAT x10^3(ANC) 11.39 10*3/uL 1.99-6.95 H (test code = 9524982234) IMM GRAN x10^3 (test 0.08 10*3/uL 0.00-0.06 H code = 0425322473) LYMPH x10^3 (test code 2.66 10*3/uL 1.09-3.23 = 731-0) MONO x10^3 (test code 0.95 10*3/uL 0.36-1.02 = 742-7) EOS x10^3 (test code = 0.28 10*3/uL 0.06-0.53 711-2) BASO x10^3 (test code 0.08 10*3/uL 0.01-0.09 = 704-7) Lab Interpretation Abnormal (test code = 28675-6) [facility]"
[2022-09-30] MEDS ORDERED: MORPHINE 4 MG/ML SYR ONE (00:03)
[2022-09-30] MEDS ORDERED: NA CHLORIDE 0.9% 1,000 ML ONE (00:03)
[2022-09-30] MEDS ORDERED: ONDANSETRON 4 MG/2 ML VIAL ONE (00:03)
[2022-09-30 00:08] LABS: Lymphocytes % 14.9 % (15.3-44.8); MCV 90.2 fL (80-100); MPV 8.4 fL (7.6-11.3); RBC Red Blood Cell Count 5.43 M/uL (4.33-5.43)
[2022-09-30 00:30] LABS: Albumin 3.3 g/dL (3.4-5.0); Bilirubin Total 0.1 mg/dL (0.2-1.0); Potassium 3.7 mmol/L (3.5-5.1); Protein, Total 7.8 g/dL (6.4-8.2)
--- NOTE | 2022-09-30 02:21 | EDPHYS ---
Physician Documentation [facility] Name: Kendall Kapoor Age: 36 yrs Sex: Male : 1985 Arrival Date: 09/29/2022 Time: 22:22 Bed 5 Private MD: ED Physician Matt Nathan HPI: 09/29 22:50 This 36 yrs old Male presents to ER via Ambulatory with complaints of Groin Pain. pm1 22:50 The patient presents with groin pain. Onset: The symptoms/episode began/occurred 2 pm1 year(s) ago. The symptoms do not radiate. Associated signs and symptoms: Pertinent negatives: nausea, vomiting, and diarrhea, chest pain, constipation, dysuria, fever, shortness of breath. The symptoms are described as sharp. Modifying factors: The symptoms are alleviated by nothing, the symptoms are aggravated by nothing. Severity of pain: in the emergency department the pain is actually worse. Patient has been seen twice by Dr. Anne for the same complaint in the past month and diagnosed with bilateral inguinal hernias. Patient reports multiple surgeries in the past for cellulitis to the groin area. Historical: - Allergies: 22:40 No Known Allergies; as6 - PMHx: 22:40 Asthma; CAD; Enlarged Heart; TIA; as6 - PSHx: 22:40 Appendectomy; hernia repair; as6 - Immunization history:: Client reports having NOT received the Covid vaccine. Flu vaccine is not up to date. - Social history:: Smoking status: Patient reports the use of cigarette tobacco products, smokes one pack cigarettes per day. ROS: 22:50 Constitutional: Negative for fever, chills, and weight loss, Cardiovascular: Negative pm1 for chest pain, palpitations, and edema, Respiratory: Negative for shortness of breath, cough, wheezing, and pleuritic chest pain, Abdomen/GI: Negative for abdominal pain, nausea, vomiting, diarrhea, and constipation, Back: Negative for injury and pain, MS/Extremity: Negative for injury and deformity, Skin: Negative for injury, rash, and discoloration, Neuro: Negative for headache, weakness, numbness, tingling, and seizure. 22:50 : Positive for groin pain. 22:50 All other systems are negative. Exam: 22:50 Constitutional: This is a well developed, well nourished patient who is awake, alert, pm1 and in no acute distress. Head/Face: Normocephalic, atraumatic. 22:50 Skin: Warm, dry with normal turgor. Normal color with no rashes, no lesions, and no evidence of cellulitis. MS/ Extremity: Pulses equal, no cyanosis. Neurovascular intact. Full, normal range of motion. 22:50 Eyes: Exam is negative for acute changes, Extraocular movements: no acute changes, Conjunctiva: no acute changes. 22:50 ENT: Exam is negative for acute changes, Mouth: no acute changes, Lips: normal, moist, Oral mucosa: normal, pink and intact, moist. 22:50 Cardiovascular: Exam negative for acute changes, Rate: normal, Rhythm: regular, Pulses: no pulse deficits are appreciated. 22:50 Respiratory: Exam negative for acute changes, respiratory distress, shortness of breath. 22:50 Abdomen/GI: Inspection: obese Palpation: soft, in all quadrants, mild abdominal tenderness, in the left inguinal area. 22:50 : Male external genitalia: tenderness, is not appreciated, Chief Engineer'S Helper Mariya Student RN. 22:50 Neuro: Exam negative for acute changes, Orientation: is normal, Mentation: is normal, Motor: is normal, moves all fours, Gait: is steady, at a normal pace, without difficulty. Vital Signs: 22:38 BP 165 / 87; Pulse 109; Resp 18 S; Temp 98.4(O); Pulse Ox 97% on R/A; Weight 136.08 kg as6 (R); Height 5 ft. 9 in. (175.26 cm) (R); Pain 9/10; 09/30 00:16 BP 112 / 70; Resp 20; Pulse Ox 99% on R/A; kl 02:46 BP 118 / 72; Pulse 82; Resp 20; Pulse Ox 99% on R/A; kl 09/29 22:38 Body Mass Index 44.30 (136.08 kg, 175.26 cm) as6 MDM: 09/29 22:47 Patient medically screened. pm1 09/30 02:18 Data reviewed: vital signs. Data interpreted: Pulse oximetry: on room air is 99 %. pm1 Interpretation: normal. Counseling: I had a detailed discussion with the patient and/or guardian regarding: the historical points, exam findings, and any diagnostic results supporting the discharge/admit diagnosis, lab results, radiology results, the need for outpatient follow up, a general surgeon, to return to the emergency department if symptoms worsen or persist or if there are any questions or concerns that arise at home. 02:18 ED course: Patient reports that he ran out of his hydrocodone that was prescribed by pm1 Dr. Anne. Patient has outpatient surgery scheduled for . CT without any acute changes to hernia, no incarceration. Will discharge the patient home with tylenol # 3. 02:24 ED course: PMPaware reviewed. pm1 09/29 22:50 Order name: CBC with Diff pm1 09/29 22:50 Order name: CMP; Complete Time: 00:34 pm1 09/29 22:50 Order name: Lipase; Complete Time: 00:34 pm1 09/29 22:50 Order name: CT Abd/Pelvis - IV Contrast Only pm1 09/29 22:50 Order name: IV Saline Lock; Complete Time: 02:40 pm1 09/29 22:50 Order name: Labs collected and sent; Complete Time: 02:40 pm1 Administered Medications: 00:05 Drug: morphine 4 mg Route: IVP; Infused Over: 4 mins; Site: left antecubital; kl 02:40 Follow up: Response: No adverse reaction; Marked relief of symptoms kl 00:11 Drug: NS 0.9% 1000 ml Route: IV; Rate: 1 bolus; Site: right forearm; kl 02:40 Follow up: Response: No adverse reaction kl 00:11 Drug: Zofran (Ondansetron) 4 mg Route: IVP; Site: left forearm; kl 02:40 Follow up: Response: No adverse reaction; Marked relief of symptoms kl 02:33 Drug: [place] (HYDROcodone-acetaminophen) 10 mg-325 mg 1 tabs Route: PO; kl 02:40 Follow up: Response: No adverse reaction kl Disposition: 02:25 Co-signature as Attending Physician, Matt GARDNER was immediately available onsite ms3 in the emergency department for consultation in the care of the patient. Disposition Summary: 09/30/22 02:20 Discharge Ordered Location: Home pm1 Problem: new pm1 Symptoms: have improved pm1 Condition: Stable pm1 Diagnosis - Unilateral inguinal hernia, without obstruction or gangrene pm1 Followup: pm1 - With: Emergency Department - When: As needed - Reason: Worsening of condition Followup: pm1 - With: Mario Anne MD - When: 2 - 3 days - Reason: Recheck today's complaints, Continuance of care, Re-evaluation by your physician Discharge Instructions: - Discharge Summary Sheet pm1 - Inguinal Hernia, Adult pm1 Forms: - Medication Reconciliation Form pm1 - Thank You Letter pm1 - Antibiotic Education pm1 - Prescription Opioid Use pm1 Prescriptions: - Tylenol-Codeine #3 300 mg-30 mg Oral - take 2 tablet by ORAL route every 6 hours As needed; 20 tablet; Refills: 0, pm1 Product Selection Permitted Signatures: Dispatcher [employer] EDMS Tammy Gee, RN RN Aayush Mayen NP BATCHING OPERATOR pm1 Matt Nathan DO DO ms3 Jerome Hendrix RN RN as6
--- NOTE | 2022-09-30 02:21 | ER ---
Nurse's Notes [facility] Name: Kendall Kapoor Age: 36 yrs Sex: Male : 1985 Arrival Date: 09/29/2022 Time: 22:22 Bed 5 Private MD: Diagnosis: Unilateral inguinal hernia, without obstruction or gangrene Presentation: 09/29 22:38 Chief complaint: Patient states: "My groin hurts and it's not getting any better" pt as6 reports he has been seen for this issue before and it isn't improving. this has been going on for approx 2 years. Coronavirus screen: At this time, the client does not indicate any symptoms associated with coronavirus-19. Ebola Screen: No symptoms or risks identified at this time. Initial Sepsis Screen: Does the patient meet any 2 criteria? No. Patient's initial sepsis screen is negative. Does the patient have a suspected source of infection? No. Patient's initial sepsis screen is negative. Risk Assessment: Do you want to hurt yourself or someone else? Patient reports no desire to harm self or others. Onset of symptoms is unknown. 22:38 Method Of Arrival: Ambulatory as6 22:38 Acuity: JELLY 3 as6 Historical: - Allergies: 22:40 No Known Allergies; as6 - PMHx: 22:40 Asthma; CAD; Enlarged Heart; TIA; as6 - PSHx: 22:40 Appendectomy; hernia repair; as6 - Immunization history:: Client reports having NOT received the Covid vaccine. Flu vaccine is not up to date. - Social history:: Smoking status: Patient reports the use of cigarette tobacco products, smokes one pack cigarettes per day. Screenin/02 00:16 Abuse screen: Denies threats or abuse. Nutritional screening: No deficits noted. kl Tuberculosis screening: No symptoms or risk factors identified. Fall Risk None identified. Assessment: 09/29 23:50 General: Appears uncomfortable, obese, unkempt, Behavior is calm, cooperative. kl 23:50 Pain: Complains of pain in bilateral groin. Neuro: No deficits noted. Cardiovascular: kl No deficits noted. Respiratory: No deficits noted. GI: No deficits noted. No signs and/or symptoms were reported involving the gastrointestinal system. : Reports pain bilateral groin. EENT: No deficits noted. 09/30 00:45 Reassessment: Patient appears in no apparent distress at this time. Patient and/or kl family updated on plan of care and expected duration. Pain level reassessed. Patient is alert, oriented x 3, equal unlabored respirations, skin warm/dry/pink. Patient states symptoms have improved. 01:30 Reassessment: Patient appears in no apparent distress at this time. Patient and/or kl family updated on plan of care and expected duration. Pain level reassessed. Patient is alert, oriented x 3, equal unlabored respirations, skin warm/dry/pink. Patient states symptoms have improved. Vital Signs: 09/29 22:38 BP 165 / 87; Pulse 109; Resp 18 S; Temp 98.4(O); Pulse Ox 97% on R/A; Weight 136.08 kg as6 (R); Height 5 ft. 9 in. (175.26 cm) (R); Pain 9/10; 09/30 00:16 BP 112 / 70; Resp 20; Pulse Ox 99% on R/A; kl 02:46 BP 118 / 72; Pulse 82; Resp 20; Pulse Ox 99% on R/A; kl 12 22:38 Body Mass Index 44.30 (136.08 kg, 175.26 cm) as6 ED Course: 09/29 22:00 Inserted saline lock: 20 gauge in left forearm, using aseptic technique. kl 22:22 Patient arrived in ED. bp1 22:32 Aayush Robison NP is PHCP. pm1 22:32 Matt Nathan DO is Attending Physician. pm1 22:40 Triage completed. as6 22:41 Arm band placed on. as6 23:00 No apparent distress. Resting quietly. kl 09/30 00:08 Taylor Mcclendon, RN is Primary Nurse. kd3 00:12 CBC with Diff Sent. kl 00:12 CMP Sent. kl 00:12 Lipase Sent. kl 00:17 CMP Sent. kl 00:17 Lipase Sent. kl 01:02 CT Abd/Pelvis - IV Contrast Only In Process Unspecified. EDMS 02:20 Mario Anne MD is Referral Physician. pm1 02:45 No provider procedures requiring assistance completed. IV discontinued, intact, kl bleeding controlled, No redness/swelling at site. Pressure dressing applied. 02:47 Patient has correct armband on for positive identification. kl Administered Medications: 00:05 Drug: morphine 4 mg Route: IVP; Infused Over: 4 mins; Site: left antecubital; kl 02:40 Follow up: Response: No adverse reaction; Marked relief of symptoms kl 00:11 Drug: NS 0.9% 1000 ml Route: IV; Rate: 1 bolus; Site: right forearm; kl 02:40 Follow up: Response: No adverse reaction kl 00:11 Drug: Zofran (Ondansetron) 4 mg Route: IVP; Site: left forearm; kl 02:40 Follow up: Response: No adverse reaction; Marked relief of symptoms kl 02:33 Drug: Marion (HYDROcodone-acetaminophen) 10 mg-325 mg 1 tabs Route: PO; kl 02:40 Follow up: Response: No adverse reaction kl Medication: 02:47 VIS not applicable for this client. Outcome: 02:20 Discharge ordered by MD. pm1 02:47 Discharged to home ambulatory. kl 02:47 Condition: improved 02:47 Discharge instructions given to patient, Instructed on discharge instructions, follow up and referral plans. medication usage, Demonstrated understanding of instructions, follow-up care, medications, Prescriptions given X 1. 02:48 Patient left the ED. Signatures: Dispatcher [employer] EDMS Tammy Gee RN Aayush Diaz, EMT INTERMEDIATE EMT INTERMEDIATE pm1 Meghann Patterson Ashby, RN RN as6 Taylor Mcclendon RN RN kd3 Corrections: (The following items were deleted from the chart) 09/29 22:48 22:38 Acuity: JELLY 4 as6 as6
[2022-09-30] MEDS ORDERED: HYDROCODONE/APAP 10/325 TAB ONE (02:36)
[2022-09-30 02:53] VITALS: TEMP 98.4
[2022-09-30 02:54] VITALS: O2SAT 99
[2022-09-30 02:55] VITALS: BP 118/72
--- NOTE | 2022-09-30 18:54 | RAD REPORT ---
EXAM DESCRIPTION: CT - Abdomen Pelvis W Contrast - 09/30/2022 2:03 am CLINICAL HISTORY: The patient is 36 years old and is Male; Groin pain TECHNIQUE: Axial computed tomography images of the abdomen and pelvis with intravenous contrast. S agittal and coronal reformatted images were created and reviewed. This CT exam was performed using one or more of the following dose reduction techniques: automated exposure control, adjustment of t he mA and/or kV according to patient size, and/or use of iterative reconstruction technique. DLP: 3592 mGy*cm COMPARISON: CT abdomen and pelvis dated 09/01/2022. FINDINGS: LUNG BASES: Lung bases are clear. HEART: Visualized heart is normal. ABDOMEN: LIVER: Hepatomegaly and hepatic steatosis. GALLBLADDER AND BILE DUCTS: Unremarkable. No calcified stones. No ductal dilation. PANCREAS: Unremarkable. No mass. No ductal dilation. SPLEEN: Unremarkable. No splenomegaly. ADRENALS: Unremarkable. No mass. KIDNEYS AND URETERS: Unremarkable. No solid mass. No hydronephrosis. STOMACH AND BOWEL: Unremarkable. No obstruction. No mucosal thickening. PELVIS: APPENDIX: Prior appendectomy. BLADDER: Unremarkable. No mass. REPRODUCTIVE: Unremarkable as visualized. ABDOMEN and PELVIS: INTRAPERITONEAL SPACE: Unremarkable. No free air. No significant fluid collection. BONES/JOINTS: No acute fracture. No dislocation. SOFT TISSUES: Left inguinal postsurgical changes with fat-containing hernia and regional soft tissu e thickening, unchanged. VASCULATURE: Unremarkable. No abdominal aortic aneurysm. LYMPH NODES: Unremarkable. No enlarged lymph nodes. IMPRESSION: 1. No acute abdominal or pelvic abnormality. 2. Left inguinal postsurgical changes with fat-containing hernia and regional soft tissue thickenin g, unchanged. 3. Hepatomegaly and hepatic steatosis. Electronically signed by: Jacobo Diaz DO 09/30/2022 1:24 AM PHYSICAL THERAPY SUPERVISOR Due to temporary technical issues with the PACS/Fluency reporting system, reports are being signed by the in house radiologists without review as a courtesy to insure prompt reporting. The interpreting radiologist is fully responsible for the content of the report.
== END 2022-09-30 02:48 | disposition home or self-care (01) ==
LOC: ER 22:19
DX: K40.90 Unilateral inguinal hernia, without obstruction or gangrene, not specified as recurrent (principal); F17.210 Nicotine dependence, cigarettes, uncomplicated
CPT/HCPCS: 36415; 74177; 80053; 83690; 85025; 99284; J2405; J7030; Q9967

== ENCOUNTER 2022-11-02 15:29 | Emergency (ER) | payer SELFPAY ==
--- OUTSIDE RECORDS SUMMARY | 2022-11-02 15:35 | XMS REPORT | Continuity of Care Document ---
:1985 Author Organization [facility] t Address [facility] [place] [address] Care Team Providers Name Role Phone Asked, No Pcp Primary Care Physician Unavailable CARL COTTRELL Attending Clinician Unavailable Froilan SIGALA, Jama Davies Attending Clinician BEATRIZ RIVERO Attending Clinician [...] Idalia Andino MD Attending Clinician Doctor Unassigned, Sylvarena Attending Clinician Unavailable Only, Adc Test Attending [...] Policy Number Effective Date Expiration Date S [facility] [place] [facility] [id number] 2020 00:00:00 PPO/EPO - BCBS [id number] Problems Condition Condition Condition Status Onset Resolution [...] 0-04 it y of abscess abscess 00:00: [place] [address] Medical Branch Allergies, Adverse Reactions, Alerts Allergy Allergy Status Severity Reaction(s) Onset Inactive Treating Comm ents Source Name Type Date Date Clinician Venom-Ho Propensi Active Anaphylaxis 2017- U nivers estela Bee ty to 2-29 ity of adverse 00:00: [place] reaction Medical s Branch VENOM-HO DRUG Active High Anaphylaxis 2017-10 Uni vers ESTELA BEE INGREDI 2-29 ity of 00:00: [place] [address] Medical Branch Social History Social Habit Start Date Stop Date Quantity Comments Source History of tobacco Cigarette Smoker Scientologist use Hospital History [facility] University o f Alcohol Std Drinks [place] [facility] History [facility] University o f Alcohol Binge [place] Medic al Branch History [facility] University o f Alcohol Comment [place] Med ical Branch Tobacco use and 2022-09-21 2022-09-21 Smokeless Scientologist exposure 00:00:00 00:00:00 tobacco non-user Hospital Alcohol intake 2022-09-21 2022-09-21 Ex-drinker Scientologist 00:00:00 00:00:00 (finding) Hospital Cigarettes smoked 2022-08-23 2022-08-23 [facility] current (pack per 00:00:00 00:00:00 Medicin ) - Reported Cigarette 2022-08-23 2022-08-23 Doc [employer] of pack-years 00:00:00 00:00:00 Medicine Exposure to 2022-08-12 2022-08-22 Not sure [facility] Myrna almaraz of SARS-CoV-2 (event) 00:00:00 10:35:00 Medici ne Education 2021-08-31 2021-08-31 15 [facility] 00:00:00 00:00:00 [facility] [place] History SDOH 2020-08-03 2020-08-03 1 University o f Alcohol Frequency 00:00:00 00:00:00 [facility] Tobacco Comment 2020-08-02 2020-08-02 Down from 2 ppd [facility] ersity of 00:00:00 00:00:00 [facility] [place] Sex Ass[birth year] At [birth year] Scientologist 00:00:00 00:00:00 Hospital Smoking Status Start Date Stop Date Source Smokes tobacco daily 2022-09-21 00:00:00 [facility] Medications Ordered Filled Start Stop Current Ordering Indication Dosage Frequency Signature Comments Components Source Medication Medication Date Date Medication? Clinician (SIG) Name Name No known 2021-10 No No known Metho di medications 1-[address] 11:32: [facility] l No known 2021-10 No No known Metho [...] albuterol Yes PROAIR HFA Un briana (PROAIR -12 108 (90 ity of HFA) 90 02:30: [...] Medic al on inhaler AERS Branch ibuprofen 0 Yes [id number] 600mg Take 1 U nivers 600 mg [...] (scale 4-6). Indication s: acute pain ibuprofen 2021-0 Yes [id number] 600mg Take 1 U nivers 600 mg [...] (scale 4-6). Indication s: acute pain ibuprofen 2021-0 Yes [id number] 600mg Take 1 U nivers 600 mg [...] of 1,000 mg in 07:00: 06:36 Piggyback, [place] NaCl 0.9% 00 :00 ONCE, 1 Medical (NS) 50 mL dose, On [facility] h MINI-BAG 11/28/21 at 0100, Administer over 30 Minutes, 50 mL
Reas on for Anti-Infec tive: Documented Infection< br>Documen rosalia Infection Site: Skin / Soft Tissue
Duration of Therapy: Other (see Comments) iohexol 2021- No [id number] 120mL 120 mL, U nivers (OMNIPAQUE 11-28 Intravenou it y of 350 05:15: 05:04 s, ONCE, 1 [place] BULK-100 00 :00 dose, On Medical mL) Sat Branch injection 11/27/21 at 120 mL 2315, Routine cephALEXin 2021- No [id number] 500mg Take 1 Univers (KEFLEX) 11-28 02-10 capsule by ity of 500 mg 00:00: 05:59 mouth 3 [place] capsule 00 :00 (three) Medical times Branch daily for 10 days. acetaminoph 2020-10- No [id number] 1{tbl} Take 1 U nivers en-codeine 11-30 12-09 tablet by ity of 300-30 mg 00:00: [...] 2020-10 Yes PROAIR HFA Un briana (PROAIR 1-23 108 (90 ity of HFA) 90 12:37: Base) [place] mcg/actuati 25 MCG/ACT Medic al on inhaler AERS Branch albuterol 2020-10 Yes ALBUTEROL Uni vers 2.5 mg /3 1-23 SULFATE ity of mL (0.083 12:37: (2.5 [place] %) 25 MG/3ML) Medical nebulizer 0.083% Branch solution NEBU albuterol 2020-10 Yes PROAIR HFA Un briana (PROAIR 1- 108 (90 ity of HFA) 90 12:37: Base) [place] mcg/actuati 25 MCG/ACT Medic al on inhaler AERS Branch alum-mag 2020-10 Yes [id number] 30mL Take 30 mL Univers hydroxide-s 1-23 by mouth 3 it y of imeth 00:00: (three) [place] times Medical mg/5 mL daily. Branch suspension alum-mag 2020-10 Yes [id number] 30mL Take 30 mL Univers hydroxide-s 1-23 by mouth 3 it y of imeth 00:00: (three) [place] times Medical mg/5 mL daily. Branch suspension alum-mag 2020-10 Yes [id number] 30mL Take 30 mL Univers hydroxide-s 1-23 by mouth 3 it y of imeth 00:00: (three) [place] times Medical mg/5 mL daily. Branch suspension alum-mag 2020-10 Yes [id number] 30mL Take 30 mL Univers hydroxide-s 1-23 by mouth 3 it y of imeth 00:00: (three) [place] times Medical mg/5 mL daily. Branch suspension alum-mag 2020-10 Yes [id number] 30mL Take 30 mL Univers hydroxide-s 1-23 by mouth 3 it y of imeth 00:00: (three) [place] times Medical mg/5 mL daily. Branch suspension acetaminoph 2020-102- No [id number] 650mg Take 2 Univers en 325 mg 1-23 11-24 tablets by ity of tablet 00:00: 05:59 mouth [place] 00 :00 every 6 Medical (six) Branch hours. acetaminoph 2020-10- No [id number] 650mg Take 2 Univers en 325 mg 1-23 11-24 tablets by ity of tablet 00:00: 05:59 mouth [place] 00 :00 every 6 Medical (six) Branch hours. acetaminoph 2020-10- No [id number] 650mg Take 2 Univers en 325 mg 1-23 11-24 tablets by ity of tablet 00:00: 05:59 mouth [place] 00 :00 every 6 Medical (six) Branch hours. acetaminoph 2020-10- No [id number] 650mg Take 2 Univers en 325 mg 1-23 11-24 tablets by ity of tablet 00:00: 05:59 mouth [place] 00 :00 every 6 Medical (six) Branch hours. acetaminoph 2020-10- No [id number] 650mg Take 2 Univers en 325 mg 1-23 11-24 tablets by ity of tablet 00:00: 05:59 mouth [place] 00 :00 every 6 Medical (six) Branch hours. ciprofloxac 2020-10- No [id number] 500mg Take 1 Univers in HCl 500 [...] [place] mg tablet 00 Medical Branch furosemide 0 Yes as needed. U nivers 40 mg 9-15 ity of tablet 00:00: [place] [facility] furosemide 0 Yes as needed. U nivers 40 mg 9-15 ity of tablet 00:00: [place] [facility] furosemide 0 Yes as needed. U nivers 40 mg 9-15 ity of tablet 00:00: [place] [facility] furosemide 2020-0 Yes as needed. U nivers 40 mg 9-15 ity of tablet 00:00: [place] [facility] furosemide 0 Yes as needed. U nivers 40 mg 9-15 ity of tablet 00:00: [place] [facility] Branch No known No No known Metho di medications 5-[address] 10:50: s Hospita 35 l Immunizations Ordered Filled Immunization Date Status Comments [facility] e Immunization Name Name Influenza Virus 2014-07-09 Completed Universit y of Vaccine Quad IM 3+ 00:00:00 [facility] Influenza Virus 2014-07-09 Completed Universit y of Vaccine Quad IM 3+ 00:00:00 [facility] Influenza Virus 2014-07-09 Completed Universit y of Vaccine Quad IM 3+ 00:00:00 [facility] Influenza Virus 2014-07-09 Completed Universit y of Vaccine Quad IM 3+ 00:00:00 [facility] Influenza Virus 2014-07-09 Completed Universit y of Vaccine Quad IM 3+ 00:00:00 [facility] Influenza Virus 2014-01-06 Completed Universit y of Vaccine (3+ yrs) 00:00:00 [facility] Influenza Virus 2014-01-06 Completed Universit y of Vaccine (3+ yrs) 00:00:00 [facility] Influenza Virus 2014-01-06 Completed Universit y of Vaccine (3+ yrs) 00:00:00 [facility] Influenza Virus 2014-01-06 Completed Universit y of Vaccine (3+ yrs) 00:00:00 [facility] Influenza Virus 2014-01-06 Completed Universit y of Vaccine (3+ yrs) 00:00:00 [facility] TDAP 2009-03-10 Completed University of 00:00:00 [facility] [place] TDAP 2009-03-10 Completed University of 00:00:00 [facility] [place] TDAP 2009-03-10 Completed University of 00:00:00 [facility] [place] TDAP 2009-03-10 Completed University of 00:00:00 [facility] [place] TDAP 2009-03-10 Completed University of 00:00:00 [facility] [place] Vital Signs Vital Name Observation Time Observation Value Comments Source Body height 2022-08-23 13:08:00 172.7 cm [facility] Body weight 2022-08-23 13:08:00 154.223 kg [facility] BMI 2022-08-23 13:08:00 51.70 kg/m2 [facility] Systolic blood 2022-08-23 13:08:00 124 mm[Hg] [facility] Diastolic blood 2022-08-23 13:08:00 80 mm[Hg] [facility] Heart rate 2022-08-23 13:08:00 105 /min [facility] Body temperature 2022-08-23 13:08:00 36.33 Brittanie [facility] Systolic blood 2022-08-09 18:32:00 143 mm[Hg] Univer sity of pressure [facility] [place] Diastolic blood 2022-08-09 18:32:00 101 mm[Hg] Unive rsity of pressure [facility] [place] Heart rate 2022-08-09 18:32:00 100 /min Universi ty of [facility] [place] Body temperature 2022-08-09 18:32:00 36.56 Brittanie Univ ersity [facility] Respiratory rate 2022-08-09 18:32:00 20 /min Univ ersity [facility] Body height 2022-08-09 18:32:00 172.7 cm [facility]i [facility] [place] [facility] Body weight 2022-08-09 18:32:00 158.759 kg [facility] [place] [facility] BMI 2022-08-09 18:32:00 53.22 kg/m2 [facility] [place] [facility] Oxygen saturation in 2022-08-09 18:32:00 95 /min University of Arterial blood by [place] Pix[employer] srinath Pulse oximetry Branch Systolic blood 2022-02-08 09:42:00 170 mm[Hg] Univer sity of pressure [place] [facility] Diastolic blood 2022-02-08 09:42:00 54 mm[Hg] Unive rsity of pressure [place] [facility] Heart rate 2022-02-08 09:42:00 90 /min [facility] [place] [facility] Respiratory rate 2022-02-08 09:42:00 23 /min Univ ersity of [place] [facility] Oxygen saturation in 2022-02-08 09:42:00 96 /min University of Arterial blood by [facility] Pulse oximetry Branch Body temperature 2022-02-08 07:18:00 37 Brittanie Univ ersity of [place] [facility] Body height 2022-02-08 07:18:00 172.7 cm [facility] [place] [facility] Body weight 2022-02-08 07:18:00 140.615 kg [facility] [place] [facility] BMI 2022-02-08 07:18:00 47.14 kg/m2 [facility] [place] [facility] Systolic blood 2021-11-28 06:30:00 114 mm[Hg] Univer sity of pressure [place] [facility] Diastolic blood 2021-11-28 06:30:00 60 mm[Hg] Unive rsity of pressure [place] [facility] Heart rate 2021-11-28 06:30:00 101 /min [facility] [place] [facility] Oxygen saturation in 2021-11-28 06:30:00 95 /min University of Arterial blood by [facility] srinath Pulse oximetry Branch Respiratory rate 2021-11-28 04:20:00 20 /min Univ ersity of [place] [facility] Body temperature 2021-11-28 04:12:00 37.11 Brittanie Univ ersity of [place] [facility] Body height 2021-11-28 04:12:00 172.7 cm [facility] [place] [facility] Body weight 2021-11-28 04:12:00 148.8 kg [facility] BMI 2021-11-28 04:12:00 49.88 [facility]2 [facility] [place] [facility] Systolic blood 2021-09-29 20:18:00 145 mm[Hg] Univer sity of pressure [facility] [place] Diastolic blood 2021-09-29 20:18:00 84 mm[Hg] Unive [facility]ity [facility] Heart rate 2021-09-29 20:18:00 117 /min [facility] Body temperature 2021-09-29 20:18:00 36.5 Brittanie Univ ersity of [facility] [place] Respiratory rate 2021-09-29 20:18:00 18 /min [facility] Body height 2021-09-29 20:18:00 170.2 cm [facility] Body weight 2021-09-29 20:18:00 145.287 kg [facility] BMI 2021-09-29 20:18:00 50.17 kg/m2 [facility] Systolic blood 2022-09-21 17:28:00 106 mm[Hg] [facility] Di[facility] blood 2022-09-21 17:28:00 69 mm[Hg] [facility] pressure Heart rate 2022-09-21 17:28:00 102 /min [facility] Body temperature 2022-09-21 17:28:00 36.56 Brittanie [facility] Body height 2022-09-21 17:28:00 175.3 cm [facility] Body weight 2022-09-21 17:28:00 160.029 kg [facility] BMI 2022-09-21 17:28:00 52.10 kg/m2 [facility] Oxygen saturation in 2022-09-21 17:28:00 98 /min [facility] Arterial blood by Pulse oximetry Procedures Procedure Date / Time Performing Clinician Source Performed AMB REF TO UROLOGY 2022-08-23 08:32:58 [facility] eleazar of [facility] Medicine URINE CULTURE 2022-08-23 08:32:12 [facility] NEMO,POST-VOID 2022-08-23 08:32:01 [facility] of RES,US,NON-IMG Medicine CONSENT/REFUSAL FOR 2022-08-09 18:10:44 Doctor Unassigned, No [facility] [place] [facility]AT[facility] Name Medical Branch URINALYSIS 2022-02-08 08:48:00 Jeniffer Ronquillo [facility] US SCROTUM AND CONTENTS 2022-02-08 08:16:13 Jeniffer Ronquillo [facility] COMP. METABOLIC PANEL 2022-02-08 07:46:00 Jeniffer Ronquillo [facility] ([id number]) [facility] Branch CBC WITH DIFF 2022-02-08 07:46:00 Yg [facility] PROTHROMBIN TIME / INR 2022-02-08 07:46:00 Jeniffer Ronquillo [facility] ACTIVATED PARTIAL 2022-02-08 07:46:00 Yg [facility] THRMPLAS [facility] CONSENT/REFUSAL FOR 2022-02-08 07:04:00 [facility] Name [facility] URINALYSIS 2021-11-28 06:09:00 Annette Dhaliwal [facility] CT ABDOMEN PELVIS W 2021-11-28 05:10:12 Annette Dhaliwal [facility] CONTRAST [facility] COMP. METABOLIC PANEL 2021-11-28 04:52:00 Annette Dhaliwal [facility] ([id number]) [facility] CBC WITH DIFF 2021-11-28 04:52:00 Annette Dhaliwal [facility] Plan of Care Planned Activity Planned Date Details Comments Source Future Scheduled 2022-10-31 COVID-19 VACCINE (#1) [facility] 19:48:19 [code = COVID-19 VACCINE Hos pital (#1)] Future Scheduled 2022-10-31 Pneumococcal Vaccine: [facility] Test 19:48:19 Pediatrics (0 to 5 Years) Ho spital and At-Risk Patients (6 to 64 Years) (1 - PCV) [code = Pneumococcal Vaccine: Pediatrics (0 to 5 Years) and At-Risk Patients (6 to 64 Years) (1 - PCV)] Future Scheduled 2022-10-31 Hepatitis C screening [facility] Test 19:48:19 (procedure) [code = Hospital [id number]] Future Scheduled 2022-10-31 INFLUENZA VACCINE [code = Scientologist Test 19:48:19 INFLUENZA VACCINE] Hospital Future Scheduled 2022-09-29 Pneumococcal Vaccine: [facility] Test 12:10:19 Pediatrics (0 to 5 Years) Ho spital and At-Risk Patients (6 to 64 Years) (1 - PCV) [code = Pneumococcal Vaccine: Pediatrics (0 to 5 Years) and At-Risk Patients (6 to 64 Years) (1 - PCV)] Future Scheduled 2022-09-29 Hepatitis C screening [facility] Test 12:10:19 (procedure) [code = Hospital [id number]] Future Scheduled 2022-09-29 INFLUENZA VACCINE [code = Scientologist Test 12:10:19 INFLUENZA VACCINE] Hospital Future Scheduled 2022-09-29 HEPATITIS B VACCINES (1 Scientologist Test 12:10:19 of 3 - 3-dose series) Hospit al [code = HEPATITIS B VACCINES (1 of 3 - 3-dose series)] Future Scheduled 2022-09-29 COVID-19 VACCINE (#1) [facility] Test 12:10:19 [code = COVID-19 VACCINE Hos pital (#1)] Future Scheduled 2022-09-01 HEPATITIS B VACCINES (1 Scientologist Test 11:48:27 of 3 - 3-dose series) Hospit al [code = HEPATITIS B VACCINES (1 of 3 - 3-dose series)] Future Scheduled 2022-09-01 COVID-19 VACCINE (#1) Me [...] thodist Test 11:48:27 (procedure) [code = Hospital [id number]] Future Scheduled 2022-09-01 INFLUENZA VACCINE [code = Scientologist Test 11:48:27 INFLUENZA VACCINE] Hospital Future Scheduled 2022-08-23 COVID-19 Vaccine (#1) [employer] Test 08:07:44 [code = COVID-19 Vaccine Med icine (#1)] Future Scheduled 2022-08-23 Hepatitis C screening [facility] 08:07:44 (procedure) [code = Medicine [id number]] Future Scheduled 2022-08-23 Human immunodeficiency [facility] 08:07:44 virus screening Medicine (procedure) [code = [id number]] Future Scheduled 2022-08-23 TETANUS SHOT (ADULT) [facility] 08:07:44 [code = TETANUS SHOT Medicin e (ADULT)] Future Scheduled 2022-08-23 FLU VACCINE > 6 MONTHS B [facility] 08:07:44 [code = FLU VACCINE > 6 Medi cine MONTHS] Encounters Start End Encounter Admission Attending Care Care Encounter Source Date/Time Date/Time Type Type Clinicians Facility Department ID 2021-09-09 [facility] Shandra CHARLES [place] [id number] [facility] 07:16:17 [facility] 2022-09-21 2022-09-21 Office Mcgovern, 1.2.840.2 [id number] Methodi 11:30:00 14:27:54 Visit Jama [address]6310.1.[address] [place] 3.430.2.7 Hospit a .3.033634 l .8 2022-09-21 2022-09-21 Office Mcgovern, 1.2.840.5 [id number] Methodi 11:30:00 14:27:54 Visit Jama 13700.1.[address] [place] 3.430.2.7 Hospit a .3.832038 l .8 2022-09-05 2022-09-05 Telephone Mcgovern, 1.2.840.2 [id number] Methodi 00:00:00 00:00:[address] [place] 3.430.2.7 Hospit a .3.089316 l .8 2022-09-05 2022-09-05 Telephone Mcgovern, 1.2.840.0 [id number] Methodi 00:00:00 00:00:[address] Davies 3.430.2.7 Hospit a .3.868945 l .8 2022-08-23 2022-08-23 Office ZENIA RIVERO 1.2.840.114 [id number] [facility] 07:58:56 11:32:33 Visit BEATRIZ AMBULATOR 350.1.13.21 College Y 0.2.7.2.686 of [id number] [facility] 300 e 2022-08-09 2022-08-09 Emergency X SINGER [facility] ERT [id number] Univers 13:35:00 15:14:00 [facility] 2022-08-09 2022-08-09 Emergency Peter Duffy Malik [facility] 1.2.840 .114 [id number] Univers 13:35:00 15:14:00 Lai Villeda 350.1.13.10 ity [facility] 4.2.7.2.686 [place] [phone] [facility] 084 Branch 2022-04-18 2022-04-18 Outpatient R BOYD [facility] [id number] Univers 13:30:00 13:30:00 [facility] 2022-03-24 2022-03-24 [facility] [id number] Univers 09:00:00 09:00:00 [facility] 2022-03-24 2022-03-24 [facility] 1.2.840.114 [id number] Univers 00:00:00 00:00:00 Cheko LEIVA 350.1.13.10 i ty [facility] 4.2.7.2.686 [place] PROF[place] [id number] Ri dical NAL 204 Branch BUILDING 2022-02-08 2022-02-08 Emergency [facility] [id number] Univers 02:16:00 04:47:00 JENIFFER shyla [facility] 2022-02-08 2022-02-08 Emergency Yg [facility] 1.2.112.896 [id number] Univers 02:16:00 04:47:00 Jeniffer LEIVA 350.1.13.10 i ty of [place] 4.2.7.2.686 [facility] [id number] [facility] 084 Branch 2021-11-27 2021-11-28 Emergency X Annette DHALIWAL [facility] ERT [id number] Univers 22:17:00 00:52:00 ity [facility] 2021-11-27 2021-11-28 Emergency Annette Dhaliwal [facility] 1.2.840.114 [id number] Univers 22:17:00 00:52:00 Sol LEIVA 350.1.13.10 i ty of [place] 4.2.7.2.686 [facility] [id number] [place] [id number] Branch 2021-10-08 2021-10-08 Outpatient Shandra COTTRELL [facility] [id number] Univers 10:45:00 10:45:00 CARL shyla [facility] 2021-09-29 2021-09-29 Office STEPHANIE [place]rell 1.2.139.050 [id number] Univers 14:12:15 14:37:52 [facility] 350.1.13.10 i ty of Aayushcaryn [place] 4.2.7.2.686 [facility] [id number] [facility] [address] [place] 2021-09-29 2021-09-29 Outpatient Shandra COTTRELL [facility] [id number] Univers 13:30:00 14:37:52 [facility] 2021-09-29 2021-09-29 Outpatient Shandra COTTRELL [facility] [id number] Univers 13:30:00 13:30:00 CARL estee [facility] 2021-09-27 2021-09-27 Telephone Charles [facility] 1.2.436.109 [id number] Univers 00:00:00 00:00:00 Carl LEIVA 350.1.13.10 i ty of Aayush HUFFMAN 4.2.7.2.686 [facility] PROFESSIO [id number] [address] 2021-09-20 2021-09-21 Outpatient Shandra COTTRELL [facility] [id number] Univers 06:38:00 12:20:00 CARL mansfield [facility] 2021-09-202021-09-21 Hospital HANH Cottrell 1.2.840.114 [id number] Univers 06:38:00 12:20:00 Encounter Carl MEDELLIN 350.1.13.10 ity of [facility] 4.2.7.2.686 Johnny as [id number] [facility] 097 Branch 2021-09-20 2021-09-21 Outpatient R CHARLES [facility] [id number] Univers 06:38:00 12:20:00 CARL ity of [facility] [place] 2021-09-20 2021-09-20 Anesthesia YonnyFranco cannon 1.2.840.11 [id number] Univers 09:00:00 12:32:00 Event Idalia Andino 350.1.13.[address] [facility] 4.2.7.2.686 Johnny as [id number] [facility] 103 Branch 2021-09-20 2021-09-20 Surgery HANH Cottrell 1.2.840.114 [id number] Univers 08:53:00 10:48:00 Carl MEDELLIN 350.1.13.10 it y of [facility] 4.2.7.2.686 Johnny as [id number] [facility] 103 Branch 2021-09-20 2021-09-20 Orders Doctor CARL 1.2.840.114 [id number] Univers 00:00:00 00:00:00 Only Unassigned, LACIE 350.1.13.[address] [facility] 4.2.7.2.686 Ojhnny as [id number] [facility] 009 Branch 2021-09-17 2021-09-17 Laboratory Only, Adc Test [facility] 1.2.840. 114 [id number] Univers 15:00:54 15:15:54 Only Carl Cottrell 350.1.13 .10 ity of [place] 4.2.7.2.[address] [place] [address] [facility] [id number] [facility] 353 Branch 2021-09-17 2021-09-17 Outpatient R CHARLES [facility] [id number] Univers 15:15:00 15:15:00 CARL [place] of [facility] [place] 2021-09-10 2021-09-10 Hospital Carl Cottrell [facility] 1.2. 840.114 [id number] Univers 14:00:00 23:59:00 Encounter Robert Hawley 350.1.13.10 it[place].2.686 [place] [id number] [facility] 850 Branch 2021-09-10 2021-09-10 Office [facility] 1.2.840.114 [id number] Univers 10:04:20 11:03:01 Visit Carl LEIVA 350.1.13.10 i ty of Aayush [place] 4.2.7.2.686 [place] [id number] Ri dical [facility] [address] [facility] 2021-09-10 2021-09-10 [facility] [id number] Univers 10:00:00 11:03:01 [facility] 2021-09-10 2021-09-10 Outpatient [facility] [id number] Univers 10:00:00 10:00:00 [facility] 2021-09-09 2021-09-09 Transition YUNI Singletary 1.2.840.114 [id number] Univers 00:00:00 00:00:00 of Care Mary TOUSSAINT 350.1.13.10 i ty of [place] 4[place]2.7.2.686 [place] [phone] [facility] 403 Branch 2021-09-06 2021-09-08 Hospital HANH Posey 1.2.840.114 [id number] Univers 16:50:00 15:15:00 Encounter Javy MEDELLIN 350.1.13.10 ity [facility] 4.2.7.2.686 Johnny as [id number] [facility] 095 Branch 2021-09-06 2021-09-08 [facility] [facility] [id number] Univers 16:50:00 15:15:[address] [facility] 2021-09-06 2021-09-06 Office Blayne DongIT 1.2.840 .114 [id number] Univers 14:25:21 15:25:21 Visit Maximo Rodas [facility] 350.1.13. 10 [phone] [address] 2021-09-06 2021-09-06 Office Blayne Dong [facility] 1.2.840 .114 [id number] Univers 14:25:21 15:25:21 Visit Maximo Rodas [facility] 350.1.13. 10 [place] [id number] [address] 2021-09-06 2021-09-06 Outpatient R ADRIANNA [facility] [id number] Univers 14:30:00 14:30:00 [facility] 2021-09-06 2021-09-06 Outpatient R ADRIANNA [facility] [id number] Univers 14:30:00 14:30:00 [facility] 2021-08-31 2021-09-01 [facility] [id number] Univers 08:47:00 16:33:[address] [facility] 2021-08-31 2021-09-01 Emergency Jeniffer Ronquillo [facility] 1.2.840. 114 [id number] Univers 08:47:00 16:33:00 Pau June [place] 350.1.13.10 it[place] [phone] [address] 2021-08-31 2021-09-01 Outpatient X SHAYLEE [facility] [id number] Univers 08:47:00 16:33:00 PAU estee [facility] 2021-08-31 2021-09-01 [facility] [id number] Univers 08:47:00 16:33:[address] [facility] 2021-08-31 2021-08-31 Emergency X YG [facility] ERT [id number] Univers 08:47:00 08:47:[address] [facility] 2021-08-26 2021-08-26 Office Jacques [facility] 1.2.342.345 [id number] Univers 16:03:54 17:10:27 Visit Osirisisaura LEIVA 350.1.13.10 i ty of [place] [phone] Ri dical [address] 2021-08-26 2021-08-26 [facility] [id number] Univers 16:00:00 17:10:27 OSIRIS mansfield [facility] 2021-08-26 2021-08-26 [facility] [id number] Univers 11:15:00 11:15:00 OSIRIS estee [facility] 2021-08-26 2021-08-26 Orders Doctor CARL 1.2.840.114 [id number] Univers 00:00:00 00:00:00 Only Unassigned, LACIE 350.1.13.10 ity of [facility] 4.2.7.2.686 Johnny as [phone] [address] 2021-07-30 2021-07-30 Outpatient [facility] [id number] Univers 10:00:00 10:00:00 CARL mansfield [facility] 2021-07-30 2021-07-30 Outpatient [facility] [id number] Univers 10:00:00 10:00:00 CARL mansfield [facility] 2021-07-09 2021-07-09 [facility] 1.2.840.114 [id number] Univers 08:54:13 10:52:29 Visit Carl Leiva 350.1.13.10 i ty of [place]ayush [place] [phone] [address] 2021-07-09 2021-07-09 Outpatient [facility] [id number] Univers 08:45:00 08:45:00 CARL mansfield [facility] 2021-07-09 2021-07-09 Orders Doctor CARL 1.2.840.114 [id number] Univers 00:00:00 00:00:00 Only Unassigned, LACIE 350.1.13.10 ity of [place] [facility] 4.2.7.2.686 Johnny as [phone] [address] 2021-04-13 2021-04-13 Outpatient KENYATTA, [facility] 098 [id number] [place] [place] 00:00:00 00:00:00 YAHYA [address] 2021-03-15 2021-03-16 Inpatient KENYATTA [facility] 064 [id number] [place] 00:00:00 00:00:[address] 2020-10-08 2020-10-08 Orders Doctor CARL 1.2.840.114 [id number] 00:00:00 00:00:00 Only Unassigned, LACIE 350.1.13.[address] [facility] 4.2.7.2.686 [phone] [facility][note 2] 2020-10-08 2020-10-08 Orders Doctor HENRY 1.2.840.114 [id number] [facility] 00:00:00 00:00:00 Only Unassigned, LACIE 350.1.13.[address] [facility] 4.2.7.2.686 Johnny as [phone] [address] 2020-09-21 2020-09-21 [facility] [id number] Univers 00:00:00 00:00:00 OSIRIS mansfield [facility] 2020-09-17 2020-09-17 Out[facility] [id number] Univers 16:15:00 16:15:00 OSIRIS mansfield [facility] 2020-09-17 2020-09-17 Office [facility] [id number] 15:20:49 16:01:46 Visit Osiris Leiva 350.1.13.10 [place] 4.2.7.2.686 Professio [phone] [address] 2020-09-17 2020-09-17 Office [facility] 1.2.860.325 [id number] [facility] 15:20:49 16:01:46 Visit Osiris Leiva 350.1.13.10 i ty of [place] [phone] Ri bang Gatica [facility] 2020-08-20 2020-08-20 [facility] [id number] Univers 13:15:00 13:15:00 OSIRIS mansfield [facility] 2020-08-20 2020-08-20 Telephone [facility] 1.2.840.114 [id number] Univers 00:00:00 00:00:00 Osiris Leiva 350.1.13.10 i ty of [place] [phone] Ri bang vanegas [address] [place] [address] 2020-08-14 2020-08-14 Outpatient [facility] [id number] Univers 10:00:00 10:00:00 CARL mansfield [facility] 2020-08-14 2020-08-14 Telephone [facility] 1.2.840.114 [id number] Univers 00:00:00 00:00:00 Osiris Ybarraton 350.1.13.10 i ty [place] [phone] Ri bang vanegas [address] [place] [address] 2020-08-13 2020-08-13 Office [facility] 1.2.113.975 [id number] Univers 13:56:54 14:38:07 Visit Osiris Leiva 350.1.13.10 i ty [place] [phone] Ri bang vanegas [address] [place] [address] 2020-08-13 2020-08-13 Out[facility] [id number] Univers 13:45:00 13:45:00 OSIRIS mansfield [facility] 2020-08-13 2020-08-13 Telephone [facility] 1.2.840.114 [id number] Univers 00:00:00 00:00:00 Osiris Leiva 350.1.13.10 i ty [place] [phone] Ri bang vanegas [address] [place] [address] 2020-08-13 2020-08-13 Orders Doctor HENRY 1.2.840.114 [id number] Univers 00:00:00 00:00:00 Only Unassigned, LACIE 350.1.13.10 ity of [place] [facility] 4.2.7.2.686 Johnny as [phone] [facility] [address] 2020-08-10 2020-08-10 Transition Yuni Gomes 1.2.840.114 [id number] Univers 00:00:00 00:00:00 of Care Franky Toussaint 350.1.13.10 ity of [place] [phone] [facility] [address] 2020-08-02 2020-08-07 Hospital Jeniffer Ronquillo Hanh 1.2.840.1 [id number] Univers 14:33:00 21:40:00 Encounter Pau June 350.1.13.10 ity of [facility] 4.2.7.2.68 6 [place] [phone] [facility] [address] 2020-08-02 2020-08-02 Emergency X YG [facility] E[facility] [id number] Univers 14:33:00 14:33:00 JENIFFER ity of [facility] Results Test Description Test Time Test Comments Results Result Comments Source COMP. METABOLIC PANEL (11941) 2022-02-08 08:21:42 Test Item Value Reference Range Interpretation Comme nts NA (test code = 1676078450) 141 mmol/L 135-145 K (test code = 2079121405) 4.6 mmol/L 3.5-5.0 CL (test code = 8570678797) 105 mmol/L 98-108 CO2 TOTAL (test code = 7587538802) 26 mmol/L 23-31 AGAP (test code = 2267163566) 2-16 BUN (test code = 0369062479) 20 mg/dL 7-23 GLUCOSE (test code = 4703428994) 152 mg/dL 70-110 H CREATININE (test code = 0.97 mg/dL 0.60-1.25 9888624118) TOTAL BILI (test code = 0.3 mg/dL 0.1-1.3 6831754505) CALCIUM (test code = 0220979988) 9.4 mg/dL 8.6-10.6 T PROTEIN (test code = 2400887385) 7.3 g/dL 6.3-8.2 ALBUMIN (test code = 2132667351) 4.3 g/dL 3.5-5.0 ALK PHOS (test code = 5334148828) 107 U/L 34-122 ALTv (test code = 1742-6) 24 U/L 5-50 AST(SGOT) (test code = 2598861175) 22 U/L 13-40 eGFR (test code = 8964645499) mL/min/1.73m2 CHAI (test code = CHAI) Association [...] tests). Lab Interpretation (test code = Abnormal 55492-1) [facility] [id number] 08:10:38 Test Item Value Reference Range Interpretation Comments APTT Patient (test See_Comment [Automat ed code = 3173-2) message] The system which generated this result transmitted reference range : 23 - 38 Seconds . The reference range was not used to interpr et this result as normal/abnormal . CHAI (test code = CHAI) The [facility] patient population mean normal value for aPTT is 30 seconds. Lab Interpretation Normal (test code = 69057-3) [facility] Worth[facility] / [id number] 08:08:22 Test Item Value Reference Range Interpretation [...] tions. Lab Interpretation (test Normal code = 42069-5) [facility] WITH [id number] 08:00:41 Test Item Value Reference Range Interpretation Comments WBC (test code = See_Comment H [Automated 5290-2) message] The sy stem which generated this result transmitted reference range : 4.20 - 10.70 10*3/?L. The reference range was not used to interpret this result as normal/abnormal . RBC (test code = See_Comment H [Automated 709-8) message] The sy stem which generated this [...] RDW-SD (test code = 49.0 fL 38.5-51.6 62037-8) RDW-CV (test code = 15.3 % 12.1-15.4 788-0) PLT (test code = See_Comment H [Automated 777-3) message] The sy stem which generated this result transmitted reference range : 150 - 328 10*3/ ?L. The reference r khris was not used to interpret this result as normal/abnormal . MPV (test code = 9.8 fL 9.8-13.0 79340-4) NRBC/100 WBC (test See_Comment [Automat ed code = 2341631977) message] The system which generated this result transmitted reference range : 0.0 - 10.0 /100 WBCs. The refer ence range was not u sed to interpret th is result as normal/abnormal . NRBC x10^3 (test code <0.01 See_Comment [Auto mated = 6960457071) message] The s ystem which generated this result transmitted reference range : 10*3/?L. The reference range was not used to interpret this result as normal/abnormal . GRAN MAT (NEUT) % 69.6 % (test code = 770-8) IMM GRAN % (test code 0.70 % = 4105342512) LYMPH % (test code = 20.1 % 736-9) MONO % (test code = 7.3 % 5905-5) EOS % (test code = 1.9 % 713-8) BASO % (test code = 0.4 % 706-2) GRAN MAT x10^3(ANC) 9.81 10*3/uL 1.99-6.95 H (test code = 4603276692) IMM GRAN x10^3 (test 0.10 10*3/uL 0.00-0.06 H code = 7928359486) LYMPH x10^3 (test code 2.84 10*3/uL 1.09-3.23 = 731-0) MONO x10^3 (test code 1.03 10*3/uL 0.36-1.02 H = 742-7) EOS x10^3 (test code = 0.27 10*3/uL 0.06-0.53 711-2) BASO x10^3 (test code 0.06 10*3/uL 0.01-0.09 = 704-7) Lab Interpretation Abnormal (test code = 97982-2) [facility]OLIC PANEL (43097)2021-11-28 05:15:02 Test Item Value Reference Range Interpretation Comments NA (test code = 135 mmol/L 135-145 9984801873) K (test code = 4.2 mmol/L 3.5-5.0 1019589628) CL (test code = 103 mmol/L 98-108 0359892724) CO2 TOTAL (test code = 25 mmol/L 23-31 3963365542) AGAP (test code = 2-16 0533203087) BUN (test code = 17 mg/dL 7-23 6653752293) GLUCOSE (test code = 139 mg/dL 70-110 H 2411703889) CREATININE (test code = 0.82 mg/dL 0.60-1.25 6455977508) TOTAL BILI (test code = 0.4 mg/dL 0.1-1.1 1681597838) CALCIUM (test code = 9.1 mg/dL 8.6-10.6 9921773023) T PROTEIN (test code = 7.2 g/dL 6.3-8.2 7932945709) ALBUMIN (test code = 4.1 g/dL 3.5-5.0 3717289517) ALK PHOS (test code = 105 U/L 34-122 2488471786) ALTv (test code = 28 U/L 5-50 1742-6) AST(SGOT) (test code = 28 U/L 13-40 4970162668) eGFR (test code = mL/min/1.73m2 7209555160) CHAI (test code = CHAI) Association of [...] tests). Lab Interpretation Abnormal (test code = 45198-8) [facility] WITH [id number] 05:06:19 Test Item Value Reference Range Interpretation Comments WBC (test code = See_Comment H [Automated 3359-2) message] The system which generated this result transmit rosalia reference range : 4.20 - 10.70 10*3/?L. The reference range was not used to interpret this result as normal/abnormal . RBC (test code = See_Comment [Automated 599-8) message] The system which generated this result [...] RDW-SD (test code = 46.7 fL 38.5-51.6 18773-9) RDW-CV (test code = 14.6 % 12.1-15.4 788-0) PLT (test code = See_Comment H [Automated 027-3) message] The system which generated this result transmit rosalia reference range : 150 - 328 10*3/ ?L. The reference range was not u sed to interpret th is result as normal/abnormal . MPV (test code = 10.0 fL 9.8-13.0 54545-7) NRBC/100 WBC (test See_Comment [Automat ed code = 1693852768) message] The system which generated this result transmit rosalia reference range : 0.0 - 10.0 /100 WBCs. The reference range was not used to interpret this result as normal/abnormal . NRBC x10^3 (test code <0.01 See_Comment [Auto mated = 3118957349) message] The system which generated this result transmit rosalia reference range : 10*3/?L. The reference range was not used to interpret this result as normal/abnormal . GRAN MAT (NEUT) % 73.8 % (test code = 770-8) IMM GRAN % (test code 0.50 % = 1201903537) LYMPH % (test code = 17.2 % 736-9) MONO % (test code = 6.2 % 5905-5) EOS % (test code = 1.8 % 713-8) BASO % (test code = 0.5 % 706-2) GRAN MAT x10^3(ANC) 11.39 10*3/uL 1.99-6.95 H (test code = 0260754636) IMM GRAN x10^3 (test 0.08 10*3/uL 0.00-0.06 H code = 5801633928) LYMPH x10^3 (test code 2.66 10*3/uL 1.09-3.23 = 731-0) MONO x10^3 (test code 0.95 10*3/uL 0.36-1.02 = 742-7) EOS x10^3 (test code = 0.28 10*3/uL 0.06-0.53 711-2) BASO x10^3 (test code 0.08 10*3/uL 0.01-0.09 = 704-7) Lab Interpretation Abnormal (test code = 72289-2) [facility]"
[2022-11-02 16:16] LABS: Absolute Lymphocytes (CBC) 2.1 K/uL (0.7-4.9); Hematocrit 45.5 % (39.6-49.0); Lymphocytes % 13.3 % (15.3-44.8); MCV 88.5 fL (80-100); MPV 8.1 fL (7.6-11.3); RBC Red Blood Cell Count 5.14 M/uL (4.33-5.43)
[2022-11-02 16:34] LABS: Albumin 3.3 g/dL (3.4-5.0); Bilirubin Total 0.2 mg/dL (0.2-1.0); Potassium 3.8 mmol/L (3.5-5.1)
[2022-11-02] MEDS ORDERED: NA CHLORIDE 0.9% 500 ML ONE (17:12)
--- NOTE | 2022-11-02 18:55 | EDPHYS ---
Physician Documentation [facility] Name: Kendall Kapoor Age: 36 yrs Sex: Male : 1985 Arrival Date: 11/02/2022 Time: 15:30 Bed 26 Private MD: ARNOLDO Physician Johan Hernandez HPI: 11/02 18:37 This 36 yrs old Male presents to ER via Ambulatory with complaints of Holes ankit In Groin Area. 18:37 The patient presents with an abscess of the pelvis, The patient presents with ankit cellulitis of the pelvis. Description: draining, erythematous. Onset: The symptoms/episode began/occurred 5 day(s) ago. Possible cause(s): CHRONIC SKIN INFECTION. Associated signs and symptoms: The patient has no apparent associated signs or symptoms. RASH GROIN, UNDER PANNIS. Severity of symptoms: At their worst the symptoms were mild, in the emergency department the symptoms are unchanged. Severity of symptoms: At their worst the symptoms were mild in the emergency department the symptoms are unchanged. Historical: - Allergies: 15:55 No Known Allergies; ap3 - PMHx: 15:55 Asthma; CAD; Enlarged Heart; TIA; ap3 - PSHx: 19:14 Appendectomy; hernia repair; eh3 - Immunization history:: Client reports having NOT received the Covid vaccine. Flu vaccine is not up to date. - Social history:: Smoking status: Patient reports the use of cigarette tobacco products, smokes one pack cigarettes per day. - Family history:: not pertinent. ROS: 18:39 Constitutional: Negative for fever, chills, and weight loss, Eyes: Negative for injury, ankit pain, redness, and discharge, ENT: Negative for injury, pain, and discharge, Neck: Negative for injury, pain, and swelling, Cardiovascular: Negative for chest pain, palpitations, and edema, Respiratory: Negative for shortness of breath, cough, wheezing, and pleuritic chest pain, Abdomen/GI: Negative for abdominal pain, nausea, vomiting, diarrhea, and constipation, Back: Negative for injury and pain, : Negative for injury, bleeding, discharge, and swelling, MS/Extremity: Negative for injury and deformity, Neuro: Negative for headache, weakness, numbness, tingling, and seizure, Psych: Negative for depression, anxiety, suicide ideation, homicidal ideation, and hallucinations, Allergy/Immunology: Negative for hives, rash, and allergies, Endocrine: Negative for neck swelling, polydipsia, polyuria, polyphagia, and marked weight changes, Hematologic/Lymphatic: Negative for swollen nodes, abnormal bleeding, and unusual bruising. 18:39 Skin: Positive for erythema, rash, MILD , NO INDURATION, NO FLUCTUANCE. Exam: 18:39 Constitutional: This is a well developed, well nourished patient who is awake, alert, ankit and in no acute distress. Head/Face: Normocephalic, atraumatic. Eyes: Pupils equal round and reactive to light, extra-ocular motions intact. Lids and lashes normal. Conjunctiva and sclera are non-icteric and not injected. Cornea within normal limits. Periorbital areas with no swelling, redness, or edema. ENT: Nares patent. No nasal discharge, no septal abnormalities noted. Tympanic membranes are normal and external auditory canals are clear. Oropharynx with no redness, swelling, or masses, exudates, or evidence of obstruction, uvula midline. Mucous membranes moist. Neck: Trachea midline, no thyromegaly or masses palpated, and no cervical lymphadenopathy. Supple, full range of motion without nuchal rigidity, or vertebral point tenderness. No Meningismus. Chest/axilla: Normal chest wall appearance and motion. Nontender with no deformity. No lesions are appreciated. Cardiovascular: Regular rate and rhythm with a normal S1 and S2. No gallops, murmurs, or rubs. Normal PMI, no JVD. No pulse deficits. Respiratory: Lungs have equal breath sounds bilaterally, clear to auscultation and percussion. No rales, rhonchi or wheezes noted. No increased work of breathing, no retractions or nasal flaring. Abdomen/GI: Soft, non-tender, with normal bowel sounds. No distension or tympany. No guarding or rebound. No evidence of tenderness throughout. Back: No spinal tenderness. No costovertebral tenderness. Full range of motion. Male : Normal genitalia with no discharge or lesions. MS/ Extremity: Pulses equal, no cyanosis. Neurovascular intact. Full, normal range of motion. Neuro: Awake and alert, GCS 15, oriented to person, place, time, and situation. Cranial nerves II-XII grossly intact. Motor strength 5/5 in all extremities. Sensory grossly intact. Cerebellar exam normal. Normal gait. Psych: Awake, alert, with orientation to person, place and time. Behavior, mood, and affect are within normal limits. 18:39 Skin: cellulitis, that is minimal, induration, is not appreciated, WET, MILDLY TENDER SKIN. Vital Signs: 15:52 BP 121 / 95; Pulse 112; Resp 17; Temp 98.1; Pulse Ox 95% ; Weight 136.08 kg; Height 5 ap3 ft. 9 in. (175.26 cm); 17:00 BP 116 / 97; Pulse 92; Resp 18; Pulse Ox 100% on R/A; eh3 18:00 BP 120 / 73; Pulse 98; Resp 18; Pulse Ox 96% on R/A; eh3 15:52 Body Mass Index 44.30 (136.08 kg, 175.26 cm) ap3 MDM: 15:49 Patient medically screened. [facility] 18:43 Differential diagnosis: cellulitis. Differential Diagnosis sepsis. Data reviewed: vital ankit signs, nurses notes, lab test result(s). Data interpreted: front desk monitor: not applicable for this patient encounter. Pulse oximetry: on room air is 100 %. 18:52 Physician consultation: Mario Anne MD and will see patient in office, ABX AND FOLLOW ankit UP , TIGHT DIET CONTROL. 11/02 15:49 Order name: CBC with Diff; Complete Time: 18:26 [facility] 11/02 15:49 Order name: Comprehensive Metabolic Panel; Complete Time: 18:26 ankit Administered Medications: 17:00 Drug: NS 0.9% 500 ml Route: IV; Rate: bolus; Site: right antecubital; [facility] 18:00 Follow up: IV Status: Completed infusion; IV Intake: 500ml [facility] 19:07 Drug: Doxycycline 200 mg Route: PO; [facility] 19:14 Follow up: Response: Medication administered at discharge. [facility] 19:07 Drug: Bactrim (trimethoprim-sulfamethoxazole) (160 mg-800 mg (DS) 2 tablet Route: PO; [facility] 19:14 Follow up: Response: Medication administered at discharge. [facility] 19:07 Drug: Many (HYDROcodone-acetaminophen) 10 mg-325 mg 1 tabs Route: PO; [facility] 19:14 Follow up: Response: Medication administered at discharge. [facility] Disposition Summary: 11/02/22 18:54 Discharge Ordered Location: Home [facility] Problem: new [facility] Symptoms: have improved ankit Condition: Stable [facility] Diagnosis - Hidradenitis suppurativa ankit - Type 2 diabetes mellitus with hyperglycemia ankit - Cellulitis of other sites - MILD LOWER ABDOMEN/FAT [facility] - Elevated white blood cell count [facility] - Morbid (severe) obesity due to excess calories [facility] Followup: [facility] - With: Private Physician - When: 2 - 3 days - Reason: Recheck today's complaints, Continuance of care, Re-evaluation by your physician Followup: [facility] - With: Mario Anne MD - When: 2 - 3 days - Reason: Recheck today's complaints, Continuance of care, Re-evaluation by your physician Discharge Instructions: - Discharge Summary Sheet [facility] - Cellulitis, Adult [facility] - Type 2 Diabetes Mellitus, Diagnosis, Adult ankit - Hidradenitis Suppurativa [facility] - Hyperglycemia ankit - Cellulitis, Adult, Xhjr-[id number]-Gjza [facility] - Diabetes Mellitus and Nutrition, Adult [facility] - Type 2 Diabetes Mellitus, Diagnosis, Adult, Iezo-wu-Zsle [facility] Forms: - Medication Reconciliation Form [facility] - Thank You Letter [facility] - Antibiotic Education [facility] - Prescription Opioid Use [facility] Prescriptions: - Bactrim DS 800-160 mg Oral Tablet - take 1 tablet by ORAL route every 12 hours for 10 days; 20 tablet; Refills: 0, [facility] Product Selection Permitted - Doxycycline Monohydrate 100 mg Oral Tablet - take 1 tablet by ORAL route every 12 hours for 10 days; 20 tablet; Refills: 0, [facility] Product Selection Permitted - Ibuprofen 600 mg Oral Tablet - take 1 tablet by ORAL route every 6 hours As needed take with food; 20 tablet; [facility] Refills: 0, Product Selection Permitted Signatures: Dispatcher [employer] Johan Becerra MD MD cha Prokisch, Amanda, RN RN ap3 Amaya Ritchie RN RN eh3
--- NOTE | 2022-11-02 18:55 | ER ---
Nurse's Notes [facility] Name: Kendall Kapoor Age: 36 yrs Sex: Male : 1985 Arrival Date: 11/02/2022 Time: 15:30 Bed 26 Private MD: Diagnosis: Hidradenitis suppurativa;Type 2 diabetes mellitus with hyperglycemia;Cellulitis of other sites-MILD LOWER ABDOMEN/FAT;Elevated white blood cell count;Morbid (severe) obesity due to excess calories Presentation: 11/02 15:52 Chief complaint: Patient states: he has holes in his groin area that require surgery ap3 but he has been able to get it. patient states that the wounds are leaking and he is unable to control the leaking. Coronavirus screen: At this time, the client does not indicate any symptoms associated with coronavirus-19. Ebola Screen: No symptoms or risks identified at this time. Initial Sepsis Screen: Does the patient meet any 2 criteria? No. Patient's initial sepsis screen is negative. Does the patient have a suspected source of infection? Yes: Skin breakdown/wound. Risk Assessment: Do you want to hurt yourself or someone else? Patient reports no desire to harm self or others. Onset of symptoms is unknown. 15:52 Method Of Arrival: Ambulatory ap3 15:52 Acuity: JELLY 3 ap3 Triage Assessment: 15:56 General: Appears in no apparent distress. Behavior is calm, cooperative. Pain: ap3 Complains of pain in pelvis Pain currently is 10 out of 10 on a pain scale. Quality of pain is described as sharp. Neuro: Level of Consciousness is awake, alert, obeys commands, Oriented to person, place, time, situation. Cardiovascular: Patient's skin is warm and dry. Respiratory: Airway is patent Respiratory effort is even, unlabored. Derm: Reports wounds to the groin area. Historical: - Allergies: 15:55 No Known Allergies; ap3 - PMHx: 15:55 Asthma; CAD; Enlarged Heart; TIA; ap3 - PSHx: 19:14 Appendectomy; hernia repair; eh3 - Immunization history:: Client reports having NOT received the Covid vaccine. Flu vaccine is not up to date. - Social history:: Smoking status: Patient reports the use of cigarette tobacco products, smokes one pack cigarettes per day. - Family history:: not pertinent. Screenin:57 Abuse screen: Denies threats or abuse. Nutritional screening: No deficits noted. ap3 Tuberculosis screening: No symptoms or risk factors identified. 16:30 [facility] ED Fall Risk Assessment (Adult) History of falling in the last 3 months, eh3 including since admission No falls in past 3 months (0 pts) Confusion or Disorientation No (0 pts) Intoxicated or Sedated No (0 pts) Impaired Gait No (0 pts) Mobility Assist Device Used No (0 pt) Altered Elimination Yes (1 pt) Score/Fall Risk Level 0 - 2 = Low Risk. Assessment: 16:30 General: Appears in no apparent distress. uncomfortable, Behavior is cooperative, eh3 appropriate for age, anxious. Pain: Complains of pain in groin. Neuro: Level of Consciousness is awake, alert, obeys commands, Oriented to person, place, time, situation. Cardiovascular: Capillary refill < 3 seconds Patient's skin is warm and dry. Respiratory: Airway is patent Respiratory effort is even, unlabored, Respiratory pattern is regular, symmetrical. GI: No signs and/or symptoms were reported involving the gastrointestinal system. Abdomen is round non-distended. : Lesions noted. EENT: No signs and/or symptoms were reported regarding the EENT system. 17:00 Reassessment: Patient appears in no apparent distress at this time. Patient and/or eh3 family updated on plan of care and expected duration. Pain level reassessed. Patient is alert, oriented x 3, equal unlabored respirations, skin warm/dry/pink. Pt verbalized understanding that we need a urine sample to check for infection. States he can only pee sitting down. Verbalized understanding that he can use the patient restroom to sit down and provide a urine sample. 17:30 Pain: Pain currently is 9 out of 10 on a pain scale. eh3 18:00 Reassessment: Patient appears in no apparent distress at this time. Patient and/or eh3 family updated on plan of care and expected duration. Pain level reassessed. Patient is alert, oriented x 3, equal unlabored respirations, skin warm/dry/pink. Vital Signs: 15:52 BP 121 / 95; Pulse 112; Resp 17; Temp 98.1; Pulse Ox 95% ; Weight 136.08 kg; Height 5 ap3 ft. 9 in. (175.26 cm); 17:00 BP 116 / 97; Pulse 92; Resp 18; Pulse Ox 100% on R/A; eh3 18:00 BP 120 / 73; Pulse 98; Resp 18; Pulse Ox 96% on R/A; eh3 15:52 Body Mass Index 44.30 (136.08 kg, 175.26 cm) ap3 ED Course: 15:30 Patient arrived in ED. rg4 15:48 Johan Hernandez MD is Attending Physician. ankit 15:55 Triage completed. ap3 15:57 Arm band placed on right wrist. ap3 16:10 Inserted saline lock: 20 gauge in right antecubital area, using aseptic technique. zm Blood collected. 16:11 Comprehensive Metabolic Panel Sent. zm 16:11 CBC with Diff Sent. zm 16:30 Patient has correct armband on for positive identification. Bed in low position. Call 3 light in reach. Side rails up X2. Pulse ox on. NIBP on. Door closed. Noise minimized. Warm blanket given. 16:44 Amaya Ritchie RN is Primary Nurse. eh3 18:53 Mario Anne MD is Referral Physician. [facility] 19:14 No provider procedures requiring assistance completed. IV discontinued, intact, eh3 bleeding controlled, No redness/swelling at site. Pressure dressing applied. Administered Medications: 17:00 Drug: NS 0.9% 500 ml Route: IV; Rate: bolus; Site: right antecubital; eh3 18:00 Follow up: IV Status: Completed infusion; IV Intake: 500ml 3 19:07 Drug: Doxycycline 200 mg Route: PO; 3 19:14 Follow up: Response: Medication administered at discharge. 3 19:07 Drug: Bactrim (trimethoprim-sulfamethoxazole) (160 mg-800 mg (DS) 2 tablet Route: PO; eh3 19:14 Follow up: Response: Medication administered at discharge. eh3 19:07 Drug: Dixon (HYDROcodone-acetaminophen) 10 mg-325 mg 1 tabs Route: PO; eh3 19:14 Follow up: Response: Medication administered at discharge. 3 Medication: 19:14 VIS not applicable for this client. 3 Intake: 18:00 IV: 500ml; Total: 500ml. 3 Outcome: 18:54 Discharge ordered by . ankit 19:15 Discharged to home ambulatory. 3 19:15 Condition: stable 19:15 Discharge instructions given to patient, Instructed on discharge instructions, follow up and referral plans. medication usage, Demonstrated understanding of instructions, follow-up care, medications, Prescriptions given X 3. 19:17 Patient left the ED. 3 Signatures: Johan Hernandez MD MD cha Garcia, Rubi rg4 Kandace Gustafson RN RN [email or web address] Amaya Ritchie RN RN eh3 Nupur Dawkins
[2022-11-02] MEDS ORDERED: HYDROCODONE/APAP 10/325 TAB ONE (19:04)
[2022-11-02] MEDS ORDERED: DOXYCYCLINE 100 MG CAP PO ONE (19:05)
[2022-11-02] MEDS ORDERED: SMZ./TMP. 800/160 MG TABLET ONE (19:05)
[2022-11-02 19:29] VITALS: TEMP 98.1
[2022-11-02 19:40] VITALS: BP 120/73; O2SAT 96
== END 2022-11-02 19:17 | disposition home or self-care (01) ==
LOC: ER 15:29
DX: L73.2 Hidradenitis suppurativa (principal); L03.818 Cellulitis of other sites; E11.65 Type 2 diabetes mellitus with hyperglycemia; D72.829 Elevated white blood cell count, unspecified; E66.01 Morbid (severe) obesity due to excess calories; F17.210 Nicotine dependence, cigarettes, uncomplicated
CPT/HCPCS: 36415; 80053; 85025; 96360; 99284; J7040

== ENCOUNTER 2023-07-17 17:26 | Emergency (ER) | payer SELFPAY ==
--- OUTSIDE RECORDS SUMMARY | 2023-07-17 17:34 | XMS REPORT | Continuity of Care Document ---
:1985 Author Organization [facility] t Address [address] [place] [address] [place] [id number] Care Team Providers Name Role Phone Asked, No Pcp Primary Care Physician Unavailable TAMERA KRAUSE Attending Clinician Unavailable CARL SOTO Attending Clinician Unavailable Tamera Krause MD Attending Clinician Carl Magdaleno MD Attending Clinician Evan Isabel MD Attending Clinician MAYCOL SRIVASTAVA Attending Clinician Unavailable Maycol Srivastava MD Attending Clinician Tomrubi_T Attending Clinician Unavailable DANIE DOMINGUEZ Attending Clinician Unavailable Jama Mcgovern MD Attending Clinician LAI GONZALEZ Attending Clinician Unavailable Peter Duffy MD Attending Clinician Lai Gonzalez DO Attending Clinician CHEKO NIX Attending Clinician Unavailable Cheko Nix MD Attending Clinician JENIFFER RONQUILLO Attending Clinician Unavailable Jeniffer Ronquillo MD Attending Clinician Annette MARTIN Attending Clinician Unavailable Veronica CARVAJAL K Sol Attending Clinician Charles SIGALA, Carl Looney Attending Clinician Franco Blancas MD Attending Clinician Thu SIGALA, Idalia Gan Attending Clinician Doctor Unassigned, [place] Attending Clinician Unavailable Only, Adc Test Attending Clinician Unavailable Chandan SIGALA, Robert Attending Clinician Hayder ROB, Mary Schumacher Attending Clinician Winnie SIGALA, Javy Garcia Attending Clinician JAVY POSEY Attending Clinician Unavailable Iker SIGALA, Blayne Attending Clinician Jamia SIGALA, Maximo Blackburn Attending Clinician MAXIMO BLANDON Attending Clinician Unavailable PAU FLOOD Attending Clinician Unavailable Aleena SIGALA, Pau Attending Clinician Osiris Hanna MD Attending Clinician OSIRIS HANNA Attending Clinician Unavailable ERAM YOU Attending Clinician Unavailable Eliseo ROB, Franky Bowman Attending Clinician Unavailable TAMERA KRAUSE Admitting Clinician Unavailable CARL SOTO Admitting Clinician Unavailable MAYCOL SRIVASTAVA Admitting Clinician Unavailable Tomek_T Admitting Clinician Unavailable JENIFFER RONQUILLO Admitting Clinician Unavailable Annette MARTIN Admitting Clinician Unavailable Carl Soto MD Admitting Clinician Javy Posey MD Admitting Clinician JAVY POSEY Admitting Clinician Unavailable PAU FLOOD Admitting Clinician Unavailable Pau Flood MD Admitting Clinician JAVY PEÑA Admitting Clinician Unavailable Payers Payer Name Policy Type Policy Number Effective Date Expiration Date S ource BCBS PPO POS EPO [id number] 2022 00:00:00 CHOICE BCBS [facility] [id number] 2020 00:00:00 [place] [id number] 2022 00:00:00 [place] Problems Condition Condition Condition Status Onset Resolution Last Treating Co mments Source Name Details Category Date Date Treatment Clinician Date Acute on Acute on Disease Recurre [facility] diastolic diastolic 00:00: [facility] CHF CHF 00 Center (congestiv (congestiv e heart e heart failure) failure) Pain in Pain in Disease Active Methodi left left 8 st testicle testicle 00:00: Hospit a 00 l Acute Acute Disease Recurre [facility] exacerbati exacerbati nce 5-22 Lori kes on of CHF on of CHF 00:00: [facility] (congestiv (congestiv 00 Ce nter e heart e heart failure) failure) Bilateral Bilateral Disease Active 2021-10 Met hodi groin pain groin pain 2-01 st 00:00: Hospita 00 l Inguinal Inguinal [...] ents Source Name Type Date Date Clinician Semaglut Propensi Active Other (See 2021-10 Me thodi cher ty to Comments) 0-25 st adverse 00:00: Hospita reaction 00 l s to drug Dextroam Propensi Active Other (See 2021-10 Me thodi phetamin ty to Comments) 0-25 st e-Amphet adverse 00:00: Hospita amine reaction 00 l s to drug Venom-Ho Propensi Active Anaphylaxis 2017-10 U nivers estela Bee ty to ity of adverse 00:00: [place] reaction 00 Medical s Branch VENOM-HO DRUG Active High Anaphylaxis 2017-10 Uni vers ESTELA BEE INGREDI ity of 00:00: 00 Medical Branch 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 to st Protein adverse 00:00: Hospita (Honey reaction 00 l Bee) s to drug Other Propensi Active Anaphylaxis 2017-[address] adverse 00:00: Hospita reaction 00 l s NO KNOWN Allergy Active [facility] Social History Social Habit Start Date Stop Date Quantity Comments Source History SDFL University o f Alcohol Std Drinks [place] [facility] History SDOH [facility] o [facility] Alcohol Binge [place] [facility] History [facility] University o f Alcohol Comment [facility] ical Branch Gender identity [facility] Sexual orientation [facility] History of tobacco Cigarette Smoker [facility] History SDOH [facility] Alcohol intake 2023-06-30 2023-06-30 Ex-drinker [facility] Fat[facility] es 00:00:00 00:00:00 (finding) Medical Center History of Social 2023-05-30 2023-05-[address] function 00:00:00 00:00:00 Hospital History SDOH 2023-03-21 2023-03-[address] [facility] Transport Med 00:00:00 00:00:[address] History SDOH 2023-03-21 2023-03-21 2 NIRMALA Jacobo Housing Unable to 00:00:00 00:00:00 Medical Center Pay History SDFL 2023-03-21 2023-03-21 1 NIRMALA Jacobo Housing Places 00:00:00 00:00:00 Medical nter Lived History SDFL 2023-03-21 2023-03-21 2 NIRMALA Jacobo Housing Homeless 00:00:00 00:00:00 Medical Center Last Year Cigarettes smoked 2023-03-20 2023-03-20 NIRMALA Jacobo current (pack per 00:00:00 00:00:00 Medical Center day) - Reported Cigarette 2023-03-20 2023-03-20 NIRMALA Jacobo pack-years 00:00:00 00:00:00 Medical Center Tobacco use and 2022-09-21 2022-09-21 Smokeless [facility] exposure 00:00:00 00:00:00 tobacco non-user Hospital Exposure to 2022-07-30 2022-08-09 Not sure [facility] SARS-CoV-2 (event) 00:00:00 13:32:00 [facility] Education 2021-08-31 2021-08-31 15 University of 00:00:00 00:00:00 [facility] History SDOH 2020-08-03 2020-08-03 1 University o f Alcohol Frequency 00:00:00 00:00:00 [facility] Tobacco Comment 2020-08-02 2020-08-02 Down from 2 [facility] ersity of 00:00:00 00:00:00 [facility] Sex [birth year] At [birth year] NIRMALA Rezas 00:00:00 00:00:00 Medical Center Smoking Status Start Date Stop Date Source Heavy Tobacco Smoker [facility] Smokes tobacco daily 2022-09-21 00:00:00 [facility] Medications Ordered Filled Start Stop Current Ordering Indication Dosage Frequency Signature Comments Components Source Medication Medication Date Date Medication? Clinician (SIG) Name Name sacubitriL- Yes 1{tbl} Q.5D Take [address] valsartan 8-12 tablet by Linda (Entresto) 12:47: mouth 2 Medi srinath 24-26 mg 54 (two) Center tablet times daily. celecoxib Yes Methodi (CeleBREX) 6-14 st 200 MG 00:00: Hospita capsule 00 l meloxicam Yes Methodi (MOBIC) 7.5 6-07 st mg tablet 00:00: Hospita 00 l aspirin 81 2022-0 2023- No 81mg Chew 1 Meth vangie mg chewable 5-27 05-27 tablet (81 s t tablet 00:00: 04:59 mg total). Hosp kalin 00 :00 l aspirin 81 2022-0 2023- No 81mg QD Take [address] MG chewable 5-27 05-26 tablet (81 L ukes tablet 00:00: 23:59 mg total) Medic al 00 :00 by mouth Center in the morning. You can get this over the counter if needed. albuterol Yes USE 1 VIAL Me thodi (ACCUNEB) 5-[address] 2.5 mg /3 00:00: NEBULIZER Hos emma mL (0.083 00 EVERY 6 l %) HOURS nebulizer NEEDED FOR solution WHEEZING OR SHORTNESS OF BREATH furosemide Yes 40mg Q.5D Take 1 CHI S t (LASIX) 40 5-26 tablet (40 Fatou es MG tablet 00:00: mg total) Med ical 00 by mouth Center in the morning and 1 tablet (40 mg total) before bedtime. dextrometho Yes 5mL Take [address] rphan-guaif 5-26 by mouth Luke s enesin 00:00: every 4 Medical (ROBITUSSIN 00 (four) Center -DM) 10-100 hours as mg/5 mL needed liquid (cough) You can get this over the counter if needed. traMADoL Yes 50mg Take [address] (ULTRAM) 50 5-26 tablet (50 Lori kes mg tablet 00:00: mg total) Med ical 00 by mouth Center every 6 (six) hours as needed for Pain. Max Daily Amount: 200 mg fluticasone Yes 1{puff} QD Inhale [address] furoate-elle 5-26 puff by [facility]ukes anteroL 00:00: mouth via Medic al (BREO 00 inhaler in Center [facility]) the 200-25 morning. mcg/dose DsDv albuterol Yes 2.5mg Take 0.[address] (PROVENTIL) -26 mLs (2.5 Luke s 2.5 mg/0.5 00:00: mg total) Me dical mL Nebu 00 by Center nebulizer nebulizati solution on every 6 (six) hours as needed for Wheezing or Shortness of Breath Dx: bronchospa sm. atorvastati 2023- No 20mg Take 1 Met hodi n (LIPITOR) 03-24-26 tablet (20 s t 20 mg 00:00: 04:59 mg total) Hospit a tablet 00 :00 by mouth. l guaiFENesin 2023- No 600mg Q.5D Take [address] (mucINEX) -24 03-25 tablet [facility] 600 mg 12 00:00: 23:59 (600 mg Medi srinath hr tablet 00 :00 total[facility] morning and 1 tablet (600 mg total) before bedtime. For chronic cough. atorvastati 2023- No 20mg QD Take [address] n (LIPITOR) 03-24-25 tablet (20 L ukes 20 MG 00:00: 23:59 mg total) Medica l tablet 00 :00 by mouth Center in the morning. potassium 2022- No 20meq QD Take [address] chloride - 08-12 tablet (20 Luke s (K-TAB) 20 00:00: 00:00 mEq total) Medical mEq CR 00 :00 by mouth Center tablet in the morning. Take this with your diuretic. potassium Yes 20meq Take 20 Meth vangie chloride 20 5-[address] mEq tablet 00:00: mouth. Hospi ta extended 00 l release carvediloL 2022- No 6.25mg Q.5D Take [address] (COREG) 5-16 -26 tablet [facility] 6.25 MG 00:00: 00:00 (6.25 mg Medic al tablet 00 :00 total) by Center mouth in the morning and 1 tablet (6.25 mg total) before bedtime. furosemide 2022- No 20mg QD Take [address] (LASIX) 20 5-16 -26 tablet (20 Lori kes MG tablet 00:00: 00:00 mg total) Me dical 00 :00 by mouth Center in the morning. potassium 2022-0 2022- No 20meq QD Take [address] chloride 5-16 05-26 tablet (20 Luke s (K-TAB) 20 00:00: 00:00 mEq total) Medical mEq CR 00 :00 by mouth Center tablet in the morning. semaglutide 2022-0 Yes .5mg Q1W Inject 0.5 Methodi (Ozempic) 3-[address] 0.25 mg or 00:00: the skin Hos emma 0.5 mg(2 00 every 7 l mg/1.5 mL) days. subcutaneou s pen Ozempic 3-0 Yes .5mg Q7D Inject [facility] 0.25 mg or 3-12 0.375 mLs Luke s 0.5 mg(2 00:00: (0.5 mg Medica l mg/1.5 mL) 00 total) Center PnIj subcutaneo usly once a week. No known 2021-10 No No known Metho di medications -[address] 11:32: s Hospita 35 l No known 2021-10 No No known Metho di medications -[address] 11:32: s Hospita 35 l ketorolac 2021-0 2021- No 30mg 30 mg, Unive rs (TORADOL) 4-12 04-12 Slow IV ity of injection 10:15: 09:06 Push, [place] 30 mg 00 :00 ONCE, 1 Medical dose, On Mon02/08/22 at 0515, MICHELLE
Fa culty member [...] al on inhaler AERS Branch ibuprofen Yes [id number] 600mg Take 1 U nivers 600 mg [...] Indication s: acute pain ibuprofen 0 Yes [id number] 600mg Take 1 U nivers 600 mg [...] Indication s: acute pain ibuprofen 2021-0 Yes [id number] 600mg Take 1 U nivers 600 mg [...] Pain (scale 4-6). Indication s: acute pain traMADoL Yes 50mg Take 1 Methodi (ULTRAM) 50 4-12 tablet (50 st mg tablet 00:00: mg total) Hos emma 00 by mouth. l cefTRIAXone 2021- No 1000mg 1,000 mg, Univers (ROCEPHIN) 11-28 IV ity of 1,000 mg in 07:00: 06:36 Piggyback, [place] NaCl 0.9% 00 :00 ONCE, 1 Medical (NS) 50 mL dose, On Bran h MINI-BAG 11/28/21 at 0100, Administer over 30 Minutes, 50 mL
Reas on for Anti-Infec tive: Documented Infection< br>Documen rosalia Infection Site: Skin / Soft Tissue
Duration of Therapy: Other (see Comments) iohexol 2021- No [id number] 120mL 120 mL, U nivers (OMNIPAQUE 11-28 Intravenou it y of 350 05:15: 05:04 s, ONCE, 1 [place] BULK-100 00 :00 dose, On Medical mL) Sat Branch injection 11/27/21 at 120 mL 2315, Routine cephALEXin 2021- No [id number] 500mg Take 1 Univers (KEFLEX) 11-28 0210 capsule by ity of 500 mg 00:00: 05:59 mouth 3 [place] capsule 00 :00 (three) Medical times Branch daily for 10 days. acetaminoph 2020-10- No [id number] 1{tbl} Take 1 U nivers en-codeine 11-30 1209 tablet by ity of 300-30 mg 00:00: [...] on inhaler [facility] Branch alum-mag 2020-10 Yes [id number] 30mL Take 30 mL Univers hydroxide-s 1-23 by mouth 3 it y of imeth 00:00: (three) [place] times Medical mg/5 mL daily. Branch suspension alum-mag 2020-10 Yes [id number] 30mL Take 30 mL Univers hydroxide-s 1-23 by mouth 3 it y of imeth 00:00: (three) [place] times Medical mg/5 mL daily. Branch suspension alum-mag 2020-10 Yes [id number] 30mL Take 30 mL Univers hydroxide-s 1-23 by mouth 3 it y of imeth 00:00: (three) [place] times Medical mg/5 mL daily. Branch suspension alum-mag 2020-10 Yes [id number] 30mL Take 30 mL Univers hydroxide-s 1-23 by mouth 3 it y of imeth 00:00: (three) [place] times Medical mg/5 mL daily. Branch suspension alum-mag 2020-10 Yes [id number] 30mL Take 30 mL Univers hydroxide-s 1-23 by mouth 3 it y of imeth 00:00: (three) [place] times Medical mg/5 mL daily. Branch suspension acetaminoph 2020-10- No [id number] 650mg Take 2 Univers en 325 mg 1-23 11-24 tablets by ity of tablet 00:00: 05:59 mouth [place] 00 :00 every 6 Medical (six) Branch hours. acetaminoph 2020-10- No [id number] 650mg Take 2 Univers en 325 mg 1-23 11-24 tablets by ity of tablet 00:00: 05:59 mouth [place] 00 :00 every 6 Medical (six) Branch hours. acetaminoph 2020-10- No [id number] 650mg Take 2 Univers en 325 mg 1-23 11-24 tablets by ity of tablet 00:00: 05:59 mouth [place] 00 :00 every 6 Medical (six) Branch hours. acetaminoph 2020-10- No [id number] 650mg Take 2 Univers en 325 mg 1-23 11-24 tablets by ity of tablet 00:00: 05:59 mouth [place] 00 :00 every 6 Medical (six) Branch hours. acetaminoph 2020-10- No [id number] 650mg Take 2 Univers en 325 mg 1-23 11-24 tablets by ity of tablet 00:00: 05:59 mouth [place] 00 :00 every 6 Medical (six) Branch hours. ciprofloxac 2020-10- No [id number] 500mg Take 1 Univers in HCl 500 [...] tablet 00 Medical Branch amphetamine 2020-10 Yes [facility] -dextroamph 0-21 ity of etamine 20 [...] etamine 10 00:00: [place] mg tablet 00 [facility] furosemide Yes as needed. U nivers 40 mg 9-15 ity of tablet 00:00: [facility] furosemide Yes as needed. U nivers 40 mg 9-15 ity of tablet 00:00: [facility] furosemide Yes as needed. U nivers 40 mg 9-15 ity of tablet 00:00: [facility] furosemide Yes as needed. U nivers 40 mg 9-15 ity of tablet 00:00: [facility] furosemide Yes as needed. U nivers 40 mg 9-15 ity of tablet 00:00: [place] [facility] No known No No known Metho di medications 5-[address] 10:50: s Hospita 35 l carvedilol carvedilol No carvedilol [place] 6.25 mg 6.25 mg 6.25 mg da tablet TAKE tablet TAKE tablet Medical 1 TABLET BY 1 TABLET BY TAKE 1 Group MOUTH TWICE MOUTH TWICE TABLET BY DAILY DAILY MOUTH TWICE DAILY furosemide furosemide No 1 Q1D furosemide [place] 20 mg 20 mg 20 mg da tablet Take tablet Take tablet Medical 1 tablet 1 tablet Take 1 Group every day every day tablet by oral by oral every day route for route for by oral 30 days. 30 days. route for 30 days. potassium potassium No 1 Q1D potassium [place] chloride ER chloride ER chloride da 20 mEq 20 mEq ER 20 mEq Medica l tablet,exte tablet,exte tablet,ext Group nded nded ended release release release Take 1 Take 1 Take 1 tablet tablet tablet every day every day every day by oral by oral by oral route for route for route for 30 days. 30 days. 30 days. Immunizations Ordered Filled Immunization Date Status Comments [facility] e Immunization Name Name Influenza Virus 2014-07-09 Completed Universit y of Vaccine Quad IM 3+ 00:00:00 [facility] Influenza Virus 2014-07-09 Completed Universit y of Vaccine Quad IM 3+ 00:00:00 [facility] Influenza Virus 2014-07-09 Completed Universit y of Vaccine Quad IM 3+ 00:00:00 [facility] Influenza Virus 2014-07-09 Completed Universit y of Vaccine Quad IM 3+ 00:00:00 [facility] Influenza Virus 2014-07-09 Completed Universit y of Vaccine Quad IM 3+ 00:00:00 [facility] Influenza Virus 2014-01-06 Completed Universit y of Vaccine (3+ yrs) 00:00:00 [facility] Influenza Virus 2014-01-06 Completed Universit y of Vaccine (3+ yrs) 00:00:00 [facility] Influenza Virus 2014-01-06 Completed Universit y of Vaccine (3+ yrs) 00:00:00 [facility] Influenza Virus 2014-01-06 Completed Universit y of Vaccine (3+ yrs) 00:00:00 [facility] Influenza Virus 2014-01-06 Completed Universit y of Vaccine (3+ yrs) 00:00:00 [facility] TDAP 2009-03-10 Completed University of 00:00:00 [facility] TDAP 2009-03-10 Completed University 00:00:00 [facility] TDAP 2009-03-10 Completed University 00:00:00 [facility] TDAP 2009-03-10 Completed University 00:00:00 [facility] TDAP 2009-03-10 Completed University of 00:00:00 [facility] Vital Signs Vital Name Observation Time Observation Value Comments Source WEIGHT 2023-06-09 06:00:00 153.588 kg WEIGHT 2023-06-07 06:20:00 156.083 kg WEIGHT 2023-06-09 06:00:00 153.588 kg WEIGHT 2023-06-07 06:20:00 156.083 kg WEIGHT 2023-06-09 06:00:00 153.588 kg WEIGHT 2023-06-07 06:20:00 156.083 kg WEIGHT 2023-03-24 05:01:00 158.396 kg WEIGHT 2023-03-23 04:35:00 159.122 kg WEIGHT 2023-03-22 05:31:00 152.409 kg WEIGHT 2023-03-21 04:56:00 153.407 kg HEIGHT 2023-03-20 20:08:00 172.7 cm WEIGHT 2023-03-24 05:01:00 158.396 kg WEIGHT 2023-03-23 04:35:00 159.122 kg WEIGHT 2023-03-22 05:31:00 152.409 kg WEIGHT 2023-03-21 04:56:00 153.407 kg HEIGHT 2023-03-20 20:08:00 172.7 cm WEIGHT 2023-03-24 05:01:00 158.396 kg WEIGHT 2023-03-23 04:35:00 159.122 kg WEIGHT 2023-03-22 05:31:00 152.409 kg WEIGHT 2023-03-21 04:56:00 153.407 kg HEIGHT 2023-03-20 20:08:00 172.7 cm BP Diastolic 2023-03-14 00:00:00 85 mm[Hg] [facility] BP Systolic 2023-03-14 00:00:00 140 mm[Hg] [facility] Body Weight 2023-03-14 00:00:00 5689 [oz_av] [facility] Systolic blood 2022-08-09 18:32:00 143 mm[Hg] Univer sity of pressure [facility] Diastolic blood 2022-08-09 18:32:00 101 mm[Hg] [facility] Heart rate 2022-08-09 18:32:00 100 /min [facility] Body temperature 2022-08-09 18:32:00 36.56 Brittanie [facility] Respiratory rate 2022-08-09 18:32:00 20 /min [facility] Body height 2022-08-09 18:32:00 172.7 cm [facility] Body weight 2022-08-09 18:32:00 158.759 kg [facility] BMI 2022-08-09 18:32:00 53.22 kg/m2 [facility] Oxygen saturation in 2022-08-09 18:32:00 95 /min University of Arterial blood by [place] Medi srinath Pulse oximetry Branch Systolic blood 2022-02-08 [...] University of Arterial blood by [place] ComQi srinath Pulse oximetry Branch Body temperature 2022-02-08 07:18:00 [...] 95 /min University of Arterial blood by [facility] Pulse oximetry Branch Respiratory rate 2021-11-28 04:20:00 20 /min Univ ersity of [place] [facility] Body temperature 2021-11-28 04:12:00 37.11 Brittanie Univ ersity of [place] [facility] Body height 2021-11-28 04:12:00 172.7 cm Universi ty of [place] [facility] Body weight 2021-11-28 04:12:00 148.8 kg Universi ty [facility] [place] [facility] BMI 2021-11-28 04:12:00 49.88 kg/m2 Universi ty [facility] [place] [facility] Systolic blood 2021-09-29 20:18:00 145 mm[Hg] Univer sity of [facility] Diastolic blood 2021-09-29 20:18:00 84 mm[Hg] Unive rsity [facility] Heart rate 2021-09-29 20:18:00 117 /min [facility] Body temperature 2021-09-29 20:18:00 36.5 Brittanie [facility] Respiratory rate 2021-09-29 20:18:00 18 /min Univ [facility] Body height 2021-09-29 20:18:00 170.2 cm [facility] Body weight 2021-09-29 20:18:00 145.287 kg [facility] BMI 2021-09-29 20:18:00 50.17 kg/m2 [facility] Systolic blood 2023-06-10 11:00:00 101 mm[Hg] [facility] Diastolic blood 2023-06-10 11:00:00 64 mm[Hg] [facility] Heart rate 2023-06-10 11:00:00 99 /min [facility] Body temperature 2023-06-10 11:00:00 36.67 Brittanie [facility] Respiratory rate 2023-06-10 11:00:00 20 /min [facility] Oxygen saturation in 2023-06-10 11:00:00 94 /min [facility] Arterial blood by Medical Ce nter Pulse oximetry Body weight 2023-06-09 06:00:00 153.588 kg [facility] BMI 2023-06-09 06:00:00 51.48 kg/m2 [facility] Body height 2023-03-20 20:08:00 172.7 cm [facility] Systolic blood 2022-09-21 17:28:00 106 mm[Hg] Method ist [facility] pressure Diastolic blood 2022-09-21 17:28:00 69 mm[Hg] [facility] pressure Heart rate 2022-09-21 17:28:00 102 /[facility] Body temperature 2022-09-21 17:28:00 36.56 Brittanie [facility] Body height 2022-09-21 17:28:00 175.3 cm [facility] Body weight 2022-09-21 17:28:00 160.029 kg [facility] BMI 2022-09-21 17:28:00 52.10 kg/m2 [facility] Oxygen saturation in 2022-09-21 17:28:00 98 /min [facility] Arterial blood by Pulse oximetry Procedures Procedure Date / Time Performing Clinician Source Performed POCT-GLUCOSE METER 2023-06-09 22:10:00 Tamera Krause [facility] CT CHEST WITHOUT IV 2023-06-09 13:53:00 Tamera Krause [facility] CONTRAST [place] BASIC METABOLIC PANEL 2023-06-09 04:52:00 Tamera Krause [facility] POCT-GLUCOSE METER 2023-06-08 20:08:00 Tamera Krause [facility] POCT-ACT 2023-06-08 20:04:00 Tamera Krause [facility] ANGIOGRAM, CORONARY 2023-06-08 18:29:00 Carl Magdaleno [facility] ARTERY, W BOTH RIGHT + Center LEFT HEART CATH, LEFT VENTRICULOGRAM, AND PHARMACOLOGIC AGENT ADMIN, FOR PROSTAGLANDIN STUDY BASIC METABOLIC PANEL 2023-06-08 04:31:00 Tamera Krause [facility] CBC W/PLT COUNT & AUTO 2023-06-08 04:31:00 Tamera Krause [facility] DIFFERENTIAL Center CBC W/PLT COUNT & AUTO 2023-06-08 04:31:00 Tamera Krause [facility] DIFFERENTIAL [place] XR CHEST 1 VIEW PORTABLE 2023-06-07 11:20:00 Tamera Krause [facility] / BEDSIDE Center BASIC METABOLIC PANEL 2023-06-07 04:11:00 Tamera Krause [facility] CBC W/PLT COUNT & AUTO 2023-06-07 04:11:00 Tamera Krause [facility] DIFFERENTIAL Center CBC W/PLT COUNT & AUTO 2023-06-07 04:11:00 Tamera Krause [facility] DIFFERENTIAL Center BASIC METABOLIC PANEL 2023-06-06 20:59:00 HasTamera hernandez C [facility] CBC W/PLT COUNT & AUTO 2023-06-06 20:59:00 HasanTamera [facility] DIFFERENTIAL Center B-TYPE NATRIURETIC 2023-06-06 20:59:00 HasTamera hernandez [facility] FACTOR (BNP) Center CBC W/PLT COUNT & AUTO 2023-06-06 20:59:00 HasTamera hernandez [facility] DIFFERENTIAL Center VASCULAR DIAGRAM -SCAN 2023-06-06 00:00:00 Provider, [facility] Scanning [place] CARDIAC CATH REPORT - 2023-06-06 00:00:00 Provider, [facility] SCAN Scanning Center 2D ECHO W/ DOPPLER 2023-03-23 17:04:08 Ethan Winchester [facility] (CW/PW/COLOR) Center CT ABDOMEN/PELVIS WITH 2023-03-23 09:35:00 Maycol Srivastava [facility] IV CONTRAST Center CT CHEST WITHOUT IV 2023-03-23 09:15:00 Toribio Doe [facility] CONTRAST Center BASIC METABOLIC PANEL 2023-03-22 05:44:00 Maycol Srivastava [facility] MAGNESIUM 2023-03-22 05:44:00 Maycol Srivastavaa [facility] CBC (HEMOGRAM ONLY) 2023-03-22 05:42:00 Maycol Srivastava Hy[facility] HEMOGLOBIN A1C 2023-03-22 05:42:00 Carl Magdaleno [facility] ALPHA FETOPROTEIN (AFP), 2023-03-21 22:03:00 Suad GraffElvira [facility] TUMOR MARKER Center LACTATE DEHYDROGENASE 2023-03-21 22:03:00 Srikanth Graff [facility] (LDH) Center HCG, QUANTITATIVE, 2023-03-21 22:03:[address] [facility] ECG 12-LEAD 2023-03-21 09:50:06 Carl Magdaleno [facility] BASIC METABOLIC PANEL 2023-03-21 06:09:00 Liz, Maycol Fazala [facility] MAGNESIUM 2023-03-21 06:09:00 Liz, Maycol Hystorma [facility] CBC (HEMOGRAM ONLY) 2023-03-21 06:09:00 Liz, Maycol Hystorma [facility] LIPID PANEL 2023-03-21 06:09:00 Liz, [facility] HIGH SENSITIVITY 2023-03-21 06:09:00 Liz, [facility] TROPONIN I Center US TESTICULAR (SCROTUM) 2023-03-21 02:26:00 Liz, [facility] SARS-COV2/RT-PCR ([facility] 2023-03-20 22:18:00 Liz, [facility] REF LABS) Center BLOOD CULTURE 2023-03-20 20:45:00 Liz, [facility] BASIC METABOLIC PANEL 2023-03-20 20:44:00 Liz, [facility] HEPATIC FUNCTION PANEL 2023-03-20 20:44:00 Liz, Maycol Diehla C [facility] MAGNESIUM 2023-03-20 20:44:00 Liz, [facility]col [facility] CBC (HEMOGRAM ONLY) 2023-03-20 20:44:00 Liz, [facility] B-TYPE NATRIURETIC 2023-03-20 20:44:00 Liz, [facility] (BNP) Center HIGH SENSITIVITY 2023-03-20 20:44:00 Liz, [facility] TROPONIN I Center XR CHEST 1 VIEW PORTABLE 2023-03-20 19:55:00 Liz, [facility] CONSENT/REFUSAL FOR 2022-08-09 18:10:44 Doctor Unassigned, [facility] URINALYSIS 2022-02-08 08:48:00 Jeniffer Ronquillo [facility] US SCROTUM AND CONTENTS 2022-02-08 08:16:13 Jeniffer Ronquillo [facility] COMP. METABOLIC PANEL 2022-02-08 07:46:00 Jeniffer Ronquillo [facility] ([id number]) [facility] CBC WITH DIFF 2022-02-08 07:46:00 Yg [facility] PROTHROMBIN TIME / INR 2022-02-08 07:46:00 Yg [facility]iffer [facility] ACTIVATED PARTIAL 2022-02-08 07:46:00 Yg [facility] THRMPLAS CONSENT/REFUSAL FOR 2022-02-08 07:04:00 [facility] URINALYSIS 2021-11-28 06:09:00 Annette Martin Sol [facility] CT ABDOMEN PELVIS W 2021-11-28 05:10:12 Annette Martin [facility] CONTRAST [facility] COMP. METABOLIC PANEL 2021-11-28 04:52:00 Annette Martin Sol [facility] ([id number]) [facility] CBC WITH DIFF 2021-11-28 04:52:00 Annette Martin [facility] Procedure on Shoulder [facility] Appendectomy [facility] Hernia Repair [facility] Plan of Care Planned Activity Planned Date Details Comments Source Future Scheduled 2026-03-21 Lipid panel (procedure) [facility] Test 00:00:00 [code = 86828573] Medical Ce nter Future Scheduled 2024-03-[address] [facility] Test 00:00:00 Counseling and Screening [facility] (12+) [code = Tobacco Cessation Counseling and Screening (12+)] Future Scheduled 2023-07-17 COVID-19 VACCINE (#1) [facility] 17:29:36 [code = COVID-19 VACCINE Hos pital (#1)] Future Scheduled 2023-07-17 Pneumococcal Vaccine: [facility] 17:29:36 Pediatrics (0 to 5 Hospital Years) and At-Risk Patients (6 to 64 Years) (1 - PCV) [code = Pneumococcal Vaccine: Pediatrics (0 to 5 Years) and At-Risk Patients (6 to 64 Years) (1 - PCV)] Future Scheduled 2023-07-17 Hepatitis C screening [facility] 17:29:36 (procedure) [code = Hospital [id number]] Future Scheduled 2023-07-17 INFLUENZA VACCINE (#1) [facility] Test 17:29:36 [code = INFLUENZA Hospital VACCINE (#1)] Future Scheduled 2023-06-30 Influenza Vaccine (#1) [facility] 00:00[facility]00 [code = Influenza Medical Ce nter Vaccine (#1)] Future Scheduled 2023-06-[address] [facility] Test 00:00:00 measurement (procedure) [facility] [code = [id number]] Diagnostic Test 2023-03-14 CMP, serum or [facility]ending 00:00:00 [code = CMP, serum or Group plasma] Diagnostic Test 2023-03-14 pro BNP (pro B-type [facility] Pending 00:00:00 natriuretic peptide), Group serum or plasma [code = pro BNP (pro B-type natriuretic peptide), serum or plasma] Diagnostic Test 2023-03-14 CBC w/ auto diff [code = [facility] Pending 00:00:00 CBC w/ auto diff] Group Diagnostic Test 2023-03-14 TSH, serum or plasma [facility] Pending 00:00:00 [code = TSH, serum or Group plasma] Diagnostic Test 2023-03-14 hemoglobin A1c, QN, [facility] Pending 00:00:00 blood [code = hemoglobin Giuliano up A1c, QN, blood] Future Scheduled 2023-02-03 COVID-19 VACCINE (#1) [facility] 13:02:59 [code = COVID-19 VACCINE Hos pital (#1)] Future Scheduled 2023-02-03 Pneumococcal Vaccine: [facility] 13:02:59 Pediatrics (0 to 5 Hospital Years) and At-Risk Patients (6 to 64 Years) (1 - PCV) [code = Pneumococcal Vaccine: Pediatrics (0 to 5 Years) and At-Risk Patients (6 to 64 Years) (1 - PCV)] Future Scheduled 2023-02-03 Hepatitis C screening [facility] 13:02:59 (procedure) [code = Hospital [id number]] Future Scheduled 2023-02-03 INFLUENZA VACCINE [code [facility] 13:02:59 = INFLUENZA VACCINE] [facility] Future Scheduled 2022-10-31 COVID-19 VACCINE (#1) [facility] 19:48:19 [code = COVID-19 [facility]INE [facility] Future Scheduled 2022-10-31 Pneumococcal Vaccine: [facility] 19:48:19 Pediatrics (0 to 5 Hospital Years) and At-Risk Patients (6 to 64 Years) (1 - PCV) [code = Pneumococcal Vaccine: Pediatrics (0 to 5 Years) and At-Risk Patients (6 to 64 Years) (1 - PCV)] Future Scheduled 2022-10-31 Hepatitis C screening [facility] 19:48:19 (procedure) [code = Hospital [id number]] Future Scheduled 2022-10-31 INFLUENZA VACCINE [code [facility] 19:48:19 = INFLUENZA VACCINE] [facility] Future Scheduled 2022-10-[address] [facility] 00:00:00 (12+) [code = DEPRESSION [facility] SCREENING (12+)] Future Scheduled 2022-09-29 Pneumococcal Vaccine: [facility] 12:10:19 Pediatrics (0 to 5 Hospital Years) and At-Risk Patients (6 to 64 Years) (1 - PCV) [code = Pneumococcal Vaccine: Pediatrics (0 to 5 Years) and At-Risk Patients (6 to 64 Years) (1 - PCV)] Future Scheduled 2022-09-29 Hepatitis C screening [facility] 12:10:19 (procedure) [code = Hospital [id number]] Future Scheduled 2022-09-29 INFLUENZA VACCINE [code [facility] 12:10:19 = INFLUENZA VACCINE] [facility] Future Scheduled 2022-09-29 HEPATITIS B VACCINES (1 [facility] 12:10:19 of 3 - 3-dose series) Hosp al [code = HEPATITIS B VACCINES (1 of 3 - 3-dose series)] Future Scheduled 2022-09-29 COVID-19 VACCINE (#1) [facility] 12:10:19 [code = COVID-19 VACCINE Hos pital (#1)] Future Scheduled 2022-09-01 HEPATITIS B VACCINES (1 [facility] 11:48:27 of 3 - 3-dose series) Hospit al [code = HEPATITIS B VACCINES (1 of 3 - 3-dose series)] Future Scheduled 2022-09-01 COVID-19 VACCINE (#1) [facility] 11:48:27 [code = COVID-19 VACCINE Hos pital (#1)] Future Scheduled 2022-09-01 Pneumococcal Vaccine: [facility] 11:48:27 Pediatrics (0 to 5 Hospital Years) and At-Risk Patients (6 to 64 Years) (1 - PCV) [code = Pneumococcal Vaccine: Pediatrics (0 to 5 Years) and At-Risk Patients (6 to 64 Years) (1 - PCV)] Future Scheduled 2022-09-01 Hepatitis C screening [facility] 11:48:27 (procedure) [code = Hospital [id number]] Future Scheduled 2022-09-01 INFLUENZA VACCINE [code [facility] 11:48:27 = INFLUENZA VACCINE] Hospita l Future Scheduled 2019-03-10 DTAP/TDAP/TD VACCINES ([address] [facility] 00:00:00 - Td or Tdap) [code = Medica l Center DTAP/TDAP/TD VACCINES (2 - Td or Tdap)] Future Scheduled 2002 HEPATITIS C [facility]CRE[facility] 00:00[facility]00 [code = HEPATITIS C Medical Center SCREENING] Future Scheduled [address] Human [address] [facility] 00:00:00 virus screening Medical Cent er (procedure) [code = 927503746] Future Scheduled 1994 DIABETIC EYE EXAM [code [facility] 00:00:00 = DIABETIC EYE EXAM] Medical Center Future Scheduled [address] [facility] 00:[facility]:00 examination Medical Center (regime/therapy) [code = 838649518] Future Scheduled 1994 Urine screening for [facility] Test 00:00:00 protein (procedure) Medical Center [code = 602207349] Future Scheduled 1990 Pneumococcal Vaccine: [facility] 00:00:00 0-64 Years (1 - PCV) Medical Center [code = Pneumococcal Vaccine: 0-64 Years (1 - PCV)] Future Scheduled 1985-06-14 COVID-19 VACCINE (#1) [facility] 00:00:00 [code = COVID-19 VACCINE [facility] (#1)] Encounters Start End Encounter Admission Attending Care Care Encounter Source Date/Time Date/Time Type Type Clinicians Facility Department ID 2023-06-07 Inpatient [facility] [id number] SLE 10:12:46 2023-06-07 Inpatient [facility] [id number] SLEH 09:47:20 2021-09-09 Inpatient Shandra SOTO [facility] PAVEL [id number] [facility] 07:16:17 CARL mansfield [facility] 2023-06-06 2023-06-10 [facility] 2 [id number] SLE 18:09:00 12:47:00 2023-06-06 2023-06-10 [facility] Tamera Krause [facility] [id number] [facility] [address] 18:09:00 12:47:00 Encounter [facility] 2023-06-09 2023-06-09 Inpatient [facility] [id number] SLE 13:40:01 00:00:00 2023-06-08 2023-06-08 Surgery Carl Magdaleno [facility] [id number] 17:39:00 19:44:00 [facility] 2023-06-06 2023-06-06 [facility] Nelida Tamera [facility] [id number] 00:00[facility]00 00:00:[address] [facility] 2023-05-30 2023-05-30 Office Janeth Isabel2.840.1 [id number] Brianna 10:00:00 10:57:35 Visit Evan 47054.1.[address] 3.430.2.7 Hospit a .3.276796 l .8 2023-05-30 2023-05-30 Outpatient [facility] [id number] [place] 00:00:00 00:00:[address] EVAN [address] 2023-05-10 2023-05-10 Telephone Chalo, 1.2.840.1 [id number] Methodi 00:00:00 00:00:[address] 3.430.2.7 Hospit a .3.925970 l .8 2023-04-11 2023-04-11 Telephone Chalo, 1.2.840.1 [id number] Methodi 00:00:00 00:00:[address] 3.430.2.7 Hospit a .3.069613 l .8 2023-03-20 2023-03-24 Inpatient UR [facility] Cardiology [id number] [facility] 18:29:00 10:28:00 [facility] 2023-03-20 2023-03-24 Hospital [facility] [id number] [facility] [address] 18:29:00 10:28:[address] [facility] 2023-03-20 2023-03-20 Travel [facility] [id number] [facility] 00:[facility]00 00:00:00 [facility] 2023-03-20 2023-03-20 Orders [facility] [id number] 00:00:00 00:00:00 Only [facility] 2023-03-15 2023-03-15 Outpatient Tomek_T [facility] [id number] [place] 00:00:00 00:00:00 0525 Medical Group 2023-03-14 2023-03-14 Outpatient Tomek_T [facility] [id number] [place] 00:00:00 00:00:00 0517 Medical Group 2023-03-14 2023-03-14 Outpatient Tomek_T [facility] [id number] [place] 00:00:00 00:00:00 0516 Medical Group 2023-03-14 2023-03-14 Juan Pablo [facility] [place] - [id number] M atagor 00:00:00 00:00:00 Tu Reese MD: Medical [facility] [address], [address], [place] [address] , Ph. 2023-03-13 2023-03-13 Outpatient Paul_T [facility] [id number] [place] 00:00:00 00:00:00 0515 [facility] 2023-03-09 2023-03-09 Outpatient R ANGELICA [facility] [id number] Univers 13:20:00 13:20:00 DANIE [facility] 2022-09-21 2022-09-21 Office Mcgovern, 1.2.840.9 [id number] Methodi 11:30:00 14:27:54 Visit Jama 62617.1.[address] [place] 3.430.2.7 Hospit a .3.455376 l .8 2022-09-21 2022-09-21 Office Mcgovern, 1.2.840.0 [id number] Methodi 11:30:00 14:27:54 Visit Jama 85586.1.[address] [place] 3.430.2.7 Hospit a .3.606119 l .8 2022-09-05 2022-09-05 Telephone Mcgovern, 1.2.840.2 [id number] Methodi 00:00:00 00:00:[address] [place] 3.430.2.7 Hospit a .3.650212 l .8 2022-09-05 2022-09-05 Telephone Mcgovern, 1.2.840.0 [id number] Methodi 00:00:00 00:00:[address] [place] 3.430.2.7 Hospit a .3.747186 l .8 2022-08-09 2022-08-09 Emergency X , [facility] ERT [id number] Univers 13:35:00 15:14:00 LAI [facility] 2022-08-09 2022-08-09 Emergency Peter Duffy [facility] 1.2.840 .114 [id number] Univers 13:35:00 15:14:00 GonzalezLai 350.1.13.10 ity [facility] 4.2.7.2.686 [facility] [id number] [address] 2022-04-18 2022-04-18 Outpatient [facility] [id number] Univers 13:30:00 13:30:00 [facility] 2022-03-24 2022-03-24 Outpatient [facility] [id number] Univers 09:00:00 09:00:00 [facility] 2022-03-24 2022-03-24 [facility] 1.2.840.114 [id number] Univers 00:00:00 00:00:00 Cheko LEIVA 350.1.13.10 i ty of [place] 4.2.7.2.686 [facility] PROFESSIO [id number] Az dic[address] 2022-02-08 2022-02-08 Emergency X YG [facility] ERT [id number] Univers 02:16:00 04:47:00 JENIFFER [facility] 2022-02-08 2022-02-08 Emergency [facility] 1.2.682.920 [id number] Univers 02:16:00 04:47:00 Jeniffer LEIVA 350.1.13.10 i ty of [place] 4.2.7.2.686 [facility] [id number] [address] 2021-11-27 2021-11-28 Emergency X Annette MARTIN [facility] ERT [id number] Univers 22:17:00 00:52:00 [facility] 2021-11-27 2021-11-28 Emergency Annette Martin [facility] 1.2.840.114 [id number] Univers 22:17:00 00:52:00 Sol LEIVA 350.1.13.10 i ty [place] [facility] [id number] [facility] [address] 2021-10-08 2021-10-08 Outpatient R CHARLES [facility] [id number] Univers 10:45:00 10:45:00 CARL mansfield [facility] 2021-09-29 2021-09-29 Office Charles STEPHANIE 1.2.746.463 [id number] Univers 14:12:15 14:37:52 Visit Carl SEGAL 350.1.13.10 i ty of [facility] 4[place]2.7.2.[place] [id number] [facility] [address] 2021-09-29 2021-09-29 Outpatient R CHARLES [facility] [id number] Univers 13:30:00 14:37:52 CARL oharaestee [facility] 2021-09-29 2021-09-29 Outpatient R CHARLES [facility] [id number] Univers 13:30:00 13:30:00 CARL levestee [facility] 2021-09-27 2021-09-27 Telephone [facility] 1.2.961.751 [id number] Univers 00:00:00 00:00:00 Carl LEIVA 350.1.13.10 i ty of [place]7.2.[place] [facility] [id number] [address] 2021-09-20 2021-09-21 Outpatient Sh[facility] [id number] Univers 06:38:00 12:20:00 CARL levestee [facility] 2021-09-20 2021-09-21 Hospital LOUIS Soto 1.2.840.114 [id number] Univers 06:38:00 12:20:00 Encounter Carl LACIE 350.1.13.10 ity of [facility] 4.2.7.2.686 Johnny as [id number] [facility] [address] 2021-09-20 2021-09-21 Outpatient Shandra [facility] [id number] Univers 06:38:00 12:20:00 CARL estee [facility] 2021-09-20 2021-09-20 Anesthesia Franco Blancas 1.2.840.11 [id number] Univers 09:00:00 12:32:00 Event Abouleish, Idalia Gan LACIE 350.1.13.[address] [facility] 4.2.7.2.686 Johnny as [phone] [facility] [address] 2021-09-20 2021-09-20 Surgery CharlesLOUIS 1.2.840.114 [id number] Univers 08:53:00 10:48:00 Carl MEDELLIN 350.1.13.10 it y of [facility] 4.2.7.2.686 Johnny as [phone] [facility] [address] 2021-09-20 2021-09-20 Orders Doctor CARL 1.2.840.114 [id number] Univers 00:00:00 00:00:00 Only UnassignedLACIE 350.1.13.10 ity of [place] [facility] 4.2.7.2.686 Johnny as [phone] [facility] [address] 2021-09-17 2021-09-17 Laboratory Only, Adc Test [facility] 1.2.840. 114 [id number] Univers 15:00:54 15:15:54 Only Carl [place] 350.1.13 .10 ity of [facility] 4.2.7.2.686 [facility] [phone] [facility] [address] 2021-09-17 2021-09-17 Outpatient R CHARLES [facility] [id number] Univers 15:15:00 15:15:00 CARL ity of [facility] 2021-09-10 2021-09-10 Hospital Carl Soto [facility] 1.2. 840.114 [id number] Univers 14:00:00 23:59:00 Encounter Robert Hawley 350.1.13.10 ity of [place] 4.2.7.2.686 [facility] [phone] [facility] [address] 2021-09-10 2021-09-10 Office Charles [facility] 1.2.840.114 [id number] Univers 10:04:20 11:03:01 Visit Carl LEIVA 350.1.13.10 i ty of [place].2.[place] [id number] Az dical NAL [address] [facility] 2021-09-10 2021-09-10 Outpatient Shandra SOTO, [facility] [id number] Univers 10:00:00 11:03:01 CARL levestee [facility] 2021-09-10 2021-09-10 Outpatient Shandra SOTO, [facility] [id number] Univers 10:00:00 10:00:00 CARL ity [facility] 2021-09-09 2021-09-09 Transition Hayder YUNI 1.2.840.114 [id number] Univers 00:00:00 00:00:00 of Care Mary TOUSSAINT 350.1.13.10 i ty of [facility] [place] [id number] [facility] [address] 2021-09-06 2021-09-08 Hospital LOUIS Posey 1.2.840.114 [id number] Univers 16:50:00 15:15:00 Encounter Javy MEDELLIN 350.1.13.10 ity [facility] 4.2.7.2.686 Johnny as [phone] [facility] [address] 2021-09-06 2021-09-08 Inpatient U [facility] [id number] Univers 16:50:00 15:15:00 JAVY ity [facility] 2021-09-06 2021-09-06 Office Blayne Dong [facility] 1.2.840 .114 [id number] Univers 14:25:21 15:25:21 Visit Maximo Blandon [facility] 350.1.13. 10 ity of [place] [id number] [facility] [address] 2021-09-06 2021-09-06 Office Blayne Dong [facility] 1.2.840 .114 [id number] Univers 14:25:21 15:25:21 Visit Maximo Blandon [facility] 350.1.13. 10 ity of [place] [id number] [facility] [address] 2021-09-06 2021-09-06 Outpatient R JAMIA [facility] [id number] Univers 14:30:00 14:30:00 MAXIMO estee [facility] 2021-09-06 2021-09-06 Outpatient R JAMIA [facility] JAKE [id number] Univers 14:30:00 14:30:00 MAXIMO estee [facility] 2021-08-31 2021-09-01 Outpatient X [facility] [id number] Univers 08:47:00 16:33:00 PAU mansfield [facility] 2021-08-31 2021-09-01 Emergency Jeniffer Ronquillo [facility] 1.2.840. 114 [id number] Univers 08:47:00 16:33:00 Pau Flood 350.1.13.10 ity [facility] [place] [facility] [id number] [address] 2021-08-31 2021-09-01 Outpatient X WHITLEYMACIELCARLITAPINE [facility] [id number] Univers 08:47:00 16:33:00 PAU mansfield [facility] 2021-08-31 2021-09-01 Outpatient X [facility] [id number] Univers 08:47:00 16:33:00 PAU [facility] 2021-08-31 2021-08-31 Emergency X YG [facility] ERT [id number] Univers 08:47:00 08:47:00 JENIFFER [facility] 2021-08-26 2021-08-26 Office [facility] 1.2.513.254 [id number] Univers 16:03:54 17:10:27 Visit Osiris LEIVA 350.1.13.10 i ty [facility] [place].2.[place] [facility] [id number] Az dical [address] 2021-08-26 2021-08-26 Outpatient R JACQUES [facility] [id number] Univers 16:00:00 17:10:27 OSIRIS mansfield [facility] 2021-08-26 2021-08-26 Outpatient [facility] [id number] Univers 11:15:00 11:15:00 OSIRIS mansfield [facility] 2021-08-26 2021-08-26 Orders Doctor CARL 1.2.840.114 [id number] Univers 00:00:00 00:00:00 Only Unassigned, LACIE 350.1.13.10 ity of [place] [facility] 4.2.7.2.686 Johnny as [id number] [address] 2021-07-30 2021-07-30 Outpatient [facility] [id number] Univers 10:00:00 10:00:00 CARL mansfield [facility] 2021-07-30 2021-07-30 Outpatient Shandra SOTO [facility] [id number] Univers 10:00:00 10:00:00 CARL estee [facility] 2021-07-09 2021-07-09 Office [facility] 1.2.840.114 [id number] Univers 08:54:13 10:52:29 Visit Carl Leiva 350.1.13.10 i ty of [place] Profess[place] [id number] Az dic[address] 2021-07-09 2021-07-09 Outpatient Sh[facility] [id number] Univers 08:45:00 08:45:00 CARL mansfield [facility] 2021-07-09 2021-07-09 Orders Doctor CARL Matias.2.840.114 [id number] Univers 00:00:00 00:00:00 Only Unassigned, LACIE 350.1.13.10 ity of [place] [facility] 4.2.7.2.686 Johnny as [id number] [address] 2021-04-13 2021-04-13 Outpatient [facility] 093 [id number] 561 [place] 00:00:00 00:00:00 YAHYA 607 Method i 2021-03-15 2021-03-16 Inpatient [facility] 064 [id number] 87 [place] 00:00:00 00:00:00 YAHYA 997 [facility] 2020-10-08 2020-10-08 Orders Doctor CARL [id number] 00:00:00 00:00:00 Only Unassigned, LACIE 350.1.13.10 [facility] 4.2.7.2.686 [id number] 2020-10-08 2020-10-08 Orders Doctor CARL [id number] Univers 00:00:00 00:00:00 Only Unassigned, LACIE 350.1.13.10 [facility] [place] [facility] 4.2.7.2.686 Johnny as [phone] [address] 2020-09-21 2020-09-21 [facility] [id number] Univers 00:00:00 00:00:00 OSIRIS [place] [facility] 2020-09-17 2020-09-17 [facility] [id number] Univers 16:15:00 16:15:00 OSIRIS mansfield [facility] 2020-09-17 2020-09-17 Office [facility] [id number] 15:20:49 16:01:46 Visit Osiris Leiva 350.1.13.10 [place] 4.2.7.2.686 Professio [id number] [address] 2020-09-17 2020-09-17 [facility] [id number] Univers 15:20:49 16:01:46 Visit Osiris Leiva 350.1.13.10 [place] [phone] Az dical nal [address] [place] [address] 2020-08-20 2020-08-20 [facility] [id number] Univers 13:15:00 13:15:00 OSIRIS estee [facility] 2020-08-20 2020-08-20 Telephone [facility] 1.2.840.114 [id number] Univers 00:00:00 00:00:00 Osiris Ybarraton 350.1.13.10 [place] [phone] Az dical nal [address] [place] [address] 2020-08-14 2020-08-14 Outpatient R [facility] [id number] Univers 10:00:00 10:00:00 CARL mansfield [facility] 2020-08-14 2020-08-14 Telephone [facility] 1.2.840.114 [id number] Univers 00:00:00 00:00:00 Osiris Leiva 350.1.13.10 [place] [phone] [address] 2020-08-13 2020-08-13 Office [facility] [id number] Univers 13:56:54 14:38:07 Visit Osiris Leiva 350.1.13.10 [place] [phone] [address] 2020-08-13 2020-08-13 Outpatient [facility] [id number] Univers 13:45:00 13:45:00 OSIRIS mansfield [facility] 2020-08-13 2020-08-13 Telephone [facility] 1.2.840.114 [id number] Univers 00:00:00 00:00:00 Osiris Leiva 350.1.13.10 [place] [phone] [address] 2020-08-13 2020-08-13 Orders Doctor CARL 1..840.114 [id number] Univers 00:00:00 00:00:00 Only Unassigned, LACIE 350.1.13.10 ity of [place] [facility] 4.2.7.2.686 Johnny as [phone] [facility] [address] 2020-08-10 2020-08-10 Transition Yuni Gomes 1.2.840.114 [id number] Univers 00:00:00 00:00:00 of Care Franky Toussaint 350.1.13.10 [place] [phone] [facility] [address] 2020-08-02 2020-08-07 Hospital Jeniffer Ronquillo 1.2.840.1 [id number] Univers 14:33:00 21:40:00 [facility].10 [facility]68 6 [place] [phone] [address] 2020-08-02 2020-08-02 Emergency X YG [facility] ERT [id number] Univers 14:33:00 14:33:00 JENIFFER mansfield [facility] Results Test Description Test Time Test Comments Results Result Comments Source POC-Glucose meter 2023-06-09 22:21:39 Test Item Value Reference Range Interpretation Comme nts POC-Glucose Meter (test code = 268 mg/dL 70-110 H : TESTED AT [facility] [address] [facility] 1538) [facility], 770 30: Shower Room Attendant/Techni zeina ID = [id number] for Stefanie [facility] Interpretation (test code = Abnormal 72041-4) [facility] [id number] 22:21:39 Test Item Value Reference Range Interpretation Comments POC-GLUCOSE METER 268 mg/dL 70-110 H : TESTED A T [facility] 6720 (BEAKER) (test code = BERTJH R [facility], 1538) [address]: Shower Room Attendant/Techni zeina ID = [id number] for Alexandre galaviz Stefanie CT CHEST WITHOUT IV [id number] 15:20:36 [facility] : 1985 Sex: MCT Chest without contrastHistory: Shortness of breath and dyspneaComparison: 03/23/2023Technique: serial axial imaging was performed without intravenouscontrast as per departmental protocol. Multiplanarimages arereconstructed and reviewed when indicated. This CT examination is performed using one or more of the following dosereduction techniques:Automated exposure control, adjustment of the mA and /or kV according topatient size, and/or use of iterative reconstruction technique.Findings:No mediastinal lymphadenopathy. No definite hilar enlargement. Normal size heart. No pericardial effusion. No thoracic aortic aneurysm. Normal caliber of main pulmonary trunk. Patent central airways. No pleural effusion or pneumothorax. Clearlungs. Diffuse fatty infiltration of the partially imaged liver. No aggressive osseous lesion.IMPRESSION:Impression:1. No acute findings in the chest.2. Hepatic steatosis. Electronically Signed By: Jason Mari MD06/09/2023 15:22 CDTWorkstation Name: [id number] METABOLIC [id number] 06:48:58 Test Item Value Reference Range Interpretation Comments SODIUM (BEAKER) 139 meq/L 136-145 (test code = 381) POTASSIUM 3.6 meq/L 3.5-5.1 Specimen slight ly (BEAKER) (test hemolyzed code = 379) CHLORIDE (BEAKER) 103 meq/L 98-107 (test code = 382) CO2 (BEAKER) 22 meq/L 22-29 (test code = 355) BLOOD UREA 19 mg/dL 7-21 NITROGEN (BEAKER) (test code = 354) CREATININE 0.90 mg/dL 0.57-1.25 Specimen slight ly (BEAKER) (test hemolyzed code = 358) GLUCOSE RANDOM 124 mg/dL 70-105 H (BEAKER) (test code = 652) CALCIUM (BEAKER) 8.4 mg/dL 8.4-10.2 (test code = 697) EGFR (BEAKER) 113 Interpretatio n of eGFR (test code = mL/min/1.73 values Stage De scription 1092) sq m Result G1 Susie l or high >=90 G2 Mildly decreased 60-89 G3a Mildl y to moderately 45-5 9 G3b Moderately to s everely 30-44 G4 Severl y decreased 15-29 G5 Kidney failure <15Reported eGF R is based on the CKD-EPI 2020 equation that d oes not use a race coefficientEsti mated GFR is not as accur ate as Creatinine Josiane jones in predicting glom erular filtration rate . Estimated GFR is not appl icable for dialysis patien ts Shower Room Attendant ID - ADMINPOCT-GLUCOSE [id number] 20:48:36 Test Item Value Reference Range Interpretation Comments POC-GLUCOSE METER 98 mg/dL 70-110 : TESTED A T [facility] 6720 (BEAKER) (test code = [facility], 1538) [address]: Shower Room Attendant/Techni zeina ID = [id number] for Alma Rosa ga, Frofel POC ACTIVATED CLOTTING [id number] 20:23:05 Test Item Value Reference Range Interpretation Comments Activated Clotting Time 161 sec : 74 -137 seconds, (test code = 3184-9) Baselin e: TESTED AT [facility] 67[address] [facility], 770 30: Shower Room Attendant/Techni zeina ID = [id number] for Joycelyn De Leon [id number] 20:23:05 Test Item Value Reference Range Interpretation Comments ACTIVATED CLOTTING TIME 161 sec : 74 -137 seconds, (BEAKER) (test code = Baseli ne: TESTED AT 441) [facility] 67[address] [facility], 770 30: Shower Room Attendant/Techni zeina ID = [id number] for angelicaJoycelyn bowman BASIC METABOLIC [id number] 05:45:49 Test Item Value Reference Range Interpretation Comments SODIUM (BEAKER) 139 meq/L 136-145 (test code = 381) POTASSIUM 3.8 meq/L 3.5-5.1 Specimen slight ly (BEAKER) (test hemolyzed code = 379) CHLORIDE (BEAKER) 102 meq/L 98-107 (test code = 382) CO2 (BEAKER) 21 meq/L 22-29 L (test code = 355) BLOOD UREA 15 mg/dL 7-21 NITROGEN (BEAKER) (test code = 354) CREATININE 0.93 mg/dL 0.57-1.25 Specimen slight ly (BEAKER) (test hemolyzed code = 358) GLUCOSE RANDOM 109 mg/dL 70-105 H (BEAKER) (test code = 652) CALCIUM (BEAKER) 9.2 mg/dL 8.4-10.2 (test code = 697) EGFR (BEAKER) 109 Interpretatio n of eGFR (test code = mL/min/1.73 values Stage De scription 1092) sq m Result G1 Susie l or high >=90 G2 Mildly decreased 60-89 G3a Mildl y to moderately 45-5 9 G3b Moderately to s everely 30-44 G4 Severl y decreased 15-29 G5 Kidney failure <15Reported eGF R is based on the CKD-EPI 1 equation that d oes not use a race coefficientEsti mated GFR is not as accur ate as Creatinine Josiane karen in predicting glom erular filtration rate . Estimated GFR is not appl icable for dialysis patien ts Shower Room Attendant ID - MMCBC W/PLT COUNT & AUTO [id number] 05:33:42 Test Item Value Reference Range Interpretation Comments WHITE BLOOD CELL COUNT (BEAKER) 13.6 K/ L 3.5-10.5 H (test code = 775) RED BLOOD CELL COUNT (BEAKER) 5.36 M/ L 4.63-6.08 (test code = 761) HEMOGLOBIN (BEAKER) (test code = 15.3 GM/DL 13.7-17.5 410) HEMATOCRIT (BEAKER) (test code = 47.5 % 40.1-51.0 411) MEAN CORPUSCULAR VOLUME (BEAKER) 89 fL 79-92 (test code = 753) MEAN CORPUSCULAR HEMOGLOBIN 28.5 pg 25.7-32.2 (BEAKER) (test code = 751) MEAN CORPUSCULAR HEMOGLOBIN CONC 32.2 GM/DL 32.3-36.5 L (BEAKER) (test code = 752) RED CELL DISTRIBUTION WIDTH 15.4 % 11.6-14.4 H (BEAKER) (test code = 412) PLATELET COUNT (BEAKER) (test 357 K/CU MM 150-450 code = 756) MEAN PLATELET VOLUME (BEAKER) 10.2 fL 9.4-12.4 (test code = 754) NUCLEATED RED BLOOD CELLS 0 /100 WBC 0-0 (BEAKER) (test code = 413) NEUTROPHILS RELATIVE PERCENT 72 % (BEAKER) (test code = 429) LYMPHOCYTES RELATIVE PERCENT 16 % (BEAKER) (test code = 430) MONOCYTES RELATIVE PERCENT 8 % (BEAKER) (test code = 431) EOSINOPHILS RELATIVE PERCENT 2 % (BEAKER) (test code = 432) BASOPHILS RELATIVE PERCENT 0 % (BEAKER) (test code = 437) NEUTROPHILS ABSOLUTE COUNT 9.85 K/ L 1.78-5.38 H (BEAKER) (test code = 670) LYMPHOCYTES ABSOLUTE COUNT 2.20 K/ L 1.32-3.57 (BEAKER) (test code = 414) MONOCYTES ABSOLUTE COUNT (BEAKER) 1.15 K/ L 0.30-0.82 H (test code = 415) EOSINOPHILS ABSOLUTE COUNT 0.26 K/ L 0.04-0.54 (BEAKER) (test code = 416) BASOPHILS ABSOLUTE COUNT (BEAKER) 0.06 K/ L 0.01-0.08 (test code = 417) IMMATURE GRANULOCYTES-RELATIVE 0.70 % 0.00-1.00 PERCENT (BEAKER) (test code = 2801) XR CHEST 1 VIEW PORTABLE / [id number] 14:50:29 [facility] : 1985 Sex: MINDICATION: DOECOMPARISON: 03/20/2023TECHNIQUE: Single frontal view of the chest.FINDINGS: Lines, tubes, and devices: None.Lungs and pleura: Clear lungs. No pneumothorax.Heart and mediastinum: Normal heart size. Unremarkable mediastinalcontours.Osseous structures: No acute abnormality.Other: None.IMPRE SSION:No acute intrathoracic abnormality.Electronically Signed By: Yayo Nielsen06/07/2023 14:52 CDTWorkstation Name: [id number] METABOLIC PANEL 2023-06-07 05:16:52 Test Item Value Reference Range Interpretation Comments SODIUM (BEAKER) 140 meq/L 136-145 (test code = 381) POTASSIUM 3.7 meq/L 3.5-5.1 (BEAKER) (test code = 379) CHLORIDE (BEAKER) 104 meq/L 98-107 (test code = 382) CO2 (BEAKER) 24 meq/L 22-29 (test code = 355) BLOOD UREA 14 mg/dL 7-21 NITROGEN (BEAKER) (test code = 354) CREATININE 0.83 mg/dL 0.57-1.25 (BEAKER) (test code = 358) GLUCOSE RANDOM 125 mg/dL 70-105 H (BEAKER) (test code = 652) CALCIUM (BEAKER) 9.0 mg/dL 8.4-10.2 (test code = 697) EGFR (BEAKER) 116 Interpretatio n of eGFR (test code = mL/min/1.73 values Stage De scription 1092) sq m Result G1 Susie l or high >=90 G2 Mildly decreased 60-89 G3a Mildl y to moderately 45-5 9 G3b Moderately to s everely 30-44 G4 Severl y decreased 15-29 G5 Kidne y failure <15Reported eGF R is based on the CKD-EPI 2020 equation that d oes not use a race coefficientEsti mated GFR is not as accur ate as Creatinine Josiane karen in predicting glom erular filtration rate . Estimated GFR is not appl icable for dialysis patien ts Shower Room Attendant ID - BSCBC W/PLT COUNT & AUTO [id number] 05:05:40 Test Item Value Reference Range Interpretation Comments WHITE BLOOD CELL COUNT (BEAKER) 13.0 K/ L 3.5-10.5 H (test code = 775) RED BLOOD CELL COUNT (BEAKER) 5.38 M/ L 4.63-6.08 (test code = 761) HEMOGLOBIN (BEAKER) (test code = 15.1 GM/DL 13.7-17.5 410) HEMATOCRIT (BEAKER) (test code = 47.8 % 40.1-51.0 411) MEAN CORPUSCULAR VOLUME (BEAKER) 89 fL 79-92 (test code = 753) MEAN CORPUSCULAR HEMOGLOBIN 28.1 pg 25.7-32.2 (BEAKER) (test code = 751) MEAN CORPUSCULAR HEMOGLOBIN CONC 31.6 GM/DL 32.3-36.5 L (BEAKER) (test code = 752) RED CELL DISTRIBUTION WIDTH 15.4 % 11.6-14.4 H (BEAKER) (test code = 412) PLATELET COUNT (BEAKER) (test 380 K/CU MM 150-450 code = 756) MEAN PLATELET VOLUME (BEAKER) 10.0 fL 9.4-12.4 (test code = 754) NUCLEATED RED BLOOD CELLS 0 /100 WBC 0-0 (BEAKER) (test code = 413) NEUTROPHILS RELATIVE PERCENT 70 % (BEAKER) (test code = 429) LYMPHOCYTES RELATIVE PERCENT 18 % (BEAKER) (test code = 430) MONOCYTES RELATIVE PERCENT 9 % (BEAKER) (test code = 431) EOSINOPHILS RELATIVE PERCENT 2 % (BEAKER) (test code = 432) BASOPHILS RELATIVE PERCENT 1 % (BEAKER) (test code = 437) NEUTROPHILS ABSOLUTE COUNT 9.05 K/ L 1.78-5.38 H (BEAKER) (test code = 670) LYMPHOCYTES ABSOLUTE COUNT 2.34 K/ L 1.32-3.57 (BEAKER) (test code = 414) MONOCYTES ABSOLUTE COUNT (BEAKER) 1.19 K/ L 0.30-0.82 H (test code = 415) EOSINOPHILS ABSOLUTE COUNT 0.22 K/ L 0.04-0.54 (BEAKER) (test code = 416) BASOPHILS ABSOLUTE COUNT (BEAKER) 0.07 K/ L 0.01-0.08 (test code = 417) IMMATURE GRANULOCYTES-RELATIVE 0.60 % 0.00-1.00 PERCENT (BEAKER) (test code = 2801) B-TYPE NATRIURETIC FACTOR (BNP)2023-06-06 21:47:43 Test Item Value Reference Range Interpretation Comments B-TYPE NATRIURETIC PEPTIDE (BEAKER) < pg/mL 0-100 (test code = 700) Shower Room Attendant ID - BSBASIC METABOLIC [id number] 21:39:49 Test Item Value Reference Range Interpretation Comments SODIUM (BEAKER) 140 meq/L 136-145 (test code = 381) POTASSIUM 3.5 meq/L 3.5-5.1 Specimen slight ly (BEAKER) (test hemolyzed code = 379) CHLORIDE (BEAKER) 104 meq/L 98-107 (test code = 382) CO2 (BEAKER) 25 meq/L 22-29 (test code = 355) BLOOD UREA 14 mg/dL 7-21 NITROGEN (BEAKER) (test code = 354) CREATININE 1.04 mg/dL 0.57-1.25 Specimen slight ly (BEAKER) (test hemolyzed code = 358) GLUCOSE RANDOM 100 mg/dL 70-105 (BEAKER) (test code = 652) CALCIUM (BEAKER) 9.2 mg/dL 8.4-10.2 (test code = 697) EGFR (BEAKER) 95 Interpretatio n of eGFR (test code = mL/min/1.73 values Stage De scription 1092) sq m Result G1 Susie l or high >=90 G2 Mildly decreased 60-89 G3a Mildl y to moderately 45-5 9 G3b Moderately to s everely 30-44 G4 Severl y decreased 15-29 G5 Kidney failure <15Reported eGF R is based on the CKD-EPI 2020 equation that d oes not use a race coefficientEsti mated GFR is not as accur ate as Creatinine Josiane karen in predicting glom erular filtration rate . Estimated GFR is not appl icable for dialysis patien ts Shower Room Attendant ID - BSCBC W/PLT COUNT & AUTO [id number] 21:26:28 Test Item Value Reference Range Interpretation Comments WHITE BLOOD CELL COUNT (BEAKER) 16.6 K/ L 3.5-10.5 H (test code = 775) RED BLOOD CELL COUNT (BEAKER) 5.29 M/ L 4.63-6.08 (test code = 761) HEMOGLOBIN (BEAKER) (test code = 15.0 GM/DL 13.7-17.5 410) HEMATOCRIT (BEAKER) (test code = 47.1 % 40.1-51.0 411) MEAN CORPUSCULAR VOLUME (BEAKER) 89 fL 79-92 (test code = 753) MEAN CORPUSCULAR HEMOGLOBIN 28.4 pg 25.7-32.2 (BEAKER) (test code = 751) MEAN CORPUSCULAR HEMOGLOBIN CONC 31.8 GM/DL 32.3-36.5 L (BEAKER) (test code = 752) RED CELL DISTRIBUTION WIDTH 15.4 % 11.6-14.4 H (BEAKER) (test code = 412) PLATELET COUNT (BEAKER) (test 393 K/CU MM 150-450 code = 756) MEAN PLATELET VOLUME (BEAKER) 10.9 fL 9.4-12.4 (test code = 754) NUCLEATED RED BLOOD CELLS 0 /100 WBC 0-0 (BEAKER) (test code = 413) NEUTROPHILS RELATIVE PERCENT 76 % (BEAKER) (test code = 429) LYMPHOCYTES RELATIVE PERCENT 14 % (BEAKER) (test code = 430) MONOCYTES RELATIVE PERCENT 7 % (BEAKER) (test code = 431) EOSINOPHILS RELATIVE PERCENT 1 % (BEAKER) (test code = 432) BASOPHILS RELATIVE PERCENT 1 % (BEAKER) (test code = 437) NEUTROPHILS ABSOLUTE COUNT 12.63 K/ L 1.78-5.38 H (BEAKER) (test code = 670) LYMPHOCYTES ABSOLUTE COUNT 2.33 K/ L 1.32-3.57 (BEAKER) (test code = 414) MONOCYTES ABSOLUTE COUNT (BEAKER) 1.21 K/ L 0.30-0.82 H (test code = 415) EOSINOPHILS ABSOLUTE COUNT 0.21 K/ L 0.04-0.54 (BEAKER) (test code = 416) BASOPHILS ABSOLUTE COUNT (BEAKER) 0.08 K/ L 0.01-0.08 (test code = 417) IMMATURE GRANULOCYTES-RELATIVE 0.60 % 0.00-1.00 PERCENT (BEAKER) (test code = 2801) BLOOD [id number] 22:00:40 Test Item Value Reference Range Interpretation Comments CULTURE (BEAKER) (test No growth in 5 days code = 1095) The specimen volume collected for this blood culture was below the optimum (10 mL per bottle or 20 mL total). Use of lower volumes may adversely affect recovery and/or detection times of some organisms.BLOOD [id number] 22:00:40 Test Item Value Reference Range Interpretation Comments CULTURE (BEAKER) (test No growth in 5 days code = 1095) The specimen volume collected for this blood culture was below the optimum (10 mL per bottle or 20 mL total). Use of lower volumes may adversely affect recovery and/or detection times of some organisms.2D Echo W/Doppler(CW/PW/Color) 2023-03-24 09:25:28Ejection FractionSLEH ECHO HEARTLAB MKCKESSON [facility], [id number] 00:05:00Unlisted Reason for Exam - Click Yes and Enter Reason Below->YesUnlisted Reason for Exam->h/o left inguinal hernia repair 2020 at [facility], with persistent significant left groin and testicular painProtocol Please Specify:->Standard ProtocolWill this procedure require oral contrast?->No [facility] : 1985 Sex: MFINAL REPORT CT of the Chest, abdomen and pelvis dated 03/24/2023 Clinical information: Shortness of breathAbnormal xray - pleural effusion Comment: Axial images of the chest were obtained from thoracic inlet to the diaphragm without intravenous contrast. Axial images of the abdomen and pelvis were obtained from diaphragm to the pubic symphysis with intravenous contrast. This examwas performed according to our departmental dose-optimization program, which includes automated exposure control, adjustment of the mA and/or kV according to patient size and/or use of interactive reconstruction technique. Both thyroid lobes are normal in appearance. Heart is normal in size. Great vess els are unremarkable. No adenopathy in the mediastinum or perihilar region. Trachea and mainstem bronchi are patent. Subsegmental atelectasis is seen in the right lower lobe. The rest of the lungs are clear. No nodular, mass lesion or airspace disease is noted. No interstitial disease or bronchiectasis is present. No pleural effusion or pleural based mass is seen. Liver and spleen are normal in size.There is diffusely decreased attenuation in the liver consistent with fatty hepatic infiltrate. No focal lesion is seen in the liver or the spleen. Gallbladder is distended. No gallstone or biliary dilatation is noted. Pancreas and adrenals are unremarkable. Both kidneys are normal in size and functioning. No hydronephrosis, hydroureter, or urolithiasis is noted. Diverticular disease is seen in the large bowel without diverticulitis. The small bowel is normal in caliber. Appendix is not visualized. Patient is status post left inguinal repair. No fluid collection is seen in the left inguinal region.Prostate is normal in size. The urinary bladder is contracted. No mass, adenopathy or ascites is present in the abdomen or pelvis. Impression: 1. Fatty liver.2. Diverticulosis without diverticulitis.3.Unremarkable post left inguinal repair. Signed: Power Herrmann MDReport Verified Date/Time: 03/24/2023 00:05:31 CT, CHEST, WITHOUT [id number] 00:05:00Please perform at same time as CT A/PUnlisted Reason for Exam - Click Yes and Enter Reason Below->No [facility] : 1985 Sex: MFINAL REPORT CT of the Chest, abdomen and pelvis dated 03/24/2023 Clinical information: Shortness of breathAbnormal xray - pleural effusion Comment: Axial images of the chest were obtained from thoracic inlet to the diaphragm without intravenous contrast. Axial images of the abdomen and pelvis were obtained from diaphragm to the pubic symphysis with intravenous contrast. This examwas performed according to our departmental dose-optimization program, which includes automated exposure control, adjustment of the mA and/or kV according to patient size and/or use of interactive reconstruction technique. Both thyroid lobes are normal in appearance. Heart is normal in size. Great vess els are unremarkable. No adenopathy in the mediastinum or perihilar region. Trachea and mainstem bronchi are patent. Subsegmental atelectasis is seen in the right lower lobe. The rest of the lungs are clear. No nodular, mass lesion or airspace disease is noted. No interstitial disease or bronchiectasis is present. No pleural effusion or pleural based mass is seen. Liver and spleen are normal in size.There is diffusely decreased attenuation in the liver consistent with fatty hepatic infiltrate. No focal lesion is seen in the liver or the spleen. Gallbladder is distended. No gallstone or biliary dilatation is noted. Pancreas and adrenals are unremarkable. Both kidneys are normal in size and functioning. No hydronephrosis, hydroureter, or urolithiasis is noted. Diverticular disease is seen in the large bowel without diverticulitis. The small bowel is normal in caliber. Appendix is not visualized. Patient is status post left inguinal repair. No fluid collection is seen in the left inguinal region.Prostate is normal in size. The urinary bladder is contracted. No mass, adenopathy or ascites is present in the abdomen or pelvis. Impression: 1. Fatty liver.2. Diverticulosis without diverticulitis.3.Unremarkable post left inguinal repair. Signed: Power Herrmann MDReport Verified Date/Time: 03/24/2023 00:05:31 HEMOGLOBIN [id number] 11:27:04 Test Item Value Reference Range Interpretation Comments HEMOGLOBIN A1C 6.3 % See_Comment H [Automated m essage] ELECTROPHORESIS ([facility]) The system which (test code = 3811) generated this result transmitted ref erence range: <=5.6%. The reference range was not used to int erpret this result as normal/abnormal . "The A1c is measured using a NGSP-certified method. HbA1c value equal to or greater than 6.5% as thediagnosis cutoff for diabetes. An HbA1c value of 5.7- 6.4% indicates increased risk for diabetes (prediabetes)."Shower Room Attendant ID - ADMBASIC METABOLIC [id number] 06:43:06 Test Item Value Reference Range Interpretation Comments SODIUM (BEAKER) 141 meq/L 136-145 (test code = 381) POTASSIUM 4.0 meq/L 3.5-5.1 Specimen slight ly (BEAKER) (test hemolyzed code = 379) CHLORIDE (BEAKER) 106 meq/L 98-107 (test code = 382) CO2 (BEAKER) 26 meq/L 22-29 (test code = 355) BLOOD UREA 16 mg/dL 7-21 NITROGEN (BEAKER) (test code = 354) CREATININE 0.89 mg/dL 0.57-1.25 Specimen slight ly (BEAKER) (test hemolyzed code = 358) GLUCOSE RANDOM 154 mg/dL 70-105 H (BEAKER) (test code = 652) CALCIUM (BEAKER) 9.2 mg/dL 8.4-10.2 (test code = 697) EGFR (BEAKER) 114 Interpretatio n of eGFR (test code = mL/min/1.73 values Stage De scription 1092) sq m Result G1 Susie l or high >=90 G2 Mildly decreased 60-89 G3a Mildl y to moderately 45-5 9 G3b Moderately to s everely 30-44 G4 Severl y decreased 15-29 G5 Kidney failure <15Reported eGF R is based on the CKD-EPI 2020 equation that d oes not use a race coefficientEsti mated GFR is not as accur ate as Creatinine Josiane jones in predicting glom erular filtration rate . Estimated GFR is not appl icable for dialysis patien ts Shower Room Attendant ID Rosalind DORANTES [id number] 06:43:05 Test Item Value Reference Range Interpretation Comments MAGNESIUM (BEAKER) 2.1 mg/dL 1.6-2.6 Specimen slightly (test code = 627) hemolyzed Shower Room Attendant ID Rosalind DORANTES WCBC (HEMOGRAM ONLY)2023-03-22 06:05:22 Test Item Value Reference Range Interpretation Comments WHITE BLOOD CELL COUNT (BEAKER) 14.3 K/ L 3.5-10.5 H (test code = 775) RED BLOOD CELL COUNT (BEAKER) 5.21 M/ L 4.63-6.08 (test code = 761) HEMOGLOBIN (BEAKER) (test code = 14.6 GM/DL 13.7-17.5 410) HEMATOCRIT (BEAKER) (test code = 46.3 % 40.1-51.0 411) MEAN CORPUSCULAR VOLUME (BEAKER) 89 fL 79-92 (test code = 753) MEAN CORPUSCULAR HEMOGLOBIN 28.0 pg 25.7-32.2 (BEAKER) (test code = 751) MEAN CORPUSCULAR HEMOGLOBIN CONC 31.5 GM/DL 32.3-36.5 L (BEAKER) (test code = 752) RED CELL DISTRIBUTION WIDTH 15.5 % 11.6-14.4 H (BEAKER) (test code = 412) PLATELET COUNT (BEAKER) (test 371 K/CU MM 150-450 code = 756) MEAN PLATELET VOLUME (BEAKER) 10.3 fL 9.4-12.4 (test code = 754) NUCLEATED RED BLOOD CELLS 0 /100 WBC 0-0 (BEAKER) (test code = 413) HCG, QUANTITATIVE, [id number] 05:05:16 Test Item Value Reference Range Interpretation Comments GONADOTROPIN, CHORIONIC (HCG) QUANT < mIU/mL (BEAKER) (test code = 649) Non- Females: <10 mIU/mL Females: Gestation Age Reference Range(mIU/mL) 0.2-1 Week 5-50 1-2 Weeks 50-500 2-3 Weeks 100-5,000 3-4 Weeks 500-10,000 4-5 Weeks 1,000-50,000 5-6 Weeks 10,000-100,000 6-8 Weeks 15,000- 200,000 2-3 Months 10,000-100,000 Shower Room Attendant ID - BSALPHA FETOPROTEIN (AFP), TUMOR [id number] 22:57:53 Test Item Value Reference Range Interpretation Comments ALPHA-FETOPROTEIN (BEAKER) (test 3.4 ng/mL <10.0 code = 1094) Shower Room Attendant ID - BSLACTATE DEHYDROGENASE (LDH)2023-03-21 22:39:19 Test Item Value Reference Range Interpretation Comments LACTATE DEHYDROGENASE 260 U/L 125-220 H Specim en slightly (BEAKER) (test code = hemoly zed 635) Shower Room Attendant ID - BSRAD, CHEST, 1 VIEW, NON [id number] 07:59:00Reason for exam:- >shortness of breath, chfShould this be performed at the bedside?->Yes [facility] 1985 Sex: MFINAL REPORT RAD, CHEST, 1 VIEW, NON DEPT INDICATION: shortness of breath, chf COMPARISON: Prior day's exam FINDINGS: Portable frontal view of the chest. IMPRESSION: Support Lines:None Lungs and pleura: Blunted right costophrenic angle likely due to basilar atelectasis but small effusion may also be present. There is vascular congestion with cephalization of the upper lung zone vessels. Left lung without focal lung consolidation. No pneumothorax.Heart and mediastinum: Cardiomediastinal silhouette is magnified by technique. Additional findings: Unremarkable osseous structures. Signed: Roger June MDReport Verified Date/Time: 03/21/2023 07:59:31 U/S, TESTICULAR (SCROTUM)2023-03-21 07:43:00Reason for exam:->left testicular pain - left testicular mass seen on OSH imaging [facility] : 1985 Sex: MFINAL REPORT TESTICULAR ULTRASOUND HISTORY: Left testicular pain, history of left testicular mass COMPARISON: No prior comparison testicular imaging is available TECHNIQUE: Real-time ultrasound of the testicles and scrotal contents was performed. Examination included color and spectral Doppler evaluation of the testicles. FINDINGS: The right testicle is normal in size, contour, and echogenicity. The right testicle measures 2.7 x 3.4 x 5.1 cm. No right testicular mass lesion is visualized. Normal color flow and arterial and venous waveforms are present in the right testicle. Theright epididymal head is remarkable only for a small 4 mm epididymal cyst. No epididymal hypervascularity is seen on the right. A small mildly echogenic right hydrocele is present. The left testicle issomewhat atrophic, measuring 2.2 x 1.8 x 3.3 cm in size. The contour of the left testicle is irregular and lobular. The left testicle demonstrates heterogeneous echogenicity, especially along its mid to upper aspects. There are 2 lobular areas in the mid to upper right testicle which could represent poorly defined mass lesions, one of which measures 1.2 x 1.1 x 1.2 cm in size and one of which measures 1.1 x 1.2 x 1.5 cm in size. Normal arterial and venous waveforms are present in the left testicle. There is normal color flow and the left testicle. A small somewhat echogenic left hydrocele is present. IMPRESSION: 1. Mildly atrophic left testicle which demonstrates a lobular contour and heterogeneous echogenicity. Questionable small mass lesions in the mid to upper left testicle. There is reportedly a history of a prior study which demonstrated a left testicular mass. It is possible that all of the se findings in the left testicle are due to prior testicular trauma or prior testicular inflammation. An underlying mass lesion cannot be excluded as discussed above. Urologic consultation is recommended. If the patient's old studies available, comparison would be useful to establish the stability of t hese findings. 2. Small bilateral hydroceles. Signed: Kathya Adams MDReport Verified Date/Time: 03/21/2023 07:43:07 HIGH SENSITIVITY TROPONIN [id number] 06:53:57 Test Item Value Reference Range Interpretation Comments HIGH SENSITIVITY TROPONIN I (test < pg/ml <=35 code = 3820060) Shower Room Attendant ID - AC BThe INFANTRY SENIOR SERGEANT STAT High Sensitivity Troponin-I results should be used in conjunction with other diagnostic information such as ECG, clinical observations and information, and patient symptoms to aid in the diagnosis of [place].BASIC METABOLIC [id number] 06:50:52 Test Item Value Reference Range Interpretation Comments SODIUM (BEAKER) 141 meq/L 136-145 (test code = 381) POTASSIUM 3.9 meq/L 3.5-5.1 Specimen slight ly (BEAKER) (test hemolyzed code = 379) CHLORIDE (BEAKER) 108 meq/L 98-107 H (test code = 382) CO2 (BEAKER) 25 meq/L 22-29 (test code = 355) BLOOD UREA 13 mg/dL 7-21 NITROGEN (BEAKER) (test code = 354) CREATININE 0.83 mg/dL 0.57-1.25 Specimen slight ly (BEAKER) (test hemolyzed code = 358) GLUCOSE RANDOM 143 mg/dL 70-105 H (BEAKER) (test code = 652) CALCIUM (BEAKER) 9.2 mg/dL 8.4-10.2 (test code = 697) EGFR (BEAKER) 116 Interpretatio n of eGFR (test code = mL/min/1.73 values Stage De scription 1092) sq m Result G1 Susie l or high >=90 G2 Mildly decreased 60-89 G3a Mildl y to moderately 45-5 9 G3b Moderately to s everely 30-44 G4 Severl y decreased 15-29 G5 Kidney failure <15Reported eGF R is based on the CKD-EPI 2020 equation that d oes not use a race coefficientEsti mated GFR is not as accur ate as Creatinine Josiane karen in predicting glom erular filtration rate . Estimated GFR is not appl icable for dialysis patien ts Shower Room Attendant ID - MMLIPID [id number] 06:50:52 Test Item Value Reference Range Interpretation Comments TRIGLYCERIDES (BEAKER) 142 mg/dL Speci men slightly (test code = 540) hemolyzed CHOLESTEROL (BEAKER) 180 mg/dL Specime n slightly (test code = 631) hemolyzed HDL CHOLESTEROL (BEAKER) 33 mg/dL (test code = 976) LDL CHOLESTEROL 119 mg/dL CALCULATED (BEAKER) (test code = 633) Triglyceride Reference Range: Low Risk <150 Borderline 150-199 High Risk 200- 499 Very High Risk >=500Cholesterol Reference Range: Low Risk <200 Borderline 200-239 High Risk >240HDL Cholesterol Reference Range: Low Risk >=60 High Risk <40LDL Cholesterol Reference Range: Optimal <100 Near Optimal 100-129 Borderline 130-159 High 160-189 Very High >=190 Shower Room Attendant ID - [id number] 06:50:51 Test Item Value Reference Range Interpretation Comments MAGNESIUM (BEAKER) 2.0 mg/dL 1.6-2.6 Specimen slightly (test code = 627) hemolyzed Shower Room Attendant ID - MMCBC (HEMOGRAM ONLY)2023-03-21 06:29:34 Test Item Value Reference Range Interpretation Comments WHITE BLOOD CELL COUNT (BEAKER) 12.1 K/ L 3.5-10.5 H (test code = 775) RED BLOOD CELL COUNT (BEAKER) 5.12 M/ L 4.63-6.08 (test code = 761) HEMOGLOBIN (BEAKER) (test code = 14.6 GM/DL 13.7-17.5 410) HEMATOCRIT (BEAKER) (test code = 45.6 % 40.1-51.0 411) MEAN CORPUSCULAR VOLUME (BEAKER) 89 fL 79-92 (test code = 753) MEAN CORPUSCULAR HEMOGLOBIN 28.5 pg 25.7-32.2 (BEAKER) (test code = 751) MEAN CORPUSCULAR HEMOGLOBIN CONC 32.0 GM/DL 32.3-36.5 L (BEAKER) (test code = 752) RED CELL DISTRIBUTION WIDTH 15.4 % 11.6-14.4 H (BEAKER) (test code = 412) PLATELET COUNT (BEAKER) (test 364 K/CU MM 150-450 code = 756) MEAN PLATELET VOLUME (BEAKER) 10.2 fL 9.4-12.4 (test code = 754) NUCLEATED RED BLOOD CELLS 0 /100 WBC 0-0 (BEAKER) (test code = 413) SARS-CoV2/RT-PCR (Asymptomatic ONLY)2023-03-20 23:31:39 Test Item Value Reference Interpretation Comments Range SARS-COV2/RT-PCR Negative Negative The SARS-Co V-2 (test code = target nucleic 37025-4) acids are not detected in thi s specimen. Negat sherrie results do not preclude SARS-C oV-2 infection and should not be u sed as the sole bas is for patient management decisions. Nega tive results must be combined with clinical observations, patient history , and epidemiolog ical information. A false negative result may occu r if a specimen is improperly collected, transported or handled. This S ARS CoV-2 test is a rapid, real-ricky e RT-PCR test intended for e qualitative detection of nucleic acid fr om SARS-CoV-2 in a nasopharyngeal swab specimen collec rosalia from individual s suspected of COVID-19 by the ir healthcare provider. CHAI (test code = This test has been CHAI) authorized by FDA under an EUA for use by authorized laboratories. This test is only authorized for the duration of the declaration that circumstances exist justifying the authorization of emergency use of in vitro diagnostic tests for detection and/or diagnosis of COVID-19 under Section 564(b)(1) of the Federal Food, Drug and Cosmetic Act, 21 U.S.C. 360bbb-3(b)(1), unless the authorization is terminated or revoked sooner. Fact Sheet for Healthcare Providers: https://www.[employer]/Documents/Xp ert%20Xpress%20SAR S%20CoV-2/Fact%20S heets/3023802%20S ARS-COV-2%20HEALTH CARE%20PROVIDERS%2 0FACT%20SHEET.pdf Fact Sheet for Healthcare Patients: https://www.[employer]/Documents/Xp ert%20Xpress%20SAR S%20CoV-2/Fact%20S heets/302-3801%20S ARS-COV-2%20PATIEN T%20FACT%20SHEET.p df Lab Interpretation Normal (test code = 47141-7) [facility]2023-03-20 23:31:39 Test Item Value Reference Range Interpretation Comments SARS-COV2/RT-PCR Negative Negative The SARS-Co V-2 target (test code = nucleic acids a re not 0607896) detected in thi s specimen. Negative result s do not preclude SARS-C oV-2 infection and s hould not be used as the shayy e basis for patient managem ent decisions. Nega tive results must be combine d with clinical observ ations, patient history , and epidemiological information. A false negativ e result may occur if a spec imen is improperly cassius ected, transported or handled. This SARS CoV-2 test is a rapid, real-time RT-PC R test intended for th e qualitative detection of nu cleic acid from SARS-CoV-2 in a nasopharyngeal swab specimen collected from individuals suspected of CO VID-19 [facility]. This test has been authorized by FDA under an EUA for use by authorized laboratories. This test is only authorized for the duration of the declaration that circumstances exist justifying the authorization of emergency use of in vitro diagnostic tests for detection and/or diagnosis of COVID-19 under Section 564(b)(1) of the Federal Food, Drug and Cosmetic Act, 21 U.S.C. 360bbb-3(b)(1), unless the authorization is terminated or revoked sooner. Fact Sheet for Healthcare Providers: https://www.[employer] m/Documents/Xpert%20Xpress%20SARS%20CoV-2/Fact%20Sheets/302-3802%57WTBS-TEV-8%20 HEALTHCARE%20PROVIDERS%20FACT%20SHEET.pdf Fact Sheet for Healthcare Patients: https://www.[employer]/Documents/Xpert%20Xp ress%20SARS%20CoV-2/Fact%20Sheets/302-3801%39BSPF-HQJ-1%20PATIENT%20FACT%20SHEET .pdfB-TYPE NATRIURETIC FACTOR (BNP)2023-03-20 21:33:21 Test Item Value Reference Range Interpretation Comments B-TYPE NATRIURETIC PEPTIDE (BEAKER) < pg/mL 0-100 (test code = 700) Shower Room Attendant ID - MMHIGH SENSITIVITY TROPONIN [id number] 21:27:26 Test Item Value Reference Range Interpretation Comments HIGH SENSITIVITY TROPONIN I (test < pg/ml <=35 code = 6005385) Shower Room Attendant ID - MMThe INFANTRY SENIOR SERGEANT STAT High Sensitivity Troponin-I results should be used in conjunctionwith other diagnostic information such as ECG, clinical observations and information, and patient symptoms to aid in the diagnosis of [place].BASIC METABOLIC [id number] 21:24:46 Test Item Value Reference Range Interpretation Comments SODIUM (BEAKER) 141 meq/L 136-145 (test code = 381) POTASSIUM 3.7 meq/L 3.5-5.1 (BEAKER) (test code = 379) CHLORIDE (BEAKER) 105 meq/L 98-107 (test code = 382) CO2 (BEAKER) 25 meq/L 22-29 (test code = 355) BLOOD UREA 13 mg/dL 7-21 NITROGEN (BEAKER) (test code = 354) CREATININE 0.86 mg/dL 0.57-1.25 (BEAKER) (test code = 358) GLUCOSE RANDOM 114 mg/dL 70-105 H (BEAKER) (test code = 652) CALCIUM (BEAKER) 9.9 mg/dL 8.4-10.2 (test code = 697) EGFR (BEAKER) 115 Interpretatio n of eGFR (test code = mL/min/1.73 values Stage De scription 1092) sq m Result G1 Susie l or high >=90 G2 Mildly decreased 60-89 G3a Mildl y to moderately 45-5 9 G3b Moderately to s everely 30-44 G4 Severl y decreased 15-29 G5 Kidney failure <15Reported eGF R is based on the CKD-EPI 2020 equation that d oes not use a race coefficientEsti mated GFR is not as accur ate as Creatinine Josiane karen in predicting glom erular filtration rate . Estimated GFR is not appl icable for dialysis patien ts Shower Room Attendant ID - [id number] 21:24:46 Test Item Value Reference Range Interpretation Comments MAGNESIUM (BEAKER) (test code = 2.2 mg/dL 1.6-2.6 627) Shower Room Attendant ID - ADMINHEPATIC FUNCTION [id number] 21:24:46 Test Item Value Reference Range Interpretation Comments TOTAL PROTEIN (BEAKER) (test code = 8.1 gm/dL 6.0-8.3 770) ALBUMIN (BEAKER) (test code = 1145) 4.1 g/dL 3.5-5.0 BILIRUBIN TOTAL (BEAKER) (test code 0.2 mg/dL 0.2-1.2 = 377) BILIRUBIN DIRECT (BEAKER) (test 0.1 mg/dL 0.1-0.5 code = 706) ALKALINE PHOSPHATASE (BEAKER) (test 108 U/L 40-150 code = 346) AST (SGOT) (BEAKER) (test code = 20 U/L 5-34 353) ALT (SGPT) (BEAKER) (test code = 26 U/L 6-55 347) Shower Room Attendant ID - ADMINCBC (HEMOGRAM ONLY)2023-03-20 21:04:23 Test Item Value Reference Range Interpretation Comments WHITE BLOOD CELL COUNT (BEAKER) 14.6 K/ L 3.5-10.5 H (test code = 775) RED BLOOD CELL COUNT (BEAKER) 5.54 M/ L 4.63-6.08 (test code = 761) HEMOGLOBIN (BEAKER) (test code = 15.8 GM/DL 13.7-17.5 410) HEMATOCRIT (BEAKER) (test code = 49.1 % 40.1-51.0 411) MEAN CORPUSCULAR VOLUME (BEAKER) 89 fL 79-92 (test code = 753) MEAN CORPUSCULAR HEMOGLOBIN 28.5 pg 25.7-32.2 (BEAKER) (test code = 751) MEAN CORPUSCULAR HEMOGLOBIN CONC 32.2 GM/DL 32.3-36.5 L (BEAKER) (test code = 752) RED CELL DISTRIBUTION WIDTH 15.3 % 11.6-14.4 H (BEAKER) (test code = 412) PLATELET COUNT (BEAKER) (test 395 K/CU MM 150-450 code = 756) MEAN PLATELET VOLUME (BEAKER) 10.2 fL 9.4-12.4 (test code = 754) NUCLEATED RED BLOOD CELLS 0 /100 WBC 0-0 (BEAKER) (test code = 413) COMP. METABOLIC PANEL (34310)2022-02-08 08:21:42 Test Item Value Reference Range Interpretation Comments NA (test code = 141 mmol/L 135-145 0109592440) K (test code = 4.6 mmol/L 3.5-5.0 1652544529) CL (test code = 105 mmol/L 98-108 2489435758) CO2 TOTAL (test code = 26 mmol/L 23-31 4482894836) AGAP (test code = 2-16 8895004104) BUN (test code = 20 mg/dL 7-23 0263608874) GLUCOSE (test code = 152 mg/dL 70-110 H 1785775913) CREATININE (test code = 0.97 mg/dL 0.60-1.25 4778685626) TOTAL BILI (test code = 0.3 mg/dL 0.1-1.8 5627394516) CALCIUM (test code = 9.4 mg/dL 8.6-10.6 0464054159) T PROTEIN (test code = 7.3 g/dL 6.3-8.2 5090184093) ALBUMIN (test code = 4.3 g/dL 3.5-5.0 1721124210) ALK PHOS (test code = 107 U/L 34-122 6004582588) ALTv (test code = 24 U/L 5-50 2-6) AST(SGOT) (test code = 22 U/L 13-40 8662404521) eGFR (test code = mL/min/1.73m2 9756315049) CHAI (test code = CHAI) Association of [...] tests). Lab Interpretation Abnormal (test code = 56712-7) [facility] [id number] 08:10:38 Test Item Value Reference Range Interpretation Comments APTT Patient (test See_Comment [Automat ed code = 3173-2) message] The system which generated this result transmitted reference range : 23 - 38 Seconds . The reference range was not used to interpr et this result as normal/abnormal . CHAI (test code = CHAI) The [facility] patient population mean normal value for aPTT is 30 seconds. Lab Interpretation Normal (test code = 86276-9) [facility] CampusPROTHROM[facility] / [id number] 08:08:22 Test Item Value Reference Range Interpretation [...] tions. Lab Interpretation (test Normal code = 22296-5) [facility] WITH [id number] 08:00:41 Test Item Value Reference Range Interpretation Comments WBC (test code = See_Comment H [Automated 5490-2) message] The sy stem which generated this result transmitted reference range : 4.20 - 10.70 10*3/?L. The reference range was not used to interpret this result as normal/abnormal . RBC (test code = See_Comment H [Automated 059-8) message] The sy stem which generated this [...] RDW-SD (test code = 49.0 fL 38.5-51.6 79657-2) RDW-CV (test code = 15.3 % 12.1-15.4 788-0) PLT (test code = See_Comment H [Automated 777-3) message] The sy stem which generated this result transmitted reference range : 150 - 328 10*3/ ?L. The reference r khris was not used to interpret this result as normal/abnormal . MPV (test code = 9.8 fL 9.8-13.0 71611-0) NRBC/100 WBC (test See_Comment [Automat ed code = 8779700690) message] The system which generated this result transmitted reference range : 0.0 - 10.0 /100 WBCs. The refer ence range was not u sed to interpret th is result as normal/abnormal . NRBC x10^3 (test code <0.01 See_Comment [Auto mated = 9995547145) message] The s ystem which generated this result transmitted reference range : 10*3/?L. The reference range was not used to interpret this result as normal/abnormal . GRAN MAT (NEUT) % 69.6 % (test code = 770-8) IMM GRAN % (test code 0.70 % = 5659131819) LYMPH % (test code = 20.1 % 736-9) MONO % (test code = 7.3 % 5905-5) EOS % (test code = 1.9 % 713-8) BASO % (test code = 0.4 % 706-2) GRAN MAT x10^3(ANC) 9.81 10*3/uL 1.99-6.95 H (test code = 0353438485) IMM GRAN x10^3 (test 0.10 10*3/uL 0.00-0.06 H code = 5794818471) LYMPH x10^3 (test code 2.84 10*3/uL 1.09-3.23 = 731-0) MONO x10^3 (test code 1.03 10*3/uL 0.36-1.02 H = 742-7) EOS x10^3 (test code = 0.27 10*3/uL 0.06-0.53 711-2) BASO x10^3 (test code 0.06 10*3/uL 0.01-0.09 = 704-7) Lab Interpretation Abnormal (test code = 62305-9) [facility]. METABOLIC PANEL (52613)2021-11-28 05:15:02 Test Item Value Reference Range Interpretation Comments NA (test code = 135 mmol/L 135-145 2244832594) K (test code = 4.2 mmol/L 3.5-5.0 3523982898) CL (test code = 103 mmol/L 98-108 0141107764) CO2 TOTAL (test code = 25 mmol/L 23-31 6128244877) AGAP (test code = 2-16 3827466813) BUN (test code = 17 mg/dL 7-23 7546636682) GLUCOSE (test code = 139 mg/dL 70-110 H 5357313508) CREATININE (test code = 0.82 mg/dL 0.60-1.25 5217733003) TOTAL BILI (test code = 0.4 mg/dL 0.1-1.9 4165378716) CALCIUM (test code = 9.1 mg/dL 8.6-10.6 0374578158) T PROTEIN (test code = 7.2 g/dL 6.3-8.2 2138827852) ALBUMIN (test code = 4.1 g/dL 3.5-5.0 2132120352) ALK PHOS (test code = 105 U/L 34-122 3327337404) ALTv (test code = 28 U/L 5-50 1742-6) AST(SGOT) (test code = 28 U/L 13-40 5387786058) eGFR (test code = mL/min/1.73m2 3571447911) CHAI (test code = CHAI) Association of [...] tests). Lab Interpretation Abnormal (test code = 14451-1) [facility] WITH [id number] 05:06:19 Test Item Value Reference Range Interpretation Comments WBC (test code = See_Comment H [Automated 7429-2) message] The system which generated this result transmit rosalia reference range : 4.20 - 10.70 10*3/?L. The reference range was not used to interpret this result as normal/abnormal . RBC (test code = See_Comment [Automated 862-8) message] The system which generated this result [...] RDW-SD (test code = 46.7 fL 38.5-51.6 26094-6) RDW-CV (test code = 14.6 % 12.1-15.4 788-0) PLT (test code = See_Comment H [Automated 777-3) message] The system which generated this result transmit rosalia reference range : 150 - 328 10*3/ ?L. The reference range was not u sed to interpret th is result as normal/abnormal . MPV (test code = 10.0 fL 9.8-13.0 30505-9) NRBC/100 WBC (test See_Comment [Automat ed code = 2803546897) message] The system which generated this result transmit rosalia reference range : 0.0 - 10.0 /100 WBCs. The reference range was not used to interpret this result as normal/abnormal . NRBC x10^3 (test code <0.01 See_Comment [Auto mated = 9044042990) message] The system which generated this result transmit rosalia reference range : 10*3/?L. The reference range was not used to interpret this result as normal/abnormal . GRAN MAT (NEUT) % 73.8 % (test code = 770-8) IMM GRAN % (test code 0.50 % = 8517994330) LYMPH % (test code = 17.2 % 736-9) MONO % (test code = 6.2 % 5905-5) EOS % (test code = 1.8 % 713-8) BASO % (test code = 0.5 % 706-2) GRAN MAT x10^3(ANC) 11.39 10*3/uL 1.99-6.95 H (test code = 3827058000) IMM GRAN x10^3 (test 0.08 10*3/uL 0.00-0.06 H code = 1305262338) LYMPH x10^3 (test code 2.66 10*3/uL 1.09-3.23 = 731-0) MONO x10^3 (test code 0.95 10*3/uL 0.36-1.02 = 742-7) EOS x10^3 (test code = 0.28 10*3/uL 0.06-0.53 711-2) BASO x10^3 (test code 0.08 10*3/uL 0.01-0.09 = 704-7) Lab Interpretation Abnormal (test code = 51859-3) [facility]
--- NOTE | 2023-07-17 17:45 | ER ---
Nurse's Notes [facility] Name: Kendall Kapoor Age: 37 yrs Sex: Male : 1985 Arrival Date: 07/17/2023 Time: 17:26 Bed IW2 Private MD: Diagnosis: Torticollis Presentation: 07/17 17:39 Chief complaint: Patient states: c/o pain to right posterior neck that started this me1 morning. Coronavirus screen: Vaccine status: Patient reports being unvaccinated. Ebola Screen: No symptoms or risks identified at this time. Initial Sepsis Screen: Does the patient meet any 2 criteria? No. Patient's initial sepsis screen is negative. Does the patient have a suspected source of infection? No. Patient's initial sepsis screen is negative. Risk Assessment: Do you want to hurt yourself or someone else? Patient reports no desire to harm self or others. Onset of symptoms was July 17, 2023. 17:39 Method Of Arrival: Ambulatory [facility] 17:39 Acuity: JELLY 5 nh1 Triage Assessment: 17:41 General: Appears uncomfortable, obese, Behavior is calm, cooperative, appropriate for nh1 age. Pain: Complains of pain in right posterior neck. Pain does not radiate. Pain currently is 8 out of 10 on a pain scale. Quality of pain is described as pressure, squeezing, Pain began suddenly, 4 hours ago. Is continuous. Neuro: Level of Consciousness is awake, alert, obeys commands, Oriented to person, place, time, situation, Appropriate for age. Cardiovascular: Capillary refill < 3 seconds Patient's skin is warm and dry. Respiratory: Airway is patent Respiratory effort is even, unlabored, Respiratory pattern is regular, symmetrical. Musculoskeletal: Reports pain in posterior right neck since this morning. . Historical: - Allergies: 17:41 No Known Allergies; me1 - PMHx: 17:41 Asthma; CAD; Enlarged Heart; TIA; Diabetes mellitus; me1 - PSHx: 17:41 Appendectomy; hernia repair; me1 - Immunization history:: Adult Immunizations up to date. - Social history:: Smoking status: Patient reports the use of cigarette tobacco products, smokes one-half pack cigarettes per day. Screenin:44 [facility] ED Fall Risk Assessment (Adult) History of falling in the last 3 months, me1 including since admission No falls in past 3 months (0 pts) Confusion or Disorientation No (0 pts) Intoxicated or Sedated No (0 pts) Impaired Gait No (0 pts) Mobility Assist Device Used No (0 pt) Altered Elimination No (0 pt) Score/Fall Risk Level 0 - 2 = Low Risk. Abuse screen: Denies threats or abuse. Nutritional screening: No deficits noted. Tuberculosis screening: No symptoms or risk factors identified. Assessment: 17:44 General: see triage assessment. . me1 Vital Signs: 17:39 BP 143 / 91; Pulse 128; Resp 22; Temp 98.4(TE); Pulse Ox 94% on R/A; Weight 136.08 kg; me1 Height 5 ft. 8 in. ; Pain 8/10; 17:39 Body Mass Index 45.61 (136.08 kg, 172.72 cm) me1 17:39 Pain Scale: Adult nh1 ED Course: 17:28 Patient arrived in ED. mr 17:28 Rose Isaac [facility]C [facility] kb 17:28 Ava Sherman MD is Attending Physician. kb 17:41 Triage completed. me1 17:41 Arm band placed on Patient placed in waiting room. me1 17:44 Patient has correct armband on for positive identification. Provided Education on: POC. me1 Verbalized understanding. . 17:44 No provider procedures requiring assistance completed. Patient did not have IV access me1 during this emergency room visit. Administered Medications: 17:49 Drug: predniSONE PO 60 mg PO once Route: PO; me1 Medication: 17:44 VIS not applicable for this client. me1 Outcome: 17:44 Discharge ordered by . kb 17:50 Discharged to home ambulatory, me1 17:50 Condition: stable 17:50 Discharge instructions given to patient, Instructed on discharge instructions, follow up and referral plans. medication usage, Demonstrated understanding of instructions, follow-up care, medications, Prescriptions given X 3, 17:51 Patient left the ED. me1 Signatures: Rose Isaac FNP-C FNP-Tish Cano, Reg Reg mr HaddadNazia, RN RN me1
--- NOTE | 2023-07-17 17:45 | EDPHYS ---
Physician Documentation [facility] Name: Kendall Kapoor Age: 37 yrs Sex: Male : 1985 Arrival Date: 07/17/2023 Time: 17:26 Bed IW2 Private MD: ED Physician Ava Sherman HPI: 07/17 17:42 This 37 yrs old Male presents to ER via Ambulatory with complaints of Stiff Neck. kb 18:36 The patient or guardian complains of pain, that is acute, tenderness. The symptoms are kb located on the right posterior aspect of neck. Onset: The symptoms/episode began/occurred this morning. Context: The problem was sustained at home, The neck injury/problem resulted from from unknown cause. Associated signs and symptoms: Pertinent positives: This patient does not have any pertinent positive signs or symptoms associated with neck pain. The patient denies any alcohol use. The patient is not apparently intoxicated. No neurological symptoms were experienced by the patient prior to arrival in the emergency department. The pain does not radiate. Modifying factors: The symptoms are alleviated by remaining still, the symptoms are aggravated by movement, pressure. Severity of symptoms: At their worst the symptoms were moderate, in the emergency department the symptoms are unchanged. The patient has not experienced similar symptoms in the past. The patient has not recently seen a physician. Pt reports he was working in the barn with cows this morning, then was doing a computer class when he developed pain to right side of neck. Reports pain with movement. Denies recent illness or fever. Denies cervical tenderness. . Historical: - Allergies: 17:41 No Known Allergies; me1 - PMHx: 17:41 Asthma; CAD; Enlarged Heart; TIA; Diabetes mellitus; me1 - PSHx: 17:41 Appendectomy; hernia repair; me1 - Immunization history:: Adult Immunizations up to date. - Social history:: Smoking status: Patient reports the use of cigarette tobacco products, smokes one-half pack cigarettes per day. ROS: 18:36 Constitutional: Negative for fever, chills, and weight loss, kb 18:36 Neck: Positive for pain with movement, stiffness, tenderness, 18:36 All other systems are negative, Exam: 18:44 Constitutional: This is a well developed, well nourished patient who is awake, alert, kb and in no acute distress. Head/Face: Normocephalic, atraumatic. Cardiovascular: Regular rate Respiratory: Respirations even and unlabored. No increased work of breathing. Talking in full sentences Skin: Warm, dry with normal turgor. Normal color. MS/ Extremity: Pulses equal, no cyanosis. Neurovascular intact. Full, normal range of motion. Neuro: Awake and alert, GCS 15, oriented to person, place, time, and situation. Moves all extremities. Normal gait. 18:44 Neck: External neck: tenderness, that is moderate, of the right posterior aspect of neck, C-spine: appears grossly normal, ROM/movement: pain, that is moderate, with rotation to the right, Vital Signs: 17:39 BP 143 / 91; Pulse 128; Resp 22; Temp 98.4(TE); Pulse Ox 94% on R/A; Weight 136.08 kg; me1 Height 5 ft. 8 in. ; Pain 8/10; 17:39 Body Mass Index 45.61 (136.08 kg, 172.72 cm) me1 17:39 Pain Scale: Adult me1 MDM: 17:29 Patient medically screened. kb 17:42 Data reviewed: vital signs, nurses notes. kb 18:45 Differential diagnosis: Cervical Raiculopathy cervical strain, torticollis. I kb considered the following discharge prescriptions or medication management in the emergency department Medications were administered in the Emergency Department. See MAR discussed IM medications but pt does not want a needle stick. Test considered but Not performed: Labs: cbc and bmp considered, but pt does not want any needle sticks. CT: CT considered, but pt denies injury or bony tenderness. Counseling: I had a detailed discussion with the patient and/or guardian regarding the historical points, exam findings, and any diagnostic results supporting the discharge/admit diagnosis, the need for outpatient follow up, a family practitioner, to return to the emergency department if symptoms worsen or persist or if there are any questions or concerns that arise at home. Administered Medications: 17:49 Drug: predniSONE PO 60 mg PO once Route: PO; me1 Disposition Summary: 07/17/23 17:44 Discharge Ordered Notes: Location: Home Condition: Stable kb Diagnosis - Torticollis kb Followup: kb - With: Emergency Department - When: As needed - Reason: Worsening of condition Followup: kb - With: Private Physician - When: 2 - 3 days - Reason: Recheck today's complaints, Continuance of care, Re-evaluation by your physician Discharge Instructions: - Discharge Summary Sheet kb - Acute Torticollis, Adult kb Forms: - Medication Reconciliation Form kb - Thank You Letter kb - Antibiotic Education kb - Prescription Opioid Use kb - Patient Portal Instructions kb - Leadership Thank You Letter Prescriptions: - Prednisone 20 mg Oral Tablet - take 1 tablet by ORAL route once daily for 5 days; 5 tablet; Refills: 0, kb Product Selection Permitted - Cyclobenzaprine 10 mg Oral Tablet - take 1 tablet by ORAL route every 8 hours As needed; 21 tablet; Refills: 0, kb Product Selection Permitted - Diclofenac Sodium 75 mg Oral tablet,delayed release (DR/EC) - take 1 tablet by ORAL route 2 times per day As needed; 30 tablet; Refills: 0, kb Product Selection Permitted Signatures: Rose Isaac, JOSE AMARO-Nazia Ann, RN RN me1
[2023-07-17] MEDS ORDERED: predniSONE 20 MG TAB ONE (17:59)
[2023-07-17 18:22] VITALS: BP 143/91; TEMP 98.4; O2SAT 94
== END 2023-07-17 17:51 | disposition home or self-care (01) ==
LOC: ER 17:26
DX: M43.6 Torticollis (principal)
CPT/HCPCS: 99283; J7512

== ENCOUNTER 2023-09-02 10:28 | Emergency (ER) | payer SELFPAY ==
--- OUTSIDE RECORDS SUMMARY | 2023-09-02 10:35 | XMS REPORT | Continuity of Care Document ---
:1985 Author Organization [facility] t Address [address] [facility] [address] [place] [address] Care Team Providers Name Role Phone Asked, No Pcp Primary Care Physician Unavailable TAMERA KRAUSE Attending Clinician Unavailable CARL SOTO Attending Clinician Unavailable Nelida SIGALA, Tamera Gleason Attending Clinician Carl Magdaleno MD Attending Clinician Evan Isabel MD Attending Clinician Maycol Srivastava MD Attending Clinician MAYCOL SRIVASTAVA Attending Clinician Unavailable Tomrubi_T Attending Clinician Unavailable DANIE DOMINGUEZ Attending Clinician Unavailable Froilan SIGALA, Jama Davies Attending Clinician LAI GONZALEZ Attending Clinician Unavailable Peter Duffy MD Attending Clinician Lai Gonzalez DO Attending Clinician CHEKO NIX Attending Clinician Unavailable Cheko Nix MD Attending Clinician JENIFFER RONQUILLO Attending Clinician Unavailable Jeniffer Ronquillo MD Attending Clinician Annette MARTIN Attending Clinician Unavailable Annette Cuello Attending Clinician Charles SIGALA, Carl Looney Attending Clinician Franco Blancas MD Attending Clinician Thu SIGALA, Idalia Gan Attending Clinician Doctor Unassigned, [place] Attending Clinician Unavailable Only, Adc Test Attending Clinician Unavailable Chandan SIGALA, Robert Attending Clinician Hayder ROB, Mary Schumacher Attending Clinician Taty SIGALA, Javy Garcia Attending Clinician JAVY POSEY Attending Clinician Unavailable Iker SIGALA, Blayne Attending Clinician Jamia SIGALA, Maximo Blackburn Attending Clinician MAXIMO BLANDON Attending Clinician Unavailable PAU FLOOD Attending Clinician Unavailable Pau Flood MD Attending Clinician Osiris Hanna MD Attending Clinician OSIRIS HANNA Attending Clinician Unavailable ERMA YOU Attending Clinician Unavailable Franky Gomes RN Attending Clinician Unavailable TAMERA KRAUSE Admitting Clinician [...] Date S ource BCBS PPO POS EPO [id number] 2022 00:00:00 CHOICE [facility] [id number] 2020 00:00:00 [place] [id number] 2022 00:00:00 [place] Problems Condition Condition Condition Status Onset Resolution Last Treating Co mments Source Name Details Category Date Date Treatment Clinician Date Acute on Acute on Disease [facility] diastolic diastolic 00:00: [facility] CHF CHF 00 Center (congestiv (congestiv e heart e heart failure) failure) Pain in Pain in Disease Active Methodi left left 8-01 st testicle testicle 00:00: Hospit a 00 l Acute Acute Disease [facility] exacerbati exacerbati nce 5-22 Lori kes on of CHF on of CHF 00:00: [facility] (congestiv (congestiv 00 Ce nter e heart [...] vers ESTELA BEE INGREDI ity of 00:00: [place] 00 Medical Branch 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 to st Protein adverse 00:00: Hospita (Honey reaction 00 l Bee) s to drug Other Propensi Active Anaphylaxis 2017-[address] [facility] [address] adverse 00:00: Hospita reaction 00 l s NO KNOWN Allergy Active [facility] Social History Social Habit Start Date Stop Date Quantity Comments Source Gender identity [facility] of [facility] C[facility] SDOH University o f Alcohol Std Drinks [place] [facility] History SDOH [facility] o f Alcohol Binge [place] [facility] History [facility] University o f Alcohol Comment [place] [facility] Sexual orientation [facility] Hospital History [facility] Transport Non-Med Medical Center Alcohol intake 2023-06-30 2023-06-30 Ex-drinker [facility] Fatou es 00:00:00 00:00:00 (finding) Medical Center History of Social 2023-05-30 2023-05-[address] function 00:00:00 00:00:00 Hospital History [facility] 2023-03-21 2023-03-[address] [facility] Transport Med 00:00:00 00:00:[address] History [facility] 2023-03-21 2023-03-[address] [facility] Housing Unable to 00:00:00 00:00:00 Medical Center Pay History [facility] 2023-03-21 2023-03-[address] [facility] Housing Places 00:00:00 00:00:00 Medical Ce nter Lived History [facility] 2023-03-21 2023-03-[address] [facility] Housing Homeless 00:00:00 00:00:00 Medical Center Last Year Cigarettes smoked 2023-03-20 2023-03-[address] [facility] current (pack per 00:00:00 00:00:00 Medical Center day) - Reported Cigarette 2023-03-20 2023-03-[address] [facility] pack-years 00:00:00 00:00:00 Medical Center Tobacco use and 2022-09-21 2022-09-21 Smokeless Gnosticism exposure 00:00:00 00:00:00 tobacco non-user Hospital Exposure to 2022-07-30 2022-08-09 Not sure [facility] SARS-CoV-2 (event) 00:00:00 13:32:00 [facility] Education 2021-08-31 2021-08-31 15 University of 00:00:00 00:00:00 [facility] History [facility] 2020-08-03 2020-08-03 1 University o f Alcohol Frequency 00:00:00 00:00:00 [facility] Tobacco Comment 2020-08-02 2020-08-02 Down from 2 ppd Univ ersity of 00:00:00 00:00:00 [facility] Sex Ass[birth year] At [birth year] NIRMALA Costa kes 00:00:00 00:00:00 Medical Center Smoking Status Start Date Stop Date Source Heavy Tobacco Smoker [place] [facility] Smokes tobacco daily 2022-09-21 00:00:00 [facility] Medications Ordered Filled Start Stop Current Ordering Indication Dosage Frequency Signature Comments Components Source Medication Medication Date Date Medication? Clinician (SIG) Name Name Ward- Yes 1{tbl} Q.5D Take [address] valsartan 8-12 tablet by Linda (Entresto) 12:47: mouth 2 Medi srinath 24-26 mg 54 (two) Center tablet times daily. sacubitriL- 0 Yes 1{tbl} Q.5D Take [address] valsartan 8-12 tablet by Linda (Ambrosiosto) 12:47: mouth 2 Medi srinath 24-26 mg 54 (two) Center tablet times daily. celecoxib Yes Methodi (CeleBREX) 6-14 st 200 MG 00:00: Hospita capsule 00 l celecoxib 2022-0 Yes [facility] (CeleBREX) 6-14 st 200 MG 00:00: Hospita capsule 00 l meloxicam 2022-0 Yes Methodi (MOBIC) 7.5 6-07 st mg tablet 00:00: Hospita 00 l meloxicam 2022-0 Yes Methodi (MOBIC) 7.5 6-07 st mg tablet 00:00: Hospita 00 l aspirin 81 2022-0 2024- No 81mg Chew 1 Meth vangie mg chewable 5-27 05-27 tablet (81 s t tablet 00:00: 04:59 mg total). Hosp kalin 00 :00 l aspirin 81 2022-0 2024- No 81mg Chew 1 Meth vangie mg chewable 5-27 05-27 tablet (81 s t tablet 00:00: 04:59 mg total). Hosp kalin 00 :00 l aspirin 81 2022-0 2024- No 81mg QD Take [address] MG chewable 5-27 05-26 tablet (81 L ukes tablet 00:00: 23:59 mg total) Medic al 00 :00 by mouth Center in the morning. You can get this over the counter if needed. aspirin 81 2022-0 2024- No 81mg QD Take [address] [...] tablet (40 mg total) before bedtime. dextrometho 3-0 Yes 5mL Take [address] rphan-guaif 5-26 by mouth Luke s enesin 00:00: every 4 Medical (ROBITUSSIN 00 (four) Center -) 10-100 hours as mg/5 mL needed liquid (cough) You can get this over the counter if needed. traMADoL 2022-0 Yes 50mg Take [address] (ULTRAM) 50 - tablet (50 Lori kes mg tablet 00:00: mg total) Med ical 00 by mouth Center every 6 (six) hours as needed for Pain. Max Daily Amount: 200 mg fluticasone 2022-0 Yes 1{puff} QD Inhale [address] furoate-elle -26 puff by Lukes anteroL 00:00: mouth via Medic al (BREO 00 inhaler in [facility]) the -25 morning. mcg/dose DsDv albuterol 2022-0 Yes 2.5mg Take 0.[address] (PROVENTIL) 5-26 mLs (2.5 Luke s 2.5 mg/0.5 00:00: mg total) Me dical mL Nebu 00 by Center nebulizer nebulizati solution on every 6 (six) hours as needed for Wheezing or Shortness of Breath Dx: bronchospa sm. albuterol 2022-0 Yes USE 1 VIAL Me thodi (ACCUNEB) 5-[address] 2.5 mg /3 00:00: NEBULIZER Hos emma mL (0.083 00 EVERY 6 l %) HOURS nebulizer NEEDED FOR solution WHEEZING OR SHORTNESS OF BREATH furosemide 2022-0 Yes 40mg Q.5D Take 1 [facility] t (LASIX) 40 5-26 tablet (40 Fatou es MG tablet 00:00: mg total) Med ical 00 by mouth Center in the morning and 1 tablet (40 mg total) before bedtime. dextrometho 3-0 Yes 5mL Take [address] rphan-guaif 5-26 by mouth Luke s enesin 00:00: every 4 Medical (ROBITUSSIN 00 (four) Center -DM) 10-100 hours as mg/5 mL needed liquid (cough) You can get this over the counter if needed. traMADoL Yes 50mg Take [address] (ULTRAM) 50 -26 tablet (50 Lori kes mg tablet 00:00: mg total) Med ical 00 by mouth Center every 6 (six) hours as needed for Pain. Max Daily Amount: 200 mg fluticasone Yes 1{puff} QD Inhale [address] furoate-elle 5-26 puff by Lukes anteroL 00:00: mouth via Medic al (BREO [address] [facility]) the 200-25 morning. mcg/dose DsDv albuterol Yes 2.5mg Take 0.[address] (PROVENTIL) 5-26 mLs (2.5 Luke s 2.5 mg/0.5 00:00: mg total) Me dical mL Nebu 00 by Center nebulizer nebulizati solution on every 6 (six) hours as needed for Wheezing or Shortness of Breath Dx: bronchospa sm. atorvastati 0 2023- No 20mg Take 1 Met hodi n (LIPITOR) 5-26 05-26 tablet (20 s t 20 mg 00:00: 04:59 mg total) Hospit a tablet 00 :00 by mouth. l atorvastati 2022-2023- No 20mg Take 1 Met hodi n (LIPITOR) 5-26 05-26 tablet (20 s t 20 mg 00:00: 04:59 mg total) Hospit a tablet 00 :00 by mouth. l guaiFENesin 2022-0 2023- No 600mg Q.5D Take [address] (mucINEX) 5- 05-25 tablet [facility] 600 mg 12 00:00: 23:59 (600 mg Medi srinath hr tablet 00 :00 total) by Cente r mouth in the morning and 1 tablet (600 mg total) before bedtime. For chronic cough. atorvastati 0 2023- No 20mg QD Take [address] n (LIPITOR) 5-26 05-25 tablet (20 L ukes 20 MG 00:00: 23:59 mg total) Medica l tablet 00 :00 by mouth Center in the morning. guaiFENesin 2022023- No 600mg Q.5D Take [address] (mucINEX) - 05-25 tablet [facility] 600 mg 12 00:00: 23:59 (600 mg Medi srinath hr tablet 00 :00 total) by Cente r mouth in the morning and 1 tablet (600 mg total) before bedtime. For chronic cough. atorvastati 2023- No 20mg QD Take [address] n (LIPITOR) - 05-25 tablet (20 L ukes 20 MG 00:00: 23:59 mg total) Medica l tablet 00 :00 by mouth Center in the morning. potassium 2022-2022- No 20meq QD Take [address] chloride -26 08-12 tablet (20 Luke s (K-TAB) 20 00:00: 00:00 mEq total) Medical mEq CR 00 :00 by mouth Center tablet in the morning. Take this with your diuretic. potassium 2022-2022- No 20meq QD Take [address] chloride - 08-12 tablet (20 Luke s (K-TAB) 20 00:00: 00:00 mEq total) Medical mEq CR 00 :00 by mouth Center tablet in the morning. Take this with your diuretic. potassium 2022-0 Yes 20meq Take 20 Meth vangie chloride 20 5-[address] mEq tablet 00:00: mouth. Hospi ta extended 00 l release potassium 2022-0 Yes 20meq Take 20 Meth vangie chloride 20 5-[address] mEq tablet 00:00: mouth. Hospi ta extended 00 l release carvediloL 2022- No 6.25mg Q.5D Take [address] (COREG) -14 03-26 tablet [facility] 6.25 MG 00:00: 00:00 (6.25 mg Medic al tablet 00 :00 total) by Center mouth in the morning and 1 tablet (6.25 mg total) before bedtime. furosemide 2022-2022- No 20mg QD Take [address] (LASIX) 20 -16 05-26 tablet (20 Lori kes MG tablet 00:00: 00:00 mg total) Me dical 00 :00 by mouth Center in the morning. potassium 2022-2022- No 20meq QD Take [address] chloride 5-16 05-26 tablet (20 Luke s (K-TAB) 20 00:00: 00:00 mEq total) Medical mEq CR 00 :00 by mouth Center tablet in the morning. carvediloL 2023-0 2022- No 6.25mg Q.5D Take [address] (COREG) 03-14 tablet [facility] 6.25 MG 00:00: 00:00 (6.25 mg Medic al tablet 00 :00 total) by Center mouth in the morning and 1 tablet (6.25 mg total) before bedtime. furosemide 3-0 3- No 20mg QD Take [address] (LASIX) 20 03-14 tablet (20 Lori kes MG tablet 00:00: 00:00 mg total) Me dical 00 :00 by mouth Center in the morning. potassium 3-0 3- No 20meq QD Take [address] chloride 03-14 tablet (20 Luke s (K-TAB) 20 00:00: 00:00 mEq total) Medical mEq CR 00 :00 by mouth Center tablet in the morning. semaglutide 2023-0 Yes .5mg Q1W Inject 0.5 Methodi (Ozempic) 3-[address] 0.25 mg or 00:00: the skin Hos emma 0.5 mg(2 00 every 7 l mg/1.5 mL) days. subcutaneou s pen Ozempic 2023-0 Yes .5mg Q7D Inject [facility] 0.25 mg or 3-12 0.375 mLs Luke s 0.5 mg(2 00:00: (0.5 mg Medica l mg/1.5 mL) 00 total) Center PnIj subcutaneo usly once a week. semaglutide 2023-0 Yes .5mg Q1W Inject 0.5 Methodi (Ozempic) 3-[address] 0.25 mg or 00:00: the skin Hos emma 0.5 mg(2 00 every 7 l mg/1.5 mL) days. subcutaneou s pen Ozempic 2023-0 Yes .5mg Q7D Inject [facility] 0.25 mg or 3-12 0.375 mLs Luke s 0.5 mg(2 00:00: (0.5 mg Medica l mg/1.5 mL) 00 total) Center PnIj subcutaneo usly once a week. No known 2021-10 No No known Metho di medications - medication st 11:32: s Hospita 35 l No known 2021-10 No No known Metho di medications - medication st 11:32: s Hospita 35 l ketorolac No 30mg 30 mg, Unive rs (TORADOL) 02-08 [...] albuterol Yes PROAIR HFA Un briana (PROAIR 02-08 108 (90 ity of HFA) 90 02:30: Base) [place] mcg/actuati 15 MCG/ACT Medic al on inhaler AERS Branch albuterol Yes ALBUTEROL Uni vers 2.5 mg /3 4-12 SULFATE ity of mL (0.083 02:30: (2.5 [place] %) 15 MG/3ML) Medical nebulizer 0.083% Branch solution NEBU albuterol Yes PROAIR HFA Un briana (PROAIR 4 108 (90 ity of HFA) 90 02:30: [...] MCG/ACT Medic al on inhaler AERS Branch traMADoL Yes 50mg Take 1 Methodi (ULTRAM) 50 4-12 tablet (50 st mg tablet 00:00: mg total) Hos emma 00 by mouth. l ibuprofen Yes [id number] 600mg Take 1 U nivers 600 mg [...] 4-6). Indication s: acute pain ibuprofen Yes [id number] 600mg Take 1 U nivers 600 mg [...] 4-6). Indication s: acute pain ibuprofen Yes [id number] 600mg Take 1 U nivers 600 mg [...] Hos emma 00 by mouth. l cefTRIAXone No 1000mg 1,000 mg, Univers (ROCEPHIN) 11-28 IV ity of 1,000 mg in 07:00: 06:36 Piggyback, [place] NaCl 0.9% 00 :00 ONCE, 1 Medical (NS) 50 mL dose, On Branc h MINI-BAG 11/28/21 at 0100, Administer over 30 Minutes, 50 mL
Reas on for Anti-Infec tive: Documented Infection< br>Documen rosalia Infection Site: Skin / Soft Tissue
Duration of Therapy: Other (see Comments) iohexol 2021- No [id number] 120mL 120 mL, U nivers (OMNIPAQUE 11-2830 Intravenou it y of 350 05:15: 05:04 s, ONCE, 1 [place] BULK-100 00 :00 dose, On Medical mL) Sat Branch injection 11/27/21 at 120 mL 2315, Routine cephALEXin 2021- No [id number] 500mg Take 1 Univers (KEFLEX) 11-28 capsule by ity of 500 mg 00:00: [...] on inhaler AERS Branch alum-mag 2020-10 Yes [id number] 30mL Take 30 mL Univers hydroxide-s 1-23 by mouth 3 it y of imeth 00:00: (three) [place] times Medical mg/5 mL daily. Branch suspension alum-mag 2020-10 Yes [id number] 30mL Take 30 mL Univers hydroxide-s 1-23 by mouth 3 it y of imeth 00:00: (three) [place] times Medical mg/5 mL daily. Branch suspension alum-mag 2020-10 Yes [id number] 30mL Take 30 mL Univers hydroxide-s 1-23 by mouth 3 it y of imeth 00:00: (three) [place] times Medical mg/5 mL daily. Branch suspension alum-mag 2020-10 Yes [id number] 30mL Take 30 mL Univers hydroxide-s 1-23 by mouth 3 it y of imeth 00:00: (three) [place] times Medical mg/5 mL daily. Branch suspension alum-mag 2020-10 Yes [id number] 30mL Take 30 mL Univers hydroxide-s 1-23 by mouth 3 it y of imeth 00:00: (three) [place] times Medical mg/5 mL daily. Branch suspension acetaminoph 2020-10- No [id number] 650mg Take 2 Univers en 325 mg 1-23 11-24 tablets by ity of tablet 00:00: 05:59 mouth [place] 00 :00 every 6 Medical (six) Branch hours. acetaminoph 2020-10- No [id number] 650mg Take 2 Univers en 325 mg 1-23 11-24 tablets by ity of tablet 00:00: 05:59 mouth [place] 00 :00 every 6 Medical (six) Branch hours. acetaminoph 2020-2021- No [id number] 650mg Take 2 Univers en 325 mg 1-23 11-24 tablets by ity of tablet 00:00: 05:59 mouth [place] 00 :00 every 6 Medical (six) Branch hours. acetaminoph 2020-2021- No [id number] 650mg Take 2 Univers en 325 mg 1-23 11-24 tablets by ity of tablet 00:00: 05:59 mouth [place] 00 :00 every 6 Medical (six) Branch hours. acetaminoph 2020-10- No [id number] 650mg Take 2 Univers en 325 mg 11-21 11-24 tablets by ity of tablet 00:00: 05:59 mouth [place] 00 :00 every 6 Medical (six) Branch hours. ciprofloxac 2020-10- No [id number] 500mg Take 1 Univers in HCl 500 [...] 40 mg 9-15 ity of tablet 00:00: [facility] furosemide Yes as needed. U nivers 40 mg 9-15 ity of tablet 00:00: [facility] furosemide Yes as needed. U nivers 40 mg 9-15 ity of tablet 00:00: [facility] furosemide Yes as needed. U nivers 40 mg 9-15 ity of tablet 00:00: [facility] furosemide Yes as needed. U nivers 40 mg 9-15 ity of tablet 00:00: [facility] Branch No known No No known Metho [...] for 30 days. 30 days. 30 days. Vital Signs Vital Name Observation Time Observation [...] Group Body Weight 2023-03-14 00:00:00 5689 [oz_av] [facility] Systolic blood 2022-08-09 18:32:00 143 mm[Hg] Univer sity of pressure [facility] Diastolic blood 2022-08-09 18:32:00 101 mm[Hg] Unive rsity of pressure [facility] Heart rate 2022-08-09 18:32:00 100 /min [facility] Body temperature 2022-08-09 18:32:00 36.56 Brittanie [facility] 2022-08-09 18:32:00 20 /min [facility] Body height 2022-08-09 18:32:00 172.7 cm [facility] Body weight 2022-08-09 18:32:00 158.759 kg [facility] BMI 2022-08-09 18:32:00 53.22 kg/m2 [facility] Oxygen saturation in 2022-08-09 18:32:00 95 /min [facility] blood by [place] Medi srinath Pulse oximetry Branch Systolic blood 2022-02-08 09:42:00 170 mm[Hg] Univer sity of pressure [facility] Diastolic blood 2022-02-08 09:42:00 54 mm[Hg] Unive rsity of pressure [facility] Heart rate 2022-02-08 09:42:00 90 /min Universi ty of [place] [facility] Respiratory rate 2022-02-08 09:42:00 23 /min Univ ersity of [place] [facility] Oxygen saturation in 2022-02-08 09:42:00 96 /min University of Arterial blood by [facility] Pulse oximetry Branch Body temperature 2022-02-08 07:18:00 37 Brittanie Univ ersity of [place] [facility] Body height 2022-02-08 07:18:00 172.7 cm Universi ty [facility] [place] [facility] Body weight 2022-02-08 07:18:00 140.615 kg [facility]i [facility] [place] [facility] BMI 2022-02-08 07:18:00 47.14 kg/m2 [facility]i [facility] [place] [facility] Systolic blood 2021-11-28 06:30:00 114 mm[Hg] Univer sity of pressure [facility] Diastolic blood 2021-11-28 06:30:00 60 mm[Hg] Unive rsity of pressure [facility] Heart rate 2021-11-28 06:30:00 101 /min [facility]i ty [facility] [place] [facility] Oxygen saturation in 2021-11-28 06:30:00 95 /min University of Arterial blood by [facility] Pulse oximetry Branch Respiratory rate 2021-11-28 04:20:00 20 /min Univ ersity of [place] [facility] Body temperature 2021-11-28 04:12:00 37.11 Brittanie [facility] [place] [facility] Body height 2021-11-28 04:12:00 172.7 cm [facility]i [facility] [place] [facility] Body weight 2021-11-28 04:12:00 148.8 kg [facility] [place] [facility] BMI 2021-11-28 04:12:00 49.88 kg/m2 [facility] [place] [facility] Systolic blood 2021-09-29 20:18:00 145 mm[Hg] Univer sity of pressure [facility] Diastolic blood 2021-09-29 20:18:00 84 mm[Hg] Unive rsity of pressure [facility] Heart rate 2021-09-29 20:18:00 117 /min [facility] Body temperature 2021-09-29 20:18:00 36.5 Brittanie [facility] Respiratory rate 2021-09-29 20:18:00 18 /min [facility] Body height 2021-09-29 20:18:00 170.2 cm [facility] Body weight 2021-09-29 20:18:00 145.287 kg [facility] BMI 2021-09-29 20:18:00 50.17 kg/m2 [facility] Systolic blood 2023-06-10 11:00:00 101 mm[Hg] [facility] Diastolic blood 2023-06-10 11:00:00 64 mm[Hg] [facility] Heart rate 2023-06-10 11:00:00 99 /min [facility] Body temperature 2023-06-10 11:00:00 36.67 Brittanie [facility] Respiratory rate 2023-06-10 11:00:00 20 /min [facility] Oxygen saturation in 2023-06-10 11:00:00 94 /min [facility] Arterial blood by Medical Ce nter Pulse oximetry Body weight 2023-06-09 06:00:00 153.588 kg [facility] BMI 2023-06-09 06:00:00 51.48 kg/m2 [facility] Body height 2023-03-20 20:08:00 172.7 cm [facility] Systolic blood 2022-09-21 17:28:00 106 mm[Hg] [facility] Di[facility] blood 2022-09-21 17:28:00 69 mm[Hg] [facility] pressure Heart rate 2022-09-21 17:28:00 102 /min [facility] Body temperature 2022-09-21 17:28:00 36.56 Brittanie [facility] Body height 2022-09-21 17:28:00 [facility] weight 2022-09-21 17:28:00 160.029 kg [facility] BMI 2022-09-21 17:28:00 52.10 kg/m2 [facility] Oxygen saturation in 2022-09-21 17:28:00 98 /min [facility] Arterial blood by Pulse oximetry Procedures Procedure Date / Time Performing Clinician Source Performed POCT-GLUCOSE METER 2023-06-09 22:10:00 Tamera Krause [facility] CT CHEST WITHOUT IV 2023-06-09 13:53:00 Tamera Krause [facility] CONTRAST [place] BASIC METABOLIC PANEL 2023-06-09 04:52:00 Tamera Krause [facility] POCT-GLUCOSE METER 2023-06-08 20:08:00 Tamera Krause [facility] POCT-ACT 2023-06-08 20:04:00 Tamera Krause [facility] ANGIOGRAM, CORONARY 2023-06-08 18:29:00 Carl Magdaleno [facility] ARTERY, W BOTH RIGHT + Center LEFT HEART CATH, LEFT VENTRICULOGRAM, AND PHARMACOLOGIC AGENT ADMIN, FOR PROSTAGLANDIN STUDY BASIC METABOLIC PANEL 2023-06-08 04:31:00 Tamera Krause [facility] CBC W/PLT COUNT & AUTO 2023-06-08 04:31:00 Tamera Krause [facility] CBC W/PLT COUNT & AUTO 2023-06-08 04:31:00 Tamera Krause [facility] DIFFERENTIAL [place] XR CHEST 1 VIEW PORTABLE 2023-06-07 11:20:00 Tamera Krause [facility] / BEDSIDE Center BASIC METABOLIC PANEL 2023-06-07 04:11:00 Tamera Krause [facility] CBC W/PLT COUNT & AUTO 2023-06-07 04:11:00 Tamera Krause [facility] DIFFERENTIAL [place] CBC W/PLT COUNT & AUTO 2023-06-07 04:11:00 Tamera Krause [facility] DIFFERENTIAL Center BASIC METABOLIC PANEL 2023-06-06 20:59:00 Tamera Krause [facility] CBC W/PLT COUNT & AUTO 2023-06-06 20:59:00 Tamera Krause [facility] DIFFERENTIAL Center B-TYPE NATRIURETIC 2023-06-06 20:59:00 Tamera Krause [facility] FACTOR (BNP) Center CBC W/PLT COUNT & AUTO 2023-06-06 20:59:00 Tamera Krause [place] [facility] DIFFERENTIAL Center CARDIAC CATH REPORT - 2023-06-06 00:00:00 Provider, [facility] SCAN Scanning Center VASCULAR DIAGRAM -SCAN 2023-06-06 00:00:00 Provider, [facility] Scanning [place] 2D ECHO W/ DOPPLER 2023-03-23 17:04:08 Ethan Winchester [facility] (CW/PW/COLOR) Center CT ABDOMEN/PELVIS WITH 2023-03-23 09:35:00 Maycol Srivastava [facility] IV CONTRAST Center CT CHEST WITHOUT IV 2023-03-23 09:15:00 Toribio Doe [facility] CONTRAST [place] BASIC METABOLIC PANEL 2023-03-22 05:44:00 Maycol Srivastava [facility] MAGNESIUM 2023-03-22 05:44:00 Maycol Srivastava [facility] CBC (HEMOGRAM ONLY) 2023-03-22 05:42:00 Maycol Srivastava anna [facility] HEMOGLOBIN A1C 2023-03-22 05:42:00 Carl Magdaleno [facility] ALPHA FETOPROTEIN (AFP), 2023-03-21 22:03:00 Srikanth Graff [facility] TUMOR MARKER Center LACTATE DEHYDROGENASE 2023-03-21 22:03:00 Suad GraffElvira [facility] (LDH) Center HCG, QUANTITATIVE, 2023-03-21 22:03:00 Srikanth Graff [facility] ECG 12-LEAD 2023-03-21 09:50:06 Carl Magdaleno [facility] BASIC METABOLIC PANEL 2023-03-21 06:09:00 Atif, Maycol Purdyunna CH I [facility] MAGNESIUM 2023-03-21 06:09:00 Atif, [facility]col [facility] CBC (HEMOGRAM ONLY) 2023-03-21 06:09:00 Atif, Maycol Hystorma [facility] LIPID PANEL 2023-03-21 06:09:00 Atif, Maycol [facility] HIGH SENSITIVITY 2023-03-21 06:09:00 Atif, [facility] TROPONIN I Center US TESTICULAR (SCROTUM) 2023-03-21 02:26:00 Atif, [facility] SARS-COV2/RT-PCR ([facility] & 2023-03-20 22:18:00 Atif, [facility] REF LABS) Center BLOOD CULTURE 2023-03-20 20:45:00 [facility] BASIC METABOLIC PANEL 2023-03-20 20:44:00 Atif, Maycol Hystorma CH [facility] HEPATIC FUNCTION PANEL 2023-03-20 20:44:00 AtifMaycola C HI [facility] MAGNESIUM 2023-03-20 20:44:00 Atif, [facility] CBC (HEMOGRAM ONLY) 2023-03-20 20:44:00 [facility] B-TYPE NATRIURETIC 2023-03-20 20:44:00 Atif, Maycol [facility] HIGH SENSITIVITY 2023-03-20 20:44:00 Atif, [facility] TROPONIN I Center XR CHEST 1 VIEW PORTABLE 2023-03-20 19:55:[address] [facility] / [facility] Center CONSENT/REFUSAL FOR 2022-08-09 18:10:44 Doctor Unassigned, No Un [facility] DIAGNOSIS AND TREATMENT Name Medical Branch URINALYSIS 2022-02-08 08:48:00 Jeniffer Ronquillo [facility] US SCROTUM AND CONTENTS 2022-02-08 08:16:13 Jeniffer Ronquillo [facility] COMP. METABOLIC PANEL 2022-02-08 07:46:00 Jeniffer Ronquillo [facility] ([id number]) [facility] CBC WITH DIFF 2022-02-08 07:46:00 Yg [facility] PROTHROMBIN TIME / INR 2022-02-08 07:46:[address] [facility] ACTIVATED PARTIAL 2022-02-08 07:46:00 Yg [facility] THRMPLAS [facility] CONSENT/REFUSAL FOR 2022-02-08 07:04:00 Doctor Unassigned, No Un [facility] DIAGNOSIS AND TREATMENT Name [facility] URINALYSIS 2021-11-28 06:09:00 Annette Martin [facility] CT ABDOMEN PELVIS W 2021-11-28 05:10:12 Annette Martin [facility] COMP. METABOLIC PANEL 2021-11-28 04:52:00 Annette Martin [facility] ([id number]) [facility] CBC WITH DIFF 2021-11-28 04:52:00 Annette Martin [facility] Procedure on Shoulder [facility] Appendectomy [facility] Hernia Repair [facility] Plan of Care Planned Activity Planned Date Details Comments Source Future Scheduled 2026-03-21 Lipid panel (procedure) [facility] 00:00:00 [code = 12821807] Medical Ce nter Future Scheduled 2026-03-21 Lipid panel (procedure) [facility] 00:00:00 [code = 37385024] Medical Ce nter Future Scheduled 2024-03-[address] [facility] Test 00:00:00 Counseling and Screening [facility] (12+) [code = Tobacco Cessation Counseling and Screening (12+)] Future Scheduled 2024-03-[address] [facility] Test 00:00:00 Counseling and Screening [facility] (12+) [code = Tobacco Cessation Counseling and Screening (12+)] Future Scheduled 2023-09-02 COVID-19 VACCINE (#1) [facility] 10:32:28 [code = COVID-19 VACCINE Hos pital (#1)] Future Scheduled 2023-09-02 Pneumococcal Vaccine: [facility] 10:32:28 Pediatrics (0 to 5 Hospital Years) and At-Risk Patients (6 to 64 Years) (1 - PCV) [code = Pneumococcal Vaccine: Pediatrics (0 to 5 Years) and At-Risk Patients (6 to 64 Years) (1 - PCV)] Future Scheduled 2023-09-02 Hepatitis C screening [facility] 10:32:28 (procedure) [code = Hospital [id number]] Future Scheduled 2023-09-02 INFLUENZA VACCINE (#1) [facility] 10:32:28 [code = INFLUENZA Hospital VACCINE (#1)] Future Scheduled 2023-07-17 COVID-19 VACCINE (#1) Me [...] thodist Test 17:29:36 (procedure) [code = Hospital 417539578] Future Scheduled 2023-07-17 INFLUENZA VACCINE (#1) [facility] 17:29:36 [code = INFLUENZA Hospital VACCINE (#1)] Future Scheduled 2023-06-30 Influenza Vaccine (#1) [facility] [code = Influenza Medical Ce nter Vaccine (#1)] Future Scheduled 2023-06-30 Influenza Vaccine (#1) [facility] 00:00:00 [code = Influenza Medical Ce nter Vaccine (#1)] Future Scheduled 2023-06-[address] [facility] 00:00:00 measurement (procedure) [facility] [code = 38196154] Future Scheduled 2023-06-[address] [facility] 00:00:00 measurement (procedure) [facility] [code = 41051437] Diagnostic Test 2023-03-14 CMP, serum or plasma [facility] Pending 00:00:00 [code = CMP, serum or Group plasma] Diagnostic Test 2023-03-14 pro BNP (pro B-type [facility] Pending 00:00:00 natriuretic peptide), Group serum or plasma [code = pro BNP (pro B-type natriuretic peptide), serum or plasma] Diagnostic Test 2023-03-14 CBC w/ auto diff [code = [facility]ending 00:00:00 CBC w/ auto diff] Group Diagnostic Test 2023-03-14 TSH, serum or plasma [facility] Pending 00:00:00 [code = TSH, serum or Group plasma] Diagnostic Test 2023-03-14 hemoglobin A1c, QN, [facility]ending 00:00:00 blood [code = [...] thodist Test 13:02:59 (procedure) [code = Hospital 801513316] Future Scheduled 2023-02-03 INFLUENZA VACCINE [code [facility] 13:02:59 = INFLUENZA VACCINE] Hospita l Future Scheduled 2022-10-31 COVID-19 VACCINE (#1) Me [...] thodist Test 19:48:19 (procedure) [code = Hospital 048388631] Future Scheduled 2022-10-31 INFLUENZA VACCINE [code [facility] 19:48:19 = INFLUENZA VACCINE] [facility] Future Scheduled 2022-10-[address] [facility] 00:00:00 (12+) [code = DEPRESSION Med ical Center SCREENING (12+)] Future Scheduled 2022-10-[address] [facility] 00:00:00 (12+) [code = DEPRESSION Med ical Center SCREENING (12+)] Future Scheduled 2022-09-29 Pneumococcal Vaccine: [facility] 12:10:19 Pediatrics (0 to 5 Hospital Years) and At-Risk Patients (6 to 64 Years) (1 - PCV) [code = Pneumococcal Vaccine: Pediatrics (0 to 5 Years) and At-Risk Patients (6 to 64 Years) (1 - PCV)] Future Scheduled 2022-09-29 Hepatitis C screening [facility] 12:10:19 (procedure) [code = Hospital 142061156] Future Scheduled 2022-09-29 INFLUENZA VACCINE [code [facility] 12:10:19 = INFLUENZA VACCINE] [facility] Future Scheduled 2022-09-29 HEPATITIS B VACCINES (1 [facility] 12:10:19 of 3 - 3-dose series) Hospit al [code = HEPATITIS B VACCINES (1 of 3 - 3-dose series)] Future Scheduled 2022-09-29 COVID-19 VACCINE (#1) [facility] 12:10:19 [code = COVID-19 VACCINE Hos pital (#1)] Future Scheduled 2022-09-01 HEPATITIS B VACCINES (1 [facility] 11:48:27 of 3 - 3-dose series) [...] thodist Test 11:48:27 (procedure) [code = Hospital 593211252] Future Scheduled 2022-09-01 INFLUENZA VACCINE [code [facility] 11:48:27 = INFLUENZA VACCINE] Hospita l Future Scheduled 2019-03-10 DTAP/TDAP/TD VACCINES ([address] [facility] 00:00:00 - Td or Tdap) [code = Medica l Center DTAP/TDAP/TD VACCINES (2 - Td or Tdap)] Future Scheduled 2019-03-10 DTAP/TDAP/TD VACCINES ([address] [facility] 00:00:00 - Td or Tdap) [code = Medica l Center DTAP/TDAP/TD VACCINES (2 - Td or Tdap)] Future Scheduled 2002 HEPATITIS C [facility]:00[facility]00 [code = HEPATITIS C Medical Center SCREENING] Future Scheduled 2002 HEPATITIS C [facility] 00:00[facility]00 [code = HEPATITIS C Medical Center SCREENING] Future Scheduled [address] [facility] 00:00:00 virus screening Medical Cent er (procedure) [code = 925564327] Future Scheduled [address] [facility] 00:00:00 virus screening Medical Cent er (procedure) [code = 756352379] Future Scheduled 1994 DIABETIC EYE EXAM [code [facility] 00:00:00 = DIABETIC EYE EXAM] Medical Center Future Scheduled [address] [facility] 00:[facility]:00 examination Medical Center (regime/therapy) [code = 238843682] Future Scheduled 1994 Urine screening for [facility] 00:00:00 protein (procedure) Medical Center [code = 285057790] Future Scheduled 1994 DIABETIC EYE EXAM [code [facility] 00:00:00 = DIABETIC EYE EXAM] Medical Center Future Scheduled [address] [facility] 00:00:00 examination Medical Center (regime/therapy) [code = 014818862] Future Scheduled 1994 Urine screening for [facility] 00:00:00 protein (procedure) [facility] [code = 489515669] Future Scheduled 1990 Pneumococcal Vaccine: [facility] 00:00:00 0-64 Years (1 - PCV) [facility] [code = Pneumococcal Vaccine: 0-64 Years (1 - PCV)] Future Scheduled 1990 Pneumococcal Vaccine: [facility] 00:00:00 0-64 Years (1 - PCV) [facility] [code = Pneumococcal Vaccine: 0-64 Years (1 - PCV)] Future Scheduled 1985-06-14 COVID-19 VACCINE (#1) [facility] 00:00[facility]00 [code = COVID-19 VACCINE Med ica Center (#1)] Future Scheduled 1985-06-14 COVID-19 VACCINE (#1) [facility] 00:00[facility]00 [code = COVID-19 VACCINE [facility] ica Center (#1)] Encounters Start End Encounter Admission Attending Care Care Encounter Source Date/Time Date/Time Type Type Clinicians Facility Department ID 2023-06-07 Inpatient [facility]A [facility] [id number] [facility] 10:12:46 2023-06-07 Inpatient [facility]SE [facility] [id number] [facility] 09:47:20 2021-09-09 Inpatient Shandra CHARLES [facility] PAVEL [id number] Univers 07:16:17 [facility] 2023-06-06 2023-06-10 [facility] SANTIAGO KrauseTamera [facility] [id number] 18:09:00 12:47:00 Encounter Rj Lainez [facility] 2023-06-06 2023-06-10 Inpatient [facility] Cardiology 2 [id number] [facility] 18:09:00 12:47:00 2023-06-06 2023-06-10 [facility] Jose Krauseed [facility] [id number] 18:09:00 12:47:00 Encounter Rj Lainez [facility] 2023-06-09 2023-06-09 [id number] SLE 13:40:01 00:00:00 2023-06-08 2023-06-08 Surgery Carl Magdaleno [facility] [id number] 17:39:00 19:44:00 [facility] 2023-06-08 2023-06-08 Surgery Carl Magdaleno [facility] [id number] 17:39:00 19:44:00 [facility] 2023-06-06 2023-06-06 [facility] [id number] 00:00[facility]00 00:00:00 Only [facility] 2023-06-06 2023-06-06 Orders J[facility]ary [facility] [id number] 00:00:00 00:00:00 Only [facility] 2023-05-30 2023-05-30 Office Chalo 1.2.840.1 [id number] Methodi 10:00:00 10:57:35 Visit Evan 80294.1.[address] 3.430.2.7 Hospit a .3.810495 l .8 2023-05-30 2023-05-30 Office Chalo 1.2.840.1 [id number] Methodi 10:00:00 10:57:35 Visit Evan 67380.1.[address] 3.430.2.7 Hospit a .3.445199 l .8 2023-05-10 2023-05-10 Telephone Chalo 1.2.840.1 [id number] 2 [id number] Methodi 00:00:00 00:00:[address] 3.430.2.7 Hospit a .3.840126 l .8 2023-05-10 2023-05-10 Telephone Chalo 1.2.840.1 [id number] Methodi 00:00:00 00:00:[address] 3.430.2.7 Hospit a .3.969301 l .8 2023-04-11 2023-04-11 Telephone Chalo, 1.2.840.1 [id number] 2 [id number] Methodi 00:00:00 00:00:[address] 3.430.2.7 Hospit a .3.965307 l .8 2023-04-11 2023-04-11 Telephone Chalo, 1.2.840.1 [id number] 2 [id number] Methodi 00:00:00 00:00:[address] 3.430.2.7 Hospit a .3.011529 l .8 2023-03-20 2023-03-24 [id number] 18:29:00 10:28:[address] [facility] 2023-03-20 2023-03-24 [facility] [id number] [facility] 18:29:00 10:28:00 [facility] 2023-03-20 2023-03-24 Hospital [facility] [id number] 18:29:00 10:28:[address] [facility] 2023-03-20 2023-03-20 Travel [facility] [id number] [facility] 00:[facility]00 00:00:00 [facility] 2023-03-20 2023-03-20 [facility] [id number] 00:00:00 00:00:00 Only [facility] 2023-03-20 2023-03-20 Travel [facility] [id number] [facility] 00:00:00 00:00:00 [facility] 2023-03-20 2023-03-20 [facility] [id number] 00:00:00 00:00:00 Only [facility] 2023-03-15 2023-03-15 Outpatient Tomek_T [facility] [id number] [facility] 00:00:00 00:00:00 [facility] 2023-03-14 2023-03-14 Outpatient Tomek_T [facility] [id number] [facility] 00:00:00 00:00:00 [facility] 2023-03-14 2023-03-14 Outpatient Tomek_T [facility] [id number] [facility] 00:00:00 00:00:00 [facility]16 [facility] 2023-03-14 2023-03-14 Juan Pablo MM [place] - [id number] M atagor 00:00:00 00:00:00 Tu Reese MD: Medical Medic [address], [place] [address] , Ph. 2023-03-13 2023-03-13 Outpatient Tomek_T [facility] [id number] [place] 00:00:00 00:00:00 0515 Medical Group 2023-03-09 2023-03-09 Outpatient Shandra DOMINGUEZ, [facility] [id number] Univers 13:20:00 13:20:00 [facility] 2022-09-21 2022-09-21 Office Mcgovern, 1.2.840.2 [id number] Methodi 11:30:00 14:27:54 Visit Jama 04688.1.[address] [place] 3.430.2.7 Hospit a .3.011326 l .8 2022-09-21 2022-09-21 Office Mcgovern, 1.2.840.5 [id number] Methodi 11:30:00 14:27:54 Visit Jama 77578.1.[address] [place] 3.430.2.7 Hospit a .3.306474 l .8 2022-09-05 2022-09-05 Telephone Mcgovern, 1.2.840.8 [id number] Methodi 00:00:00 00:00:[address] [place] 3.430.2.7 Hospit a .3.127161 l .8 2022-09-05 2022-09-05 Telephone Janeth Mcgovern2.840.9 [id number] [id number] Methodi 00:00:00 00:00:[address] Davies 3.430.2.7 Hospit a .3.124423 l .8 2022-08-09 2022-08-09 Emergency X SINGER [facility] ERT [id number] Univers 13:35:00 15:14:00 [facility] 2022-08-09 2022-08-09 Emergency TatiPeter Malik [facility] 1.2.840 .114 [id number] Univers 13:35:00 15:14:00 Lai Gonzalez 350.1.13.10 ity of [place] 4.2.7.2.686 [facility] [phone] [address] 2022-04-18 2022-04-18 Outpatient R BOYD [facility] [id number] Univers 13:30:00 13:30:00 [facility] 2022-03-24 2022-03-24 [facility] [id number] Univers 09:00:00 09:00:00 [facility] 2022-03-24 2022-03-24 [facility] 1.2.840.114 [id number] Univers 00:00:00 00:00:00 Cheko LEIVA 350.1.13.10 i ty of [place] 4.2.7.2.[address] [facility] [phone] Ga dical [facility] 204 [facility] 2022-02-08 2022-02-08 Emergency [email or web address] ERT [id number] Univers 02:16:00 04:47:00 JENIFFER [facility] [facility] 2022-02-08 2022-02-08 Emergency [email or web address] 1.2.405.449 [id number] Univers 02:16:00 04:47:00 Jeniffer LEIVA 350.1.13.10 i ty of [facility] 4.2.7.2.[place] [phone] [facility] 084 Branch 2021-11-27 2021-11-28 Emergency X Annette MARTIN [facility] ERT [id number] Univers 22:17:00 00:52:00 ity [facility] 2021-11-27 2021-11-28 Emergency Annette Martin [facility] 1.2.840.114 [id number] Univers 22:17:00 00:52:00 Sol LEIVA 350.1.13.10 i ty of [place] [phone] [facility] 084 Branch 2021-10-08 2021-10-08 Outpatient Shandra SOTO [facility] [id number] Univers 10:45:00 10:45:00 CARL [facility] 2021-09-29 2021-09-29 Office STEPHANIE Soto 1.2.370.549 [id number] Univers 14:12:15 14:37:52 Visit [facility] 350.1.13.10 i ty of [facility] 4.2.7.2.686 [facility] [phone] [address] 2021-09-29 2021-09-29 Outpatient Shandra SOTO [facility] [id number] Univers 13:30:00 14:37:52 CARL esete [facility] 2021-09-29 2021-09-29 Outpatient Shandra SOTO [facility] [id number] Univers 13:30:00 13:30:00 CARL estee [facility] 2021-09-27 2021-09-27 Telephone Charles [facility] 1.2.210.386 [id number] Univers 00:00:00 00:00:00 Carl LEIVA 350.1.13.10 i ty of Aayush [place] 4.2.7.2.686 [id number] [address] 2021-09-20 2021-09-21 Outpatient Shandra SOTO [facility] PAVEL [id number] Univers 06:38:00 12:20:00 CARL mansfield [facility] 2021-09-20 2021-09-21 [facility] HANH Soto 1.2.840.114 [id number] Univers 06:38:00 12:20:00 Encounter Carl MEDELLIN 350.1.13.10 ity of [facility] 4.2.7.2.686 Johnny as [phone] [facility] 097 Branch 2021-09-20 2021-09-21 Outpatient R CHARLES [facility] PAVEL [id number] Univers 06:38:00 12:20:00 CARL ity of [facility] 2021-09-20 2021-09-20 Anesthesia Franco Blancas 1.2.840.11 [id number] Univers 09:00:00 12:32:00 Event AboIdalia lenz 350.1.13.10 ity of [facility] 4.2.7.2.686 Johnny as [phone] [facility] 103 Branch 2021-09-20 2021-09-20 Surgery HANH Soto 1.2.840.114 [id number] Univers 08:53:00 10:48:00 Carl MEDELLIN 350.1.13.10 it y of [facility] 4.2.7.2.686 Johnny as [phone] [facility] 103 Branch 2021-09-20 2021-09-20 Orders Doctor CARL 1.2.840.114 [id number] Univers 00:00:00 00:00:00 Only UnassignedLACIE 350.1.13.10 ity of [place] [facility] 4.2.7.2.686 Johnny as [phone] [facility] 009 Branch 2021-09-17 2021-09-17 Laboratory Only, Adc Test [facility] 1.2.840. 114 [id number] Univers 15:00:54 15:15:54 Only Carl Soto 350.1.13 .10 ity of [place].2.[place] [id number] [facility] 353 Branch 2021-09-17 2021-09-17 Outpatient R CHARLES [facility] [id number] Univers 15:15:00 15:15:00 CARL ity of [facility] 2021-09-10 2021-09-10 Hospital Carl Soto [facility] 1.2. 840.114 [id number] Univers 14:00:00 23:59:00 Encounter Robert HawleySTEFAN 350.1.13.10 ity of [place] [phone] [facility] [address] [place] 2021-09-10 2021-09-10 Office Charles [facility] 1.2.840.114 [id number] Univers 10:04:20 11:03:01 Visit Carl LEIVA 350.1.13.10 i ty of [place].7.2.[place] [phone] Ga dical [facility] 2021-09-10 2021-09-10 Outpatient Shandra SOTO [facility] [id number] Univers 10:00:00 11:03:01 CARL [facility] 2021-09-10 2021-09-10 Outpatient Shandra SOTO [facility] [id number] Univers 10:00:00 10:00:00 CARL [facility] 2021-09-09 2021-09-09 Transition YUNI Singletary 1.2.840.114 [id number] Univers 00:00:00 00:00:00 of Care Mary TOUSSAINT 350.1.13.10 i ty of [place].2.[place] [phone] [facility] 403 Branch 2021-09-06 2021-09-08 Hospital HANH Posey 1.2.840.114 [id number] Univers 16:50:00 15:15:00 Encounter Javy MEDELLIN 350.1.13.10 ity of [facility] 4.2.7.2.686 Johnny as [phone] [facility] 095 Branch 2021-09-06 2021-09-08 [facility] [id number] Univers 16:50:00 15:15:00 JAVY [facility] 2021-09-06 2021-09-06 Office Blayne Dong [facility] 1.2.840 .114 [id number] Univers 14:25:21 15:25:21 Visit Maximo Blandon [facility] 350.1.13. 10 ity of [place] [id number] [address] 2021-09-06 2021-09-06 Office Iker Blayne JULIUSIT 1.2.840 .114 [id number] Univers 14:25:21 15:25:21 Visit Maximo Blandon [facility] 350.1.13. 10 it[place] of [place] [id number] [address] 2021-09-06 2021-09-06 Outpatient R JAMIA [facility] [id number] Univers 14:30:00 14:30:00 [facility] 2021-09-06 2021-09-06 Outpatient R JAMIA [facility] [id number] Univers 14:30:00 14:30:00 [facility] 2021-08-31 2021-09-01 Outpatient X [facility] [id number] Univers 08:47:00 16:33:00 PAU [facility] 2021-08-31 2021-09-01 Emergency Jeniffer Ronquillo [facility] 1.2.840. 114 [id number] Univers 08:47:00 16:33:00 Pau Flood [place] 350.1.13.10 ity [facility] [place].7.[place] [phone] [address] 2021-08-31 2021-09-01 Outpatient X SHAYLEE [facility] [id number] Univers 08:47:00 16:33:00 PAU [facility] 2021-08-31 2021-09-01 Outpatient [facility] [id number] Univers 08:47:00 16:33:00 PAU [facility] 2021-08-31 2021-08-31 Emergency X YG [facility] [id number] Univers 08:47:00 08:47:00 JENIFFER [facility] 2021-08-26 2021-08-26 Office Jacques [facility] [id number] Univers 16:03:54 17:10:27 Visit Osiris LEIVA [id number] i [id number] [phone] [address] 2021-08-26 2021-08-26 [facility] [id number] Univers 16:00:00 17:10:27 OSIRIS [place] [facility] 2021-08-26 2021-08-26 [facility] [id number] Univers 11:15:00 11:15:00 OSIRIS [place] [facility] 2021-08-26 2021-08-26 Orders Doctor CARL [id number] Univers 00:00:00 00:00:00 Only Unassigned, LACIE [id number] [facility] [place] [facility] [id number] Johnny as [phone] [address] 2021-07-30 2021-07-30 [facility] [id number] Univers 10:00:00 10:00:00 CARL [place] [facility] 2021-07-30 2021-07-30 [facility] [id number] Univers 10:00:00 10:00:00 CARL estee [facility] 2021-07-09 2021-07-09 Office [email or web address] 1.2.840.114 [id number] Univers 08:54:13 10:52:29 Visit Carl Leiva 350.1.13.10 i ty of [place] [phone] [address] 2021-07-09 2021-07-09 [facility]patient [facility] [id number] Univers 08:45:00 08:45:00 CARL mansfield [facility] 2021-07-09 2021-07-09 Orders Doctor CARL 1.2.840.114 [id number] Univers 00:00:00 00:00:00 Only Unassigned, LACIE 350.1.13.10 ity of [place] [facility] 4.2.7.2.686 Johnny as [phone] [address] 2021-04-13 2021-04-13 Outpatient KENYATTA, [facility] 927 [id number] [place] 00:00:00 00:00:00 YAHYA [address] 2021-03-15 2021-03-16 Inpatient KENYATTA [facility] [id number] 00:00:00 00:00:00 YAHYA 997 Method i 2020-10-08 2020-10-08 Orders Doctor CARL 1.2.840.[id number] [facility] 00:00:00 00:00:00 Only Unassigned, LACIE 350.1.13.10 ity of [place] [facility] 4.2.7.2.686 Johnny as [phone] [address] 2020-10-08 2020-10-08 Orders Doctor HENRY 1.2.840.114 [id number] 00:00:00 00:00:00 Only Unassigned, LACIE 350.1.13.10 [place] [facility] 4.2.7.2.686 [phone] [facility] 2020-09-21 2020-09-21 Outpatient [facility] [id number] Univers 00:00:00 00:00:00 OSIRIS estee [facility] 2020-09-17 2020-09-17 Outpatient [facility] [id number] Univers 16:15:00 16:15:00 OSIRIS estee [facility] 2020-09-17 2020-09-17 Office [facility] 1.2.776.611 [id number] Univers 15:20:49 16:01:46 Visit Osiris Leiva 350.1.13.10 i ty [place] [phone] [place] dical [address] 2020-09-17 2020-09-17 Office [email or web address] 1.2.948.525 [id number] 15:20:49 16:01:46 Visit Osiris Leiva 350.1.13.10 [place] 4.2.7.2.686 Professio [phone] [address] 2020-08-20 2020-08-20 Out[facility] [id number] Univers 13:15:00 13:15:00 OSIRIS mansfield [facility] 2020-08-20 2020-08-20 Telephone [facility] 1.2.840.114 [id number] Univers 00:00:00 00:00:00 Osiris Leiva 350.1.13.10 i [place] [phone] [address] 2020-08-14 2020-08-14 Outpatient R [facility] [id number] Univers 10:00:00 10:00:00 CARL mansfield [facility] 2020-08-14 2020-08-14 Telephone [facility] 1.2.840.114 [id number] Univers 00:00:00 00:00:00 Osiris Ybarraton 350.1.13.10 i [place] [phone] [address] 2020-08-13 2020-08-13 Office [facility] 1..972.774 [id number] Univers 13:56:54 14:38:07 Visit Osiris Leiva 350.1.13.10 i [place] [phone] [address] 2020-08-13 2020-08-13 Outpatient [facility] [id number] Univers 13:45:00 13:45:00 OSIRIS mansfield [facility] 2020-08-13 2020-08-13 Telephone [facility] 1..840.114 [id number] Univers 00:00:00 00:00:00 Osiris Ybarraton 350.1.13.10 i [place] [phone] [address] 2020-08-13 2020-08-13 Orders Doctor CARL 1..840.114 [id number] Univers 00:00:00 00:00:00 Only Unassigned, LACIE 350.1.13.10 ity of [place] [facility] 4.2.7.2.686 Johnny as [phone] [facility] [address] 2020-08-10 2020-08-10 Transition Yuni Gomes 1.2.840.114 [id number] Univers 00:00:00 00:00:00 of Care Franky Toussaint 350.1.13.10 ity of [place] 4.2.7.2.686 [place] [phone] [facility] [address] 2020-08-02 2020-08-07 Hospital Win Ronquillonell Hanh 1.2.840.1 14 [id number] Univers 14:33:00 21:40:00 Encounter Pau Flood 350.1.13.10 ity of [facility] 4.2.7.2.68 6 [place] [phone] [facility] [address] 2020-08-02 2020-08-02 Emergency [email or web address] ERT [id number] Univers 14:33:00 14:33:00 JENIFFER ity of [facility] Results Test Description Test Time Test Comments Results Result Comments Source POC-Glucose meter 2023-06-09 22:21:39 Test Item Value Reference Range Interpretation Comme nts POC-Glucose Meter (test code = 268 mg/dL 70-110 H : TESTED AT [facility] [address] [place] [address]) [facility], [facility] 30: Job Site Superintendent/Techni zeina ID = [id number] for Stefanie Washington Lab Interpretation (test code = Abnormal 42723-8) [facility]Glucose [id number] 22:21:39 Test Item Value Reference Range Interpretation Comments POC-Glucose Meter (test 268 mg/dL 70-110 H : TE STED AT [facility] code = 1538) [address] [facility], [facility] 30: Job Site Superintendent/Techni zeina ID = [id number] for Stefanie Washington Lab Interpretation (test Abnormal code = 46835-1) [facility]POCT-GLUCOSE [id number] 22:21:39 Test Item Value Reference Range Interpretation Comments POC-GLUCOSE METER 268 mg/dL 70-110 H : TESTED A T [facility] 6720 (BEAKER) (test code = BERTNE R [facility], 1538) [address]: Job Site Superintendent/Techni zeina ID = [id number] for Stefanie Mackey CT CHEST WITHOUT IV [id number] 15:20:36 [facility] : 1985 Sex: MCT Chest without contrastHistory: [...] By: Jason Mari MD06/09/2023 15:22 CDTWorkstation Name: [id number] METABOLIC [id number] 06:48:58 Test Item Value Reference Range Interpretation [...] not appl icable for dialysis patien ts Job Site Superintendent ID - ADMINPOCT-GLUCOSE [id number] 20:48:36 Test Item Value Reference Range Interpretation Comments POC-GLUCOSE METER 98 mg/dL 70-110 : TESTED A T [facility] 67[address] ([facility]) (test code = CATHRYN Devi [facility], 1538) [address]: Job Site Superintendent/Techni zeina ID = [id number] for Alma Rosa ga, Fro[place] POC ACTIVATED CLOTTING [id number] 20:23:05 Test Item Value Reference Range Interpretation Comments Activated Clotting Time 161 sec : 74 -137 seconds, (test code = 3184-9) Baselin e: TESTED AT [facility] [address] [facility], 770 30: Job Site Superintendent/Techni zeina ID = [id number] for Me angelica, Joycelyn [facility] CampusPO ACTIVATED CLOTTING [id number] 20:23:05 Test Item Value Reference Range Interpretation Comments Activated Clotting Time 161 sec : 74 -137 seconds, (test code = 3184-9) Baselin e: TESTED AT [facility] [address] [facility], 770 30: Job Site Superintendent/Techni zeina ID = [id number] for Me angelica, Joycelyn [facility][id number] 20:23:05 Test Item Value Reference Range Interpretation Comments ACTIVATED CLOTTING TIME 161 sec : 74 -137 seconds, (BEAKER) (test code = Baseli ne: TESTED AT 441) [facility] [address] [place], [address] 30: Job Site Superintendent/Techni zeina ID = [id number] for Joycelyn De Leon BASIC METABOLIC [id number] 05:45:49 Test Item Value Reference Range Interpretation [...] De scription 1092) sq m Result G1 Ssuie l or high >=90 G2 Mildly decreased 60-89 G3a Mildl y to moderately 45-5 9 G3b Moderately to s everely 30-44 G4 Severl y decreased 15-29 G5 Kidney failure <15Reported eGF R is based on the CKD-EPI 2021 equation that d oes not use a race coefficientEsti mated GFR is not as accur ate as Creatinine Josiane jones in predicting glom erular filtration rate . Estimated GFR is not appl icable for dialysis patien ts Job Site Superintendent ID - MMCBC W/PLT COUNT & AUTO [id number] 05:33:42 Test Item Value Reference Range Interpretation [...] 2801) XR CHEST 1 VIEW PORTABLE / [id number] 14:50:29 [facility] : 1985 Sex: MINDICATION: DOECOMPARISON: 03/20/2023TECHNIQUE: Single frontal view of the chest.FINDINGS: Lines, tubes, and devices: None.Lungs and pleura: Clear lungs. No pneumothorax.Heart and mediastinum: Normal heart size. Unremarkable mediastinalcontours.Osseous structures: No acute abnormality.Other: None.IMPRES RENETTA:No acute intrathoracic abnormality.Electronically Signed By: Yayo Nielsen06/07/2023 14:52 CDTWorkstation Name: [id number] METABOLIC PANEL 2023-06-07 05:16:52 Test Item Value [...] not appl icable for dialysis patien ts Job Site Superintendent ID - BSCBC W/PLT COUNT & AUTO [id number] 05:05:40 Test Item Value Reference Range Interpretation [...] < pg/mL 0-100 (test code = 700) Job Site Superintendent ID - BSBASIC METABOLIC [id number] 21:39:49 Test Item Value Reference Range Interpretation [...] not appl icable for dialysis patien ts Job Site Superintendent ID - BSCBC W/PLT COUNT & AUTO [id number] 21:26:28 Test Item Value Reference Range Interpretation [...] PERCENT (BEAKER) (test code = 2801) BLOOD [id number] 22:00:40 Test Item Value Reference Range Interpretation Comments CULTURE (BEAKER) (test No growth in 5 days code = 1095) The specimen volume collected for this blood culture was below the optimum (10 mL per bottle or 20 mL total). Use of lower volumes may adversely affect recovery and/or detection times of some organisms.BLOOD [id number] 22:00:40 Test Item Value Reference Range Interpretation Comments CULTURE (BEAKER) (test No growth in 5 days code = 1095) The specimen volume collected for this blood culture was below the optimum (10 mL per bottle or 20 mL total). Use of lower volumes may adversely affect recovery and/or detection times of some organisms.2D Echo W/Doppler(CW/PW/Color) 2023-03-24 09:25:28Ejection FractionSLE ECHO [facility]ARTLAB [facility] W/Doppler(CW/PW/Color)2023-03-24 09:25:28Ejection FractionSLE ECHO HEARTLAB [facility], ABDOMEN 2023-03-24 00:05:00Unlisted Reason for Exam - Click Yes and Enter Reason Below- >YesUnlisted Reason for Exam->h/o left inguinal hernia repair 2019 at [facility], with persistent significant left groin and testicular painProtocol Please Specify:->Standard ProtocolWill this procedure require oral contrast?->No [facility] : 1985 Sex: MFINAL REPORT [...] seen. Liver and spleen are normal in size. There is diffusely decreased attenuation in the liver [...] is normal in caliber. Appendix is not visualized.Patient is status post left inguinal repair. No fluid collection is seen in the left inguinal region. Prostate is normal in size. The urinary bladder is contracted. No mass, adenopathy or ascites is present in the abdomen or pelvis. Impression: 1. Fatty liver.2. Diverticulosis without diverticulitis.3. Unremarkable post left inguinal repair. Signed: Power Herrmann [facility] Verified Date/Time: 03/24/2023 00:05:31 CT, CHEST, WITHOUT [id number] 00:05:00Please perform at same time as CT A/PUnlisted Reason for Exam - Click Yes and Enter Reason Below->No [facility] : 1985 Sex: MFINAL REPORT [...] [facility] Verified Date/Time: 03/24/2023 00:05:31 HEMOGLOBIN [id number] 11:27:04 Test Item Value Reference Range Interpretation Comments HEMOGLOBIN A1C 6.3 % See_Comment H [Automated m essage] ELECTROPHORESIS (BEAKER) The system which (test code = 3811) generated this result transmitted ref erence range: <=5.6%. The reference range was not used to int erpret this result as normal/abnormal . "The A1c is measured using a NGSP-certified method. HbA1c value equal to or greater than 6.5% as thediagnosis cutoff for diabetes. An HbA1c value of 5.7- 6.4% indicates increased risk for diabetes (prediabetes)."Job Site Superintendent ID - ADMBASIC METABOLIC [id number] 06:43:06 Test Item Value Reference Range Interpretation [...] not appl icable for dialysis patien ts Job Site Superintendent ID Rosalind DORANTES [id number] 06:43:05 Test Item Value Reference Range Interpretation Comments MAGNESIUM (BEAKER) 2.1 mg/dL 1.6-2.6 Specimen slightly (test code = 627) hemolyzed Job Site Superintendent ID Rosalind DORANTES WCBC (HEMOGRAM ONLY)2023-03-22 06:05:22 [...] (BEAKER) (test code = 413) HCG, QUANTITATIVE, [id number] 05:05:16 Test Item Value Reference Range Interpretation Comments GONADOTROPIN, CHORIONIC (HCG) QUANT < mIU/mL (PAULINA) (test code = 649) Non- Females: <10 mIU/mL Females: Gestation Age Reference Range(mIU/mL) 0.2-1 Week 5-50 1-2 Weeks 50-500 2-3 Weeks 100-5,000 3-4 Weeks 500-10,000 4-5 Weeks 1,000-50,000 5-6 Weeks 10,000-100,000 6-8 Weeks 15,000- 200,000 2-3 Months 10,000-100,000 Job Site Superintendent ID - BSALPHA FETOPROTEIN (AFP), TUMOR [id number] 22:57:53 Test Item Value Reference Range Interpretation Comments ALPHA-FETOPROTEIN (PAULINA) (test 3.4 ng/mL <10.0 code = 1094) Job Site Superintendent ID - BSLACTATE DEHYDROGENASE (LDH)2023-03-21 22:39:19 Test Item Value Reference Range Interpretation Comments LACTATE DEHYDROGENASE 260 U/L 125-220 H Specim en slightly (PAULINA) (test code = hemoly zed 635) Job Site Superintendent ID - BSRAD, CHEST, 1 VIEW, NON [id number] 07:59:00Reason for exam:- >shortness of breath, chfShould this be performed at the bedside?->Yes [facility] EMMETTVICENTE [place]X : 1985 Sex: MFINAL REPORT RAD, CHEST, [...] left testicular mass [facility] on [facility] : 1985 Sex: MFINAL REPORT [...] 2. Small bilateral hydroceles. Signed: Kathya Adams [facility] Verified Date/Time: 03/21/2023 07:43:07 HIGH SENSITIVITY TROPONIN [id number] 06:53:57 Test Item Value Reference Range Interpretation Comments HIGH SENSITIVITY TROPONIN I (test < pg/ml <=35 code = 7807204) Job Site Superintendent ID - AC BThe CHIEF CARDIOPULMONARY TECHNOLOGIST STAT High Sensitivity Troponin-I results should be used in conjunction with other diagnostic information such as ECG, clinical observations and information, and patient symptoms to aid in the diagnosis of [place].BASIC METABOLIC [id number] 06:50:52 Test Item Value Reference Range Interpretation [...] not appl icable for dialysis patien ts Job Site Superintendent ID - MMLIPID [id number] 06:50:52 Test Item Value Reference Range Interpretation [...] Borderline 130-159 High 160-189 Very High >=190 Job Site Superintendent ID - [id number] 06:50:51 Test Item Value Reference Range Interpretation Comments MAGNESIUM (BEAKER) 2.0 mg/dL 1.6-2.6 Specimen slightly (test code = 627) hemolyzed Job Site Superintendent ID - MMCBC (HEMOGRAM ONLY)2023-03-21 06:29:34 Test [...] SARS-Co V-2 (test code = target nucleic 66652-2) acids are not detected in [facility] s specimen. Negat sherrie results do not preclude SARS-C oV-2 infection and should not be u sed as the sole bas is for patient management decisions. Nega tive results must be combined with clinical observations, patient history , and epidemiolog ical information. A false negative result may occu r if a specimen is improperly collected, transported or handled. This ARS CoV-2 test is a rapid, real-ricky e RT-PCR test intended for e qualitative detection of nucleic acid fr om SARS-CoV-2 in a nasopharyngeal swab specimen colle rosalia from individual s suspected of COVID-19 [...] revoked sooner. Fact Sheet for Healthcare Providers: https://www.[employer]/Documents/Xp ert%20Xpress%20SAR S%20CoV-2/Fact%20S heets/302-3802%20S ARS-COV-2%20HEALTH CARE%20PROVIDERS%2 0FACT%20SHEET.pdf Fact Sheet for Healthcare Patients: https://wwwSabik Medical/Documents/Xp ert%20Xpress%20SAR S%20CoV-2/Fact%20S heets/302-3801%20S ARS-COV-2%20PATIEN T%20FACT%20SHEET.p df Lab Interpretation Normal (test code = 71824-0) [facility]2023-03-20 23:31:39 Test Item Value Reference Interpretation Comments Range SARS-COV2/RT-PCR Negative Negative The SARS-Co V-2 (test code = target nucleic 37248-6) acids are not detected in thi s [...] rapid, real-ricky e RT-PCR test intended for th e qualitative detection of nucleic acid fr [...] revoked sooner. Fact Sheet for Healthcare Providers: https://www.[employer]/Documents/Xp ert%20Xpress%20SAR S%20CoV-2/Fact%20S heets/302-3802%20S ARS-COV-2%20HEALTH CARE%20PROVIDERS%2 0FACT%20SHEET.pdf Fact Sheet for Healthcare Patients: https://www.[employer]/Documents/Xp ert%20Xpress%20SAR S%20CoV-2/Fact%20S heets/302-3801%20S ARS-COV-2%20PATIEN T%20FACT%20SHEET.p df Lab Interpretation Normal (test code = 15988-9) [facility])2023-03-20 23:31:39 Test Item Value Reference Range Interpretation Comments SARS-COV2/RT-PCR Negative Negative The SARS-Co V-2 target (test code = nucleic acids a re not 6298296) detected in thi s specimen. Negative result [...] individuals suspected of CO VID-19 by their healthcar e provider. This test has been authorized [...] revoked sooner. Fact Sheet for Healthcare Providers: https://www.[facility] m/Documents/Xpert%20Xpress%20SARS%20CoV-2/Fact%20Sheets/302-3802%33BSEX-FBF-1%20 HEALTHCARE%20PROVIDERS%20FACT%20SHEET.pdf Fact Sheet for Healthcare Patients: https://www.[employer]/Documents/Xpert%20Xp ress%20SARS%20CoV-2/Fact%20Sheets/302-3801%86JGNZ-RLI-3%20PATIENT%20FACT%20SHEET .pdfB-TYPE NATRIURETIC FACTOR (BNP)2023-03-20 21:33:21 Test Item Value Reference Range Interpretation Comments B-TYPE NATRIURETIC PEPTIDE (BEAKER) < pg/mL 0-100 (test code = 700) Job Site Superintendent ID - MMHIGH SENSITIVITY TROPONIN [id number] 21:27:26 Test Item Value Reference Range Interpretation Comments HIGH SENSITIVITY TROPONIN I (test < pg/ml <=35 code = 6190939) Job Site Superintendent ID - MMThe CHIEF CARDIOPULMONARY TECHNOLOGIST STAT High Sensitivity Troponin-I results should be used in conjunctionwith other diagnostic information such as ECG, clinical observations and information, and patient symptoms to aid in the diagnosis of [place].BASIC METABOLIC [id number] 21:24:46 Test Item Value Reference Range Interpretation [...] not appl icable for dialysis patien ts Job Site Superintendent ID - [id number] 21:24:46 Test Item Value Reference Range Interpretation Comments MAGNESIUM (BEAKER) (test code = 2.2 mg/dL 1.6-2.6 627) Job Site Superintendent ID - ADMINHEPATIC FUNCTION [id number] 21:24:46 Test Item Value Reference Range Interpretation [...] (test code = 26 U/L 6-55 347) Job Site Superintendent ID - ADMINCBC (HEMOGRAM ONLY)2023-03-20 21:04:23 Test [...] (test code = 413) COMP. METABOLIC PANEL (83655)2022-02-08 08:21:42 Test Item Value Reference Range Interpretation Comments NA (test code = 141 mmol/L 135-145 2303532985) K (test code = 4.6 mmol/L 3.5-5.0 0158884001) CL (test code = 105 mmol/L 98-108 2834075189) CO2 TOTAL (test code = 26 mmol/L 23-31 8673212270) AGAP (test code = 2-16 9453265871) BUN (test code = 20 mg/dL 7-23 2924219076) GLUCOSE (test code = 152 mg/dL 70-110 H 9702000383) CREATININE (test code = 0.97 mg/dL 0.60-1.25 5334244208) TOTAL BILI (test code = 0.3 mg/dL 0.1-1.4 3184869539) CALCIUM (test code = 9.4 mg/dL 8.6-10.6 1099342908) T PROTEIN (test code = 7.3 g/dL 6.3-8.2 2426265728) ALBUMIN (test code = 4.3 g/dL 3.5-5.0 9295458012) ALK PHOS (test code = 107 U/L 34-122 3625887252) ALTv (test code = 24 U/L 50 1742-6) AST(SGOT) (test code = 22 U/L 13-40 8385644480) eGFR (test code = mL/min/1.73m2 9576074559) CHAI (test code = CHAI) Association of [...] tests). Lab Interpretation Abnormal (test code = 12229-7) [facility] TH[facility] [id number] 08:10:38 Test Item Value Reference Range Interpretation Comments APTT Patient (test See_Comment [Automat ed code = 3173-2) message] The system which generated this result transmitted reference range : 23 - 38 Seconds . The reference range was not used to interpr et this result as normal/abnormal . CHAI (test code = CHAI) The [facility] patient population mean normal value for aPTT is 30 seconds. Lab Interpretation Normal (test code = 41565-7) [facility] Austin[facility]OM[facility] / [id number] 08:08:22 Test Item Value Reference Range Interpretation [...] tions. Lab Interpretation (test Normal code = 19666-5) [facility] WITH [id number] 08:00:41 Test Item Value Reference Range Interpretation Comments WBC (test code = See_Comment H [Automated 8890-2) message] The sy stem which generated this result transmitted reference range : 4.20 - 10.70 10*3/?L. The reference range was not used to interpret this result as normal/abnormal . RBC (test code = See_Comment H [Automated 329-8) message] The sy stem which generated this [...] RDW-SD (test code = 49.0 fL 38.5-51.6 26362-2) RDW-CV (test code = 15.3 % 12.1-15.4 788-0) PLT (test code = See_Comment H [Automated 777-3) message] The sy stem which generated this result transmitted reference range : 150 - 328 10*3/ ?L. The reference r khris was not used to interpret this result as normal/abnormal . MPV (test code = 9.8 fL 9.8-13.0 81645-8) NRBC/100 WBC (test See_Comment [Automat ed code = 9008515490) message] The system which generated this result transmitted reference range : 0.0 - 10.0 /100 WBCs. The refer ence range was not u sed to interpret th is result as normal/abnormal . NRBC x10^3 (test code <0.01 See_Comment [Auto mated = 4583148236) message] The s ystem which generated this result transmitted reference range : 10*3/?L. The reference range was not used to interpret this result as normal/abnormal . GRAN MAT (NEUT) % 69.6 % (test code = 770-8) IMM GRAN % (test code 0.70 % = 7544155260) LYMPH % (test code = 20.1 % 736-9) MONO % (test code = 7.3 % 5905-5) EOS % (test code = 1.9 % 713-8) BASO % (test code = 0.4 % 706-2) GRAN MAT x10^3(ANC) 9.81 10*3/uL 1.99-6.95 H (test code = 1953168843) IMM GRAN x10^3 (test 0.10 10*3/uL 0.00-0.06 H code = 7711308247) LYMPH x10^3 (test code 2.84 10*3/uL 1.09-3.23 = 731-0) MONO x10^3 (test code 1.03 10*3/uL 0.36-1.02 H = 742-7) EOS x10^3 (test code = 0.27 10*3/uL 0.06-0.53 711-2) BASO x10^3 (test code 0.06 10*3/uL 0.01-0.09 = 704-7) Lab Interpretation Abnormal (test code = 99105-6) [facility]. METABOLIC PANEL (82411)2021-11-28 05:15:02 Test Item Value Reference Range Interpretation Comments NA (test code = 135 mmol/L 135-145 5304141922) K (test code = 4.2 mmol/L 3.5-5.0 9033989592) CL (test code = 103 mmol/L 98-108 8440837168) CO2 TOTAL (test code = 25 mmol/L 23-31 2874433884) AGAP (test code = 2-16 6204892114) BUN (test code = 17 mg/dL 7-23 9957813661) GLUCOSE (test code = 139 mg/dL 70-110 H 5020636973) CREATININE (test code = 0.82 mg/dL 0.60-1.25 8158017238) TOTAL BILI (test code = 0.4 mg/dL 0.1-1.4 7258113285) CALCIUM (test code = 9.1 mg/dL 8.6-10.6 8182695650) T PROTEIN (test code = 7.2 g/dL 6.3-8.2 4346865469) ALBUMIN (test code = 4.1 g/dL 3.5-5.0 8486472156) ALK PHOS (test code = 105 U/L 34-122 1806097825) ALTv (test code = 28 U/L 5-50 1742-6) AST(SGOT) (test code = 28 U/L 13-40 3455657724) eGFR (test code = mL/min/1.73m2 5015637009) CHAI (test code = CHAI) Association of [...] tests). Lab Interpretation Abnormal (test code = 44933-9) [facility] WITH [id number] 05:06:19 Test Item Value Reference Range Interpretation Comments WBC (test code = See_Comment H [Automated 3990-2) message] The system which generated this result [...] RDW-SD (test code = 46.7 fL 38.5-51.6 17998-2) RDW-CV (test code = 14.6 % 12.1-15.4 788-0) PLT (test code = See_Comment H [Automated 777-3) message] The system which generated this result transmit rosalia reference range : 150 - 328 10*3/ ?L. The reference range was not u sed to interpret th is result as normal/abnormal . MPV (test code = 10.0 fL 9.8-13.0 70466-9) NRBC/100 WBC (test See_Comment [Automat ed code = [id number]) message] The system which generated this result transmit rosalia reference range : 0.0 - 10.0 /100 WBCs. The reference range was not used to interpret this result as normal/abnormal . NRBC x10^3 (test code <0.01 See_Comment [Auto mated = [id number]) message] The system which generated this result transmit rosalia reference range : 10*3/?L. The reference range was not used to interpret this result as normal/abnormal . GRAN MAT (NEUT) % 73.8 % (test code = 770-8) IMM GRAN % (test code 0.50 % = 4212505341) LYMPH % (test code = 17.2 % 736-9) MONO % (test code = 6.2 % 5905-5) EOS % (test code = 1.8 % 713-8) BASO % (test code = 0.5 % 706-2) GRAN MAT x10^3(ANC) 11.39 10*3/uL 1.99-6.95 H (test code = 7511010021) IMM GRAN x10^3 (test 0.08 10*3/uL 0.00-0.06 H code = 2183748665) LYMPH x10^3 (test code 2.66 10*3/uL 1.09-3.23 = 731-0) MONO x10^3 (test code 0.95 10*3/uL 0.36-1.02 = 742-7) EOS x10^3 (test code = 0.28 10*3/uL 0.06-0.53 711-2) BASO x10^3 (test code 0.08 10*3/uL 0.01-0.09 = 704-7) Lab Interpretation Abnormal (test code = 64217-1) [facility]
[2023-09-02] MEDS ORDERED: CLINDAMYCIN 600MG/D5W 50 ML IV ONE (12:49)
[2023-09-02] MEDS ORDERED: NA CHLORIDE 0.9% 1,000 ML ONE (12:49)
[2023-09-02 13:00] LABS: Absolute Lymphocytes (CBC) 2.2 K/uL (0.7-4.9); Hematocrit 44.5 % (39.6-49.0); Lymphocytes % 15.5 % (15.3-44.8); MCV 90.7 fL (80-100); MPV 8.6 fL (7.6-11.3); Platelets 381 thou/uL (152-406); RBC Red Blood Cell Count 4.91 M/uL (4.33-5.43)
[2023-09-02 13:15] LABS: Potassium 3.9 mEq/L (3.5-5.1)
--- NOTE | 2023-09-02 13:24 | EDPHYS ---
Physician Documentation [facility] Name: Kendall Kapoor Age: 37 yrs Sex: Male : 1985 Arrival Date: 09/02/2023 Time: 10:28 Bed 15 Private MD: ED Physician Jason Canseco HPI: 09/02 10:45 This 37 yrs old Male presents to ER via Ambulatory with complaints of Neck Swelling. jh7 10:45 The patient or guardian complains of a rash, raised, bullous. The symptoms are located jh7 Posterior neck. Onset: The symptoms/episode began/occurred 2 month(s) ago. Patient reports a history of at bedtime and states that he has not small over the back of his neck. He reports that they are red, painful, and occasionally drain pus. He reports that he has been off of his insulin for the past 2 months due to losing his insurance and complains of mild fatigue.. Historical: - Allergies: 10:44 No Known Allergies; iw - PMHx: 10:44 Asthma; CAD; diabetes mellitus; Enlarged Heart; TIA; iw - PSHx: 10:44 Appendectomy; hernia repair; iw - Immunization history:: Adult Immunizations unknown. - Social history:: Smoking status: Patient denies any tobacco usage or history of. ROS: 10:45 Eyes: Negative for injury, pain, redness, and discharge, ENT: Negative for injury, jh7 pain, and discharge, Cardiovascular: Negative for chest pain, palpitations, and edema, Respiratory: Negative for shortness of breath, cough, wheezing, and pleuritic chest pain, Back: Negative for injury and pain, MS/Extremity: Negative for injury and deformity, Neuro: Negative for headache, weakness, numbness, tingling, and seizure, 10:45 Constitutional: Positive for fatigue, 10:45 Skin: Positive for rash, of the posterior neck, 10:45 All other systems are negative, Exam: 10:45 Constitutional: This is a well developed, well nourished patient who is awake, alert, jh7 and in no acute distress. Head/Face: Normocephalic, atraumatic. Cardiovascular: Regular rate and rhythm with a normal S1 and S2. No gallops, murmurs, or rubs. Normal PMI, no JVD. No pulse deficits. Respiratory: Lungs have equal breath sounds bilaterally, clear to auscultation and percussion. No rales, rhonchi or wheezes noted. No increased work of breathing, no retractions or nasal flaring. Abdomen/GI: Soft, non-tender, with normal bowel sounds. No distension or tympany. No guarding or rebound. No evidence of tenderness throughout. 10:45 MS/ Extremity: Pulses equal, no cyanosis. Neurovascular intact. Full, normal range of motion. Neuro: Awake and alert, GCS 15, oriented to person, place, time, and situation. Motor strength 5/5 in all extremities. Sensory grossly intact. Normal gait. 10:45 Neck: External neck: rash, of the left mid cervical area, right mid cervical area, left trapezius, lower cervical area and right trapezius, Many very small erythematous, indurated lesions located on the posterior neck consistent with folliculitis. Lesions are tender to palpation., 10:45 Skin: See neck assessment. Vital Signs: 10:44 BP 135 / 82; Pulse 108; Resp 18; Temp 98.4; Pulse Ox 94% on R/A; Weight 154.22 kg; iw Height 5 ft. 7 in. ; 12:43 BP 101 / 74; Pulse 85; Resp 16; Pulse Ox 93% on R/A; me1 13:15 BP 118 / 77; Pulse 72; Resp 14; Pulse Ox 91% on R/A; me1 13:45 BP 108 / 92; Pulse 74; Resp 16; Pulse Ox 91% on R/A; me1 10:44 Body Mass Index 53.25 (154.22 kg, 170.18 cm) MDM: 10:33 Patient medically screened. [facility] 13:20 Differential diagnosis: Folliculitis, hidradenitis suppurativa, abscess, cellulitis, jh7 impetigo. Data reviewed: vital signs, nurses notes, lab test result(s). Care significantly affected by the following chronic conditions: Diabetes. Care significantly affected by the following Social Determinants of Health: Poor access to healthcare and/or lack of insurance. Counseling: I had a detailed discussion with the patient and/or guardian regarding the historical points, exam findings, and any diagnostic results supporting the discharge/admit diagnosis, the need for outpatient follow up, for definitive care, to return to the emergency department if symptoms worsen or persist or if there are any questions or concerns that arise at home. 09/02 10:43 Order name: BMP; Complete Time: 13:17 [facility] 09/02 10:43 Order name: CBC with Diff; Complete Time: 13:08 [facility] 09/02 10:54 Order name: Glucose, Ancillary Testing; Complete Time: 11:35 EDMS Administered Medications: 12:53 Drug: NS 0.9% IV 1000 ml IV at 1 bolus Per protocol; 1000 mL bolus Route: IV; Rate: 1 me1 bolus; Site: right antecubital; 13:44 Follow up: IV Status: Completed infusion me1 12:53 Drug: Clindamycin IVPB 600 mg IVPB once over 30 mins; (mix in 50 mL) Route: IVPB; me1 Infused Over: 30 mins; Site: right antecubital; 13:19 Follow up: Response: No adverse reaction; IV Status: Completed infusion me1 13:43 Follow up: IV Status: Completed infusion me1 Disposition: 17:00 Co-signature as Attending Physician, Jason Canseco MD I reviewed the patient's care rn provided by the Advanced Practice Provider and agree with the diagnosis and treatment plan. Disposition Summary: 09/02/23 13:23 Discharge Ordered Notes: Location: Home [facility] Problem: new [facility] Symptoms: have improved [facility] Condition: Stable [facility] Diagnosis - Hidradenitis suppurativa [facility] - Folliculitis [facility] - Staphylococcal infection [facility] Followup: [facility] - With: Private Physician - When: 2 - 3 days - Reason: Recheck today's complaints Discharge Instructions: - Discharge Summary Sheet [facility] - Hidradenitis Suppurativa [facility] - Folliculitis [facility] Forms: - Medication Reconciliation Form [facility] - Thank You Letter [facility] - Antibiotic Education [facility] - Patient Portal Instructions [facility] - Leadership Thank You Letter [facility] Prescriptions: - Bactrim DS 800-160 mg Oral Tablet - take 1 tablet ORAL route every 12 hours for 10 days; 20 tablet; Refills: 0, 7 Product Selection Permitted Signatures: Dispatcher [employer] Megan Adan RN RN Jason Canseco MD MD rn Hadash, Jennifer, SUPERINTENDENT OF GENERATION SUPERINTENDENT OF GENERATIONBanner Nazia Haddad RN RN sd1
--- NOTE | 2023-09-02 13:24 | ER ---
Nurse's Notes [facility] Name: Kendall Kapoor Age: 37 yrs Sex: Male : 1985 Arrival Date: 09/02/2023 Time: 10:28 Bed 15 Private MD: Diagnosis: Hidradenitis suppurativa;Folliculitis;Staphylococcal infection Presentation: 09/02 10:43 Chief complaint: Patient states: knots all over body, worse on neck X 2 months, has iw been off his meds since he lost his insurance 2 months ago. Coronavirus screen: At this time, the client does not indicate any symptoms associated with coronavirus-19. Ebola Screen: Patient negative for fever greater than or equal to 101.5 degrees Fahrenheit, and additional compatible Ebola Virus Disease symptoms Patient denies exposure to infectious person. Patient denies travel to an Ebola-affected area in the 21 days before illness onset. No symptoms or risks identified at this time. Initial Sepsis Screen: Does the patient meet any 2 criteria? No. Patient's initial sepsis screen is negative. Does the patient have a suspected source of infection? No. Patient's initial sepsis screen is negative. Risk Assessment: Do you want to hurt yourself or someone else? Patient reports no desire to harm self or others. Onset of symptoms was June 2023. 10:43 Method Of Arrival: Ambulatory iw 10:43 Acuity: JELLY 3 iw Triage Assessment: 14:18 General: Behavior is calm, cooperative, appropriate for age. me1 Historical: - Allergies: 10:44 No Known Allergies; iw - PMHx: 10:44 Asthma; CAD; diabetes mellitus; Enlarged Heart; TIA; iw - PSHx: 10:44 Appendectomy; hernia repair; iw - Immunization history:: Adult Immunizations unknown. - Social history:: Smoking status: Patient denies any tobacco usage or history of. Screenin:45 [facility] ED Fall Risk Assessment (Adult) History of falling in the last 3 months, me1 including since admission No falls in past 3 months (0 pts) Confusion or Disorientation No (0 pts) Intoxicated or Sedated No (0 pts) Impaired Gait No (0 pts) Mobility Assist Device Used No (0 pt) Altered Elimination No (0 pt) Score/Fall Risk Level 0 - 2 = Low Risk. Abuse screen: Denies threats or abuse. Nutritional screening: No deficits noted. Tuberculosis screening: No symptoms or risk factors identified. Assessment: 13:45 General: Appears comfortable, obese, well groomed, well developed. Pain: Denies pain. me1 Neuro: Level of Consciousness is awake, alert, obeys commands, Oriented to person, place, time, situation, Appropriate for age. Cardiovascular: Capillary refill < 3 seconds Patient's skin is warm and dry. Respiratory: Airway is patent Respiratory effort is even, unlabored, Respiratory pattern is regular, symmetrical. Derm: Reports knots on body but worse on posterior neck x 2 months. Vital Signs: 10:44 BP 135 / 82; Pulse 108; Resp 18; Temp 98.4; Pulse Ox 94% on R/A; Weight 154.22 kg; iw Height 5 ft. 7 in. ; 12:43 BP 101 / 74; Pulse 85; Resp 16; Pulse Ox 93% on R/A; me1 13:15 BP 118 / 77; Pulse 72; Resp 14; Pulse Ox 91% on R/A; me1 13:45 BP 108 / 92; Pulse 74; Resp 16; Pulse Ox 91% on R/A; me1 10:44 Body Mass Index 53.25 (154.22 kg, 170.18 cm) iw ED Course: 10:29 Patient arrived in ED. rg4 10:33 [facility] FNP [facility]. jh7 10:33 Jason Canseco MD is Attending Physician. jh7 10:44 Triage completed. iw 10:44 Arm band placed on. iw 12:11 Nazia Haddad, LIANE is Primary Nurse. me1 12:53 Inserted saline lock: 20 gauge in right antecubital area, using aseptic technique. me1 12:53 CBC with Diff Sent. me1 12:53 BMP Sent. me1 13:45 Patient has correct armband on for positive identification. Bed in low position. Call me1 light in reach. Side rails up X2. Provided Education on: POC. Verbalized understanding. . 13:45 No provider procedures requiring assistance completed. me1 14:18 IV discontinued, intact, bleeding controlled, No redness/swelling at site. Pressure me1 dressing applied. Administered Medications: 12:53 Drug: NS 0.9% IV 1000 ml IV at 1 bolus Per protocol; 1000 mL bolus Route: IV; Rate: 1 me1 bolus; Site: right antecubital; 13:44 Follow up: IV Status: Completed infusion me1 12:53 Drug: Clindamycin IVPB 600 mg IVPB once over 30 mins; (mix in 50 mL) Route: IVPB; me1 Infused Over: 30 mins; Site: right antecubital; 13:19 Follow up: Response: No adverse reaction; IV Status: Completed infusion me1 13:43 Follow up: IV Status: Completed infusion me1 Medication: 13:45 VIS not applicable for this client. me1 Outcome: 13:23 Discharge ordered by MD. wilkinson 14:18 Discharged to home ambulatory, me1 14:18 Condition: stable 14:18 Discharge instructions given to patient, Instructed on discharge instructions, follow up and referral plans. medication usage, Demonstrated understanding of instructions, follow-up care, medications, Prescriptions given X 1, 14:18 Patient left the ED. me1 Signatures: Megan Townsend, RN RN Mickie Griffin 4 Meera Maria, OCEANOGRAPHER GEOLOGICAL OCEANOGRAPHER GEOLOGICAL 7 Nazia Haddad RN RN me1
[2023-09-02 14:43] VITALS: TEMP 98.4
[2023-09-02 14:46] VITALS: O2SAT 91
[2023-09-02 14:48] VITALS: BP 108/92
== END 2023-09-02 14:18 | disposition home or self-care (01) ==
LOC: ER 10:28
DX: L73.2 Hidradenitis suppurativa (principal); L73.9 Follicular disorder, unspecified; B95.8 Unspecified staphylococcus as the cause of diseases classified elsewhere
CPT/HCPCS: 36415; 80048; 82947; 85025; 96365; 99284; J7030

== ENCOUNTER 2024-06-20 16:18 | Emergency (ER) | payer SELFPAY ==
--- NOTE | 2024-06-20 16:40 | EDPHYS ---
Physician Documentation [facility] Name: Kendall Kapoor Age: 38 yrs Sex: Male : 1985 Arrival Date: 06/20/2024 Time: 16:18 Bed IW1 Private MD: ED Physician Memo Tinajero HPI: 06/20 16:43 This 38 yrs old Male presents to ER via Ambulatory with complaints of Lump on Neck. sb4 16:43 Onset: The symptoms/episode began/occurred at an unknown time. Associated signs and sb4 symptoms: Pertinent positives: pain, Pertinent negatives: fever. Modifying factors: The patient symptoms are alleviated by movement, the patient symptoms are aggravated by remaining still. intermittent "lump" on back of neck for unknown amount of time. has had 7 I\\T\\Ds in the past but it keeps coming back. denies any redness, drainage, or fever. Historical: - Allergies: 16:30 No Known Allergies; dd2 - PMHx: 16:30 Asthma; CAD; diabetes mellitus; Enlarged Heart; TIA; dd2 - PSHx: 16:30 Appendectomy; hernia repair; dd2 - Immunization history:: Adult Immunizations up to date. - Infectious Disease History:: Denies. - Social history:: Smoking status: Reported history of juuling and/or vaping. ROS: 16:43 Constitutional: Negative for fever, chills, and weight loss, sb4 16:43 Skin: Positive for swelling, of the posterior cervical area, 16:43 All other systems are negative, Exam: 16:45 Head/Face: Normocephalic, atraumatic. Eyes: Extra-ocular motions intact. Periorbital sb4 areas with no swelling, redness, or edema. ENT: Mucous membranes moist. 16:45 Constitutional: The patient appears in no acute distress, alert, awake, obese, 16:45 Skin: lesion(s), small firm moveable cyst, deep, posterior right neck. no redness, fluctuance, or drainage, Vital Signs: 16:28 BP 137 / 96; Pulse 103; Resp 16; Temp 97.2; Pulse Ox 93% ; dd2 17:04 BP 142 / 84; Pulse 99; Resp 16; Pulse Ox 99% ; ko1 MDM: 16:27 Patient medically screened. sb4 16:45 Data reviewed: vital signs, nurses notes, and as a result, I will discharge patient. sb4 Counseling: I had a detailed discussion with the patient and/or guardian regarding the historical points, exam findings, and any diagnostic results supporting the discharge/admit diagnosis, the need for outpatient follow up, a general surgeon, to return to the emergency department if symptoms worsen or persist or if there are any questions or concerns that arise at home. Administered Medications: 16:45 Drug: Hydrocodone-Acetaminophen PO (7.5 mg-325 mg) 1 tabs PO once Route: PO; ko1 17:07 Follow up: Response: Medication administered at discharge. ko1 16:45 Drug: Ondansetron PO 4 mg PO once Route: PO; ko1 17:06 Follow up: Response: Medication administered at discharge. ko1 Disposition: 18:01 Co-signature as Attending Physician, Memo Tinajero MD I reviewed the patient's care rt provided by the Advanced Practice Provider and agree with the diagnosis and treatment plan. Disposition Summary: 06/20/24 16:39 Discharge Ordered Notes: Location: Home sb4 Problem: an ongoing problem sb4 Symptoms: are unchanged sb4 Condition: Stable sb4 Diagnosis - Sebaceous cyst sb4 Followup: sb4 - With: Mario Anne MD - When: 1 week - Reason: Recheck today's complaints, Re-evaluation by your physician Discharge Instructions: - Discharge Summary Sheet sb4 - Epidermoid Cyst, [id number] sb4 Forms: - Prescription Opioid Use sb4 - Patient Portal Instructions sb4 - Leadership Thank You Letter sb4 Prescriptions: - Tramadol 50 mg Oral Tablet - take 1 tablet ORAL route every 8 hours as needed; 12 tablet; Refills: 0, sb4 Product Selection Permitted Signatures: Tori Lane, RN RN ko1 Naomie Figueroa PA-C PA-C sb4 Memo Tinajero MD MD rt PRICILA AARON RN RN dd2
--- NOTE | 2024-06-20 16:40 | ER ---
Nurse's Notes [facility] Name: Kendall Kapoor Age: 38 yrs Sex: Male : 1985 Arrival Date: 06/20/2024 Time: 16:18 Bed IW1 Private MD: Diagnosis: Sebaceous cyst Presentation: 06/20 16:28 Chief complaint: Patient states: Pt states bump on back of neck. States keeps coming dd2 back, I\T\O x7. Coronavirus screen: At this time, the client does not indicate any symptoms associated with coronavirus-19. Ebola Screen: No symptoms or risks identified at this time. Initial Sepsis Screen: Does the patient meet any 2 criteria? No. Patient's initial sepsis screen is negative. Does the patient have a suspected source of infection? No. Patient's initial sepsis screen is negative. Risk Assessment: Do you want to hurt yourself or someone else? Patient reports no desire to harm self or others. Onset of symptoms is unknown. 16:28 Method Of Arrival: Ambulatory dd2 16:28 Acuity: JELLY 4 dd2 Triage Assessment: 16:30 General: Appears in no apparent distress. Behavior is calm, cooperative. Pain: dd2 Complains of pain in Back of rt side neck. Historical: - Allergies: 16:30 No Known Allergies; dd2 - PMHx: 16:30 Asthma; CAD; diabetes mellitus; Enlarged Heart; TIA; dd2 - PSHx: 16:30 Appendectomy; hernia repair; dd2 - Immunization history:: Adult Immunizations up to date. - Infectious Disease History:: Denies. - Social history:: Smoking status: Reported history of juuling and/or vaping. Screenin:04 [facility] ED Fall Risk Assessment (Adult) History of falling in the last 3 months, ko1 including since admission No falls in past 3 months (0 pts) Confusion or Disorientation No (0 pts) Intoxicated or Sedated No (0 pts) Impaired Gait No (0 pts) Mobility Assist Device Used No (0 pt) Altered Elimination No (0 pt) Score/Fall Risk Level 0 - 2 = Low Risk Oriented to surroundings, Maintained a safe environment, Educated pt \T\ family on fall prevention, incl call for assistance when getting out of bed, Assessed \T\ reinforced patient's understanding of fall precautions, Provided non-skid footwear. Abuse screen: Denies threats or abuse. Denies injuries from another. Nutritional screening: No deficits noted. Tuberculosis screening: No symptoms or risk factors identified. Vital Signs: 16:28 BP 137 / 96; Pulse 103; Resp 16; Temp 97.2; Pulse Ox 93% ; dd2 17:04 BP 142 / 84; Pulse 99; Resp 16; Pulse Ox 99% ; ko1 ED Course: 16:21 Patient arrived in ED. mg5 16:25 Noamie Figueroa PA-C is PHCP. sb4 16:25 Memo Tinajero MD is Attending Physician. sb4 16:30 Triage completed. dd2 16:30 Arm band placed on left wrist. Patient placed in an exam room, on a stretcher, on pulse dd2 oximetry, Patient notified of wait time. 16:39 Mario Anne MD is Referral Physician. sb4 16:[address] RN is Primary Nurse. ko1 17:04 Patient has correct armband on for positive identification. Provided Education on: ko1 referral, meds. 17:04 No provider procedures requiring assistance completed. Patient did not have IV access ko1 during this emergency room visit. Administered Medications: 16:45 Drug: Hydrocodone-Acetaminophen PO (7.5 mg-325 mg) 1 tabs PO once Route: PO; ko1 17:07 Follow up: Response: Medication administered at discharge. ko1 16:45 Drug: Ondansetron PO 4 mg PO once Route: PO; ko1 17:06 Follow up: Response: Medication administered at discharge. ko1 Medication: 17:04 VIS not applicable for this client. ko1 Outcome: 16:39 Discharge ordered by . sb4 17:04 Discharged to home ambulatory, with family, ko1 17:04 Condition: good 17:04 Discharge instructions given to patient, family, Instructed on discharge instructions, follow up and referral plans. medication usage, Demonstrated understanding of instructions, follow-up care, medications, Prescriptions given X 1, 17:07 Patient left the ED. ko1 Signatures: Tori Lane, RN RN ko1 Naomie Figueroa PA-C PA-C sb4 Nyla Martinez mg5 PRICILA AARON RN RN dd2 Corrections: (The following items were deleted from the chart) 16:33 16:28 Acuity: JELLY 3 dd2 dd2 16:58 16:58 Ondansetron PO 4 mg PO ko1 ko1 16:58 16:58 Hydrocodone-Acetaminophen PO (7.5 mg-325 mg) 1 tabs PO ko1 ko1
[2024-06-20 17:52] VITALS: TEMP 97.2
[2024-06-20 17:53] VITALS: BP 142/84; O2SAT 99
== END 2024-06-20 17:07 | disposition home or self-care (01) ==
LOC: ER 16:18
DX: L72.3 Sebaceous cyst (principal)
CPT/HCPCS: 99283

== ENCOUNTER 2024-07-08 00:26 | Emergency (ER) | payer OTHER ==
[2024-07-08] MEDS ORDERED: KETOROLAC 30 MG/ML INJ ONE (01:36)
[2024-07-08 04:50] LABS: Specific Gravity > 1.030 (1.005-1.030); Sqamous Epithelial <5 /HPF (None Seen); Urine Bacteria <20 /HPF (<20); Urine Bilirubin NEGATIVE (Negative); Urine Blood Negative (Negative); Urine Clarity Clear (Clear); Urine Color Yellow (Yellow); Urine Culture Reflex Order NOT NEEDED; Urine Glucose NEGATIVE (Negative); Urine Ketones NEGATIVE (Negative); Urine Micro Reflex YN NO BILL MICROSCOPIC; Urine Mucus 4+ /HPF (None Seen); Urine Nitrite NEGATIVE (Negative); Urine Protein TRACE (Negative); Urine RBC None Seen /HPF (None Seen); Urine Urobilinogen Normal (Normal); Urine WBC <5 /HPF (<5); Urine pH 5.5 (5.0-7.0)
--- NOTE | 2024-07-08 05:08 | EDPHYS ---
Physician Documentation [facility] Name: Kendall Kapoor Age: 38 yrs Sex: Male : 1985 Arrival Date: 07/08/2024 Time: 00:26 Bed 8 Private MD: ED Physician Alessandro Llanes HPI: 07/08 03:03 This 38 yrs old Male presents to ER via Ambulatory with complaints of ec2 Testicular Pain, Testicular Problem. 03:03 Patient arrives today due to concern for testicular concerns. Patient states he is ec2 unable to feel a second testicle. Complains of pain in the general scrotum area. Denies any fevers or chills, reports history of masses on the testes. Historical: - Allergies: 00:48 No Known Allergies; jb4 - PMHx: 00:48 Asthma; CAD; diabetes mellitus; Enlarged Heart; TIA; COPD; CHF; jb4 - PSHx: 00:48 Appendectomy; hernia repair; jb4 - Immunization history:: Adult Immunizations up to date. - Infectious Disease History:: Denies. - Social history:: Smoking status: Patient denies any tobacco usage or history of. ROS: 03:03 Constitutional: as per hpi ec2 Exam: 03:03 Constitutional: GEN: NAD Head: atraumatic Eyes: EOMI Ears: External ears are ec2 normal. CV: regular rate LUNGS: no respiratory distress ABD: non-distended. : Performed under nursing supervision, LIANE Magdaleno, 1 testicle is present, palpable, not firm. Was unable to locate the second testicle. Scrotum without erythema, no crepitus SKIN: no evidence of rashes MSK: no evidence of trauma Vital Signs: 00:43 BP 131 / 105; Pulse 96; Resp 16; Pulse Ox 95% on R/A; Weight 136.08 kg (R); Height 5 jb4 ft. 7 in. (R); Pain 10/10; 01:00 BP 125 / 107; Pulse 92; Resp 18; Pulse Ox 95% on R/A; al5 01:30 BP 113 / 71; Pulse 86; Resp 18; Pulse Ox 94% on R/A; al5 02:00 BP 109 / 86; Pulse 83; Resp 18; Pulse Ox 94% on R/A; al5 05:00 BP 134 / 98; Pulse 87; Resp 18; Pulse Ox 96% on R/A; al5 00:43 Body Mass Index 46.99 (136.08 kg, 170.18 cm) jb4 00:43 Pain Scale: Adult jb4 MDM: 00:28 Patient medically screened. ec2 03:03 Data reviewed: vital signs. ED course: Patient arrives today for scrotal pain. ec2 Examination remarkable for scrotal findings as above. Will obtain CT scan to evaluate for patient scrotal pain. . 04:57 ED course: CT imaging with no acute, actionable process. Urine noninfectious. Pending ec2 ultrasound. 05:06 ED course: I discussed case with radiology, radiology report poor visualization and ec2 possible reduced blood flow to the left testicle along with a heterogenous appearance. I discussed results with the patient and poor visualization discussed possible admission with urology evaluation, ultimately patient states he will follow-up outpatient with urology. States his pain is markedly better and would like to be discharged. Return precautions given. . 07/08 00:42 Order name: [place]OR[place]; Complete Time: 04:57 ec2 07/08 00:42 Order name: CT Abd/Pelvis - Without Contrast ec2 07/08 03:13 Order name: Scrotum Testicles US ec2 Administered Medications: 01:37 Drug: Ketorolac IM 30 mg IM once Route: IM; Site: right deltoid; vc1 02:00 Follow up: Response: No adverse reaction; Pain is unchanged, physician notified; Pain al5 is unchanged, physician notified, MD aware Disposition Summary: 07/08/24 05:07 Discharge Ordered Condition: Stable ec2 Diagnosis - Scrotal pain ec2 - Testicular pain, unspecified ec2 Followup: ec2 - With: Private Physician - When: - Reason: Re-evaluation by your physician Discharge Instructions: - Discharge Summary Sheet ec2 - Testicular Torsion, Adult ec2 Forms: - Medication Reconciliation Form ec2 - Antibiotic Education ec2 - Prescription Opioid Use ec2 - Patient Portal Instructions ec2 - Leadership Thank You Letter ec2 Signatures: Dispatcher [employer] EDYogi Craig RN RN jb4 Brenda Kumar RN RN vc1 Alessandro Llanes MD MD ec2 Kandace Felix RN al5
--- NOTE | 2024-07-08 05:08 | ER ---
Nurse's Notes [facility] Name: Kendall Kapoor Age: 38 yrs Sex: Male : 1985 Arrival Date: 07/08/2024 Time: 00:26 Bed 8 Private MD: Diagnosis: Scrotal pain;Testicular pain, unspecified Presentation: 07/08 00:43 Chief complaint: Patient states: I am having pain in my groin. I had a CT recently that jb4 found 2 masses on my testicle. I do not know which one it was on. One of my testicles is missing and I cannot find it. Coronavirus screen: At this time, the client does not indicate any symptoms associated with coronavirus-19. Ebola Screen: No symptoms or risks identified at this time. Initial Sepsis Screen: Does the patient meet any 2 criteria? HR > 90 bpm. Yes Does the patient have a suspected source of infection? No. Patient's initial sepsis screen is negative. Risk Assessment: Do you want to hurt yourself or someone else? Patient reports no desire to harm self or others. Onset of symptoms was July 08, 2024. Transition of care: patient was not received from another setting of care. 00:43 Method Of Arrival: Ambulatory jb4 00:43 Acuity: JELLY 3 jb4 Historical: - Allergies: 00:48 No Known Allergies; jb4 - PMHx: 00:48 Asthma; CAD; diabetes mellitus; Enlarged Heart; TIA; COPD; CHF; jb4 - PSHx: 00:48 Appendectomy; hernia repair; jb4 - Immunization history:: Adult Immunizations up to date. - Infectious Disease History:: Denies. - Social history:: Smoking status: Patient denies any tobacco usage or history of. Screenin:37 [facility] ED Fall Risk Assessment (Adult) History of falling in the last 3 months, al5 including since admission No falls in past 3 months (0 pts) Confusion or Disorientation No (0 pts) Intoxicated or Sedated No (0 pts) Impaired Gait No (0 pts) Mobility Assist Device Used No (0 pt) Altered Elimination No (0 pt) Score/Fall Risk Level 0 - 2 = Low Risk Oriented to surroundings, Maintained a safe environment, Hourly rounding (assess needs \T\ fall precautionary measures) done. Abuse screen: Denies threats or abuse. Denies injuries from another. Nutritional screening: No deficits noted. Tuberculosis screening: No symptoms or risk factors identified. Assessment: 01:37 General: Appears in no apparent distress. Behavior is calm, cooperative. Pain: al5 Complains of pain in groin Pain currently is 9 out of 10 on a pain scale. Neuro: Level of Consciousness is awake, alert, obeys commands, Oriented to person, place, time, situation. Cardiovascular: Capillary refill < 3 seconds Patient's skin is warm and dry. Respiratory: Airway is patent Respiratory effort is even, unlabored, Respiratory pattern is regular, symmetrical. GI: Abdomen is non-distended, obese. : Reports pain testicle. EENT: No signs and/or symptoms were reported regarding the EENT system. Derm: Skin is intact, Skin is pink, warm \T\ dry. normal. Musculoskeletal: No signs and/or symptoms reported regarding the musculoskeletal system. 02:48 Reassessment: Patient appears in no apparent distress at this time. No changes from al5 previously documented assessment. Patient and/or family updated on plan of care and expected duration. Pain level reassessed. Patient is alert, oriented x 3, equal unlabored respirations, skin warm/dry/pink. 04:00 Reassessment: Patient appears in no apparent distress at this time. No changes from al5 previously documented assessment. Patient and/or family updated on plan of care and expected duration. Pain level reassessed. Patient is alert, oriented x 3, equal unlabored respirations, skin warm/dry/pink. 05:00 Reassessment: Patient appears in no apparent distress at this time. No changes from al5 previously documented assessment. Patient and/or family updated on plan of care and expected duration. Pain level reassessed. Patient is alert, oriented x 3, equal unlabored respirations, skin warm/dry/pink. Vital Signs: 00:43 BP 131 / 105; Pulse 96; Resp 16; Pulse Ox 95% on R/A; Weight 136.08 kg (R); Height 5 jb4 ft. 7 in. (R); Pain 10; 01:00 BP 125 / 107; Pulse 92; Resp 18; Pulse Ox 95% on R/A; al5 01:30 BP 113 / 71; Pulse 86; Resp 18; Pulse Ox 94% on R/A; al5 02:00 BP 109 / 86; Pulse 83; Resp 18; Pulse Ox 94% on R/A; al5 05:00 BP 134 / 98; Pulse 87; Resp 18; Pulse Ox 96% on R/A; al5 00:43 Body Mass Index 46.99 (136.08 kg, 170.18 cm) jb4 00:43 Pain Scale: Adult 4 ED Course: 00:27 Patient arrived in ED. jj6 00:27 Alessandro Llanes MD is Attending Physician. ec2 00:48 Triage completed. jb4 00:48 Arm band placed on right wrist. jb4 01:37 Brenda Kumar, RN is Primary Nurse. vc1 01:37 Patient has correct armband on for positive identification. Bed in low position. Call al5 light in reach. Side rails up X 1. 01:37 Provided Education on: processes and procedures. al5 01:37 No provider procedures requiring assistance completed. al5 01:37 Patient did not have IV access during this emergency room visit. al5 03:04 CT Abd/Pelvis - Without Contrast In Process Unspecified. EDMS 03:55 Scrotum Testicles US In Process Unspecified. EDMS Administered Medications: 01:37 Drug: Ketorolac IM 30 mg IM once Route: IM; Site: right deltoid; vc1 02:00 Follow up: Response: No adverse reaction; Pain is unchanged, physician notified; Pain al5 is unchanged, physician notified, MD aware Medication: 01:37 VIS not applicable for this client. al5 Outcome: 05:07 Discharge ordered by MD. ec2 05:30 Discharged to home al5 05:30 Condition: good 05:30 Discharge instructions given to patient, Instructed on discharge instructions, follow up and referral plans. Demonstrated understanding of instructions, follow-up care, 05:31 Patient left the ED. al5 Signatures: Dispatcher [employer] EDMS Yogi Combs RN RN jb4 Meera Hein jj6 Brenda Kumar, LIANE ROB vc1 Alessandro Llanes MD MD ec2 Kandace Felix RN RN al5
[2024-07-08 05:59] VITALS: BP 134/98; O2SAT 96
--- NOTE | 2024-07-08 18:59 | RAD REPORT ---
EXAM DESCRIPTION: US SCROTUM CLINICAL HISTORY: Pain. COMPARISON: None TECHNIQUE: Ramires scale imaging and duplex Doppler ultrasound examination of the scrotum and its khalida nts were performed. FINDINGS: SCROTUM: The scrotal skin thickness is normal and there is no hyperemia. RIGHT TESTIS: Size: 5.0 x 3.0 x 3.0 cm. Echotexture: Normal. Blood flow: Normal. Epididymus: Normal in size and echogenicity. Normal color flow. The epididymal head measures 1.6 x 0. 9 x 0.8 cm. Hydrocele: Small. Varicocele: None. Masses: None. LEFT TESTIS: Size: 4.0 x 2.0 x 2.0 cm. Echotexture: Mildly heterogeneous. Blood flow: There is probable reduced color flow in the left testis, noting limitation by the patient 's intolerance of the exam due to pain. Epididymus: Normal in size and echogenicity. Normal color flow. The epididymal head measures 0.6 x 1. 4 x 1.1 cm. Hydrocele: Small. Varicocele: None. Masses: None. OTHER: None. IMPRESSION: 1. Smaller and mildly heterogeneous echotexture of the left testis. Probable reduced c olor flow in the left testis, noting limitation by the patient's intolerance of the exam due to pain. Left testicular torsion cannot be excluded. 2. No testicular torsion on the right. 3. No epididymitis. 4. Small bilateral hydroceles. The findings of #[address] Alessandro Llanes at 07/08/2024 5:03 AM CDT. Electronically signed by: Анна Sandoval MD 07/08/2024 05:04 AM CDT Due to temporary technical issues with the PACS/Fluency reporting system, reports are being signed by the in house radiologists without review as a courtesy to insure prompt reporting. The interpreting radiologist is fully responsible for the content of the report.
--- NOTE | 2024-07-08 19:19 | RAD REPORT ---
EXAM DESCRIPTION: CT ABDOMEN PELVIS WITHOUT IV CONTRAST CLINICAL HISTORY: Testicular pain. COMPARISON: CT Abdomen pelvis 09/30/2022. TECHNIQUE: CT images of the abdomen and pelvis obtained without contrast. Multiplanar reformats were provided. Dose-optimization techniques such as automated exposure control, iterative reconstruction, and mA and/or kV adjustment for patient size was utilized for this examination. FINDINGS: LOWER CHEST: Unremarkable. LIVER: No focal lesion. BILIARY: Unremarkable. PANCREAS: Unremarkable. SPLEEN: Unremarkable. ADRENALS: Unremarkable. KIDNEYS/URETERS: Unremarkable. BOWEL/STOMACH: No focal bowel thickening or dilatation. No bowel obstruction. MESENTERY/PERITONEUM: Unremarkable. RETROPERITONEUM: No adenopathy. URINARY BLADDER: Unremarkable. REPRODUCTIVE: Unremarkable. VASCULAR: Unremarkable. ABDOMINAL/PELVIC WALL: Small fat containing right inguinal hernia. Stable postsurgical changes for pr evious left inguinal hernia repair, noting small fat containing hernia with associated soft tissue th ickening and perhaps small amount of fluid in the adjacent peritoneal cavity and subcutaneous left gr oin region. BONES: Unremarkable No compression deformity, nor osteolytic or sclerotic lesion. IMPRESSION: 1. No acute inflammatory changes in the abdomen and pelvis. 2. Stable postsurgical changes at left inguinal region. Electronically signed by: Анна Sandoval MD 07/08/2024 04:03 AM CDT Due to temporary technical issues with the PACS/Fluency reporting system, reports are being signed by the in house radiologists without review as a courtesy to insure prompt reporting. The interpreting radiologist is fully responsible for the content of the report.
== END 2024-07-08 05:31 | disposition home or self-care (01) ==
LOC: ER 00:26
DX: N50.82 Scrotal pain (principal); N50.812 Left testicular pain; N50.811 Right testicular pain
CPT/HCPCS: 74176; 76870; 81001; 96372; 99284

== ENCOUNTER 2024-08-30 00:36 | Emergency (ER) | payer OTHER ==
[2024-08-30] MEDS ORDERED: FUROSEMIDE 40 MG/4 ML VIAL ONE (01:19)
[2024-08-30 01:49] LABS: Absolute Basophils 0.1 K/uL (0-0.5); Absolute Eosinophils 0.3 K/uL (0-0.5); Absolute Lymphocytes (CBC) 2.2 K/uL (0.7-4.9); Absolute Monocytes 1.1 K/uL (0.1-1.3); Absolute Neutrophil 10.9 K/uL (1.8-8.0); Basophils % 0.8 % (0-1.3); Eosinophils % 2.2 % (0-4.4); Hematocrit 45.2 % (39.6-49.0); Hemoglobin 14.7 g/dL (13.6-17.9); Lymphocytes % 15.1 % (15.3-44.8); MCHC 32.4 g/dL (32.0-36.0); MCV 92.5 fL (80-100); MPV 9.6 fL (7.6-11.3); Monocytes % 7.5 % (3.3-12.3); Neutrophils % 74.4 % (41.7-73.7); Platelets 365 thou/uL (152-406); RBC Red Blood Cell Count 4.88 M/uL (4.33-5.43); Red Cell Distribution Width 15.2 % (12.1-15.2)
[2024-08-30 02:28] LABS: ALT/SGPT 36 U/L (16-61); Albumin/Globulin Ratio 0.7 (1.1-1.8); Alkaline Phosphatase 100 U/L (45-117); Anion Gap 6.6 mEq/L (5.0-15.0); BUN Blood Urea Nitrogen 11 mg/dL (7-18); Bicarbonate 29 mEq/L (21-32); Bilirubin Total 0.2 mg/dL (0.2-1.0); Globulin 4.5 g/dL (2.3-3.5); Glomerular Filtration Rate 91 ml/min (=/>90); Glucose Level 146 mg/dL (74-106); NT PRO-BNP 7 pg/mL (<125); Potassium 3.6 mEq/L (3.5-5.1); Protein, Total 7.5 g/dL (6.4-8.2); Sodium Level 140 mEq/L (136-145); Troponin High Sensitivity 3.3 pg/mL (<58.9)
[2024-08-30 02:29] LABS: AST/SGOT 19 U/L (15-37); Bilirubin Direct < 0.2 mg/dL (0-0.2)
--- NOTE | 2024-08-30 03:51 | RAD REPORT ---
EXAM: US Scrotum CLINICAL HISTORY: The patient is 38 years old and is Male; pain TECHNIQUE: Real-time ultrasound of the scrotum with color Doppler and image documentation. COMPARISON: Ultrasound scrotum February 07, 2022. FINDINGS: Right testicle: Unremarkable. No mass. No torsion. Left testicle: Redemonstration of a small heterogeneous left testicle with decreased Doppler flow compared to the left, similar to prior. Epididymides: Small right epididymal cyst. Scrotum: Small left hydrocele. IMPRESSION: 1. The right testicle is normal. 2. Redemonstration of a small heterogeneous left testicle with decreased Doppler flow compared to t he left, similar to prior. Correlate with history. 3. Small left hydrocele. Electronically signed by: Cody Marvin MD 08/30/2024 03:46 AM CDT 8 Due to temporary technical issues with the PACS/[employer] reporting system, reports are being signed by the in-house radiologist without review as a courtesy to ensure prompt reporting the interpreting radiologist is fully responsible for the content of the report. Transcribed Date/Time: 08/30/2024 3:51 AM
--- NOTE | 2024-08-30 04:14 | RAD REPORT ---
EXAM: CT Abdomen and Pelvis With Intravenous Contrast CLINICAL HISTORY: The patient is 38 years old and is Male; ABD PAIN TECHNIQUE: Axial computed tomography images of the abdomen and pelvis with intravenous contrast. Sagittal and coronal reformatted images were created and reviewed. This CT exam was performed using one or more of the following dose reduction techniques: automated exposure control, adjustmen t of the mA and/or kV according to patient size, and/or use of iterative reconstruction technique. COMPARISON: No relevant prior studies available. FINDINGS: Lung bases: Unremarkable. No mass. No consolidation. ABDOMEN: Liver: Hepatomegaly with diffuse hepatic steatosis. Gallbladder and bile ducts: Unremarkable. No calcified stones. No ductal dilation. Pancreas: Unremarkable. No mass. No ductal dilation. Spleen: Unremarkable. No splenomegaly. Adrenals: Unremarkable. No mass. Kidneys and ureters: Unremarkable. No solid mass. No hydronephrosis. Stomach and bowel: Unremarkable. No obstruction. No mucosal thickening. PELVIS: Appendix: Suggestion of prior appendectomy. Bladder: Unremarkable. Reproductive: Unremarkable as visualized. ABDOMEN and PELVIS: Intraperitoneal space: Unremarkable. No free air. No significant fluid collection. Bones/joints: No acute fracture. No dislocation. Soft tissues: Unremarkable. Vasculature: Unremarkable. No abdominal aortic aneurysm. Lymph nodes: Unremarkable. No enlarged lymph nodes. * A single impression for all exams can be found at the end of this report EXAM: XR Chest, 1 View CLINICAL HISTORY: The patient is 38 years old and is Male; ABD PAIN TECHNIQUE: Frontal view of the chest. COMPARISON: No relevant prior studies available. FINDINGS: Lungs: Prominent interstitial markings which may indicate mild interstitial edema. Peribronchial thickening. No consolidation. Pleural space: Unremarkable. No pneumothorax. Heart: Unremarkable. Mediastinum: Unremarkable. Normal mediastinal contour. Bones/joints: No acute findings. * A single impression for all exams can be found at the end of this report IMPRESSION: CT Abdomen and Pelvis With Intravenous Contrast: No acute finding in the abdomen/pelvis. XR Chest, 1 View: Prominent interstitial markings which may indicate mild interstitial edema. Peribronchial thickenin g. No consolidation. Electronically signed by: Cody Marvin MD 08/30/2024 04:09 AM CDT RP 8 Due to temporary technical issues with the PACS/[employer] Interactive reporting system, reports are being yang d by the in-house radiologist without review as a courtesy to ensure prompt reporting the interpreting radiologist is fully responsible for the content of the report. Transcribed Date/Time: 08/30/2024 4:13 AM
[2024-08-30] MEDS ORDERED: ONDANSETRON 4 MG/2 ML VIAL ONE (04:56)
[2024-08-30] MEDS ORDERED: MORPHINE 4 MG/ML SYR ONE (04:56)
--- NOTE | 2024-08-30 05:07 | ER ---
Nurse's Notes [facility] Name: Kendall Kapoor Age: 38 yrs Sex: Male : 1985 Arrival Date: 08/30/2024 Time: 00:36 Bed 5 Private MD: Diagnosis: Testicular torsion;Generalized edema Presentation: 08/30 01:02 Chief complaint: Patient states: c/o swelling in legs and testicles, has been an al5 ongoing issue that has been progressively getting worse. also c/o shortness of breath when ambulating short distances. took 80 mg of lasix at home earlier in the day and still has not urinated. Coronavirus screen: At this time, the client does not indicate any symptoms associated with coronavirus-19. Ebola Screen: No symptoms or risks identified at this time. Initial Sepsis Screen: Does the patient meet any 2 criteria? HR > 90 bpm. No. Patient's initial sepsis screen is negative. Does the patient have a suspected source of infection? No. Patient's initial sepsis screen is negative. Risk Assessment: Do you want to hurt yourself or someone else? Patient reports no desire to harm self or others. Onset of symptoms was 2023. 01:02 Method Of Arrival: Wheelchair al5 01:02 Acuity: JELLY 3 al5 Triage Assessment: 01:08 General: Appears in no apparent distress. uncomfortable, Behavior is calm, cooperative. al5 Pain: Complains of pain in groin, right leg and left leg Pain currently is 8 out of 10 on a pain scale. EENT: No signs and/or symptoms were reported regarding the EENT system. Neuro: Level of Consciousness is awake, alert, obeys commands, Oriented to person, place, time, situation. Cardiovascular: Capillary refill < 3 seconds Patient's skin is warm and dry. Respiratory: Reports shortness of breath on exertion Airway is patent Respiratory effort is even, unlabored, Respiratory pattern is regular, symmetrical, Onset: The symptoms/episode began/occurred ongoing issue, the patient has mild shortness of breath. GI: Abdomen is round non-distended, obese. : Reports testicular swelling and pain, problems with urination. Derm: Skin is intact, Skin is pink, warm \T\ dry. normal. Musculoskeletal: Reports swelling and pain to bilateral legs. Historical: - Allergies: 01:05 No Known Allergies; al5 - PMHx: 01:05 Asthma; CAD; CHF; COPD; diabetes mellitus; Enlarged Heart; TIA; al5 - PSHx: 01:05 Appendectomy; hernia repair; al5 - Immunization history:: Adult Immunizations up to date. - Infectious Disease History:: Denies. - Social history:: Smoking status: Patient reports the use of cigarette tobacco products, unknown amount. - Family history:: not pertinent. Screenin:10 [facility] ED Fall Risk Assessment (Adult) History of falling in the last 3 months, al5 including since admission No falls in past 3 months (0 pts) Confusion or Disorientation No (0 pts) Intoxicated or Sedated No (0 pts) Impaired Gait No (0 pts) Mobility Assist Device Used No (0 pt) Altered Elimination No (0 pt) Score/Fall Risk Level 0 - 2 = Low Risk Oriented to surroundings, Maintained a safe environment, Hourly rounding (assess needs \T\ fall precautionary measures) done. Abuse screen: Denies threats or abuse. Denies injuries from another. Nutritional screening: No deficits noted. Tuberculosis screening: No symptoms or risk factors identified. Assessment: 01:12 Reassessment: see triage assessment. Cardiovascular: Rhythm is junctional rhythm. al5 Respiratory: Airway is patent Respiratory effort is even, unlabored, Respiratory pattern is regular, symmetrical. 02:00 Reassessment: Patient and/or family updated on plan of care and expected duration. Pain ha1 level reassessed. Patient is alert, oriented x 3, equal unlabored respirations, skin warm/dry/pink. Patient states symptoms have improved. 03:12 Reassessment: eyes closed. Respiratory: Airway is patent Respiratory effort is even, ha1 unlabored, Respiratory pattern is regular, symmetrical, Breath sounds are clear bilaterally. 04:36 Reassessment: Patient appears in no apparent distress at this time. No changes from al5 previously documented assessment. Patient and/or family updated on plan of care and expected duration. Pain level reassessed. Patient is alert, oriented x 3, equal unlabored respirations, skin warm/dry/pink. patient has been educated on the need for transfer, patient verbalized understanding and accepts need for transfer. 05:28 Reassessment: Patient appears in no apparent distress at this time. No changes from al5 previously documented assessment. Patient and/or family updated on plan of care and expected duration. Pain level reassessed. Patient is alert, oriented x 3, equal unlabored respirations, skin warm/dry/pink. 05:37 Reassessment: gave nurse to nurse report to liane sierra at [facility]. al5 06:31 Reassessment: Patient appears in no apparent distress at this time. No changes from al5 previously documented assessment. Patient and/or family updated on plan of care and expected duration. Pain level reassessed. Patient is alert, oriented x 3, equal unlabored respirations, skin warm/dry/pink. gave report to [facility] for transport of patient to [facility]. Vital Signs: 00:45 BP 153 / 105; Pulse 108; Resp 18; Pulse Ox 93% ; al5 01:00 BP 111 / 74; Pulse 105; Resp 18; Pulse Ox 94% on R/A; al5 01:02 BP 150 / 104; Pulse 114; Resp 18; Temp 98.9; Pulse Ox 93% on R/A; Weight 154.22 kg; al5 Height 5 ft. 9 in. ; 01:17 BP 116 / 71; Pulse 102; Resp 16; Pulse Ox 95% on R/A; al5 02:00 BP 117 / 71; Pulse 94; Resp 20 S; Pulse Ox 94% on R/A; ha1 03:30 BP 141 / 51; Pulse 81; Resp 20 S; Pulse Ox 94% on R/A; ha1 04:00 BP 111 / 63; Pulse 82; Resp 18; Pulse Ox 95% on R/A; al5 04:30 BP 100 / 58; Pulse 98; Resp 18; Pulse Ox 93% on R/A; al5 04:46 BP 103 / 64; Pulse 100; Resp 17; Pulse Ox 93% on R/A; al5 05:00 BP 111 / 72; Pulse 100; Resp 17; Pulse Ox 91% on R/A; al5 05:15 BP 115 / 91; Pulse 100; Resp 18; Pulse Ox 96% on 2 lpm NC; al5 05:54 BP 106 / 77; Pulse 99; Resp 17 S; Pulse Ox 99% on R/A; ha1 06:00 BP 117 / 63; Pulse 93; Resp 18; Pulse Ox 96% on R/A; al5 01:02 Body Mass Index 50.21 (154.22 kg, 175.26 cm) al5 ED Course: 00:40 Patient arrived in ED. gm2 00:40 Memo Tinajero MD is Attending Physician. rt 01:02 Kandace Felix, LIANE is Primary Nurse. al5 01:05 Triage completed. al5 01:10 Arm band placed on right wrist. Patient placed in the treatment room, on a stretcher. al5 01:10 Patient has correct armband on for positive identification. Bed in low position. Call al5 light in reach. Side rails up X2. Provided Education on: plan of care. 01:10 No provider procedures requiring assistance completed. Inserted saline lock: 20 gauge al5 in right antecubital area, using aseptic technique. ,using aseptic technique. done via ultrasound guide. patient tolerated well. Blood collected. Flushed with 10 mL NS. 03:24 Abdomen In Process Unspecified. EDMS 03:24 Scrotum Testicles In Process Unspecified. EDMS 03:49 XRAY Chest (1 view) In Process Unspecified. EDMS 04:18 Initiated transfer with Isatu at [facility]. rv1 04:36 Doc to Doc with Urologist. rv1 05:12 Doc to Doc with Hospitalist. rv1 05:[address] Vieyra to [facility] Rm [id number]. Report # [id number]. rv1 05:30 Called Shruti with EMS, said the Oncoming crew at 6am will take patient. rv1 06:32 Patient transferred, IV remains in place. al5 Administered Medications: 01:26 Drug: Furosemide IVP 40 mg IVP once; give over 2 minutes Route: IVP; Site: right al5 antecubital; 02:37 Follow up: Response: No adverse reaction al5 05:00 Drug: morphine IVP or IV 4 mg IVP once over 4 mins Route: IVP; Infused Over: 4 mins; al5 Site: right antecubital; 05:20 Follow up: Response: No adverse reaction; Marked relief of symptoms; Pain is decreased; ha1 RASS: Alert and Calm (0) 05:00 Drug: Ondansetron IVP 4 mg IVP once; over 2 minutes Route: IVP; Site: right antecubital;al5 05:20 Follow up: Response: No adverse reaction; Marked relief of symptoms ha1 06:10 Drug: Rocephin IV 2 grams IV at calculated rate once; Given slow IV push per pharmarcy ha1 instructions Route: IV; Rate: calculated rate; Site: right antecubital; 06:27 Follow up: Response: No adverse reaction; IV Status: Completed infusion; IV Intake: ha1 100ml 06:29 Follow up: Response: No adverse reaction; IV Status: Completed infusion; IV Intake: al5 100ml Medication: 01:10 VIS not applicable for this client. al5 Intake: 06:27 IV: 100ml; Total: 100ml. ha1 06:29 IV: 100ml; Total: 200ml. al5 Outcome: 05:05 ER care complete, transfer ordered by . rt 06:33 Transferred by ground EMS to [facility], Transfer form completed. al5 06:33 Condition: stable 06:33 Instructed on the need for transfer, 06:33 Patient left the ED. al5 Signatures: Dispatcher [employer] EDMonica Brambila RN RN ha1 Memo Tinajero MD MD rt Felicia Ralph 1 Nely Hernández 2 Kandace Felix RN RN al5
--- NOTE | 2024-08-30 05:07 | EDPHYS ---
Physician Documentation [facility] Name: Kendall Kapoor Age: 38 yrs Sex: Male : 1985 Arrival Date: 08/30/2024 Time: 00:36 Bed 5 Private MD: ED Physician Memo Tinajero HPI: 08/30 01:19 This 38 yrs old Male presents to ER via Wheelchair with complaints of Breathing rt Difficulty, Testicular Swelling, Leg Swelling. 01:19 Patient presents to the ED with worsening swelling to the legs and testicles for the rt past several days. Patient states that his 80 mg of Lasix is not causing him to urinate like he used to. Reports shortness of breath has been worsening as well, worse with exertion. Denies other acute complaints, symptoms are moderate in severity, no other aggravating or elevating factors.. Historical: - Allergies: 01: No Known Allergies; al5 - PMHx: 01:05 Asthma; CAD; CHF; COPD; diabetes mellitus; Enlarged Heart; TIA; al5 - PSHx: 01:05 Appendectomy; hernia repair; al5 - Immunization history:: Adult Immunizations up to date. - Infectious Disease History:: Denies. - Social history:: Smoking status: Patient reports the use of cigarette tobacco products, unknown amount. - Family history:: not pertinent. ROS: 01:19 Eyes: Negative for injury, pain, redness, and discharge, Cardiovascular: Negative for rt chest pain, palpitations, and edema, Abdomen/GI: Negative for abdominal pain, nausea, vomiting, diarrhea, and constipation, :19 Respiratory: Positive for cough, shortness of breath, : MS/extremity: Positive for swelling, Negative for injury or acute deformity, Exam: :19 Constitutional: This is a well developed, well nourished patient who is awake, alert, rt and in no acute distress. Chest/axilla: Normal chest wall appearance and motion. Nontender with no deformity. No lesions are appreciated. Cardiovascular: Regular rate and rhythm with a normal S1 and S2. No gallops, murmurs, or rubs. Normal PMI, no JVD. No pulse deficits. : ECG was reviewed by the Attending Physician. : Respiratory: Faint crackles heard, no respiratory distress, : : No appreciable scrotal swelling, skin changes, 01:19 Musculoskeletal/extremity: 3+ bilateral lower extremity edema. Vital Signs: 00:45 BP 153 / 105; Pulse 108; Resp 18; Pulse Ox 93% ; al5 01:00 BP 111 / 74; Pulse 105; Resp 18; Pulse Ox 94% on R/A; al5 01:02 BP 150 / 104; Pulse 114; Resp 18; Temp 98.9; Pulse Ox 93% on R/A; Weight 154.22 kg; al5 Height 5 ft. 9 in. ; 01:17 BP 116 / 71; Pulse 102; Resp 16; Pulse Ox 95% on R/A; al5 02:00 BP 117 / 71; Pulse 94; Resp 20 S; Pulse Ox 94% on R/A; ha1 03:30 BP 141 / 51; Pulse 81; Resp 20 S; Pulse Ox 94% on R/A; ha1 04:00 BP 111 / 63; Pulse 82; Resp 18; Pulse Ox 95% on R/A; al5 04:30 BP 100 / 58; Pulse 98; Resp 18; Pulse Ox 93% on R/A; al5 04:46 BP 103 / 64; Pulse 100; Resp 17; Pulse Ox 93% on R/A; al5 05:00 BP 111 / 72; Pulse 100; Resp 17; Pulse Ox 91% on R/A; al5 05:15 BP 115 / 91; Pulse 100; Resp 18; Pulse Ox 96% on 2 lpm NC; al5 05:54 BP 106 / 77; Pulse 99; Resp 17 S; Pulse Ox 99% on R/A; ha1 06:00 BP 117 / 63; Pulse 93; Resp 18; Pulse Ox 96% on R/A; al5 01:02 Body Mass Index 50.21 (154.22 kg, 175.26 cm) al5 MDM: 00:43 Medical Screening Exam initiated rt 05:26 Differential diagnosis: Testicular torsion, CHF. Data reviewed: vital signs, nurses rt notes, lab test result(s), EKG, radiologic studies. Consideration of Admission/Observation Patient requires transfer for urology coverage. Management of patient was discussed with the following: Hospitalist: Discussed with accepting hospitalist and urologist at [facility], hospitalist requested blood cultures and empiric antibiotics been given. There is still no clear source of infection.. Independent interpretation of the following test(s) in the Emergency Department CT Scan: My interpretation is No bowel obstruction seen on my interpretation of CT scan images. Care significantly affected by the following chronic conditions: Congestive Heart Failure. Counseling: I had a detailed discussion with the patient and/or guardian regarding the historical points, exam findings, and any diagnostic results supporting the discharge/admit diagnosis, lab results, radiology results, the need to transfer to another facility. 08/30 01:55 Order name: CBC with Automated Diff; Complete Time: 02:25 EDMS 08/30 02:29 Order name: Basic Metabolic Panel; Complete Time: 04:16 EDMS 08/30 02:29 Order name: Liver (Hepatic) Function; Complete Time: 04:16 EDMS 08/30 02:29 Order name: Troponin High Sensitivity; Complete Time: 04:16 EDMS 08/30 02:29 Order name: NT PRO-BNP; Complete Time: 04:16 EDMS 08/30 03:23 Order name: Basic Metabolic Panel EDMS 08/30 03:23 Order name: Liver (Hepatic) Function EDMS 08/30 03:23 Order name: Troponin High Sensitivity EDMS 08/30 03:23 Order name: NT PRO-BNP EDMS 08/30 03:23 Order name: CBC with Automated Diff EDMS 08/30 04:44 Order name: UAM; Complete Time: 06:09 rt 08/30 05:18 Order name: Blood Culture Adult (2) rt 08/30 05:18 Order name: Lactate w/ 2H reflex if indic. rt 08/30 05:18 Order name: Protime (+inr) rt 08/30 05:18 Order name: Ptt, Activated rt 08/30 00:48 Order name: XRAY Chest (1 view); Complete Time: 06:09 rt 08/30 03:24 Order name: Abdomen ; Complete Time: 04:16 EDMS 08/30 03:24 Order name: Scrotum Testicles; Complete Time: 04:16 EDMS 08/30 00:48 Order name: EKG; Complete Time: 03:20 rt 08/30 00:48 Order name: Cardiac monitoring; Complete Time: 01:13 rt 08/30 00:48 Order name: EKG - Nurse/Tech; Complete Time: 01:13 rt 08/30 00:48 Order name: IV Saline Lock; Complete Time: 01:13 rt 08/30 00:48 Order name: Labs collected and sent; Complete Time: :13 rt 08/30 00:48 Order name: O2 Per Protocol; Complete Time: :14 rt 08/30 00:48 Order name: O2 Sat Monitoring; Complete Time: :14 rt 08/30 05:18 Order name: IV Saline Lock - Large Bore; Complete Time: 05:48 rt 08/30 05:18 Order name: Vital Signs; Complete Time: 05:41 rt EC:19 Rate is 109 beats/min. Rhythm is regular, Junctional tachycardia with No ectopy. Right rt axis deviation noted. QRS interval is normal. QT interval is normal. No Q waves. No ST changes noted. Interpreted by me. Administered Medications: 01:26 Drug: Furosemide IVP 40 mg IVP once; give over 2 minutes Route: IVP; Site: right al5 antecubital; 02:37 Follow up: Response: No adverse reaction al5 05:00 Drug: morphine IVP or IV 4 mg IVP once over 4 mins Route: IVP; Infused Over: 4 mins; al5 Site: right antecubital; 05:20 Follow up: Response: No adverse reaction; Marked relief of symptoms; Pain is decreased; ha1 RASS: Alert and Calm (0) 05:00 Drug: Ondansetron IVP 4 mg IVP once; over 2 minutes Route: IVP; Site: right antecubital;al5 05:20 Follow up: Response: No adverse reaction; Marked relief of symptoms ha1 06:10 Drug: Rocephin IV 2 grams IV at calculated rate once; Given slow IV push per pharmarcy ha1 instructions Route: IV; Rate: calculated rate; Site: right antecubital; 06:27 Follow up: Response: No adverse reaction; IV Status: Completed infusion; IV Intake: ha1 100ml 06:29 Follow up: Response: No adverse reaction; IV Status: Completed infusion; IV Intake: al5 100ml Disposition Summary: 08/30/24 05:05 Transfer Ordered Notes: Transfer Location: [facility] rt Reason: Higher level of care rt Condition: Stable rt Problem: new rt Symptoms: have improved rt Accepting Physician: (08/30/24 06:33) al5 Diagnosis - Testicular torsion rt - Generalized edema rt Discharge Instructions: - Discharge Summary Sheet rv1 Forms: - Medication Reconciliation Form rt - SBAR form rv1 Signatures: Dispatcher [employer] EDMS Monica Walker, RN RN ha1 Memo Tinajero MD MD rt Kandace Felix RN RN al5 Corrections: (The following items were deleted from the chart) 03:19 03:19 Scrotum Testicles+US.RAD.BRZ ordered. EDMS EDMS 03:25 03:19 BASIC METABOLIC PANEL+C.LAB.BRZ ordered. EDMS EDMS 03:25 03:19 CBC+H.LAB.BRZ ordered. EDMS EDMS 03:25 03:19 HEPATIC FUNCTION+C.LAB.BRZ ordered. EDMS EDMS 03:25 03:19 PROBNP+C.LAB.BRZ ordered. EDMS EDMS 03:25 03:19 Troponin High Sensitivity+C.LAB.BRZ ordered. EDMS EDMS 03:31 03:19 Abdomen Pelvis W Con+CT.RAD.BRZ ordered. EDMS EDMS 05:18 05:18 BLOOD CULTURE*+BA.LAB.BRZ ordered. EDMS EDMS 05:18 05:18 LACTATE+C.LAB.BRZ ordered. EDMS EDMS 05:18 05:18 PROTIME (+INR)+COAG.LAB.BRZ ordered. EDMS EDMS 05:18 05:18 PTT, ACTIVATED+COAG.LAB.BRZ ordered. EDMS EDMS 05:49 05:18 Accucheck ordered. rt al5 06:33 05:05 rt al5
[2024-08-30 05:39] LABS: Specific Gravity 1.006 (1.005-1.030); Sqamous Epithelial None Seen /HPF (None Seen); Urine Bacteria None Seen /HPF (<20); Urine Bilirubin NEGATIVE (Negative); Urine Blood Negative (Negative); Urine Clarity Clear (Clear); Urine Color Colorless (Yellow); Urine Culture Reflex Order NOT NEEDED; Urine Glucose NEGATIVE (Negative); Urine Ketones NEGATIVE (Negative); Urine Micro Reflex YN NO BILL MICROSCOPIC; Urine Nitrite NEGATIVE (Negative); Urine Protein NEGATIVE (Negative); Urine RBC None Seen /HPF (None Seen); Urine Urobilinogen Normal (Normal); Urine WBC <5 /HPF (<5)
[2024-08-30] MEDS ORDERED: NA CHLORIDE 0.9% 100 ML ONE (06:04)
[2024-08-30] MEDS ORDERED: CEFTRIAXONE 1000 MG/VIAL ONE (06:04)
--- NOTE | 2024-08-30 06:06 | RAD REPORT ---
EXAM: CT Abdomen and Pelvis With Intravenous Contrast CLINICAL HISTORY: The patient is 38 years old and is Male; ABD PAIN TECHNIQUE: Axial computed tomography images of the abdomen and pelvis with intravenous contrast. Sagittal and coronal reformatted images were created and reviewed. This CT exam was performed using one or more of the following dose reduction techniques: automated exposure control, adjustmen t of the mA and/or kV according to patient size, and/or use of iterative reconstruction technique. COMPARISON: No relevant prior studies available. FINDINGS: Lung bases: Unremarkable. No mass. No consolidation. ABDOMEN: Liver: Hepatomegaly with diffuse hepatic steatosis. Gallbladder and bile ducts: Unremarkable. No calcified stones. No ductal dilation. Pancreas: Unremarkable. No mass. No ductal dilation. Spleen: Unremarkable. No splenomegaly. Adrenals: Unremarkable. No mass. Kidneys and ureters: Unremarkable. No solid mass. No hydronephrosis. Stomach and bowel: Unremarkable. No obstruction. No mucosal thickening. PELVIS: Appendix: Suggestion of prior appendectomy. Bladder: Unremarkable. Reproductive: Unremarkable as visualized. ABDOMEN and PELVIS: Intraperitoneal space: Unremarkable. No free air. No significant fluid collection. Bones/joints: No acute fracture. No dislocation. Soft tissues: Unremarkable. Vasculature: Unremarkable. No abdominal aortic aneurysm. Lymph nodes: Unremarkable. No enlarged lymph nodes. * A single impression for all exams can be found at the end of this report EXAM: XR Chest, 1 View CLINICAL HISTORY: The patient is 38 years old and is Male; ABD PAIN TECHNIQUE: Frontal view of the chest. COMPARISON: No relevant prior studies available. FINDINGS: Lungs: Prominent interstitial markings which may indicate mild interstitial edema. Peribronchial thickening. No consolidation. Pleural space: Unremarkable. No pneumothorax. Heart: Unremarkable. Mediastinum: Unremarkable. Normal mediastinal contour. Bones/joints: No acute findings. * A single impression for all exams can be found at the end of this report IMPRESSION: CT Abdomen and Pelvis With Intravenous Contrast: No acute finding in the abdomen/pelvis. XR Chest, 1 View: Prominent interstitial markings which may indicate mild interstitial edema. Peribronchial thickenin g. No consolidation. Electronically signed by: Cody Marvin MD 08/30/2024 04:09 AM CDT RP 8 Due to temporary technical issues with the PACS/Gradalis reporting system, reports are being yang d by the in-house radiologist without review as a courtesy to ensure prompt reporting the interpreting radiologist is fully responsible for the content of the report. Transcribed Date/Time: 08/30/2024 6:06 AM
[2024-08-30 06:36] LABS: PT Prothrombin Time 11.7 SECONDS (9.4-12.5); PTT, Activated Partial Thromb 34.2 SECONDS (24.3-36.9); Protime INR 1.05
[2024-08-30 06:39] VITALS: TEMP 98.9
[2024-08-30 06:51] VITALS: BP 117/63; O2SAT 96
--- NOTE | 2024-09-02 12:22 | EKG ---
Test Date: 2024-08-30 Test Time: 00:53:22 Vp Lab: MEASUREMENT RESULTS: Intervals: Rate: 109 TN: QRSD: 102 QT: 334 QTc: 449 [place]: P: TN: QRS: 135 T: 94 INTERPRETIVE STATEMENTS: Accelerated Junctional rhythm with fusion complexes Low voltage QRS Abnormal ECG Compared to ECG 02/17/2023 19:47:40 Accelerated junctional rhythm now present Fusion complex(es) now present Low QRS voltage now present Sinus tachycardia no longer present Electronically Signed On 09-02-24 12:17:17 POLE MAKER by Abel Fuentes
== END 2024-08-30 06:33 | disposition short-term general hospital (02) ==
LOC: ER 00:36
DX: N44.00 Torsion of testis, unspecified (principal); R60.1 Generalized edema; R06.02 Shortness of breath; J44.9 Chronic obstructive pulmonary disease, unspecified; I50.9 Heart failure, unspecified; Z72.0 Tobacco use
CPT/HCPCS: 96365; 93005; 87040 ×2; 85025; 81001; 80048; 36415; 85610; 80076; 83605; 85730; 84484; 83880; 74177; 71045; 76870; 96375; 99285; Q9967; J1940; J2405; J0696

== ENCOUNTER 2024-12-12 15:20 | Emergency (ER) | payer OTHER ==
[2024-12-12] MEDS ORDERED: CEFTRIAXONE 1000 MG/VIAL ONE (17:06)
[2024-12-12] MEDS ORDERED: NA CHLORIDE 0.9% 50 ML ONE (17:06)
[2024-12-12 17:36] LABS: Albumin 3.1 g/dL (3.4-5.0); Albumin/Globulin Ratio 0.6 (1.1-1.8); Anion Gap 7.9 mEq/L (5.0-15.0); Bilirubin Total 0.2 mg/dL (0.2-1.0); Globulin 4.8 g/dL (2.3-3.5); Potassium 3.9 mEq/L (3.5-5.1); Protein, Total 7.9 g/dL (6.4-8.2)
--- NOTE | 2024-12-12 17:56 | RAD REPORT ---
EXAMINATION: CT Abdomen Pelvis Wo Contrast CLINICAL INDICATION: Male, 38 years old. ABD PAIN TECHNIQUE: CT abdomen and pelvis was performed, without IV contrast, as per department protocol. Axia l, sagittal and coronal reconstructions were obtained. One or more of the following dose reduction techniques were used: Automated exposure control, adjustment of the mA and kV according to the patien t size, and iterative reconstruction. Unless otherwise specified, incidental findings do not require dedicated imaging follow-up. COMPARISON: 08/30/2024 FINDINGS: The lack of intravenous contrast limits the sensitivity of this exam for evaluation of solid visceral organs, vascular structures, and retroperitoneum. LOWER CHEST: The visualized lung bases are clear. LIVER: Normal in size and contour. Diffuse areas of hypoattenuation suggesting steatosis. No focal le nestor. BILIARY SYSTEM: No suspicious abnormalities. SPLEEN: Normal size. No focal lesion. PANCREAS: No mass, ductal dilation, or eduar-pancreatic fluid. ADRENALS: Normal; no mass. KIDNEYS AND URETERS: Normal size and contour. No hydronephrosis. URINARY BLADDER: Normal contour. GASTROINTESTINAL TRACT: No evidence of bowel obstruction, significant free fluid, free air or abscess . APPENDIX: Appendix surgically absent. LYMPH NODES: No lymphadenopathy. MUSCULOSKELETAL: No acute or suspicious osseous abnormality. ADDITIONAL FINDINGS: Stable bilateral fat-containing inguinal hernias, with sequelae of prior mesh re pair on the left. Crescentic hypodense structure near the left inguinal ring measuring 2.5 cm is stable, may represent a chronic seroma.. IMPRESSION: No acute or concerning abnormalities in the abdomen or pelvis, with evaluation limited by lack of IV contrast. Stable findings as above.
--- NOTE | 2024-12-12 18:12 | RAD REPORT ---
EXAMINATION: ONE VIEW CHEST XR CLINICAL INDICATION: Male, 38 years old.,COUGH TECHNIQUE: Frontal chest projection is submitted. Examination is limited by patient positioning and t echnique. COMPARISON: 08/30/2024 FINDINGS: The lungs are grossly clear although suboptimal inspiratory effort somewhat limits evaluation. No pn eumothorax or sizable effusion. The heart is normal in size. Mediastinal contours are unremarkable. IMPRESSION: No acute intrathoracic abnormalities.
[2024-12-12] MEDS ORDERED: KETOROLAC 30 MG/ML INJ ONE (18:51)
[2024-12-12 18:56] LABS: PTT, Activated Partial Thromb 38.6 SECONDS (24.3-36.9); Protime INR 1.14
[2024-12-12 19:05] LABS: Absolute Basophils 0.1 K/uL (0-0.5); Absolute Eosinophils 0.2 K/uL (0-0.5); Absolute Lymphocytes (CBC) 2.6 K/uL (0.7-4.9); Absolute Monocytes 1.4 K/uL (0.1-1.3); Absolute Neutrophil 12.8 K/uL (1.8-8.0); Basophils % 0.7 % (0-1.3); Eosinophils % 1.4 % (0-4.4); Hematocrit 48.8 % (39.6-49.0); Hemoglobin 16.2 g/dL (13.6-17.9); Lymphocytes % 15.1 % (15.3-44.8); MCH 29.6 pg (27.0-35.0); MCHC 33.1 g/dL (32.0-36.0); MCV 89.3 fL (80-100); MPV 8.7 fL (7.6-11.3); Monocytes % 8.2 % (3.3-12.3); Neutrophils % 74.6 % (41.7-73.7); Nucleated Red Blood Cells % 0.1 % (0-0); Platelets 393 thou/uL (152-406); RBC Red Blood Cell Count 5.46 M/uL (4.33-5.43); Red Cell Distribution Width 15.2 % (12.1-15.2)
[2024-12-12 19:19] LABS: SARS-CoV-2 Antigen CONTROL BLUE LINE VIS/BG OK; SARS-CoV-2 Antigen Rapid Res Negative (Negative)
--- NOTE | 2024-12-12 20:27 | EDPHYS ---
Physician Documentation [facility] Name: Kendall Kapoor Age: 38 yrs Sex: Male : 1985 Arrival Date: 12/12/2024 Time: 15:20 Bed 17 Private MD: ED Physician Alessandro Llanes HPI: 12/12 17:02 This 38 yrs old Male presents to ER via EMS with complaints of feeling unwell.ec2 17:03 Patient arrives today for evaluation. Patient was at clinic today at his doctor's ec2 office, was noted to be tachycardic and brought into the ED for further evaluation. Patient with multiple comorbidities including CHF, COPD, had a recent right groin infection. Patient reports feeling generally unwell.. Historical: - Allergies: 15:39 Bees; db - PMHx: 15:39 Asthma; CAD; COPD; diabetes mellitus; TIA; Enlarged Heart; CHF; db - PSHx: 15:39 Appendectomy; hernia repair; db - Immunization history:: Adult Immunizations unknown. - Infectious Disease History:: Denies. - Social history:: Smoking status: Patient/guardian denies using tobacco. ROS: 17:03 Constitutional: as per hpi ec2 Exam: 17:03 Constitutional: GEN: NAD Head: atraumatic Eyes: EOMI Ears: External ears are ec2 normal. CV: Tachycardia LUNGS: no respiratory distress, occasional scattered wheeze noted. ABD: non-distended, morbidly obese individual. Generally tender. : Erythema within the inguinal fold, no fluctuance, no purulence noted, no crepitus noted. Scrotum without swelling noted. SKIN: no evidence of rashes MSK: no evidence of trauma Vital Signs: 15:23 BP 129 / 80; Pulse 109; Resp 22; Temp 98.6; Pulse Ox 98% on 3 lpm NC; Weight 172.37 kg; db Height 5 ft. 8 in. ; 17:30 BP 116 / 66; Pulse 99; Resp 18; Pulse Ox 97% 3 lpm ; db 18:30 BP 121 / 83; Pulse 98; Resp 18; Pulse Ox 95% on 3 lpm NC; db 19:30 BP 112 / 60; Pulse 77; Resp 20; Pulse Ox 98% ; jj7 20:37 BP 129 / 69; Pulse 77; Resp 16; Temp 97.8; Pulse Ox 96% on R/A; jj7 15:23 Body Mass Index 57.78 (172.37 kg, 172.72 cm) db MDM: 15:29 Medical Screening Exam initiated ec2 17:03 Data reviewed: vital signs, nurses notes. ED course: Patient arrives today for further ec2 evaluation of of abnormal vital signs at the clinic. Examination yields tachycardic individual who is morbidly obese with erythema in the inguinal fold without evidence of Becky's gangrene. Will obtain septic workup, chest x-ray. EKG independently reviewed and interpreted by me, shows normal sinus rhythm, rate 99, no acute ST segment elevations, intervals are nonactionable.. 20:31 ED course: Patient is lying in bed in no acute distress. His wound is unremarkable. sb4 Vital signs are within normal limits. Lactate is normal. White blood cell count was slightly elevated at 17 which I suspect is secondary to the known infection in his right groin. he is only complaining of generalized joint pain. He states that he is not on oral antibiotics, but was receiving IV antibiotics at [facility]. Will discharge home with oral antibiotics and for follow-up with Inocencia Victor. 12/12 15:30 Order name: Blood Culture Adult (2) ec2 12/12 15:30 Order name: CBC with Diff; Complete Time: 19:06 ec2 12/12 15:30 Order name: CMP; Complete Time: 19:19 ec2 12/12 15:30 Order name: Lactate w/ 2H reflex if indic.; Complete Time: 17:48 ec2 12/12 15:30 Order name: Protime (+inr); Complete Time: 18:56 ec2 12/12 15:30 Order name: Ptt, Activated; Complete Time: 18:56 ec2 12/12 15:30 Order name: BNP; Complete Time: 19:19 ec2 12/12 18:33 Order name: SARS RAPID; Complete Time: 19:19 sb4 12/12 18:33 Order name: Flu; Complete Time: 19:20 sb4 12/12 15:30 Order name: Chest Single View XRAY; Complete Time: 18:18 ec2 12/12 15:52 Order name: CT Abd/Pelvis - Without Contrast; Complete Time: 18:06 ec2 12/12 15:30 Order name: Accucheck; Complete Time: 19:05 12/12 15:30 Order name: Cardiac monitoring; Complete Time: 16:58 [facility] 12/12 15:30 Order name: EKG - Nurse/Tech; Complete Time: 16:58 12/12 15:30 Order name: IV Saline Lock - Large Bore; Complete Time: 16:58 [facility] 12/12 15:30 Order name: Labs collected and sent; Complete Time: 16:58 [facility] 12/12 15:30 Order name: O2 Per Protocol; Complete Time: 16:58 12/12 15:30 Order name: O2 Sat Monitoring; Complete Time: 16:58 12/12 15:30 Order name: Vital Signs; Complete Time: 16:58 [facility] 12/12 17:26 Order name: Misc. Order: lavender green and blue recollect; Complete Time: 18:55 ty Administered Medications: 17:30 Drug: Rocephin IV 1 grams IV at bolus once; Given slow IV push per pharmacy db instructions Route: IV; Rate: bolus; Site: left upper arm; 19:30 Follow up: IV Status: Completed infusion jj7 18:55 Drug: Ketorolac IVP 15 mg IVP once Route: IVP; Site: left upper arm; db 20:55 Follow up: Response: Pain is decreased jj7 Disposition: 12/13 07:15 I agree with the assessment and plan of care. I reviewed the patient's care provided by [facility] Advanced Practice Provider \T\ agree w/ the diagnosis \T\ care plan. I personally saw the pt \T\ performed a substantive portion of the visit, incldng all aspects of the (History/Exam/Medical Decision Making). Disposition Summary: 12/12/24 20:27 Discharge Ordered Notes: Location: Home sb4 Problem: an ongoing problem sb4 Symptoms: have improved sb4 Condition: Stable sb4 Diagnosis - Cellulitis of groin sb4 - Morbid (severe) obesity due to excess calories sb4 Followup: sb4 - With: Emergency Department - When: As needed - Reason: Trouble breathing, Worsening of condition Discharge Instructions: - Discharge Summary Sheet sb4 - Cellulitis, Adult sb4 Forms: - Antibiotic Education sb4 - Patient Portal Instructions sb4 - Leadership Thank You Letter sb4 Prescriptions: - Clindamycin HCl 300 mg Oral Capsule - take 1 capsule ORAL route every 6 hours for 10 days; 40 capsule; Refills: 0, sb4 Product Selection Permitted - Diclofenac Sodium 75 mg Oral Tablet Sustained Release - take 1 tablet ORAL route 2 times per day; 30 tablet; Refills: 0, Product sb4 Selection Permitted Signatures: Dispatcher [employer] Henrietta Escoto RN RN Naomie Trejo, ROBBY BUSTAMANTE sb4 Alessandro Llanes MD MD ec2 Magdy Parnell Juwairiyah RN jj7 Corrections: (The following items were deleted from the chart) 12/12 15:30 15:30 BLOOD CULTURE*+BA.LAB.BRZ ordered. EDMS EDMS 15:30 15:30 CBC+H.LAB.BRZ ordered. EDMS EDMS 15:30 15:30 COMPREHENSIVE METABOLIC PANEL+C.LAB.BRZ ordered. EDMS EDMS 15:30 15:30 LACTATE+C.LAB.BRZ ordered. EDMS EDMS 15:30 15:30 PROTIME (+INR)+COAG.LAB.BRZ ordered. EDMS EDMS 15:30 15:30 PTT, ACTIVATED+COAG.LAB.BRZ ordered. EDMS EDMS 15:30 15:30 PROBNP+C.LAB.BRZ ordered. EDMS EDMS 15:30 15:30 Chest Single View+RAD.RAD.BRZ ordered. EDMS EDMS 19:20 19:20 Abdomen Pelvis W Con+CT.RAD.BRZ ordered. EDMS EDMS 20:40 20:31 ED course: Patient is lying in bed in no acute distress. His wound is sb4 unremarkable. Vital signs are within normal limits. Lactate is normal. White blood cell count was slightly elevated at 17 which I suspect is from all wounds in which she is already on antibiotics for. he is only complaining of generalized joint pain. He states that he is not on oral antibiotics. Will discharge home with oral antibiotics and for follow-up with Inocencia Victor. sb4
--- NOTE | 2024-12-12 20:27 | ER ---
Nurse's Notes [facility] Name: Kendall Kapoor Age: 38 yrs Sex: Male : 1985 Arrival Date: 12/12/2024 Time: 15:20 Bed 17 Private MD: Diagnosis: Cellulitis of groin;Morbid (severe) obesity due to excess calories Presentation: 12/12 15:23 Chief complaint: EMS states: PICKED UP AT [facility] FOR TACHYCARDIA 120, O2 db 92% AND ABSCESS RIGHT GROIN INFECTION. PT RECENTLY RELEASED FROM [facility] 2 DAYS AGO FOR RIGHT GROIN ABSCESS. GIVEN AA X 2 BY EMS. TOOK HOME [place] AT 12PM. Coronavirus screen: Client denies travel out of the [place] in the last 14 days. At this time, the client does not indicate any symptoms associated with coronavirus-19. Ebola Screen: Patient negative for fever greater than or equal to 101.5 degrees Fahrenheit, and additional compatible Ebola Virus Disease symptoms Patient denies exposure to infectious person. Patient denies travel to an Ebola-affected area in the 21 days before illness onset. No symptoms or risks identified at this time. Initial Sepsis Screen: Does the patient meet any 2 criteria? No. Patient's initial sepsis screen is negative. Does the patient have a suspected source of infection? No. Patient's initial sepsis screen is negative. Risk Assessment: Do you want to hurt yourself or someone else? Patient reports no desire to harm self or others. Onset of symptoms was December 12, 2024. 15:23 Method Of Arrival: EMS: [facility] db 15:23 Acuity: JELLY 2 db Triage Assessment: 15:39 General: Appears in no apparent distress. comfortable, Behavior is calm, cooperative. db Neuro: Level of Consciousness is awake, alert, obeys commands, Oriented to person, place, time, situation. Respiratory: Airway is patent Respiratory effort is even, labored, Respiratory pattern is regular. Derm: Abscess located on RIGHT GROIN. Historical: - Allergies: 15:39 Bees; db - PMHx: 15:39 Asthma; CAD; COPD; diabetes mellitus; TIA; Enlarged Heart; CHF; db - PSHx: 15:39 Appendectomy; hernia repair; db - Immunization history:: Adult Immunizations unknown. - Infectious Disease History:: Denies. - Social history:: Smoking status: Patient/guardian denies using tobacco. Screenin:[facility] ED Fall Risk Assessment (Adult) History of falling in the last 3 months, db including since admission No falls in past 3 months (0 pts) Confusion or Disorientation No (0 pts) Intoxicated or Sedated No (0 pts) Impaired Gait No (0 pts) Mobility Assist Device Used No (0 pt) Altered Elimination No (0 pt) Score/Fall Risk Level 0 - 2 = Low Risk Oriented to surroundings, Maintained a safe environment. Abuse screen: Denies threats or abuse. Denies injuries from another. Nutritional screening: No deficits noted. Tuberculosis screening: No symptoms or risk factors identified. Assessment: 16:00 Reassessment: DIFFICULTY OBTAINING IV ACCESS. db 17:15 Reassessment: Patient appears in no apparent distress at this time. Patient and/or db family updated on plan of care and expected duration. Pain level reassessed. PHLEBOTOMY AT PATIENT BEDSIDE. 18:44 Reassessment: Patient appears in no apparent distress at this time. Patient and/or db family updated on plan of care and expected duration. Pain level reassessed. Patient is alert, oriented x 3, equal unlabored respirations, skin warm/dry/pink. General: Appears in no apparent distress. comfortable, Behavior is calm, cooperative. Neuro: Level of Consciousness is awake, alert, obeys commands, Oriented to person, place, time, situation. 19:30 Reassessment: ASSUMED CARE OF PT. PT LYING IN BED NO DISTRESS NOTED. VS STABLE. CALL [facility] HINOJOSA IN REACH. INFORMED PT URINE SAMPLE STILL NEEDED. PT STATES HE CAN'T GIVE ONE RIGHT NOW IT MIGHT BE HOURS BEFORE HE CAN. ASKED IF HE WOULD LIKE TO BE STRAIGHT CATH, PT REFUSED. Pain: Complains of pain in right arm. Neuro: Level of Consciousness is awake, alert, obeys commands, Oriented to person, place, time, situation. Musculoskeletal: A NODULE NOTED TO RIGHT FOREARM. NO REDNESS NOTED. PT STATES HIS ARM IS TENDER AND IT RADIATES TO HIS HAND. 19:30 Musculoskeletal: Reports pain in RIGHT AND LEFT KNEES. BILAT HIPS PAIN ONLY WHEN HE [facility] WALKS AND BENDS. 20:14 Reassessment: PT IS SLEEPING. [facility] Vital Signs: 15:23 BP 129 / 80; Pulse 109; Resp 22; Temp 98.6; Pulse Ox 98% on 3 lpm NC; Weight 172.37 kg; db Height 5 ft. 8 in. ; 17:30 BP 116 / 66; Pulse 99; Resp 18; Pulse Ox 97% 3 lpm ; db 18:30 BP 121 / 83; Pulse 98; Resp 18; Pulse Ox 95% on 3 lpm NC; db 19:30 BP 112 / 60; Pulse 77; Resp 20; Pulse Ox 98% ; jj7 20:37 BP 129 / 69; Pulse 77; Resp 16; Temp 97.8; Pulse Ox 96% on R/A; jj7 15:23 Body Mass Index 57.78 (172.37 kg, 172.72 cm) db ED Course: 15:28 Patient arrived in ED. ec2 15:29 Alessandro Llanes MD is Attending Physician. ec2 15:35 Henrietta Rocha, LIANE is Primary Nurse. db 15:39 Triage completed. db 15:39 Arm band placed on Patient placed in an exam room. db 16:15 CT Abd/Pelvis - Without Contrast In Process Unspecified. EDMS 16:20 Patient moved back from CT. db 16:44 Chest Single View XRAY In Process Unspecified. EDMS 17:00 Inserted saline lock: 20 gauge in left upper arm, using aseptic technique. Blood iw collected. Flushed with 10 mL NS. 17:13 Initial lab(s) drawn, by me, sent to lab. First set of blood cultures drawn by me. iw 18:33 Naomie Figueroa PA-C is PHCP. sb4 18:40 Lab(s) recollected, by me, sent to lab. db 19:10 Patient has correct armband on for positive identification. Pulse ox on. NIBP on. Warm db blanket given. 19:30 Provided Education on: USE OF CALL HINOJOSA. jj7 19:30 No provider procedures requiring assistance completed. jj7 20:04 Mauro Richardson, RN is Primary Nurse. jj7 20:47 IV discontinued, intact, bleeding controlled, No redness/swelling at site. Pressure jj7 dressing applied. Administered Medications: 17:30 Drug: Rocephin IV 1 grams IV at bolus once; Given slow IV push per pharmacy db instructions Route: IV; Rate: bolus; Site: left upper arm; 19:30 Follow up: IV Status: Completed infusion jj7 18:55 Drug: Ketorolac IVP 15 mg IVP once Route: IVP; Site: left upper arm; db 20:55 Follow up: Response: Pain is decreased j7 Medication: 19:10 VIS not applicable for this client. db Outcome: 20:27 Discharge ordered by . sb4 20:56 Patient left the ED. jj7 Signatures: Dispatcher [employer] Megna Adan RN RN iw Johnson, Juwairiyah, RN RN jHenrietta Dykes RN RN Naomie Trejo, PA-C PARosalindC sb4 Alessandro Llanes MD MD ec2 Corrections: (The following items were deleted from the chart) 20:27 19:30 Reassessment: ASSUMED CARE OF PT. PT LYING IN BED NO DISTRESS NOTED. VS STABLE. jj7 CALL HINO[facility]A IN REACH. INFORMED PT URINE SAMPLE STILL NEEDED. PT STATES HE CAN'T GIVE ONE RIGHT NOW IT MIGHT BE HOURS BEFORE HE CAN. ASKED IF HE WOULD LIKE TO BE STRAIGHT CATH, PT REFUSED. jj7 20:27 20:14 Reassessment: Patient is alert, oriented x 3, equal unlabored respirations, skin jj7 warm/dry/pink. jj7 20:38 20:14 BP 129 / 50; Pulse 105bpm; Resp 20bpm; Pulse Ox 93% RA; Temp 98.4F; jj7 jj7
[2024-12-12 21:44] VITALS: BP 129/69; TEMP 97.8; O2SAT 96
== END 2024-12-12 20:56 | disposition home or self-care (01) ==
LOC: ER 15:20
DX: L03.314 Cellulitis of groin (principal); E66.01 Morbid (severe) obesity due to excess calories; R00.0 Tachycardia, unspecified; Z11.52 Encounter for screening for COVID-19; J44.9 Chronic obstructive pulmonary disease, unspecified; I50.9 Heart failure, unspecified
CPT/HCPCS: 96365; 93005; 87040 ×2; 85025; 36415; 85610; 83605; 85730; 80053; 83880; 87804 ×2; 74176; 71045; 96375; 99285; 96366; 87811; J0696